=== PATIENT | female | born 1985 | race Caucasian/White ===

== ENCOUNTER 2022-04-25 23:49 | Emergency (ER) | payer BC, SELFPAY ==
--- NOTE | ~2022-04-25 | CT_ITS ---
EXAMINATION: CTA chest PE abdomen pel DATE: 04/26/2022 01:45 INDICATION: Midsternal chest pain radiating to the right. TECHNIQUE: Computed tomography (CT) pulmonary angiogram of the chest was performed with 100 mL Omnipa que-350 intravenous contrast. Additional 3D reconstructions utilizing coronal maximum intensity proje ction (MIP) were performed. CT of the abdomen and pelvis was performed with intravenous contrast util izing the same contrast bolus following a short delay. Automated exposure control and iterative recon struction technique were employed. The dose-length product was 599.43 mGy-cm. COMPARISON: None FINDINGS: Chest: Excellent contrast opacification of the pulmonary arteries. There is mild streak artifact from dense contrast in the superior vena cava and right atrium. No significant motion artifact yielding diagnost ic quality study which demonstrates no pulmonary embolism. Lungs are clear with no pneumonia, pulmona ry edema, pleural effusion or pneumothorax. Heart size is normal. No pericardial effusion. Thoracic a jeannette is normal in caliber with no dissection. No pathologically enlarged thoracic lymphadenopathy. Juni rene are unremarkable. Abdomen/pelvis: Gallstones within the otherwise normal-appearing gallbladder with no wall thickening or pericholecyst ic inflammatory stranding to suggest acute cholecystitis. Liver, spleen, pancreas, bilateral adrenal glands and kidneys are normal. Bowels including the appendix are normal. No free intraperitoneal gas or fluid. No pathologically enlarged abdominal or pelvic lymphadenopathy. Bones are unremarkable. IMPRESSION: 1. No pulmonary embolism or other acute cardiopulmonary disease. 2. Cholelithiasis. Reviewed, dictated and finalized at location A.
--- NOTE | ~2022-04-25 | XR_ITS ---
EXAMINATION: XR chest 2V DATE: 04/26/2022 00:25 INDICATION: Mid to right-sided chest pain TECHNIQUE: PA and lateral views of the chest were obtained. COMPARISON: None FINDINGS: The lungs are clear with no focal airspace opacities, pulmonary edema, pleural effusion or pneumothor ax. The cardiomediastinal silhouette is normal. Visualized bones and soft tissues are unremarkable. IMPRESSION: 1. No acute cardiopulmonary disease. Reviewed, dictated and finalized at location A.
[2022-04-25 23:59] VITALS: BP 107/74; PULSE 73; RESP 16; TEMP 36.4; O2SAT 100
[2022-04-26] VITALS (9 sets, daily range): BP systolic 86–119; BP diastolic 57–81; PULSE 60–84; RESP 12–18; TEMP 36.6; O2SAT 98–99
--- NOTE | 2022-04-26 00:34 | ECG_ITS ---
Measurements Intervals [place] Rate: 74 P: -8 [place]: 114 QRS: -34 QRSD: 98 T: 34 QT: 397 QTc: 443 Interpretive Statements SINUS RHYTHM WITH SHORT WA INTERVAL LEFT AXIS DEVIATION LOW QRS VOLTAGE IN PRECORDIAL LEADS INCOMPLETE RIGHT BUNDLE BRANCH BLOCK BORDERLINE ST-T WAVE ABNORMALITY- ANT/INF LEADS BASELINE ARTIFACT- II, III, AVF, V1-V3 BORDERLINE ECG NO PREVIOUS ECG AVAILABLE FOR COMPARISON Electronically Signed On 04-26-2022 7:56:56 CDT by Vito Ricci D.O.
--- NOTE | 2022-04-26 00:39 | ED.GENADULT ---
HPI - General Adult General Chief complaint: Chest Pain <Zay Yap MD - Last Filed: 04/26/22 06:27> Stated complaint: Chest pain, numbness and tingling <Zay Yap MD - Last Filed: 04/26/22 06:27> Time Seen by Provider: 04/26/22 00:07 <Zay Yap MD - Last Filed: 04/26/22 06:27> History of Present Illness HPI narrative: Patient is a 36-year-old biologic male that is transitioning to female that presents the emergency department with chief complaint of chest pain. Patient reports that the started having some sensation of tingling on the left side of the body and also a strange sensation in the chest that goes from the center of the chest to the right side of the chest. Patient reports this started around 10 AM this morning when they woke up the patient reports that they are on estrogen therapy during the transition and are concerned for possible PE. The patient does report that they have had some numbness in the left leg and left arm this is started at 10 AM this with last known well outside of the window from thrombolytic standpoint <Zay Yap MD - Last Filed: 04/26/22 06:27> Related Data Allergies/adverse reactions: Allergies Allergy/AdvReac Type Severity Reaction Status Date / Time Penicillins Allergy Anaphylaxis Verified 04/26/22 00:50 <Zay Yap MD - Last Filed: 04/26/22 06:27> Review of Systems Review of Systems: A 10 system review of systems was completed on the patient and is negative except for what is stated in the HPI. Nursing and ancillary documentation was reviewed. <Zay Yap MD - Last Filed: 04/26/22 06:27> Exam Narrative: GENERAL: Well-appearing, well-nourished, and in no acute distress. HEAD: Normocephalic, atraumatic. EYES: PERRLA and EOMI. ENT: Nares clear, no rhinorrhea or epistaxis. Mucous membranes moist. NECK: Supple. CHEST: Clear to auscultation. No respiratory distress. HEART: Regular rate and rhythm. No murmur heard. Normal peripheral pulses. ABDOMEN: Soft, nontender, nondistended, normal active bowel sounds. EXTREMITIES: Normal range of motion. No edema. metrical smile SKIN: Warm, dry, no rash. NEURO: No focal deficits. Alert and oriented x3.Slight decrease sensation in the left lower extremity equal training intern strength bilaterally able to lift legs off of the stretcher equally sym PSYCH: Normal mood and affect. <Zay Yap MD - Last Filed: 04/26/22 06:27> Course Reevaluation(s) Reevaluation #1: Patient care was signed out to me by Dr. Yap Patient is a 36-year-old transitioning female presenting to the emergency department for evaluation of chest pain and lightheadedness. Patient is on hormone therapy. Patient did have negative serial troponins. Patient was afebrile with no leukocytosis. Patient's CMP is similar to the baseline. CTA was ordered to rule out pulmonary embolism. CTA showed no pulmonary embolism or other acute cardiopulmonary disease. EKG shows normal sinus rhythm with short [place] interval, left axis deviation, incomplete right bundle, nonspecific ST changes, no ectopy. Patient was updated the results of the work-up including labs, imaging and EKG. Patient was encouraged of close follow-up with their primary care physician. All questions and concerns were addressed. Patient was well-appearing at time of discharge. <Manuel Jin MD - Last Filed: 04/26/22 11:24> Vital Signs Vital signs: Vital Signs Temperature 97.6 F 04/25/22 23:59 Pulse Rate 73 04/25/22 23:59 Respiratory Rate 16 04/25/22 23:59 Blood Pressure 107/74 04/25/22 23:59 Pulse Oximetry 100 04/25/22 23:59 Oxygen Delivery Room Air 04/25/22 23:59 Temperature 98 F 04/26/22 06:14 Pulse Rate 70 04/26/22 08:45 Respiratory Rate 16 04/26/22 08:45 Blood Pressure 95/66 L 04/26/22 08:45 Pulse Oximetry 98 04/26/22 08:45 Oxygen Delivery [place]
[2022-04-26] MEDS: ASPIRIN 81 MG CHEWABLE TABLET 324 MG PO (00:49)
[2022-04-26 00:53] LABS: INR 1.1; Partial Thromboplastin Time 27.8 SECONDS (22.3-36.8); Prothrombin Time 13.7 Seconds (11.1-14.7)
[2022-04-26 00:55] LABS: Basophils Percent Auto 0.2 % (0.2-1.2); Eosinophils Absolute Auto 0.2 K/mm3 (0-0.3); Hematocrit 43.5 % (37.0-47.0); Hemoglobin 14.9 g/dL (12.0-15.0); Immature Granulocyte Absolute 0.02 K/mm3 (0.00-0.031); Immature Granulocyte Percent A 0.2 % (0-0.5); Lymphocytes Absolute Auto 2.66 K/mm3 (0.9-3.2); Lymphocytes Percent Auto 29.2 % (18.3-44.2); Mean Corpuscular HGB Conc 34.3 g/dl (32-36); Mean Corpuscular Volume 90.4 fl (80-100); Mean Platelet Volume 10.9 fl (7.4-10.4); Monocytes Absolute Auto 0.6 K/mm3 (0.1-0.6); Neutrophils Absolute Auto 5.7 K/mm3 (1.3-6.7); Neutrophils Percent Auto 62.4 % (45.5-73.1); Platelet Count Result 259 k/mm3 (150-375); Red Blood Count 4.81 M/mm3 (4.2-5.4); Red Cell Distribution Width 12.8 % (11.5-14.5); White Blood Count 9.1 K/mm3 (4.5-10.0)
[2022-04-26 01:16] LABS: Alanine Aminotransferase 19 U/L (6-35); Albumin Level 4.8 g/dL (3.5-5.1); Alkaline Phosphatase 78 U/L (38-126); Anion Gap 7 mmol/L (8-16); Aspartate Amino Transferase 21 U/L (14-36); Bilirubin,Total 0.8 mg/dL (0.2-1.3); Blood Urea Nitrogen 5 mg/dL (7-17); Calcium 9.4 mg/dL (8.4-10.2); Carbon Dioxide 29 mmol/L (22-30); Chloride 99 mmol/L (98-107); Estimated CRCL calculation 113 ml/min; Estimated Glomerular Filt Rate > 60; Glucose 116 mg/dL (65-110); Lipase 35 U/L (23-300); Potassium 3.5 mmol/L (3.4-5.0); Sodium 135 mmol/L (137-145); Troponin I < 0.012 ng/mL (0.000-0.034)
[2022-04-26 04:14] LABS: Troponin I < 0.012 ng/mL (0.000-0.034)
[2022-04-26 07:25] LABS: Troponin I < 0.012 ng/mL (0.000-0.034)
== END 2022-04-26 08:46 | disposition home or self-care (01) ==
PROVIDERS: Emergency Provider Emergency Medicine
DX: R07.89 Other chest pain (principal)
CPT/HCPCS: 36415; 71046; 71275; 74177; 80053; 83690; 84484; 85025; 85610; 85730; 93005; 99284; A9270; Q9967

== ENCOUNTER 2022-05-20 17:57 | Emergency (ER) | payer BC, SELFPAY ==
--- NOTE | ~2022-05-20 | CT_ITS ---
EXAMINATION: CT soft tissue neck w con DATE: 05/20/2022 19:49 INDICATION: TECHNIQUE: Computed tomography (CT) of the neck was performed with 75 mL Omnipaque-350 intravenous co ntrast. The dose-length product was 500.74 mGy-cm. COMPARISON: None FINDINGS: The thyroid gland is unremarkable. The submandibular and parotid glands are symmetric. There is n o cervical lymphadenopathy. There are no masses identified. The superior mediastinum is unremarka ble. The airway is unremarkable. Parapharyngeal and pre-glottic fat planes are preserved. Lashaun l enhancing neck arteries. The orbits are unremarkable. Visualized sinuses and mastoid air cells a re well aerated. Visualized lung parenchyma is clear. Visualized bones normal for age. IMPRESSION: Normal CT soft tissue neck findings. Reviewed, dictated and finalized at location K.
[2022-05-20 18:04] VITALS: BP 122/79; PULSE 69; RESP 16; O2SAT 97
--- NOTE | 2022-05-20 18:25 | ED.GENADULT ---
HPI - General Adult General Chief complaint: Unspecified <YAMILETH Hunt Last Filed: 05/20/22 20:45> Stated complaint: throat pain <YAMILETH Hunt Last Filed: 05/20/22 20:45> Time Seen by Provider: 05/20/22 18:11 <YAMILETH Hunt Last Filed: 05/20/22 20:45> History of Present Illness HPI narrative: Patient is a 36-year-old female here for evaluation of globus sensation and difficulty swallowing x1 week. Patient states that she has had difficulty swallowing both solids and liquids over the past week, and has progressed in severity to the point where she is having difficulty swallowing pills. She is able to tolerate her own secretions. She denies any sore throat but states that she has a fullness sensation in her neck. She saw her GI doctor for this issue and has an EGD set up in 5 days, but patient presents due to concerns over progressive dysphagia. She is regurgitating her food out right after she eats it. She denies any abdominal pain, fevers or chills, known globus or foreign body. No SOB. She does have a history of eosinophilic esophagitis that was previously treated with Symbicort inhaler but she has not refilled this due to the cost. <Natividad Dye PA-C - Last Filed: 05/20/22 20:45> Related Data Allergies/adverse reactions: Allergies Allergy/AdvReac Type Severity Reaction Status Date / Time Penicillins Allergy Anaphylaxis Verified 05/20/22 18:10 <YAMILETH Hunt Last Filed: 05/20/22 20:45> Review of Systems Review of Systems: Gen.: Denies fevers or chills Eyes: Denies eye pain or visual change ENT: Reports throat pain Respiratory: Denies shortness of breath or cough CV: Denies chest pain or palpitations GI: Denies abdominal pain nausea, emesis or diarrhea : denies burning, urgency, frequency or hematuria Musculoskeletal: Denies back pain or muscle pain Neuro: Denies numbness, tingling, weakness or focal weakness Skin: Denies rash Except as documented, all other systems reviewed and negative <YAMILETH Hunt Last Filed: 05/20/22 20:45> Exam Narrative: APPEARANCE: Well appearing, no pain in distress, well-nourished. Head: Normocephalic and atraumatic. EYES: PERRLA/EOMI, conjunctivae clear NOSE: No nasal drainage EARS: External ear normal in appearance THROAT: Oropharynx is clear. Mucous membranes are moist. NECK: Supple. No adenopathy, no masses. RESPIRATORY: Airway patent, respirations nonlabored. Clear to auscultation bilaterally, no rales, rhonchi, wheezing. CARDIOVASCULAR: Regular rate and rhythm without murmurs, rubs, or gallops. ABDOMINAL: Normoactive bowel sounds. Soft, nontender, nondistended. No rebound tenderness or guarding. MUSCULOSKELETAL: Extremities are warm and well-perfused. Moves all extremities well. No edema. NEURO: Normal speech. No focal neurologic deficits. SKIN: Skin is warm and dry. No rashes. PSYCHIATRIC: Normal affect/mood.. <Natividad Dye PA-C - Last Filed: 05/20/22 20:45> Course ROLLER TURNER/PA Physician Supervision This is a was performed by both a physician and an APC. I performed all aspects of the MDM as documented w/ the following additions: 36-year-old female presenting with dysphagia. Unable tolerate solids but is tolerating liquids. No respiratory distress. CT neck was unremarkable. Patient has appropriate follow-up with GI in 5 days. Return precautions given.All questions answered. Patient in agreement w/ disposition. <Jasvir Guerra MD - Last Filed: 05/21/22 21:05> Vital Signs Vital signs: Vital Signs Pulse Rate 69 05/20/22 18:04 Respiratory Rate 16 05/20/22 18:04 Blood Pressure 122/79 05/20/22 18:04 Pulse Oximetry 97 05/20/22 18:04 Pulse Rate 68 05/20/22 20:47 Respiratory Rate 18 05/20/22 20:47 Blood Pressure 105/73 05/20/22 20:47 Pulse Oximetry 99 05/20/22 20:47 <Natividad Dye PA-C - Last Filed
[2022-05-20] MEDS: SODIUM CHLORIDE 0.9% IV 1,000 ML 999 ML IV CONT (18:39)
[2022-05-20] MEDS: ONDANSETRON INJ 4 MG/2 ML VIAL IV PUSH (18:40)
[2022-05-20 18:53] LABS: Basophils Percent Auto 0.3 % (0.2-1.2); Eosinophils Absolute Auto 0.5 K/mm3 (0-0.3); Eosinophils Percent Auto 5.9 % (0-4.4); Hematocrit 41.3 % (37.0-47.0); Hemoglobin 14.5 g/dL (12.0-15.0); Immature Granulocyte Absolute 0.02 K/mm3 (0.00-0.031); Immature Granulocyte Percent A 0.2 % (0-0.5); Lymphocytes Absolute Auto 2.14 K/mm3 (0.9-3.2); Lymphocytes Percent Auto 24.5 % (18.3-44.2); Mean Corpuscular HGB Conc 35.1 g/dl (32-36); Mean Corpuscular Hemoglobin 31.3 pg (26-34); Mean Corpuscular Volume 89.2 fl (80-100); Mean Platelet Volume 10.7 fl (7.4-10.4); Monocytes Absolute Auto 0.6 K/mm3 (0.1-0.6); Monocytes Percent Auto 6.9 % (2.6-8.5); Neutrophils Absolute Auto 5.4 K/mm3 (1.3-6.7); Neutrophils Percent Auto 62.2 % (45.5-73.1); Platelet Count Result 261 k/mm3 (150-375); Red Blood Count 4.63 M/mm3 (4.2-5.4); Red Cell Distribution Width 12.1 % (11.5-14.5); White Blood Count 8.8 K/mm3 (4.5-10.0)
[2022-05-20 18:59] LABS: Anion Gap 9 mmol/L (8-16); Blood Urea Nitrogen 3 mg/dL (7-17); Calcium 9.1 mg/dL (8.4-10.2); Carbon Dioxide 26 mmol/L (22-30); Chloride 104 mmol/L (98-107); Estimated CRCL calculation 128 ml/min; Estimated Glomerular Filt Rate > 60; Glucose 90 mg/dL (65-110); Potassium 3.6 mmol/L (3.4-5.0); Sodium 139 mmol/L (137-145)
[2022-05-20 20:47] VITALS: BP 105/73; PULSE 68; RESP 18; O2SAT 99
== END 2022-05-20 20:55 | disposition home or self-care (01) ==
PROVIDERS: Emergency Provider Physician Assistant
DX: F45.8 Other somatoform disorders (principal)
CPT/HCPCS: 36415; 70491; 80048; 85025; 96361; 96374; 99284; J2405; J7030; Q9967

== ENCOUNTER 2022-08-01 22:23 | Emergency (ER) | payer BC, SELFPAY ==
[2022-08-01 22:35] VITALS: BP 105/66; PULSE 68; RESP 18; TEMP 36.2; O2SAT 99
[2022-08-02 00:47] VITALS: BP 101/67; PULSE 64; RESP 14; O2SAT 100
[2022-08-02 00:49] LABS: Basophils Percent Auto 0.2 % (0.2-1.2); Eosinophils Absolute Auto 0.3 K/mm3 (0-0.3); Eosinophils Percent Auto 2.7 % (0-4.4); Hematocrit 42.8 % (37.0-47.0); Hemoglobin 14.5 g/dL (12.0-15.0); Immature Granulocyte Absolute 0.03 K/mm3 (0.00-0.031); Immature Granulocyte Percent A 0.3 % (0-0.5); Lymphocytes Absolute Auto 2.44 K/mm3 (0.9-3.2); Lymphocytes Percent Auto 25.9 % (18.3-44.2); Mean Corpuscular HGB Conc 33.9 g/dl (32-36); Mean Corpuscular Hemoglobin 30.7 pg (26-34); Mean Corpuscular Volume 90.7 fl (80-100); Mean Platelet Volume 10.8 fl (7.4-10.4); Monocytes Absolute Auto 0.6 K/mm3 (0.1-0.6); Monocytes Percent Auto 6.8 % (2.6-8.5); Neutrophils Percent Auto 64.1 % (45.5-73.1); Platelet Count Result 251 k/mm3 (150-375); Red Blood Count 4.72 M/mm3 (4.2-5.4); Red Cell Distribution Width 11.4 % (11.5-14.5); White Blood Count 9.4 K/mm3 (4.5-10.0)
[2022-08-02 01:11] LABS: Alanine Aminotransferase 14 U/L (6-35); Albumin Level 4.6 g/dL (3.5-5.1); Alkaline Phosphatase 65 U/L (38-126); Anion Gap 8 mmol/L (8-16); Aspartate Amino Transferase 20 U/L (14-36); Bilirubin,Total 0.8 mg/dL (0.2-1.3); Blood Urea Nitrogen 7 mg/dL (7-17); Calcium 9.1 mg/dL (8.4-10.2); Carbon Dioxide 30 mmol/L (22-30); Chloride 102 mmol/L (98-107); Estimated CRCL calculation 105 ml/min; Estimated Glomerular Filt Rate > 60; Glucose 84 mg/dL (65-110); Lipase 42 U/L (23-300); Potassium 3.6 mmol/L (3.4-5.0); Sodium 140 mmol/L (137-145)
[2022-08-02 01:27] LABS: Appearance Urine Turbid (Clear); Bacteria Urine None Seen /hpf; Bilirubin Urine Negative (Negative); Blood Urine Negative (Negative); Color Urine Dark Yellow (Yellow); Glucose Urine UA Negative (Negative); Ketones Urine Trace mg/dL (Negative); Leukocyte Esterase Ur Negative LEU/UL (Negative); Need Manual Microscopic Reviewed; Nitrate Urine Negative (Negative); Non Pathogenic Casts 0-2; Protein Urine Negative (Negative); RBC Urine 0-2 /hpf (0-2); Specific Grav Ur 1.019 (1.001-1.035); Squamous Epithelial Cell Urine None seen /hpf (Few)
[2022-08-02 01:28] LABS: Add Urine Microscopic? YES
[2022-08-02] MEDS: ONDANSETRON HCL ODT 4 MG TABLET PO (03:44)
[2022-08-02] MEDS: MAG HYDROX/AL HYDROX/SIMETH 30 ML UDC PO (03:44)
--- NOTE | 2022-08-02 04:06 | ED.NAVMDI ---
HPI - Nausea/Vomiting/Diarrhea General Chief complaint: Nausea/Vomiting/Diarrhea Stated complaint: vomiting, not able to eat for a week Time Seen by Provider: 08/02/22 03:15 History of Present Illness HPI Narrative: Patient (born male transitioning to woman) has history of GERD and eosinophilic esophagitis for which she is on Symbicort, Pepcid, Protonix, and follows up with GI in [place]. However she has run out of her prescription for Symbicort about 2 weeks ago, and about a week ago, started having more nausea, pain in her throat, the symptoms are all min to what she has when she has bad esophagitis and she thinks that is because she is out of the Symbicort. She is able to keep down fluids including Pedialyte but not much else. Some slight epigastric/left upper quadrant discomfort. Related Data Allergies Allergy/AdvReac Type Severity Reaction Status Date / Time Penicillins Allergy Anaphylaxis Verified 08/01/22 22:23 Review of Systems Review of Systems: CONST: No fever. HEENT: sore throat C/V: No chest pain RESP: No cough GI: Reports LUQ abdominal pain, nausea, vomiting : No dysuria. M/S: No joint pain. SKIN: No rash. NEURO: [No headache or focal numbness or weakness] PSYCH: [No depression] [facility] Past Medical History Medical History (Updated 08/02/22 @ 04:12 by Emily Osei MD) Eosinophilic esophagitis GERD (gastroesophageal reflux disease) Exam Narrative: EXAMINATION OF ORGAN SYSTEMS/BODY AREAS: Constitutional: Vital signs per nursing GENERAL:[No acute distress, non-toxic appearing.] HEAD: Normal with no signs of head trauma. EYES: EOMI, conjunctiva normal ENT: Normal voice, no pharyngeal erythema LUNGS: Nonlabored breathing. HEART: [Regular rate and rhythm] ABD: [Soft], [nontender to palpation] EXT: Normal range of motion SKIN: [No rashes or lesions.] NEURO: [Alert and oriented x 3. No gross focal sensory or strength deficits.] PSYCH: Normal affect Course Vital Signs Vital signs: Vital Signs Temperature 97.2 F L 08/01/22 22:35 Pulse Rate 68 08/01/22 22:35 Respiratory Rate 18 08/01/22 22:35 Blood Pressure 105/66 08/01/22 22:35 Pulse Oximetry 99 08/01/22 22:35 Oxygen Delivery Room Air 08/01/22 22:35 Temperature 97.2 F L 08/01/22 22:35 Pulse Rate 64 08/02/22 00:47 Respiratory Rate 14 08/02/22 00:47 Blood Pressure 101/67 08/02/22 00:47 Pulse Oximetry 100 08/02/22 00:47 Oxygen Delivery Room Air 08/01/22 22:35 MDM - Nausea/Vomiting/Diarrhea MDM Narrative Medical decision making narrative: Electronic medical record was reviewed. Patient presented to the ED with complaint of nausea/vomiting. Vitals [were within acceptable limits]. Physical exam revealed wel-appearing patient in no distress intact airway, soft nontender abdomen. Based on the patient's history and physical exam, my differential includes but is not limited to [gastritis/esophagitis, gastroenteritis, cholecystitis, pancreatitis]. [IV access was established by nursing staff. Patient was given zofran, maalox]. CBC, BMP, lipase, LFTs, bilirubin and alk phos were obtained. Labs were pertinent for minimal ketones in urine, 11-20 WBCs in urine but no bacteria and patient reports she is asexual so low concern for UTI. On reevaluation, the patient feeling better. There were no witnessed episodes of vomiting in the emergency department. They are not complaining of any new abdominal pain. Repeat examination did not show any significant guarding or rebound. She passed PO challenge here. No new tenderness. At this time I do not feel there is any further emergent treatment to be provided. The patient was given strict return precautions, if they are to develop any worsening abdominal pain, vomiting, or blood in the vomit they are to return to the emergency department immediately. Patient verbally acknowledges understanding these directions. [The patient was informed of the above diagnostic test finding
[2022-08-02 04:20] VITALS: PULSE 69; RESP 16; O2SAT 100
== END 2022-08-02 04:28 | disposition home or self-care (01) ==
PROVIDERS: Emergency Provider Emergency Medicine
DX: R11.2 Nausea with vomiting, unspecified (principal); K21.9 Gastro-esophageal reflux disease without esophagitis; K20.0 Eosinophilic esophagitis
CPT/HCPCS: 36415; 80053; 81001; 83690; 85025; 87086; 87088; 99283; A9270

== ENCOUNTER 2022-08-18 12:06 | Emergency (ER) | payer BC, SELFPAY ==
[2022-08-18 12:19] VITALS: BP 118/89; PULSE 61; RESP 18; TEMP 36.2; O2SAT 98
--- NOTE | 2022-08-18 12:31 | PC.NURSE ---
Pt is transgender. Male > female. No test needed.
--- NOTE | 2022-08-18 12:34 | PC.NURSE ---
Pt attempted to provided urine sample but unable to urinate at this time
[2022-08-18 12:43] LABS: Basophils Percent Auto 0.5 % (0.2-1.2); Eosinophils Absolute Auto 0.5 K/mm3 (0-0.3); Eosinophils Percent Auto 6.4 % (0-4.4); Hematocrit 42.6 % (37.0-47.0); Hemoglobin 14.7 g/dL (12.0-15.0); Immature Granulocyte Absolute 0.02 K/mm3 (0.00-0.031); Immature Granulocyte Percent A 0.3 % (0-0.5); Lymphocytes Absolute Auto 2.02 K/mm3 (0.9-3.2); Lymphocytes Percent Auto 26.5 % (18.3-44.2); Mean Corpuscular HGB Conc 34.5 g/dl (32-36); Mean Corpuscular Hemoglobin 30.7 pg (26-34); Mean Corpuscular Volume 88.9 fl (80-100); Mean Platelet Volume 10.9 fl (7.4-10.4); Monocytes Absolute Auto 0.5 K/mm3 (0.1-0.6); Monocytes Percent Auto 6.3 % (2.6-8.5); Neutrophils Absolute Auto 4.6 K/mm3 (1.3-6.7); Platelet Count Result 237 k/mm3 (150-375); Red Blood Count 4.79 M/mm3 (4.2-5.4); Red Cell Distribution Width 11.4 % (11.5-14.5); White Blood Count 7.6 K/mm3 (4.5-10.0)
[2022-08-18] MEDS: ONDANSETRON INJ 4 MG/2 ML VIAL IV PUSH (13:01)
[2022-08-18 13:02] LABS: Alanine Aminotransferase 18 U/L (6-35); Albumin Level 4.4 g/dL (3.5-5.1); Alkaline Phosphatase 70 U/L (38-126); Anion Gap 9 mmol/L (8-16); Aspartate Amino Transferase 23 U/L (14-36); Bilirubin,Total 0.7 mg/dL (0.2-1.3); Blood Urea Nitrogen 8 mg/dL (7-17); Calcium 8.9 mg/dL (8.4-10.2); Carbon Dioxide 27 mmol/L (22-30); Chloride 103 mmol/L (98-107); Estimated CRCL calculation 108 ml/min; Estimated Glomerular Filt Rate > 60; Glucose 116 mg/dL (65-110); Lipase 45 U/L (23-300); Potassium 3.9 mmol/L (3.4-5.0); Sodium 139 mmol/L (137-145)
[2022-08-18] MEDS: MORPHINE SULFATE (*CRX) 2 MG/ML INJ IV PUSH (13:02)
[2022-08-18 14:44] LABS: Appearance Urine Clear (Clear); Bilirubin Urine 1+ (Negative); Blood Urine Negative (Negative); Color Urine Yellow (Yellow); Glucose Urine UA Negative (Negative); Ketones Urine Negative (Negative); Leukocyte Esterase Ur Negative LEU/UL (Negative); Nitrate Urine Negative (Negative); Protein Urine Negative (Negative); pH Urine 6.5 (5.0-9.0)
[2022-08-18 14:57] VITALS: BP 96/60; PULSE 75; RESP 18; O2SAT 100
[2022-08-18 15:04] LABS: Add Urine Microscopic? NO
--- NOTE | 2022-08-18 15:11 | ED.NAVMDI ---
HPI - Nausea/Vomiting/Diarrhea General Chief complaint: Nausea/Vomiting/Diarrhea Stated complaint: N/V x 2 days Time Seen by Provider: 08/18/22 12:29 History of Present Illness HPI Narrative: Patient is a 36-year-old biological male transitioning to female who presents ER with nausea and vomiting. Ongoing for 2 days. Has history of eosinophilic esophagitis. She takes multiple medications to control this including pantoprazole, Symbicort, Flonase. Last balloon dilation was 2 months ago. Has some discomfort with swallowing at times and then will feel like she needs to throw up. She does not feel as if food gets stuck and has been able to keep food and water down. No fevers or chills or sweats. What is atypical for her is the fact that she is having some lower abdominal cramping with this. No diarrhea. No known sick contacts. Related Data Allergies Allergy/AdvReac Type Severity Reaction Status Date / Time Penicillins Allergy Anaphylaxis Verified 08/18/22 12:36 Review of Systems Constitutional: Constitutional: Denies chills, Denies fatigue and Denies fever(s) Cardiovascular: Cardiovascular: Denies chest pain and Denies rapid heart rate Respiratory: Respiratory: Denies cough and Denies dyspnea Gastrointestinal: Gastrointestinal: Reports abdominal pain, Reports nausea and Reports vomiting Musculoskeletal: Musculoskeletal: Reports no additional musculoskeletal complaints PMFSH Past Medical History Medical History (Updated 08/18/22 @ 15:20 by Adebayo Whitney MD) Eosinophilic esophagitis GERD (gastroesophageal reflux disease) Surgical History Surgical History (Updated 08/18/22 @ 15:20 by Adebayo Whitney MD) History of esophagogastroduodenoscopy (EGD) Exam Narrative: GENERAL: Well-appearing, well-nourished, and in no acute distress. HEAD: Normocephalic, atraumatic. EYES: PERRL and EOMI. ENT: Mucous membranes moist. Normal-appearing posterior oropharynx. Tolerating oral secretions without issue CHEST: Clear to auscultation. No respiratory distress. HEART: Regular rate and rhythm. Normal peripheral pulses. ABDOMEN: Soft, nontender, nondistended, normal active bowel sounds. EXTREMITIES: Normal range of motion. No edema. SKIN: Warm, dry, no rash. NEURO: Alert and oriented x3. PSYCH: Normal mood and affect. Course Course Emergency Course: Patient resting comfortably. Informed of results. Abdominal exam benign. Patient is able to eat and drink and so is not felt that patient requires emergent balloon dilation. Patient should follow-up with his GI physician and continue her PPI. She will be given antiemetics for home. Vital Signs Vital signs: Vital Signs Temperature 97.2 F L 08/18/22 12:19 Pulse Rate 61 08/18/22 12:19 Respiratory Rate 18 08/18/22 12:19 Blood Pressure 118/89 08/18/22 12:19 Pulse Oximetry 98 08/18/22 12:19 Temperature 97.2 F L 08/18/22 12:19 Pulse Rate 75 08/18/22 14:57 Respiratory Rate 18 08/18/22 14:57 Blood Pressure 96/60 L 08/18/22 14:57 Pulse Oximetry 100 08/18/22 14:57 MDM - Nausea/Vomiting/Diarrhea Lab Data 08/18/22 12:37 08/18/22 12:37 Labs: Lab Results 08/18/22 08/18/22 Range/Units 12:37 14:27 WBC 7.6 (4.5-10.0) K/mm3 RBC 4.79 (4.2-5.4) M/mm3 Hgb 14.7 (12.0-15.0) g/dL Hct 42.6 (37.0-47.0) % MCV 88.9 (80-100) fl MCH 30.7 (26-34) pg MCHC 34.5 (32-36) g/dl RDW 11.4 L (11.5-14.5) % Plt Count 237 (150-375) k/mm3 MPV 10.9 H (7.4-10.4) fl Immature Gran % (Auto) 0.3 (0-0.5) % Neut % (Auto) 60.0 (45.5-73.1) % Lymph % (Auto) 26.5 (18.3-44.2) % [place] % (Auto) 6.3 (2.6-8.5) % Eos % (Auto) 6.4 H (0-4.4) % Baso % (Auto) 0.5 (0.2-1.2) % Lymph # (Auto) 2.02 (0.9-3.2) K/mm3 [place] # (Auto) 0.5 (0.1-0.6) K/mm3 Eos # (Auto) 0.5 H (0-0.3) K/mm3 Baso # (Auto) 0.0 (0.0-0.1) K/mm3 Abs Immat Gran (auto) 0.02 (0.00-0.031) K/
== END 2022-08-18 15:29 | disposition home or self-care (01) ==
PROVIDERS: Emergency Provider Emergency Medicine
DX: R11.2 Nausea with vomiting, unspecified (principal); R10.9 Unspecified abdominal pain; K20.0 Eosinophilic esophagitis; K21.9 Gastro-esophageal reflux disease without esophagitis
CPT/HCPCS: 36415; 80053; 81003; 83690; 85025; 96374; 96375; 99284; J2270; J2405

== ENCOUNTER 2022-09-23 03:32 | Emergency (ER) | payer BC, SELFPAY ==
[2022-09-23 03:34] VITALS: BP 113/82; PULSE 75; RESP 16; TEMP 36.5; O2SAT 99
[2022-09-23] MEDS: LACTATED RINGERS 1,000 ML 999 ML IV CONT (04:35)
[2022-09-23] MEDS: ONDANSETRON INJ 4 MG/2 ML VIAL IV PUSH (04:35)
[2022-09-23 04:47] LABS: Basophils Percent Auto 0.4 % (0.2-1.2); Eosinophils Absolute Auto 0.6 K/mm3 (0-0.3); Eosinophils Percent Auto 7.3 % (0-4.4); Hematocrit 39.5 % (37.0-47.0); Hemoglobin 13.6 g/dL (12.0-15.0); Immature Granulocyte Absolute 0.03 K/mm3 (0.00-0.031); Immature Granulocyte Percent A 0.4 % (0-0.5); Lymphocytes Absolute Auto 2.01 K/mm3 (0.9-3.2); Lymphocytes Percent Auto 23.9 % (18.3-44.2); Mean Corpuscular HGB Conc 34.4 g/dl (32-36); Mean Corpuscular Hemoglobin 31.2 pg (26-34); Mean Corpuscular Volume 90.6 fl (80-100); Mean Platelet Volume 10.5 fl (7.4-10.4); Monocytes Absolute Auto 0.6 K/mm3 (0.1-0.6); Monocytes Percent Auto 7.3 % (2.6-8.5); Neutrophils Absolute Auto 5.1 K/mm3 (1.3-6.7); Neutrophils Percent Auto 60.7 % (45.5-73.1); Platelet Count Result 235 k/mm3 (150-375); Red Blood Count 4.36 M/mm3 (4.2-5.4); Red Cell Distribution Width 12.1 % (11.5-14.5); White Blood Count 8.4 K/mm3 (4.5-10.0)
[2022-09-23 04:50] LABS: Appearance Urine Clear (Clear); Bacteria Urine None Seen /hpf; Bilirubin Urine Negative (Negative); Blood Urine Negative (Negative); Color Urine Yellow (Yellow); Glucose Urine UA Negative (Negative); Ketones Urine Negative (Negative); Leukocyte Esterase Ur 1+ LEU/UL (Negative); Nitrate Urine Negative (Negative); Non Pathogenic Casts 0-2; Protein Urine Negative (Negative); RBC Urine 0-2 /hpf (0-2); Specific Grav Ur 1.021 (1.001-1.035); Squamous Epithelial Cell Urine None seen /hpf (Few); WBC Urine 21-50 /hpf; pH Urine 6.5 (5.0-9.0)
[2022-09-23 04:58] LABS: Add Urine Microscopic? YES
[2022-09-23 05:11] LABS: Alanine Aminotransferase 15 U/L (6-35); Albumin Level 4.3 g/dL (3.5-5.1); Alkaline Phosphatase 67 U/L (38-126); Anion Gap 5 mmol/L (8-16); Aspartate Amino Transferase 21 U/L (14-36); Bilirubin,Total 0.4 mg/dL (0.2-1.3); Blood Urea Nitrogen 12 mg/dL (7-17); Calcium 8.8 mg/dL (8.4-10.2); Carbon Dioxide 29 mmol/L (22-30); Chloride 105 mmol/L (98-107); Estimated CRCL calculation 106 ml/min; Estimated Glomerular Filt Rate > 60; Glucose 92 mg/dL (65-110); Lipase 57 U/L (23-300); Sodium 139 mmol/L (137-145)
[2022-09-23 05:12] LABS: D Dimer < 0.27 ug/mL (<0.48)
[2022-09-23 05:14] LABS: Potassium 3.6 mmol/L (3.4-5.0)
--- NOTE | 2022-09-23 06:40 | ED.NAVMDI ---
HPI - Nausea/Vomiting/Diarrhea General Chief complaint: Abdominal Pain Stated complaint: vomiting Time Seen by Provider: 09/23/22 03:49 History of Present Illness HPI Narrative: 36-year-old transgender female presenting with nausea and vomiting, she has had symptoms like this in the past and is followed by GI at [facility] who has started a new experimental medication but she still needs to clear her insurance for it in the meantime she is still taking pantoprazole and famotidine. When she is throwing up she feels a sensation of something in her throat. No difficulty breathing. Related Data Allergies Allergy/AdvReac Type Severity Reaction Status Date / Time Penicillins Allergy Anaphylaxis Verified 08/18/22 12:36 Review of Systems Review of Systems: CONST: No fever. HEENT: Sore throat C/V: No chest pain RESP: No cough GI: Reports epigastric abdominal pain, nausea, vomiting : No dysuria. M/S: No joint pain. SKIN: No rash. NEURO: [No headache or focal numbness or weakness] PSYCH: [No depression] [facility] Past Medical History Medical History (Updated 09/23/22 @ 06:23 by Emily Osei MD) Eosinophilic esophagitis GERD (gastroesophageal reflux disease) Surgical History Surgical History (Updated 08/18/22 @ 15:20 by Adebayo Whitney MD) History of esophagogastroduodenoscopy (EGD) Exam Narrative: EXAMINATION OF ORGAN SYSTEMS/BODY AREAS: Constitutional: Vital signs per nursing GENERAL:[No acute distress, non-toxic appearing.] HEAD: Normal with no signs of head trauma. EYES: EOMI, conjunctiva normal ENT: Airway clear, no pharyngeal erythema, normal voice, tolerating secretions LUNGS: Nonlabored breathing. HEART: [Regular rate and rhythm] ABD: [Soft], [nontender to palpation] EXT: Normal range of motion SKIN: [No rashes or lesions.] NEURO: [Alert and oriented x 3. No gross focal sensory or strength deficits.] PSYCH: Normal affect Course Vital Signs Vital signs: Vital Signs Temperature 97.7 F 09/23/22 03:34 Pulse Rate 75 09/23/22 03:34 Respiratory Rate 16 09/23/22 03:34 Blood Pressure 113/82 09/23/22 03:34 Pulse Oximetry 99 09/23/22 03:34 Oxygen Delivery Room Air 09/23/22 03:34 Temperature 97.7 F 09/23/22 03:34 Pulse Rate 79 09/23/22 06:49 Respiratory Rate 18 09/23/22 06:49 Blood Pressure 126/76 09/23/22 06:49 Pulse Oximetry 98 09/23/22 06:49 Oxygen Delivery Room Air 09/23/22 03:34 MDM - Nausea/Vomiting/Diarrhea MDM Narrative Medical decision making narrative: 36-year-old presenting with epigastric discomfort, nausea and vomiting, and some sensation of something in her throat, which is a chronic issue for her that she has had for many years and is followed by GI, presents here with the same symptoms. She is well-appearing on exam, abdomen is soft and nontender, she is also worried because she thinks that her left leg has been painful though there is no swelling. Labs are within acceptable limits including no WBC, D-dimer is negative, CMP within acceptable limits, UA shows large WBCs, I did discuss with the patient any concern for STDs and she states emphatically that she has never had sex in her life and that she has no concern for STDs whatsoever. She does not want treatment or testing for STDs. Given this I will tentatively start antibiotics for UTI and have the patient follow-up with her doctor. Lab Data 09/23/22 04:39 09/23/22 04:39 Labs: Lab Results 09/23/22 Range/Units 04:39 WBC 8.4 (4.5-10.0) K/mm3 RBC 4.36 (4.2-5.4) M/mm3 Hgb 13.6 (12.0-15.0) g/dL Hct 39.5 (37.0-47.0) % MCV 90.6 (80-100) fl MCH 31.2 (26-34) pg MCHC 34.4 (32-36) g/dl RDW 12.1 (11.5-14.5) % Plt Count 235 (150-375) k/mm3 MPV 10.5 H (7.4-10.4) fl Immature Gran % (Auto) 0.4 (0-0.5) % Neut % (Auto) 60.7 (45.5-73.1) % Lymph % (Auto) 23.9 (18.3-44.2) % [place] % (Auto) 7.3 (2.6-8.5) % Eos % (Auto) 7.3
[2022-09-23 06:49] VITALS: BP 126/76; PULSE 79; RESP 18; O2SAT 98
== END 2022-09-23 06:51 | disposition home or self-care (01) ==
PROVIDERS: Emergency Provider Emergency Medicine
DX: N39.0 Urinary tract infection, site not specified (principal); R11.2 Nausea with vomiting, unspecified; K21.00 Gastro-esophageal reflux disease with esophagitis, without bleeding
CPT/HCPCS: 36415; 80053; 81001; 83690; 85025; 85380; 87086; 96361; 96374; 99284; J2405; J7120

== ENCOUNTER 2022-11-07 20:41 | Emergency (ER) | payer BC, SELFPAY ==
[2022-11-07 20:43] VITALS: BP 127/90; PULSE 78; RESP 18; TEMP 36.6; O2SAT 100
--- NOTE | 2022-11-08 00:19 | PC.NURSE ---
Patient called for room placement, no answer and not seen in waiting room. Patient marked as left without being seen triaged.
== END 2022-11-08 00:20 | disposition left against medical advice (07) ==
LOC: ANHED 11-08 00:21
DX: R42 Dizziness and giddiness (principal)
CPT/HCPCS: 99199

== ENCOUNTER 2022-11-11 00:12 | Emergency (ER) | payer BC, SELFPAY ==
--- NOTE | ~2022-11-11 | CT_ITS ---
EXAMINATION: CT soft tissue neck w con DATE: 11/11/2022 05:13 INDICATION: Neck pain. Sore throat. TECHNIQUE: Computed tomography (CT) of the neck was performed with 75 mL Omnipaque-350 intravenous co ntrast. Automated exposure control and iterative reconstruction technique were employed. The dose-nick gth product was 431.13 mGy-cm. COMPARISON: Neck CT 05/20/2022 FINDINGS: There are no pathologically enlarged lymph nodes. There is mucosal thickening in the parana giovana sinuses. The maxillary sinuses are small. The mastoid air cells are normal. There are many absent teeth. The cervical carotid arteries are normal. There is mild cervical spondylosis. IMPRESSION: 1. No specific etiology for the patient's symptoms. Reviewed, dictated and finalized at location E.
--- NOTE | ~2022-11-11 | XR_ITS ---
EXAMINATION: XR chest 1V portable DATE: 11/11/2022 04:06 INDICATION: Chest tightness. Sore throat. TECHNIQUE: A single frontal view of the chest was obtained on 2 radiographs. COMPARISON: Chest 2 views 04/26/2022, chest CT 04/26/2022 FINDINGS: There is no pneumonia, pleural effusion, or pneumothorax. The heart size is normal. IMPRESSION: 1. No acute cardiopulmonary disease. Reviewed, dictated and finalized at location E.
[2022-11-11 00:14] VITALS: BP 115/72; PULSE 86; RESP 14; TEMP 36.3; O2SAT 100
[2022-11-11 01:00] LABS: Strep Group A RT-PCR NOT DETECTED (Negative)
--- NOTE | 2022-11-11 03:49 | ECG_ITS ---
Measurements Intervals [place] Rate: 73 P: 63 SC: 138 QRS: -21 QRSD: 96 T: 44 QT: 387 QTc: 428 Interpretive Statements SINUS RHYTHM LOW QRS VOLTAGE IN PRECORDIAL LEADS INCOMPLETE RIGHT BUNDLE BRANCH BLOCK BASELINE WANDER- II, III, AVR, AVF, V3-V4 BORDERLINE ECG COMPARED TO ECG 04/26/2022 00:34:37 NO SIGNIFICANT CHANGES Electronically Signed On 11-11-2022 6:41:14 CDT by Vito Ricci D.O.
[2022-11-11] MEDS: SODIUM CHLORIDE 0.9% IV 1,000 ML 999 ML IV CONT (04:11)
[2022-11-11] MEDS: FAMOTIDINE 20 MG/2 ML VIAL IV PUSH (04:11)
[2022-11-11 04:28] LABS: Basophils Percent Auto 0.3 % (0.2-1.2); Eosinophils Absolute Auto 0.7 K/mm3 (0-0.3); Eosinophils Percent Auto 5.3 % (0-4.4); Hematocrit 43.9 % (37.0-47.0); Hemoglobin 15.3 g/dL (12.0-15.0); Immature Granulocyte Absolute 0.05 K/mm3 (0.00-0.031); Immature Granulocyte Percent A 0.4 % (0-0.5); Lymphocytes Percent Auto 28.6 % (18.3-44.2); Mean Corpuscular HGB Conc 34.9 g/dl (32-36); Mean Corpuscular Hemoglobin 31.2 pg (26-34); Mean Corpuscular Volume 89.6 fl (80-100); Mean Platelet Volume 10.7 fl (7.4-10.4); Monocytes Absolute Auto 0.8 K/mm3 (0.1-0.6); Monocytes Percent Auto 6.3 % (2.6-8.5); Neutrophils Absolute Auto 7.7 K/mm3 (1.3-6.7); Neutrophils Percent Auto 59.1 % (45.5-73.1); Platelet Count Result 269 k/mm3 (150-375); Red Cell Distribution Width 11.9 % (11.5-14.5); White Blood Count 12.9 K/mm3 (4.5-10.0)
[2022-11-11 04:39] LABS: Alanine Aminotransferase 14 U/L (6-35); Albumin Level 5.1 g/dL (3.5-5.1); Alkaline Phosphatase 78 U/L (38-126); Anion Gap 7 mmol/L (8-16); Aspartate Amino Transferase 22 U/L (14-36); Bilirubin,Total 0.9 mg/dL (0.2-1.3); Blood Urea Nitrogen 9 mg/dL (7-17); Calcium 9.4 mg/dL (8.4-10.2); Carbon Dioxide 31 mmol/L (22-30); Chloride 99 mmol/L (98-107); Estimated CRCL calculation 104 ml/min; Estimated Glomerular Filt Rate > 60; Glucose 110 mg/dL (65-110); Lactic Acid Reflex 1.7 mmol/L (0.7-2.0); Lipase 62 U/L (23-300); Magnesium 1.8 mg/dL (1.6-2.3); Potassium 3.5 mmol/L (3.4-5.0); Sodium 137 mmol/L (137-145)
[2022-11-11 04:47] LABS: NT Pro B Type Natriuretic Pept 96 pg/mL (19.9-100)
[2022-11-11 04:50] LABS: Monoscreen Negative (Negative); Negative Monotest Control Negative (Negative); Positive Monotest Control Positive (Positive); Troponin I < 0.012 ng/mL (0.000-0.034)
--- NOTE | 2022-11-11 05:50 | ED.GENADULT ---
HPI - General Adult General Chief complaint: Unspecified Stated complaint: swollen throat, nausea, vomiting Time Seen by Provider: 11/11/22 03:40 History of Present Illness HPI narrative: Patient 37-year-old the presents emergency department with chief complaint of sore throat and trouble swallowing. Patient has prior history of eosinophilic esophagitis. Patient is followed by ear nose and throat and reports that recently had medication changes and now has a fullness feeling in her throat the patient is recently been treated with azithromycin and reports that he also has had some discomfort in her chest Related Data Allergies Allergy/AdvReac Type Severity Reaction Status Date / Time Penicillins Allergy Anaphylaxis Verified 11/07/22 20:42 Review of Systems Review of Systems: A 10 system review of systems was completed on the patient and is negative except for what is stated in the HPI. Nursing and ancillary documentation was reviewed. [facility] Past Medical History Medical History Eosinophilic esophagitis GERD (gastroesophageal reflux disease) Surgical History Surgical History History of esophagogastroduodenoscopy (EGD) Exam Narrative: GENERAL: Well-appearing, well-nourished, and in no acute distress. HEAD: Normocephalic, atraumatic. EYES: PERRLA and EOMI. ENT: Nares clear, no rhinorrhea or epistaxis. Mucous membranes moist. NECK: Supple. CHEST: Clear to auscultation. No respiratory distress. HEART: Regular rate and rhythm. No murmur heard. Normal peripheral pulses. ABDOMEN: Soft, nontender, nondistended, normal active bowel sounds. EXTREMITIES: Normal range of motion. No edema. SKIN: Warm, dry, no rash. NEURO: No focal deficits. Alert and oriented x3. PSYCH: Normal mood and affect. Course Vital Signs Vital signs: Vital Signs Temperature 36.3 C L 11/11/22 00:14 Pulse Rate 86 11/11/22 00:14 Respiratory Rate 14 11/11/22 00:14 Blood Pressure 115/72 11/11/22 00:14 Pulse Oximetry 100 11/11/22 00:14 Temperature 36.3 C L 11/11/22 00:14 Pulse Rate 86 11/11/22 00:14 Respiratory Rate 14 11/11/22 00:14 Blood Pressure 115/72 11/11/22 00:14 Pulse Oximetry 100 11/11/22 00:14 Medical Decision Making MDM Narrative Medical decision making narrative: Differential diagnosis includes retropharyngeal abscess, COVID, strep, mono Laboratory studies were. Patient which showed a CBC with a white count of 12.9 electrolytes within normal limits troponin was negative BNP was negative strep was negative mono was negative Chest x-ray showed no focal infiltrate CT soft tissue neck showed no acute findings EKG showed sinus rhythm with a rate of [address] elevation or ST depression Vital Signs Vital Signs: Vital Signs Temperature 36.3 C L 11/11/22 00:14 Pulse Rate 86 11/11/22 00:14 Respiratory Rate 14 11/11/22 00:14 Blood Pressure 115/72 11/11/22 00:14 Pulse Oximetry 100 11/11/22 00:14 Temperature 36.3 C L 11/11/22 00:14 Pulse Rate 86 11/11/22 00:14 Respiratory Rate 14 11/11/22 00:14 Blood Pressure 115/72 11/11/22 00:14 Pulse Oximetry 100 11/11/22 00:14 Lab Data 11/11/22 04:09 11/11/22 04:09 Labs: Lab Results 11/11/22 11/11/22 Range/Units 00:22 04:09 WBC 12.9 H (4.5-10.0) K/mm3 RBC 4.90 (4.2-5.4) M/mm3 Hgb 15.3 H (12.0-15.0) g/dL Hct 43.9 (37.0-47.0) % MCV 89.6 (80-100) fl MCH 31.2 (26-34) pg MCHC 34.9 (32-36) g/dl RDW 11.9 (11.5-14.5) % Plt Count 269 (150-375) k/mm3 MPV 10.7 H (7.4-10.4) fl Immature Gran % (Auto) 0.4 (0-0.5) % Neut % (Auto) 59.1 (45.5-73.1) % Lymph % (Auto) 28.6 (18.3-44.2) % [place] % (Auto) 6.3 (2.6-8.5) % Eos % (Auto) 5.3 H (0-4.4) % Baso % (Auto) 0.3 (0.2-1.2) % Lymph # (Auto) 3.70
[2022-11-11 06:06] VITALS: BP 112/58; PULSE 60; RESP 18; O2SAT 100
== END 2022-11-11 06:06 | disposition home or self-care (01) ==
PROVIDERS: Emergency Provider Emergency Medicine
DX: J02.9 Acute pharyngitis, unspecified (principal); R07.89 Other chest pain; K20.0 Eosinophilic esophagitis; K21.9 Gastro-esophageal reflux disease without esophagitis; I45.10 Unspecified right bundle-branch block
CPT/HCPCS: 36415; 70491; 71045; 80053; 83605; 83690; 83735; 83880; 84484; 85025; 86308; 87651; 93005; 96361; 96374; 99284; J7030; Q9967

== ENCOUNTER 2022-11-12 11:49 | Emergency (ER) | payer BC, SELFPAY ==
--- NOTE | ~2022-11-12 | CT_ITS ---
EXAMINATION: CT brain wo con DATE: 11/12/2022 12:45 INDICATION: Syncope TECHNIQUE: Computed tomography (CT) of the head was performed without intravenous contrast. Sagittal and coronal reconstructions were performed. The mA was adjusted according to patient size. Iterative reconstruction technique was employed. The dose-length product was 605.33 mGy-cm. COMPARISON: None FINDINGS: No acute intracranial hemorrhage, acute infarction or abnormal extra axial fluid collection. Ventricl es are normal and symmetric. No mass/mass effect. Mucosal thickening in the paranasal sinuses. The bi lateral maxillary sinuses are small with thickened sclerotic rich consistent with chronic sinusitis. The medial wall of the right maxillary sinus is been resected. The orbits and mastoid air cells are normal. IMPRESSION: 1. Normal brain. No acute intracranial process. 2. Chronic sinus disease. Reviewed, dictated and finalized at location A.
--- NOTE | ~2022-11-12 | XR_ITS ---
EXAMINATION: XR chest 1V portable 11/12/2022 13:12 INDICATION: Loss of consciousness. Lethargy. PROCEDURE: AP portable chest COMPARISON: 11/11/2022 FINDINGS: The lungs are clear. The cardiomediastinal silhouette is within normal limits. There are no pleural effusions. There is no pneumothorax suspected. IMPRESSION: 1: NO ACUTE CARDIOPULMONARY DISEASE. Reviewed, dictated and finalized at location L.
[2022-11-12 11:51] VITALS: BP 101/69; PULSE 82; RESP 18; TEMP 36.3; O2SAT 98
--- NOTE | 2022-11-12 12:34 | ECG_ITS ---
Measurements Intervals [place] Rate: 70 P: 0 SD: 106 QRS: -19 QRSD: 92 T: 33 QT: 413 QTc: 448 Interpretive Statements SINUS RHYTHM WITH SHORT SD INTERVAL LOW QRS VOLTAGE IN PRECORDIAL LEADS BORDERLINE T WAVE ABNORMALITY- INFERIOR LEADS BORDERLINE ECG COMPARED TO ECG 11/11/2022 04:06:56 NO SIGNIFICANT CHANGES Electronically Signed On 11-12-2022 12:57:00 CDT by Vito Ricci D.O.
--- NOTE | 2022-11-12 12:40 | PC.NURSE ---
patient to Ct at this time.
[2022-11-12] MEDS: SODIUM CHLORIDE 0.9% IV 1,000 ML 999 ML IV CONT (12:55)
[2022-11-12 13:04] LABS: Basophils Percent Auto 0.3 % (0.2-1.2); Eosinophils Absolute Auto 0.2 K/mm3 (0-0.3); Eosinophils Percent Auto 2.1 % (0-4.4); Hematocrit 38.9 % (37.0-47.0); Hemoglobin 13.6 g/dL (12.0-15.0); Immature Granulocyte Absolute 0.05 K/mm3 (0.00-0.031); Immature Granulocyte Percent A 0.4 % (0-0.5); Lymphocytes Absolute Auto 1.83 K/mm3 (0.9-3.2); Lymphocytes Percent Auto 16.4 % (18.3-44.2); Mean Corpuscular Hemoglobin 31.5 pg (26-34); Mean Platelet Volume 10.7 fl (7.4-10.4); Monocytes Absolute Auto 0.7 K/mm3 (0.1-0.6); Monocytes Percent Auto 6.6 % (2.6-8.5); Neutrophils Absolute Auto 8.3 K/mm3 (1.3-6.7); Neutrophils Percent Auto 74.2 % (45.5-73.1); Platelet Count Result 238 k/mm3 (150-375); Red Blood Count 4.32 M/mm3 (4.2-5.4); White Blood Count 11.2 K/mm3 (4.5-10.0)
[2022-11-12 13:08] LABS: Appearance Urine Clear (Clear); Bilirubin Urine Negative (Negative); Blood Urine Negative (Negative); Color Urine Yellow (Yellow); Glucose Urine UA Negative (Negative); Ketones Urine Negative (Negative); Leukocyte Esterase Ur Negative LEU/UL (Negative); Nitrate Urine Negative (Negative); Protein Urine Negative (Negative); Specific Grav Ur 1.007 (1.001-1.035); Urobilinogen Urine 0.2 mg/dL (<2.0)
--- NOTE | 2022-11-12 13:08 | ED.GENADULT ---
HPI - General Adult General Chief complaint: Unspecified Stated complaint: MULTI C/O Time Seen by Provider: 11/12/22 12:01 History of Present Illness HPI narrative: Nesha Roman is a 37 y/o female with PMHx of having lethargy / generalized weakness / with pain on the right side of her body that has no moved to her left side of her body for several months. She is tearful with reports that she has been to other ER's Urgent cares and she keeps getting told that all of her labs are normal. She most recently went to an UC 5 days ago for a sore throat that is now better and is on the last day of her antibiotics. She states that she has been on hormonal therapy for 6 years for her transition, she is on Protonix and Pepcid for her esophagitis, she takes ASA sometimes for headaches and vitamins. Today she is here because she states that she passed out. She was feeling her normal lethargy today as she has been but the passed out on the floor and she believes that she was down for maybe close to an hour. She denies chest pain/ shortness of breath/ abdominal pain/ nausea/vomiting She states that she has this left sided body pain that comes and goes, to different areas of her left side of her body No sore throat today/ no fever/chills/ urinary or bowel changes/ Related Data Allergies Allergy/AdvReac Type Severity Reaction Status Date / Time Penicillins Allergy Anaphylaxis Verified 11/12/22 12:13 Review of Systems Review of Systems: CONSTITUTIONAL: Denies fever, chills, or sweats. EYES: Denies visual changes, redness, or discharge. ENT: Denies rhinorrhea, congestion, sore throat, or otalgia. CARDIOVASCULAR: Denies chest pain, palpitations, or edema. RESPIRATORY: Denies cough or dyspnea. GASTROINTESTINAL: Denies abdominal pain, nausea, vomiting, or diarrhea. GENITOURINARY: Denies dysuria or hematuria. SKIN: Denies rash or itching. MUSCULOSKELETAL: Denies back pain, joint pain, or myalgia. NEUROLOGIC: Denies headache, numbness, dizziness, or weakness. PSYCHIATRIC: Denies anxiety or depression. [facility] Past Medical History Medical History Eosinophilic esophagitis GERD (gastroesophageal reflux disease) Surgical History Surgical History History of esophagogastroduodenoscopy (EGD) Exam Narrative: GENERAL: Well-appearing, well-nourished, and in no acute distress. HEAD: Normocephalic, atraumatic. EYES: PERRLA and EOMI. ENT: Nares clear, no rhinorrhea or epistaxis. Mucous membranes moist. Oropharynx without tonsillar hypertrophy exudate or other lesions. Bilateral TMs pearly tyler nonbulging NECK: Supple. No adenopathy or masses. No carotid bruits or JVD CHEST: Clear to auscultation. No respiratory distress. No wheezes rales or rhonchi HEART: Regular rate and rhythm. No murmur heard. Normal peripheral pulses. ABDOMEN: Soft, nontender, nondistended, normal active bowel sounds. EXTREMITIES: Normal range of motion. No edema. SKIN: Warm, dry, no rash. NEURO: No focal deficits. Alert and oriented x3. PSYCH: Normal mood and affect. Course Vital Signs Vital signs: Vital Signs Temperature 36.3 C L 11/12/22 11:51 Pulse Rate 82 11/12/22 11:51 Respiratory Rate 18 11/12/22 11:51 Blood Pressure 101/69 11/12/22 11:51 Pulse Oximetry 98 11/12/22 11:51 Oxygen Delivery Room Air 11/12/22 11:51 Temperature 36.3 C L 11/12/22 11:51 Pulse Rate 75 11/12/22 15:23 Respiratory Rate 17 11/12/22 15:23 Blood Pressure 102/82 11/12/22 15:23 Pulse Oximetry 99 11/12/22 15:23 Oxygen Delivery Room Air 11/12/22 11:51 Medical Decision Making [facility] Narrative Medical decision making narrative: After speaking with pt she describes these symptoms that she has been evaluated for in the past a few times but what changed today was a syncope episode. Plan to check a syncope work up, while giving IV hydration She stat
[2022-11-12 13:13] LABS: Anion Gap 7 mmol/L (8-16); Blood Urea Nitrogen 5 mg/dL (7-17); Calcium 8.9 mg/dL (8.4-10.2); Carbon Dioxide 27 mmol/L (22-30); Chloride 104 mmol/L (98-107); Estimated CRCL calculation 116 ml/min; Estimated Glomerular Filt Rate > 60; Glucose 84 mg/dL (65-110); Magnesium 1.8 mg/dL (1.6-2.3); Potassium 3.7 mmol/L (3.4-5.0); Sodium 138 mmol/L (137-145)
[2022-11-12 13:18] LABS: Add Urine Microscopic? NO
[2022-11-12 13:22] LABS: Troponin I < 0.012 ng/mL (0.000-0.034)
[2022-11-12 13:24] LABS: D Dimer < 0.27 ug/mL (<0.48)
[2022-11-12 15:23] VITALS: BP 102/82; PULSE 75; RESP 17; O2SAT 99
== END 2022-11-12 16:32 | disposition home or self-care (01) ==
PROVIDERS: Emergency Provider Nurse Practitioner Family
DX: E86.0 Dehydration (principal); K21.00 Gastro-esophageal reflux disease with esophagitis, without bleeding; J32.9 Chronic sinusitis, unspecified; Z79.890 Hormone replacement therapy; R94.31 Abnormal electrocardiogram [ECG] [EKG]
CPT/HCPCS: 36415; 70450; 71045; 80048; 81003; 83735; 84484; 85025; 85380; 93005; 96360; 99284; J7030

== ENCOUNTER 2022-12-09 02:56 | Emergency (ER) | payer BC, SELFPAY ==
--- NOTE | ~2022-12-09 | CT_ITS ---
CT of the Abdomen and Pelvis: Indication: Abdominal pain Technique: 2.5 mm axial scans were obtained through the abdomen and pelvis following intravenous adm inistration of 100 cc of Omnipaque 350. Dose reduction technique was used on this scan by utilizing a utomated exposure control and iterative reconstruction technique. The dose-length product (DLP) was 2 71.00 mGy-cm. COMPARISON: 04/26/2022 Findings: Scans through the lung bases are unremarkable. The liver, spleen, pancreas, adrenals and kidneys are within normal limits. There is probable gallbla dder wall thickening with small stones and/or sludge present. No evidence of aortic aneurysm. No lym phadenopathy. No bowel obstruction or bowel wall thickening. There is no evidence to suggest acute appendicitis. Images through the pelvis were performed. Urinary bladder unremarkable. No adnexal mass seen. No asci aki. Impression: Cholelithiasis with suspected mild gallbladder wall thickening. Correlate for acute cholecystitis. Co nsider HIDA scan as indicated. Reviewed, dictated and finalized at [facility]. Impression: Cholelithiasis with suspected mild gallbladder wall thickening. Correlate for a cute cholecystitis. Consider HIDA scan as indicated.
[2022-12-09 03:02] VITALS: BP 111/68; PULSE 80; RESP 20; TEMP 37.1; O2SAT 97
[2022-12-09 04:15] VITALS: BP 113/75; PULSE 79; RESP 18; O2SAT 100
--- NOTE | 2022-12-09 04:47 | ED.GENADULT ---
HPI - General Adult General Chief complaint: Abdominal Pain Stated complaint: abd pain Time Seen by Provider: 12/09/22 04:24 History of Present Illness HPI narrative: Patient is a 37-year-old patient who presents the emergency department with chief complaint of epigastric pain. Patient reports that history of eosinophilic esophagitis reports that this evening started having pain after eating radiates to the back patient reports symptoms or not improved by anything. Related Data Allergies Allergy/AdvReac Type Severity Reaction Status Date / Time Penicillins Allergy Anaphylaxis Verified 12/09/22 04:17 Review of Systems Review of Systems: A 10 system review of systems was completed on the patient and is negative except for what is stated in the HPI. Nursing and ancillary documentation was reviewed. [facility] Past Medical History Medical History Eosinophilic esophagitis GERD (gastroesophageal reflux disease) Surgical History Surgical History History of esophagogastroduodenoscopy (EGD) Exam Narrative: GENERAL: Well-appearing, well-nourished, and in no acute distress. HEAD: Normocephalic, atraumatic. EYES: PERRLA and EOMI. ENT: Nares clear, no rhinorrhea or epistaxis. Mucous membranes moist. NECK: Supple. CHEST: Clear to auscultation. No respiratory distress. HEART: Regular rate and rhythm. No murmur heard. Normal peripheral pulses. ABDOMEN: Soft, tenderness to palpation in the epigastric region, nondistended, normal active bowel sounds. EXTREMITIES: Normal range of motion. No edema. SKIN: Warm, dry, no rash. NEURO: No focal deficits. Alert and oriented x3. PSYCH: Normal mood and affect. Course Vital Signs Vital signs: Vital Signs Temperature 98.7 F 12/09/22 03:02 Pulse Rate 80 12/09/22 03:02 Respiratory Rate 20 12/09/22 03:02 Blood Pressure 111/68 12/09/22 03:02 Pulse Oximetry 97 12/09/22 03:02 Oxygen Delivery Room Air 12/09/22 03:02 Temperature 98.7 F 12/09/22 03:02 Pulse Rate 73 12/09/22 06:19 Respiratory Rate 18 12/09/22 04:15 Blood Pressure 102/69 12/09/22 06:19 Pulse Oximetry 99 12/09/22 06:19 Oxygen Delivery Room Air 12/09/22 03:02 Medical Decision Making [facility] Narrative Medical decision making narrative: Differential diagnosis includes biliary colic,, gastritis, Laboratory studies showed a white count of 14 CMP was normal lipase was normal urinalysis showed no evidence of UTI CT scan of the abdomen pelvis showed cholelithiasis thickening of the gallbladder wall. Patient is feeling much better at this time. Case was discussed with Dr. Barba and the patient was given the option for outpatient follow-up patient at this time is chosen for outpatient follow-up Vital Signs Vital Signs: Vital Signs Temperature 98.7 F 12/09/22 03:02 Pulse Rate 80 12/09/22 03:02 Respiratory Rate 20 12/09/22 03:02 Blood Pressure 111/68 12/09/22 03:02 Pulse Oximetry 97 12/09/22 03:02 Oxygen Delivery Room Air 12/09/22 03:02 Temperature 98.7 F 12/09/22 03:02 Pulse Rate 73 12/09/22 06:19 Respiratory Rate 18 12/09/22 04:15 Blood Pressure 102/69 12/09/22 06:19 Pulse Oximetry 99 12/09/22 06:19 Oxygen Delivery Room Air 12/09/22 03:02 Lab Data 12/09/22 05:08 12/09/22 05:08 Labs: Lab Results 12/09/22 Range/Units 05:08 WBC 14.0 H (4.5-10.0) K/mm3 RBC 4.16 L (4.2-5.4) M/mm3 Hgb 13.2 (12.0-15.0) g/dL Hct 37.7 (37.0-47.0) % MCV 90.6 (80-100) fl MCH 31.7 (26-34) pg MCHC 35.0 (32-36) g/dl RDW 12.5 (11.5-14.5) % Plt Count 221 (150-375) k/mm3 MPV 10.8 H (7.4-10.4) fl Immature Gran % (Auto) 0.4 (0-0.5) % Neut % (Auto) 74.1 H (45.5-73.1) % Lymph % (Auto) 15.5 L (18.3-44.2) % [place] % (Auto) 6.4 (2.6-8.5) % Eos % (Auto)
[2022-12-09] MEDS: SODIUM CHLORIDE 0.9% IV 1,000 ML 999 ML IV CONT (05:07)
[2022-12-09] MEDS: MORPHINE SULFATE (*CRX) 4 MG/ML INJ IV PUSH (05:07)
[2022-12-09] MEDS: ONDANSETRON INJ 4 MG/2 ML VIAL IV PUSH (05:07)
[2022-12-09 05:25] LABS: Basophils Percent Auto 0.3 % (0.2-1.2); Eosinophils Absolute Auto 0.5 K/mm3 (0-0.3); Eosinophils Percent Auto 3.3 % (0-4.4); Hematocrit 37.7 % (37.0-47.0); Hemoglobin 13.2 g/dL (12.0-15.0); Immature Granulocyte Absolute 0.06 K/mm3 (0.00-0.031); Immature Granulocyte Percent A 0.4 % (0-0.5); Lymphocytes Absolute Auto 2.16 K/mm3 (0.9-3.2); Lymphocytes Percent Auto 15.5 % (18.3-44.2); Mean Corpuscular Hemoglobin 31.7 pg (26-34); Mean Corpuscular Volume 90.6 fl (80-100); Mean Platelet Volume 10.8 fl (7.4-10.4); Monocytes Absolute Auto 0.9 K/mm3 (0.1-0.6); Monocytes Percent Auto 6.4 % (2.6-8.5); Neutrophils Absolute Auto 10.3 K/mm3 (1.3-6.7); Neutrophils Percent Auto 74.1 % (45.5-73.1); Platelet Count Result 221 k/mm3 (150-375); Red Blood Count 4.16 M/mm3 (4.2-5.4); Red Cell Distribution Width 12.5 % (11.5-14.5)
[2022-12-09 05:28] LABS: Appearance Urine Clear (Clear); Bacteria Urine None Seen /hpf; Bilirubin Urine Negative (Negative); Blood Urine Negative (Negative); Color Urine Yellow (Yellow); Glucose Urine UA Negative (Negative); Ketones Urine Negative (Negative); Leukocyte Esterase Ur Trace LEU/UL (Negative); Nitrate Urine Negative (Negative); Non Pathogenic Casts 0-2; Protein Urine Negative (Negative); RBC Urine 0-2 /hpf (0-2); Specific Grav Ur 1.017 (1.001-1.035); Squamous Epithelial Cell Urine None seen /hpf (Few); Urobilinogen Urine 0.2 mg/dL (<2.0); WBC Urine 0-5 /hpf; pH Urine 6.5 (5.0-9.0)
[2022-12-09 05:34] LABS: Add Urine Microscopic? YES
[2022-12-09 05:35] LABS: Lipase 44 U/L (23-300)
[2022-12-09 05:37] LABS: Alanine Aminotransferase 10 U/L (6-35); Alkaline Phosphatase 67 U/L (38-126); Anion Gap 4 mmol/L (8-16); Aspartate Amino Transferase 19 U/L (14-36); Bilirubin,Total 0.5 mg/dL (0.2-1.3); Blood Urea Nitrogen 8 mg/dL (7-17); Calcium 8.9 mg/dL (8.4-10.2); Carbon Dioxide 28 mmol/L (22-30); Chloride 103 mmol/L (98-107); Estimated CRCL calculation 123 ml/min; Estimated Glomerular Filt Rate > 60; Glucose 94 mg/dL (65-110); Sodium 135 mmol/L (137-145)
[2022-12-09 05:52] LABS: Potassium 3.5 mmol/L (3.4-5.0)
[2022-12-09 06:19] VITALS: BP 102/69; PULSE 73; O2SAT 99
== END 2022-12-09 07:14 | disposition home or self-care (01) ==
PROVIDERS: Emergency Provider Emergency Medicine
DX: K80.70 Calculus of gallbladder and bile duct without cholecystitis without obstruction (principal); K21.00 Gastro-esophageal reflux disease with esophagitis, without bleeding
CPT/HCPCS: 36415; 74177; 80053; 81001; 83690; 85025; 96361; 96374; 96375; 99284; J2270; J2405; J7030; Q9967

== ENCOUNTER 2022-12-31 21:22 | Emergency (ER) | payer BC, SELFPAY ==
--- NOTE | ~2022-12-31 | CT_ITS ---
CT of the Abdomen and Pelvis: Indication: Abdominal pain Technique: 2.5 mm axial scans were obtained through the abdomen and pelvis following intravenous adm inistration of 100 cc of Omnipaque 350. Dose reduction technique was used on this scan by utilizing a utomated exposure control and iterative reconstruction technique. The dose-length product (DLP) was 2 69.83 mGy-cm. COMPARISON: 12/09/2022 Findings: Scans through the lung bases are unremarkable. The liver, spleen, pancreas, adrenals and kidneys are within normal limits. Gallstones are present. N o evidence of aortic aneurysm. No lymphadenopathy. No bowel obstruction or bowel wall thickening. There is no evidence to suggest acute appendicitis. Images through the pelvis were performed. Urinary bladder unremarkable. No pelvic mass seen. No ascit es. Impression: Cholelithiasis. Reviewed, dictated and finalized at location . 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
--- NOTE | ~2022-12-31 | XR_ITS ---
Portable chest x-ray Comparison: 11/12/2022 Clinical History: Chest pain Findings: Lungs are clear, without focal consolidation or pleural effusion. Cardiomediastinal silho uette is stable. Bones and soft tissues are unremarkable. Impression: Normal chest. Reviewed, dictated and finalized at [facility]. Impression: Normal chest.
--- NOTE | ~2022-12-31 | CT_ITS ---
Clinical Indication: Chest pain CT Scan of the Chest with Contrast: Technique: Contiguous sections were acquired throughout the chest after intravenous administration of 100 cc of Omnipaque 350. Dose reduction technique was used on this scan by utilizing automated expos ure control and iterative reconstruction technique. The dose-length product (DLP) was 248.93 mGy-cm. COMPARISON: 04/26/2022 Findings: There is no evidence of any significant mediastinal, hilar or axillary lymphadenopathy. There is no f illing defect in the pulmonary arterial tree to suggest pulmonary embolus. There is no evidence of ao rtic dissection or aneurysm. There is no evidence of pleural or pericardial effusion. The lungs are clear. No pulmonary nodules or infiltrates are noted. Images through the upper abdomen reveal gallstones. Impression: No evidence of pulmonary embolus, aortic dissection, or aortic aneurysm. Clear lungs. Cholelithiasis. Reviewed, dictated and finalized at [facility]. CIENCY ANALYST Impression: No evidence of pulmonary embolus, aortic dissection, or aortic aneurysm. Clear lungs. Cholelithiasis.
--- NOTE | 2022-12-31 21:26 | ECG_ITS ---
Measurements Intervals [place] Rate: 89 P: 77 MI: 133 QRS: -52 QRSD: 89 T: 56 QT: 365 QTc: 444 Interpretive Statements SINUS RHYTHM WITH SINUS ARRHYTHMIA INCOMPLETE RIGHT BUNDLE BRANCH BLOCK LEFT ANTERIOR FASCICULAR BLOCK ST-T WAVE ABNORMALITY IN ANTERIOR LEADS- CONSIDER ISCHEMIA BASELINE ARTIFACT- I, II, AVR, AVL, AVF, V1-V3 ABNORMAL ECG COMPARED TO ECG 11/12/2022 12:52:49 SINUS ARRHYTHMIA NOW PRESENT LEFT ANTERIOR FASCICULAR BLOCK NOW PRESENT ST-T WAVE ABNORMALITY NOW PRESENT Electronically Signed On 01-01-2023 5:56:27 CHEMICAL ENGINEERING TEACHER by Vito Ricci D.O.
[2022-12-31 21:37] VITALS: BP 121/66; PULSE 96; RESP 15; TEMP 36.4; O2SAT 96
[2022-12-31 23:56] LABS: Basophils Percent Auto 0.2 % (0.2-1.2); Eosinophils Absolute Auto 0.1 K/mm3 (0-0.3); Hematocrit 43.6 % (42.0-52.0); Hemoglobin 14.9 g/dL (14.0-18.0); Immature Granulocyte Absolute 0.04 K/mm3 (0.00-0.031); Immature Granulocyte Percent A 0.3 % (0-0.5); Lymphocytes Absolute Auto 2.74 K/mm3 (0.9-3.2); Lymphocytes Percent Auto 21.8 % (18.3-44.2); Mean Corpuscular HGB Conc 34.2 g/dl (32-36); Mean Corpuscular Hemoglobin 30.9 pg (26-34); Mean Corpuscular Volume 90.5 fl (80-100); Mean Platelet Volume 10.4 fl (7.4-10.4); Monocytes Absolute Auto 0.9 K/mm3 (0.1-0.6); Monocytes Percent Auto 6.8 % (2.6-8.5); Neutrophils Absolute Auto 8.8 K/mm3 (1.3-6.7); Neutrophils Percent Auto 69.9 % (45.5-73.1); Platelet Count Result 269 k/mm3 (150-375); Red Blood Count 4.82 M/mm3 (4.6-6.20); White Blood Count 12.6 K/mm3 (4.5-10.0)
[2023-01-01] VITALS (57 sets, daily range): BP systolic 85–124; BP diastolic 53–88; PULSE 56–90; RESP 9–20; O2SAT 92–100
[2023-01-01 00:07] LABS: Alanine Aminotransferase 13 U/L (6-50); Albumin Level 4.8 g/dL (3.5-5.1); Alkaline Phosphatase 73 U/L (38-126); Anion Gap 10 mmol/L (8-16); Aspartate Amino Transferase 21 U/L (17-59); Blood Urea Nitrogen 7 mg/dL (9-20); Calcium 9.9 mg/dL (8.4-10.2); Carbon Dioxide 26 mmol/L (22-30); Chloride 100 mmol/L (98-107); Estimated CRCL calculation 123 ml/min; Estimated Glomerular Filt Rate > 60; Glucose 102 mg/dL (65-110); Lipase 47 U/L (23-300); Potassium 4.1 mmol/L (3.4-5.0); Sodium 136 mmol/L (137-145)
--- NOTE | 2023-01-01 02:57 | ED.ABDPAIN ---
HPI - Abdominal Pain General Chief Complaint: Abdominal Pain <YAMILETH Roberts Last Filed: 01/01/23 03:03> Stated Complaint: abd pain/chest pain <YAMILETH Roberts Last Filed: 01/01/23 03:03> Time Seen by Provider: 01/01/23 00:47 <Bonnie Martinez PA-C - Last Filed: 01/01/23 03:03> History of Present Illness HPI narrative: 37-year-old biological male who was converted to female reports for evaluation for multiple complaints the. Patient states she is having left lower quadrant pain, right lower quadrant pain and right upper quadrant pain. She has been evaluated by Dr. Yun for biliary colic and is scheduled to have a cholecystectomy on January 15. She she is also stating the pain is associated with nausea and has intermittent diarrhea and constipation. Patient is also complaining of intermittent sharp substernal chest pain that lasts seconds at a time it can occur know where. States she had the chest pain occurred yesterday while at work which occurred while the patient was upset. She reports associated lightheadedness and nausea but denies loss of consciousness. Of note, patient is on estrogen for transition has a history of DVT. Denies fever, vomiting, dysuria hematuria, cough or congestion shortness of breath. <YAMILETH Roberts Last Filed: 01/01/23 03:03> Related Data Home Medications: Home Medications Medication Instructions Recorded Confirmed estradiol 0.025 mg/24 hr 1 patch transdermal 2XW 12/23/22 12/25/22 semiweekly transdermal patch finasteride 5 mg tablet 5 mg PO DAILY 12/23/22 12/25/22 pantoprazole 20 mg tablet,delayed 20 mg PO QAM 12/23/22 12/25/22 release progesterone micronized 100 mg 100 mg PO QAM 12/23/22 12/25/22 capsule spironolactone 100 mg tablet 100 mg PO DAILY 12/23/22 12/25/22 dupilumab 300 mg/2 mL subcutaneous 300 mg subcut WEEKLY 12/24/22 12/25/22 pen injector (BL [employer]) <YAMILETH Roberts Last Filed: 01/01/23 03:03> Allergies/Adverse Reactions: Allergies Allergy/AdvReac Type Severity Reaction Status Date / Time Penicillins Allergy Anaphylaxis Verified 12/23/22 11:28 <Bonnie Martinez PA-C - Last Filed: 01/01/23 03:03> Review of Systems Review of Systems: CONSTITUTIONAL: Denies fever, chills, or sweats. EYES: Denies visual changes, redness, or discharge. ENT: Denies rhinorrhea, congestion, sore throat, or otalgia. CARDIOVASCULAR: See HPI RESPIRATORY: Denies cough or dyspnea. GASTROINTESTINAL: See HPI GENITOURINARY: Denies dysuria or hematuria. SKIN: Denies rash or itching. MUSCULOSKELETAL: Denies back pain, joint pain, or myalgia. NEUROLOGIC: Denies headache, numbness, or weakness. PSYCHIATRIC: Denies anxiety or depression. <Bonnie Martinez PA-C - Last Filed: 01/01/23 03:03> [facility] Past Medical History Medical History: Medical History Anxiety Asthma Depression Eosinophilic esophagitis GERD (gastroesophageal reflux disease) Hx of blood clots Kidney stones Peptic ulcer <Bonnie Martinez PA-C - Last Filed: 01/01/23 03:03> Surgical History Surgical History: Surgical History History of dental surgery History of esophagogastroduodenoscopy (EGD) <Bonnie Martinez PA-C - Last Filed: 01/01/23 03:03> Family History Family History: Family History Father Hypertension Lymphoma Mother Heart disease Hypertension Grandparent Malignant neoplasm of prostate Lung cancer Grandparent Breast cancer Other Cerebrovascular accident Diabetes mellitus <Bonnie Martinez PA-C - Last Filed: 01/01/23 03:03> Social History Social History: Social History Smoking status: Never smoker Alcohol intake: never Alcohol use details: joanie
[2023-01-01] MEDS: SODIUM CHLORIDE 0.9% IV 1,000 ML 999 ML IV CONT (03:29)
[2023-01-01] MEDS: MORPHINE SULFATE (*CRX) 2 MG/ML INJ (03:29)
[2023-01-01] MEDS: ONDANSETRON INJ 4 MG/2 ML VIAL IV PUSH (03:29)
--- NOTE | 2023-01-01 03:30 | PC.NURSE ---
pt arrived during downtime . Pt medications were given. See pt notes.
[2023-01-01 03:36] LABS: Troponin I < 0.012 ng/mL (0.000-0.034)
[2023-01-01 03:46] LABS: Partial Thromboplastin Time 24.6 SECONDS (22.3-36.8); Prothrombin Time 14.1 Seconds (11.1-14.7)
[2023-01-01 04:13] LABS: Appearance Urine Clear (Clear); Color Urine Yellow (Yellow); Specific Grav Ur 1.088 (1.001-1.035); pH Urine 6.5 (5.0-9.0)
[2023-01-01 04:14] LABS: Bilirubin Urine Negative (Negative); Blood Urine Negative (Negative); Glucose Urine UA Negative (Negative); Ketones Urine Negative (Negative); Nitrate Urine Negative (Negative); Protein Urine Negative (Negative); Urobilinogen Urine 0.2 mg/dL (<2.0)
[2023-01-01 04:15] LABS: Add Urine Microscopic? NO; Leukocyte Esterase Ur Negative LEU/UL (Negative)
[2023-01-01] MEDS: SODIUM CHLORIDE 0.9% IV 1,000 ML 999 ML (05:08)
--- NOTE | 2023-01-01 05:15 | PC.NURSE ---
This RN initiated 1L of normal saline at 999mls/ hour due to pt blood pressure with verbal order from EDP Dr. Craig. Pt blood pressure was trending down. This RN confirmed with EDP Dr. Craig route, medication, rate, dose, and patient. EDP confirmed verbally with this RN. Normal saline bolus was initiated.
== END 2023-01-01 06:58 | disposition home or self-care (01) ==
PROVIDERS: Physician Assistant; Emergency Provider Preventive Medicine Aerospace Medicine
DX: K80.20 Calculus of gallbladder without cholecystitis without obstruction (principal); R10.13 Epigastric pain; R07.89 Other chest pain; J45.909 Unspecified asthma, uncomplicated; K21.9 Gastro-esophageal reflux disease without esophagitis; Z87.442 Personal history of urinary calculi; Z79.890 Hormone replacement therapy; I45.10 Unspecified right bundle-branch block; I45.2 Bifascicular block; R94.31 Abnormal electrocardiogram [ECG] [EKG]
CPT/HCPCS: 36415; 71045; 71275; 74177; 80053; 81003; 83690; 84484; 85025; 85610; 85730; 93005; 96361; 96374; 96375; 99284; J2270; J2405; J7030; Q9967

== ENCOUNTER 2023-01-13 07:43 | Outpatient (CLI) | payer BC, SELFPAY ==
[2023-01-13 08:48] LABS: Amylase 48 U/L (30-110)
== END 2023-01-13 07:44 | disposition home or self-care (01) ==
PROVIDERS: Visit Provider Surgery
DX: K80.20 Calculus of gallbladder without cholecystitis without obstruction (principal); Z01.818 Encounter for other preprocedural examination
CPT/HCPCS: 36415; 82150; 86850; 86900; 86901

== ENCOUNTER 2023-01-15 01:47 | Day surgery (SDC) | payer BC, SELFPAY ==
[2023-01-05 15:08] VITALS: BMI 20.2
--- NOTE | 2023-01-05 15:14 | PC.NURSE ---
Report to the Outpatient Waiting Room, entrance under the green pavilion located off [facility], at time 11:30 on date 01/15/23. Planned Procedure Time: 1:30. Time changes happen often and if your time is changed the preop area will call you the afternoon before. - You and your visitor will be asked to self-screen and do not enter if you have any COVID symptoms. - A mask is optional within the hospital at this time. Patients may have clear liquids (water, carbonated beverages, clear teas, apple juice) until 3 hours prior to surgery (10:30) with a maximum of 20 ounces. - No food from midnight until time of surgery Take the following medications with a SIP of water the morning of surgery: PAIN PILL IF NEEDED DO NOT STOP ANY OF YOUR OTHER PRESCRIPTION MEDICATIONS PRIOR TO SURGERY ?EXCEPT THE FOLLOWING Medications to discontinue per physician: VITAMINS Date to take last dose: 01/11/23 Please no make-up, nail english, hairspray, perfume, deodorant, or body powder the day of surgery. No jewelry (including any body piercings) or valuables the day of surgery, leave them at home. Please take a shower or bath the night before, or the morning of, surgery with an antibacterial soap. Wear comfortable, loose fitting clothing. - Jewelry must be removed prior to entering the operating room. Rings and piercings that are not removed may be cut off. - The hospital will not accept responsibility for valuables. - Please leave all valuables, including medications, at home the day of surgery. If you are going home after surgery, a licensed new car driver must drive you home. - NO public transportation without another adult if you receive anesthesia. - We recommend that an adult stay with you for 24 hours following discharge. - We also recommend that you do not drive, make important decision, drink alcoholic beverages, or take any drugs that were not prescribed by your health care provider for at least 24 hours after your discharge time. Follow any additional instructions given to you from your surgeon. If you or anyone in your household have experienced Covid symptoms in the past week, please notify your surgeon or the nurse liaison at the phone number below for possible testing. Telephone instructions given to PT Nancy FERRARA and asked if any additional questions and then verbalized understanding. Patient advised to call surgeon office or pre surgery nurse liaison [phone] if any additional questions.
--- NOTE | 2023-01-14 16:09 | WPDANESEPPF ---
Anes - Initial Pre Proc Eval Procedure: Operation Date: 01/15/23 13:30 Proposed Procedures p Laparoscopic Cholecystectomy, Possible Open - Terrell Yun DO Date/Time: 01/14/23 16:09 Surgeon: Terrell Yun DO Pre Op Diagnosis: symp cholelithiasis Patient Data Age: 37 Gender: M Height: 1.88 m Weight: 71.7 kg Allergies Allergy/AdvReac Type Severity Reaction Status Date / Time Penicillins Allergy Anaphylaxis Verified 01/05/23 15:05 Home Medications Medication Instructions Recorded Confirmed Type ondansetron 4 mg disintegrating 4 mg PO Q8H PRN nausea and 12/09/22 01/05/23 Rx tablet vomiting #10 tabs oxycodone-acetaminophen 5 mg-325 1 tablet PO Q6H PRN pain 3 days 12/09/22 01/05/23 Rx mg tablet (Percocet) #12 tabs finasteride 5 mg tablet 5 mg PO DAILY 12/23/22 01/05/23 History pantoprazole 20 mg tablet,delayed 20 mg PO QAM 12/23/22 01/05/23 History release progesterone micronized 100 mg 100 mg PO QAM 12/23/22 01/05/23 History capsule spironolactone 100 mg tablet 100 mg PO DAILY 12/23/22 01/05/23 History dupilumab 300 mg/2 mL subcutaneous 300 mg subcut WEEKLY 12/24/22 01/05/23 History pen injector (Dupixent) famotidine 40 mg tablet 40 mg PO DAILY #30 tabs 01/01/23 01/05/23 Rx estradiol valerate 20 mg/mL 20 mg IM WEEKLY 01/05/23 01/05/23 History intramuscular oil multivitamin 1 tablet PO DAILY 01/05/23 01/05/23 History Patient hx anesthesia problems: none Family hx anesthesia problems: none Results Review: All pre-operative results and documents have been reviewed as part of the pre-operative evaluation. [facility] Past Medical History Medical History Anxiety Asthma Depression Eosinophilic esophagitis GERD (gastroesophageal reflux disease) Hx of blood clots Kidney stones Peptic ulcer Surgical History Surgical History History of dental surgery History of esophagogastroduodenoscopy (EGD) Family History Family History Father Hypertension Lymphoma Mother Heart disease Hypertension Grandparent Malignant neoplasm of prostate Lung cancer Grandparent Breast cancer Other Cerebrovascular accident Diabetes mellitus Social History Social History Smoking status: Never smoker Alcohol intake: former Alcohol use details: QUIT DRINKING ~0883-9458 Substance use: current Substance use type: marijuana Living arrangements: with family Occupation/Education: occupation 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 Informed Consent: The patient's anesthetic plan and its attendant risks and benefits were discussed with the patient/family/POA. Questions were solicited and answers provided to the satisfaction of the patient/family/POA.
[2023-01-15] VITALS (8 sets, daily range): BP systolic 93–118; BP diastolic 60–80; PULSE 61–77; RESP 11–20; TEMP 36.2–36.5; O2SAT 98–100; BMI 19.8
[2023-01-15] MEDS: LACTATED RINGERS 1,000 ML 30 ML IV CONT (13:00)
--- NOTE | 2023-01-15 13:02 | WPDHPUPDATE1 ---
History and Physical Update Update Date/Time: 01/15/23 13:02 History and Physical has been reviewed, including an updated exam of the patient. There are NO changes in the patient's condition. Risks, benefits, and alternatives have been discussed and questions answered. Patient agrees to proceed with procedure.
[2023-01-15] MEDS: ACETAMINOPHEN 500 MG TABLET 1000 MG PO (13:14)
[2023-01-15] MEDS: KETOROLAC 15 MG/ML VIAL (*BKC) IV PUSH (13:14)
[2023-01-15] MEDS: CLINDAMYCIN 900 MG/D5W 50 ML 900 MG/50 ML PIGGYBACK 50 MG IVPB (13:24)
[2023-01-15] MEDS: BUPIVACAINE/EPINEPHRINE 0.5% 50 ML VIAL INFILTRATE (13:54)
--- NOTE | 2023-01-15 14:37 | W.PM.PROC2 ---
Procedure Note - Detailed Date of Procedure 01/15/23 Pre-op Diagnosis symptomatic cholelithiasis Post-op Diagnosis Same Procedure Performed Laparoscopic Cholecystectomy Surgeon Terrell Yun, DO Anesthesia General and Local (0.5% bupivacaine) Indications This is a 37-year-old who presents with intermittent epigastric and right upper quadrant pain that started about 1 month ago. She had presented to the emergency department with these complaints on 12/09/2022. CT showed evidence of cholelithiasis. She has continued to have intermittent pain since then. Discussions were made with the patient about treatment options I am decision was made to proceed with laparoscopic cholecystectomy, possible open. Findings Laparoscopic cholecystectomy was performed. The gallbladder was slightly dilated and contained multiple gallstones. The cystic duct appeared normal in size. No other intra-abdominal abnormalities were noted. The gallbladder was removed and sent to the lab for pathology. Description of Procedure Procedure as well as risks, benefits, and alternatives were discussed with patient. Written consent was obtained and placed in chart prior to procedure. The patient was brought back to surgical suite. Patient was placed in supine position on operating table. Time-out was done to confirm patient and procedure. Patient was then intubated by the anesthesia department. Abdomen was prepped and draped in sterile fashion using chlorhexidine prep. 0.5% bupivacaine with epinephrine was infiltrated at each site of incision. A 5 millimeter incision was made near the umbilicus, and a 5 millimeter Optiview trocar was advanced through the abdominal layers under direct visualization. Once inside the abdominal cavity, carbon dioxide was insufflated to create a pneumoperitoneum. The camera was inserted and the abdomen was inspected. No immediate abnormalities were identified. The patient was placed in reverse Trendelenburg position and rotated slightly to the left. An 11 millimeter incision was made in the subxiphoid region, and an 11 millimeter trocar was inserted under direct visualization. Two 5 millimeter incisions were made in the right upper quadrant, and two 5 millimeter trocars were inserted under direct visualization. The gallbladder was identified and grasped at the fundus and retracted superiorly. It was then grasped at the infundibulum retracted laterally. Careful dissection around the neck of the gallbladder was performed using blunt dissection with a [place] grasper and hook electrocautery. The cystic duct was identified, and a window was created behind it. The cystic artery was also identified and a window was created behind it. The critical view of safety was identified, visualizing the cystic duct running directly into the neck of the gallbladder, and the cystic artery running directly into the wall of the gallbladder. A 5 millimeter clip movable bulkhead installer was then used to place 2 clips proximally and 1 clip distally on both the cystic duct and cystic artery. They were then both transected using endoscopic scissors. Once safely away from the jun hepatitis, the gallbladder was dissected free from the liver bed using hook electrocautery. Hemostasis was achieved along the way. The gallbladder was removed completely and then removed through the subxiphoid port. The liver bed was then inspected. Hemostasis appeared adequate, and our clips appeared secure. The area was gently irrigated with sterile saline. No other abnormalities were seen. The patient was flattened out in bed, and 1 final inspection was made around the abdominal cavity. The subxiphoid port was removed, and a Vicente Dariel cone was used to approximate the fascia with an 0-Vicryl simple interrupted suture. The remaining ports were then removed under direct visualization, the camera was removed, and the pneumoperitoneum was released. The skin of the incisions was approximated using 4-0 [place]
[2023-01-15] MEDS: fentaNYL CITRATE INJ (*CRX) 100 MCG/2 ML VIAL 25 MCG IV PUSH (15:22)
[2023-01-15] MEDS: oxyCODONE HCL (*CRX) 5 MG TAB IR PO (16:03)
== END 2023-01-15 16:30 | disposition home or self-care (01) ==
PROVIDERS: Visit Provider Surgery
PROC: 0FT44ZZ Resection of Gallbladder, Percutaneous Endoscopic Approach (ICD-10-PCS; CPT 47562; principal; 2023-01-15 13:30)
DX: K80.10 Calculus of gallbladder with chronic cholecystitis without obstruction (principal); F41.9 Anxiety disorder, unspecified; F32.A Depression, unspecified; J45.909 Unspecified asthma, uncomplicated; K21.9 Gastro-esophageal reflux disease without esophagitis; F12.90 Cannabis use, unspecified, uncomplicated; Z79.891 Long term (current) use of opiate analgesic; Z79.85 Long-term (current) use of injectable non-insulin antidiabetic drugs; Z82.49 Family history of ischemic heart disease and other diseases of the circulatory system; Z80.1 Family history of malignant neoplasm of trachea, bronchus and lung; Z80.3 Family history of malignant neoplasm of breast; Z80.7 Family history of other malignant neoplasms of lymphoid, hematopoietic and related tissues
CPT/HCPCS: 47562; 88304; A9270; J1100; J1170; J1885; J2250; J2405; J2704; J3010; J7030; J7120

== ENCOUNTER 2023-03-23 13:48 | Emergency (ER) | payer BC, SELFPAY ==
--- NOTE | ~2023-03-23 | CT_ITS ---
EXAMINATION: CTA chest PE abdomen pel DATE: 03/23/2023 18:43 INDICATION: chest pain, abdominal pain, hsx clot TECHNIQUE: Computed tomography angiography (CTA) of the chest was performed with 100 mL Omnipaque-350 intravenous contrast timed to evaluate the pulmonary arteries, followed by portal venous phase imagi ng of the abdomen and pelvis. Coronal maximum intensity projection 3D-reconstructions were created by the technologist. The dose-length product (DLP) was 579.40 mGy-cm. Automated exposure control and it erative reconstruction technique were employed. COMPARISON: 01/01/2023. FINDINGS: CHEST: Lung parenchyma and airways: Clear. Pleura: Unremarkable. Thoracic inlet, axillae and chest wall: Unremarkable. Thoracic aorta: Normal. Mediastinum: Normal. Heart and pericardium: Normal. Coronary artery calcifications: Absent. Thoracic bones: No acute osseous finding. Pulmonary arteries: Study quality: Adequate. No pulmonary emboli detected. ABDOMEN/PELVIS: Liver: Normal. Biliary/Gallbladder: Gallbladder is absent. No bile duct dilation. Pancreas: No mass or duct dilation. Spleen: Normal. Adrenals:No mass. Kidneys: No suspicious mass, obstructing stone, or hydronephrosis. GI tract: No small or large bowel dilation. Normal appendix. Mesentery/Peritoneum: No ascites, mass, or free air. Retroperitoneum: No mass. Pelvis: Pelvic organs are within normal limits. Soft Tissues: Soft tissues and body wall unremarkable. Abdominopelvic bones: No acute osseous finding. IMPRESSION: No CT evidence of acute pulmonary embolus. No acute process detected in the chest, abdomen, or pelvis. Reviewed, dictated and finalized at location [facility]. [employer]
[2023-03-23 14:09] VITALS: BP 131/75; PULSE 88; RESP 18; TEMP 36.6; O2SAT 100
[2023-03-23 15:24] VITALS: BP 117/76; PULSE 70; RESP 18; O2SAT 99
[2023-03-23 15:39] VITALS: PULSE 76
[2023-03-23 15:44] LABS: Basophils Percent Auto 0.1 % (0.2-1.2); Eosinophils Absolute Auto 0.1 K/mm3 (0-0.3); Eosinophils Percent Auto 0.8 % (0-4.4); Hematocrit 40.5 % (42.0-52.0); Immature Granulocyte Absolute 0.01 K/mm3 (0.00-0.031); Immature Granulocyte Percent A 0.1 % (0-0.5); Lymphocytes Absolute Auto 1.73 K/mm3 (0.9-3.2); Lymphocytes Percent Auto 21.6 % (18.3-44.2); Mean Corpuscular HGB Conc 34.6 g/dl (32-36); Mean Corpuscular Hemoglobin 31.5 pg (26-34); Mean Corpuscular Volume 91.2 fl (80-100); Mean Platelet Volume 10.8 fl (7.4-10.4); Monocytes Absolute Auto 0.5 K/mm3 (0.1-0.6); Monocytes Percent Auto 6.8 % (2.6-8.5); Neutrophils Absolute Auto 5.7 K/mm3 (1.3-6.7); Neutrophils Percent Auto 70.6 % (45.5-73.1); Platelet Count Result 195 k/mm3 (150-375); Red Blood Count 4.44 M/mm3 (4.6-6.20); Red Cell Distribution Width 12.7 % (11.5-14.5)
[2023-03-23 15:45] LABS: Appearance Urine Clear (Clear); Bilirubin Urine Negative (Negative); Blood Urine Negative (Negative); Color Urine Yellow (Yellow); Glucose Urine UA Negative (Negative); Ketones Urine Negative (Negative); Leukocyte Esterase Ur Negative LEU/UL (Negative); Nitrate Urine Negative (Negative); Protein Urine Negative (Negative); Specific Grav Ur 1.011 (1.001-1.035)
[2023-03-23 15:47] LABS: Add Urine Microscopic? NO
[2023-03-23 15:53] LABS: Alanine Aminotransferase 11 U/L (6-50); Alkaline Phosphatase 88 U/L (38-126); Anion Gap 6 mmol/L (8-16); Aspartate Amino Transferase 18 U/L (17-59); Bilirubin,Total 1.3 mg/dL (0.2-1.3); Blood Urea Nitrogen 6 mg/dL (9-20); Calcium 8.9 mg/dL (8.4-10.2); Carbon Dioxide 27 mmol/L (22-30); Chloride 104 mmol/L (98-107); Estimated CRCL calculation 130 ml/min; Estimated Glomerular Filt Rate > 60; Glucose 103 mg/dL (65-110); Lipase 37 U/L (23-300); Potassium 3.8 mmol/L (3.4-5.0); Sodium 137 mmol/L (137-145)
[2023-03-23] MEDS: SODIUM CHLORIDE 0.9% IV 1,000 ML 999 ML IV CONT ×2 (16:32→18:21)
--- NOTE | 2023-03-23 18:03 | ED.GENADULT ---
HPI - General Adult General Chief complaint: Unspecified Stated complaint: NV, L abd pain, Right shoulder pain Time Seen by Provider: 03/23/23 15:07 History of Present Illness HPI narrative: 37-year-old male to female transition presents to the emergency department for evaluation for left-sided axillary pain, epigastric pain and lower abdominal pain. Patient states that they have a prior history of alcohol abuse. They report they were sober for a number of years but did just recently finish a 2 week binge. Related Data Home Medications Medication Instructions Recorded Confirmed finasteride 5 mg tablet 5 mg PO DAILY 12/23/22 03/09/23 pantoprazole 20 mg tablet,delayed 20 mg PO QAM 12/23/22 03/09/23 release progesterone micronized 100 mg 100 mg PO QAM 12/23/22 03/09/23 capsule spironolactone 100 mg tablet 100 mg PO DAILY 12/23/22 03/09/23 dupilumab 300 mg/2 mL subcutaneous 300 mg subcut WEEKLY 12/24/22 03/09/23 pen injector ([employer]) estradiol valerate 20 mg/mL 20 mg IM WEEKLY 01/05/23 03/09/23 intramuscular oil multivitamin 1 tablet PO DAILY 01/05/23 03/09/23 Allergies Allergy/AdvReac Type Severity Reaction Status Date / Time Penicillins Allergy Anaphylaxis Verified 03/23/23 15:24 Review of Systems Review of Systems: All systems reviewed & are unremarkable except as noted in HPI and below PMFSH Past Medical History Medical History (Updated 03/24/23 @ 00:03 by Melvin Ivory) Anxiety Asthma Depression Eosinophilic esophagitis GERD (gastroesophageal reflux disease) Hx of blood clots Kidney stones Peptic ulcer Surgical History Surgical History (Updated 03/08/23 @ 13:40 by Yadira Jones MA) History of dental surgery History of esophagogastroduodenoscopy (EGD) History of laparoscopic cholecystectomy 01/15/23 W Family History Family History Father Hypertension Lymphoma Mother Heart disease Hypertension Grandparent Malignant neoplasm of prostate Lung cancer Grandparent Breast cancer Other Cerebrovascular accident Diabetes mellitus Social History Social History Smoking status: Never smoker Alcohol intake: former Alcohol use details: QUIT DRINKING ~8006-7900 Substance use: current Substance use type: marijuana Living arrangements: with family Occupation/Education: occupation 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 HEAD: normocephalic, atraumatic. EYES: PERRLA/EOMI, conjunctivae clear. NOSE: Normal no drainage EARS:TMS clear with good light reflex. THROAT: Pharynx clear, no exudate. NECK: Supple. No adenopathy, no masses. RESPIRATORY: Airway patent, respirations nonlabored. Clear to auscultation bilaterally, no rales, rhonchi, wheezing. CARDIOVASCULAR: Regular rate and rhythm without murmurs rubs or gallops. ABDOMINAL: Soft, nontender, nondistended, normal bowel sounds MUSCULOSKELETAL: Moves all extremities. Strength/ROM intact, No edema, No calf tenderness. No axillary tenderness NEURO: Alert. Cranial nerves II through XII intact. grossly intact SKIN: Warm, dry. Normal Color Course Course Emergency Course: 37-year-old patient presented to the ED for evaluation for nausea vomiting and dehydration after recently completing an alcohol binge. Patient did feel improved with treatment. Patient had no significant lab abnormalities. Patient was updated the results of their workup and plan for treatment for home. All questions concerns were addressed. Vital Signs Vital signs: Vital Signs Temperature 98 F 03/23/23 14:09 Pulse Rate 88 03/23/23 14:09 Respiratory Rate 18 03/23/23 14:09 Blood Pressure 131/75 03/23/23 14:09 P
[2023-03-23 19:54] VITALS: BP 134/79; PULSE 91; RESP 15; O2SAT 99
== END 2023-03-23 19:30 | disposition home or self-care (01) ==
PROVIDERS: Emergency Provider Emergency Medicine
DX: M79.622 Pain in left upper arm (principal); R10.816 Epigastric abdominal tenderness; R10.30 Lower abdominal pain, unspecified; F41.9 Anxiety disorder, unspecified; J45.909 Unspecified asthma, uncomplicated; F32.A Depression, unspecified; K21.9 Gastro-esophageal reflux disease without esophagitis; Z87.442 Personal history of urinary calculi
CPT/HCPCS: 36415; 71275; 74177; 80053; 81003; 83690; 85025; 96360; 96361; 99284; J7030; Q9967

== ENCOUNTER 2023-05-28 12:34 | Emergency (ER) | payer BC, SELFPAY ==
--- NOTE | ~2023-05-28 | CT_ITS ---
EXAMINATION: CT abdomen pelvis w con DATE: 05/28/2023 15:13 INDICATION: Nonspecific abdominal pain TECHNIQUE: Computed tomography (CT) of the abdomen and pelvis was performed with 100 CC Omnipaque 350 intravenous contrast. Automated exposure control and iterative reconstruction technique were employe d. Exam dose: 316.11 mGy-cm total exam DLP. COMPARISON: March 23, 2023 CTA chest abdomen pelvis FINDINGS: Bilateral fat-containing foramen of Bochdalek hernias. The lung bases are clear of infiltrate or consolidation. Normal heart size. No pericardial or pleural effusion. Status post cholecystectomy. Hepatic steatosis. No hepatic, splenic, pancreatic, and adrenal or renal space-occupying mass lesions are noted. No urin ciro tract calculus or hydroureteronephrosis. Urinary bladder is unremarkable. Normal caliber of the abdominal aorta. No intraperitoneal or retroperitoneal or pelvic mass lesion or adenopathy or ascites is noted. Normal appendix. No bowel obstruction or intraperitoneal free air. There is thickening of the wall of the colon with mucosal enhancement, suggesting possible colitis. Included skeletal structures are unremarkable. IMPRESSION: Status post cholecystectomy Colon wall thickening and mucosal enhancement suggesting possible colitis Normal appendix Reviewed, dictated and finalized at [facility]. Reviewed, dictated and finalized at location [facility].
[2023-05-28 12:48] VITALS: BP 129/74; PULSE 86; RESP 18; TEMP 36.6; O2SAT 97
[2023-05-28] MEDS: ONDANSETRON INJ 4 MG/2 ML VIAL IV PUSH (13:33)
[2023-05-28] MEDS: FAMOTIDINE 20 MG/2 ML VIAL IV PUSH (13:33)
[2023-05-28] MEDS: SODIUM CHLORIDE 0.9% IV 1,000 ML 999 ML IV CONT (13:33)
--- NOTE | 2023-05-28 13:36 | ED.ABDPAIN ---
HPI - Abdominal Pain General Chief Complaint: Abdominal Pain Stated Complaint: abd pain Time Seen by Provider: 05/28/23 13:12 History of Present Illness HPI narrative: Patient is a 37-year-old male who identifies as female who presents ER with diffuse abdominal cramping. Ongoing over the last week. Reports she has recently started drinking alcohol again. She has also been having explosive diarrhea. Reports 1 episode of syncope yesterday. Went to an urgent care and they cannot perform labs and so she left. No fevers or chills slight chest pain chest pressure with her. patient also has history of kidney stones. Gallbladder is been removed. Related Data Home Medications Medication Instructions Recorded Confirmed finasteride 5 mg tablet 5 mg PO DAILY 12/23/22 03/09/23 pantoprazole 20 mg tablet,delayed 20 mg PO QAM 12/23/22 03/09/23 release progesterone micronized 100 mg 100 mg PO QAM 12/23/22 03/09/23 capsule spironolactone 100 mg tablet 100 mg PO DAILY 12/23/22 03/09/23 dupilumab 300 mg/2 mL subcutaneous 300 mg subcut WEEKLY 12/24/22 03/09/23 pen injector ([employer]) estradiol valerate 20 mg/mL 20 mg IM WEEKLY 01/05/23 03/09/23 intramuscular oil multivitamin 1 tablet PO DAILY 01/05/23 03/09/23 Allergies Allergy/AdvReac Type Severity Reaction Status Date / Time Penicillins Allergy Anaphylaxis Verified 03/23/23 15:24 Review of Systems Review of Systems: All systems reviewed & are unremarkable except as noted in HPI and below Constitutional: Constitutional: Reports no additional constitutional complaints ENT: Reports system reviewed and no additional complaints, except as documented Cardiovascular: Cardiovascular: Reports no additional cardiovascular complaints Gastrointestinal: Gastrointestinal: Reports abdominal pain, Reports diarrhea, Denies nausea and Denies vomiting Genitourinary: Genitourinary: Reports no additional male genitourinary complaints Musculoskeletal: Musculoskeletal: Reports no additional musculoskeletal complaints Integumentary/Breasts: Skin/Breast: Reports system reviewed and no additional complaints, except as docu [facility] Past Medical History Medical History (Updated 05/28/23 @ 16:10 by Adebayo Whitney MD) Anxiety Asthma Depression Eosinophilic esophagitis GERD (gastroesophageal reflux disease) Hx of blood clots Kidney stones Peptic ulcer Surgical History Surgical History (Updated 03/08/23 @ 13:40 by Yadira Jones MA) History of dental surgery History of esophagogastroduodenoscopy (EGD) History of laparoscopic cholecystectomy 01/15/23 [facility] Family History Family History Father Hypertension Lymphoma Mother Heart disease Hypertension Grandparent Malignant neoplasm of prostate Lung cancer Grandparent Breast cancer Other Cerebrovascular accident Diabetes mellitus Social History Social History Smoking status: Never smoker Alcohol intake: former Alcohol use details: QUIT DRINKING ~3207-1390 Substance use: current Substance use type: marijuana Living arrangements: with family Occupation/Education: occupation Additional occupation/education comments: [employer] employee Gender identity (if verbalized by the patient): Other Spiritual care concerns: No Exam Narrative: GENERAL: Well-appearing, well-nourished, and in no acute distress. HEAD: Normocephalic, atraumatic. ENT: Mucous membranes moist. CHEST: Clear to auscultation. No respiratory distress. HEART: Regular rate and rhythm. Normal peripheral pulses. ABDOMEN: Soft, nontender, nondistended. EXTREMITIES: Normal range of motion. No edema. SKIN: Warm, dry, no rash. NEURO: Alert and oriented x3. PSYCH: Normal mood and affect. Course Vital Signs Vital signs: Vital Signs Temperature 97.9 F 05/28/23 12:48 Pulse Rate 86 05/28/23 12:48
[2023-05-28 13:41] LABS: Basophils Percent Auto 0.3 % (0.2-1.2); Eosinophils Absolute Auto 0.1 K/mm3 (0-0.3); Eosinophils Percent Auto 1.5 % (0-4.4); Hematocrit 41.4 % (42.0-52.0); Hemoglobin 14.8 g/dL (14.0-18.0); Immature Granulocyte Absolute 0.02 K/mm3 (0.00-0.031); Immature Granulocyte Percent A 0.3 % (0-0.5); Lymphocytes Absolute Auto 1.36 K/mm3 (0.9-3.2); Mean Corpuscular HGB Conc 35.7 g/dl (32-36); Mean Corpuscular Hemoglobin 31.8 pg (26-34); Mean Corpuscular Volume 88.8 fl (80-100); Mean Platelet Volume 9.8 fl (7.4-10.4); Monocytes Absolute Auto 0.5 K/mm3 (0.1-0.6); Monocytes Percent Auto 8.6 % (2.6-8.5); Neutrophils Absolute Auto 4.2 K/mm3 (1.3-6.7); Neutrophils Percent Auto 67.3 % (45.5-73.1); Platelet Count Result 234 k/mm3 (150-375); Red Blood Count 4.66 M/mm3 (4.6-6.20); Red Cell Distribution Width 12.3 % (11.5-14.5); White Blood Count 6.2 K/mm3 (4.5-10.0)
[2023-05-28 13:56] LABS: Alanine Aminotransferase 25 U/L (6-50); Albumin Level 4.3 g/dL (3.5-5.1); Alkaline Phosphatase 106 U/L (38-126); Anion Gap 9 mmol/L (4-12); Aspartate Amino Transferase 54 U/L (17-59); Bilirubin,Total 0.8 mg/dL (0.2-1.3); Blood Urea Nitrogen 9 mg/dL (9-20); Calcium 8.9 mg/dL (8.4-10.2); Carbon Dioxide 24 mmol/L (22-30); Chloride 103 mmol/L (98-107); Estimated CRCL calculation 153 ml/min; Estimated Glomerular Filt Rate > 60; Glucose 100 mg/dL (65-110); Lipase 58 U/L (23-300); Potassium 3.8 mmol/L (3.4-5.0); Sodium 136 mmol/L (137-145)
[2023-05-28 15:22] LABS: Appearance Urine Clear (Clear); Bilirubin Urine Negative (Negative); Blood Urine Negative (Negative); Color Urine Yellow (Yellow); Glucose Urine UA Negative (Negative); Ketones Urine 1+ mg/dL (Negative); Leukocyte Esterase Ur Negative LEU/UL (Negative); Nitrate Urine Negative (Negative); Protein Urine Negative (Negative); Specific Grav Ur 1.019 (1.001-1.035); Urobilinogen Urine 0.2 mg/dL (<2.0)
[2023-05-28 15:32] LABS: Add Urine Microscopic? NO
[2023-05-28 15:36] VITALS: BP 121/77; BP 130/85; PULSE 81; PULSE 86
[2023-05-28 15:37] VITALS: BP 132/85; PULSE 93
[2023-05-28 15:38] VITALS: BP 132/85; PULSE 86; RESP 16; O2SAT 99
== END 2023-05-28 16:38 | disposition home or self-care (01) ==
PROVIDERS: Emergency Provider Emergency Medicine
DX: K52.9 Noninfective gastroenteritis and colitis, unspecified (principal); F41.8 Other specified anxiety disorders; K21.9 Gastro-esophageal reflux disease without esophagitis; J45.909 Unspecified asthma, uncomplicated
CPT/HCPCS: 36415; 74177; 80053; 81003; 83690; 85025; 96361; 96374; 96375; 99284; J2405; J7030; Q9967

== ENCOUNTER 2023-06-16 10:25 | Emergency (ER) | payer BC, SELFPAY ==
[2023-06-16 10:33] VITALS: BP 121/90; PULSE 98; RESP 18; TEMP 36.7; O2SAT 98
[2023-06-16 10:48] LABS: Basophils Absolute Auto 0.1 K/mm3 (0.0-0.1); Basophils Percent Auto 0.6 % (0.2-1.2); Eosinophils Absolute Auto 0.2 K/mm3 (0-0.3); Eosinophils Percent Auto 1.8 % (0-4.4); Hematocrit 43.1 % (42.0-52.0); Hemoglobin 15.4 g/dL (14.0-18.0); Immature Granulocyte Absolute 0.03 K/mm3 (0.00-0.031); Immature Granulocyte Percent A 0.3 % (0-0.5); Lymphocytes Absolute Auto 2.54 K/mm3 (0.9-3.2); Lymphocytes Percent Auto 28.3 % (18.3-44.2); Mean Corpuscular HGB Conc 35.7 g/dl (32-36); Mean Corpuscular Hemoglobin 31.8 pg (26-34); Mean Corpuscular Volume 88.9 fl (80-100); Mean Platelet Volume 10.1 fl (7.4-10.4); Monocytes Absolute Auto 0.6 K/mm3 (0.1-0.6); Monocytes Percent Auto 6.3 % (2.6-8.5); Neutrophils Absolute Auto 5.6 K/mm3 (1.3-6.7); Neutrophils Percent Auto 62.7 % (45.5-73.1); Platelet Count Result 249 k/mm3 (150-375); Red Blood Count 4.85 M/mm3 (4.6-6.20); Red Cell Distribution Width 12.2 % (11.5-14.5)
[2023-06-16 10:53] LABS: Alanine Aminotransferase 17 U/L (6-50); Albumin Level 4.7 g/dL (3.5-5.1); Alkaline Phosphatase 133 U/L (38-126); Anion Gap 14 mmol/L (4-12); Aspartate Amino Transferase 29 U/L (17-59); Bilirubin,Total 0.7 mg/dL (0.2-1.3); Blood Urea Nitrogen 9 mg/dL (9-20); Calcium 9.2 mg/dL (8.4-10.2); Carbon Dioxide 19 mmol/L (22-30); Chloride 105 mmol/L (98-107); Estimated CRCL calculation 134 ml/min; Estimated Glomerular Filt Rate > 60; Glucose 131 mg/dL (65-110); Potassium 3.4 mmol/L (3.4-5.0); Sodium 138 mmol/L (137-145)
[2023-06-16 10:55] LABS: INR 0.9
[2023-06-16 10:56] LABS: Partial Thromboplastin Time 24.6 Seconds (22.3-36.8)
[2023-06-16] MEDS: ACETAMINOPHEN 325 MG TABLET 650 MG PO (11:15)
--- NOTE | 2023-06-16 11:37 | ED.GENADULT ---
HPI - General Adult General Chief complaint: Unspecified Stated complaint: puking up black gunk, black stool Time Seen by Provider: 06/16/23 10:34 History of Present Illness HPI narrative: Patient is a 37-year-old male who is transitioning to female that presents ER with concerns of blood in stool/ emesis. Reports had 1 emesis today that was dark in color and also 1 loose stool that was green and almost black. Recently finished antibiotics for colitis. Still has not had a formed stool. she has stopped drinking alcohol. [place], she is usually seen at [facility]. She takes omeprazole 20 mg in the morning and then some famotidine in the evening. No use but additional. No iron supplements. Related Data Home Medications Medication Instructions Recorded Confirmed finasteride 5 mg tablet 5 mg PO DAILY 12/23/22 03/09/23 pantoprazole 20 mg tablet,delayed 20 mg PO QAM 12/23/22 03/09/23 release progesterone micronized 100 mg 100 mg PO QAM 12/23/22 03/09/23 capsule spironolactone 100 mg tablet 100 mg PO DAILY 12/23/22 03/09/23 dupilumab 300 mg/2 mL subcutaneous 300 mg subcut WEEKLY 12/24/22 03/09/23 pen injector ([employer]) estradiol valerate 20 mg/mL 20 mg IM WEEKLY 01/05/23 03/09/23 intramuscular oil multivitamin 1 tablet PO DAILY 01/05/23 03/09/23 Allergies Allergy/AdvReac Type Severity Reaction Status Date / Time Penicillins Allergy Anaphylaxis Verified 06/16/23 10:35 Review of Systems Constitutional: Constitutional: Reports no additional constitutional complaints ENT: Reports system reviewed and no additional complaints, except as documented Cardiovascular: Cardiovascular: Reports no additional cardiovascular complaints Respiratory: Respiratory: Reports no additional respiratory complaints Gastrointestinal: Gastrointestinal: Reports abdominal pain, Reports diarrhea, Reports nausea and Reports vomiting Genitourinary: Genitourinary: Reports no additional male genitourinary complaints Musculoskeletal: Musculoskeletal: Reports no additional musculoskeletal complaints [facility] Past Medical History Medical History (Updated 06/16/23 @ 11:40 by Adebayo Whitney MD) Anxiety Asthma Depression Eosinophilic esophagitis GERD (gastroesophageal reflux disease) Hx of blood clots Kidney stones Peptic ulcer Surgical History Surgical History (Updated 03/08/23 @ 13:40 by Yadira Jones MA) History of dental surgery History of esophagogastroduodenoscopy (EGD) History of laparoscopic cholecystectomy 01/15/23 [facility] Family History Family History Father Hypertension Lymphoma Mother Heart disease Hypertension Grandparent Malignant neoplasm of prostate Lung cancer Grandparent Breast cancer Other Cerebrovascular accident Diabetes mellitus Social History Social History Smoking status: Never smoker Alcohol intake: former Alcohol use details: QUIT DRINKING ~5103-6399 Substance use: current Substance use type: marijuana Living arrangements: with family Occupation/Education: occupation 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 HEAD: Normocephalic, atraumatic. ENT: Mucous membranes moist. CHEST: Clear to auscultation. No respiratory distress. HEART: Regular rate and rhythm. Normal peripheral pulses. ABDOMEN: Soft, nontender, nondistended. EXTREMITIES: Normal range of motion. No edema. SKIN: Warm, dry, no rash. NEURO: Alert and oriented x3. PSYCH: Normal mood and affect. Course Course Emergency Course: Labs normal. Recommend increasing PPI to 40 mg twice a day. Recommend follow-up with her GI doctor. Vital Signs
[2023-06-16] MEDS: ONDANSETRON INJ 4 MG/2 ML VIAL IV PUSH (11:54)
[2023-06-16 12:01] VITALS: BP 113/82; PULSE 89; RESP 18; TEMP 36.6; O2SAT 99
== END 2023-06-16 12:03 | disposition home or self-care (01) ==
PROVIDERS: Emergency Provider Emergency Medicine
DX: R11.10 Vomiting, unspecified (principal); J45.909 Unspecified asthma, uncomplicated; K20.0 Eosinophilic esophagitis; K21.9 Gastro-esophageal reflux disease without esophagitis; F64.0 Transsexualism; Z87.442 Personal history of urinary calculi; Z87.11 Personal history of peptic ulcer disease; Z90.49 Acquired absence of other specified parts of digestive tract; Z79.890 Hormone replacement therapy
CPT/HCPCS: 36415; 80053; 85025; 85610; 85730; 86850; 86900; 86901; 96374; 99284; A9270; J2405

== ENCOUNTER 2023-06-16 15:54 | Emergency (ER) | payer BC, SELFPAY ==
--- NOTE | ~2023-06-16 | XR_ITS ---
EXAMINATION: XR chest 2V DATE: 06/16/2023 16:21 INDICATION: Chest pain. TECHNIQUE: Frontal and lateral views of the chest were obtained. COMPARISON: Chest single view 01/01/2023, chest CT 03/23/2023, chest 2 views 04/26/2022 FINDINGS: There is no pneumonia, pleural effusion, or pneumothorax. The heart size is normal. Surgica l clips in the right upper quadrant are likely from cholecystectomy. IMPRESSION: 1. No acute cardiopulmonary disease. Reviewed, dictated and finalized at location A.
--- NOTE | 2023-06-16 15:58 | ECG_ITS ---
SEE SCANNED COPY FOR CONFIRMED REPORT. MTDD
[2023-06-16 16:02] VITALS: BP 123/90; PULSE 102; RESP 16; TEMP 36.5; O2SAT 97
[2023-06-16 16:19] LABS: Basophils Absolute Auto 0.1 K/mm3 (0.0-0.1); Basophils Percent Auto 0.5 % (0.2-1.2); Eosinophils Absolute Auto 0.1 K/mm3 (0-0.3); Eosinophils Percent Auto 0.9 % (0-4.4); Hematocrit 41.4 % (42.0-52.0); Immature Granulocyte Absolute 0.02 K/mm3 (0.00-0.031); Immature Granulocyte Percent A 0.2 % (0-0.5); Lymphocytes Absolute Auto 2.11 K/mm3 (0.9-3.2); Lymphocytes Percent Auto 19.8 % (18.3-44.2); Mean Corpuscular HGB Conc 36.2 g/dl (32-36); Mean Corpuscular Volume 88.3 fl (80-100); Mean Platelet Volume 10.1 fl (7.4-10.4); Monocytes Absolute Auto 0.6 K/mm3 (0.1-0.6); Monocytes Percent Auto 5.3 % (2.6-8.5); Neutrophils Absolute Auto 7.8 K/mm3 (1.3-6.7); Neutrophils Percent Auto 73.3 % (45.5-73.1); Platelet Count Result 229 k/mm3 (150-375); Red Blood Count 4.69 M/mm3 (4.6-6.20); Red Cell Distribution Width 12.2 % (11.5-14.5); White Blood Count 10.7 K/mm3 (4.5-10.0)
[2023-06-16 16:20] VITALS: PULSE 78
[2023-06-16 16:29] LABS: Prothrombin Time 13.1 Seconds (11.1-14.7)
[2023-06-16 16:30] LABS: Alanine Aminotransferase 17 U/L (6-50); Albumin Level 4.4 g/dL (3.5-5.1); Alkaline Phosphatase 131 U/L (38-126); Anion Gap 11 mmol/L (4-12); Aspartate Amino Transferase 29 U/L (17-59); Bilirubin,Total 1.2 mg/dL (0.2-1.3); Blood Urea Nitrogen 9 mg/dL (9-20); Calcium 8.9 mg/dL (8.4-10.2); Carbon Dioxide 20 mmol/L (22-30); Chloride 104 mmol/L (98-107); Estimated CRCL calculation 149 ml/min; Estimated Glomerular Filt Rate > 60; Glucose 106 mg/dL (65-110); Lipase 98 U/L (23-300); Partial Thromboplastin Time 24.9 Seconds (22.3-36.8); Potassium 3.5 mmol/L (3.4-5.0); Sodium 135 mmol/L (137-145)
[2023-06-16 16:42] LABS: Troponin I < 0.012 ng/mL (0.000-0.034)
[2023-06-16] MEDS: ASPIRIN 81 MG CHEWABLE TABLET 324 MG PO (16:43)
--- NOTE | 2023-06-16 16:52 | ED.CHESTPAIN ---
HPI - Chest Pain General Chief Complaint: Chest Pain Stated Complaint: chest pain Time Seen by Provider: 06/16/23 16:19 Source: patient Mode of arrival: ambulatory Limitations: no limitations History of Present Illness HPI narrative: 37-year-old with a history of anxiety, eosinophilic esophagitis, GERD, transitioning into a female here of sudden onset of midsternal chest pain. Patient was seen earlier in the ER for abdominal pain. Patient states he went home had a nap and soon after he woke up he started having midsternal pain which was nonradiating. He also states that his heart was racing. He denies being lightheaded or dizzy. complaint: chest pain Onset: during rest Pain location: substernal Pain radiation: none Severity: moderate Quality: sharp Relieving factors: nothing Exacerbating factors: nothing Related Data Home Medications Medication Instructions Recorded Confirmed finasteride 5 mg tablet 5 mg PO DAILY 12/23/22 03/09/23 pantoprazole 20 mg tablet,delayed 20 mg PO QAM 12/23/22 03/09/23 release progesterone micronized 100 mg 100 mg PO QAM 12/23/22 03/09/23 capsule spironolactone 100 mg tablet 100 mg PO DAILY 12/23/22 03/09/23 dupilumab 300 mg/2 mL subcutaneous 300 mg subcut WEEKLY 12/24/22 03/09/23 pen injector ([employer]) estradiol valerate 20 mg/mL 20 mg IM WEEKLY 01/05/23 03/09/23 intramuscular oil multivitamin 1 tablet PO DAILY 01/05/23 03/09/23 Allergies Allergy/AdvReac Type Severity Reaction Status Date / Time Penicillins Allergy Anaphylaxis Verified 06/16/23 16:06 Review of Systems Review of Systems: All systems reviewed & are unremarkable except as noted in HPI and below Constitutional: Constitutional: Reports no additional constitutional complaints Eyes: Eyes: Reports no additional eye complaints ENT: Reports system reviewed and no additional complaints, except as documented Cardiovascular: Cardiovascular: Reports as per HPI Respiratory: Respiratory: Reports no additional respiratory complaints Gastrointestinal: Gastrointestinal: Reports as per HPI Musculoskeletal: Musculoskeletal: Reports no additional musculoskeletal complaints [facility] Past Medical History Medical History Anxiety Asthma Depression Eosinophilic esophagitis GERD (gastroesophageal reflux disease) Hx of blood clots Kidney stones Peptic ulcer Surgical History Surgical History History of dental surgery History of esophagogastroduodenoscopy (EGD) History of laparoscopic cholecystectomy 01/15/23 [facility] Family History Family History Father Hypertension Lymphoma Mother Heart disease Hypertension Grandparent Malignant neoplasm of prostate Lung cancer Grandparent Breast cancer Other Cerebrovascular accident Diabetes mellitus Social History Social History Smoking status: Never smoker Alcohol intake: former Alcohol use details: QUIT DRINKING ~2767-6040 Substance use: current Substance use type: marijuana Living arrangements: with family Occupation/Education: occupation 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 HEAD: Normocephalic, atraumatic. EYES: PERRLA and EOMI. ENT: Nares clear, no rhinorrhea or epistaxis. Mucous membranes moist. NECK: Supple. CHEST: Clear to auscultation. No respiratory distress. HEART: Regular rate and rhythm. No murmur heard. Normal peripheral pulses. ABDOMEN: Soft, nontender, nondistended, normal active bowel sounds. EXTREMITIES: Normal range of motion. No edema. SKIN: Warm, dry, no rash. NEURO: No focal deficits. Alert and oriented x3.
[2023-06-16 17:29] VITALS: BP 101/63; PULSE 93; RESP 18; O2SAT 99
== END 2023-06-16 17:32 | disposition home or self-care (01) ==
PROVIDERS: Emergency Provider Family Medicine
DX: R07.89 Other chest pain (principal); J45.909 Unspecified asthma, uncomplicated; K21.9 Gastro-esophageal reflux disease without esophagitis; K20.0 Eosinophilic esophagitis; F64.0 Transsexualism; Z87.442 Personal history of urinary calculi; Z87.11 Personal history of peptic ulcer disease; Z90.49 Acquired absence of other specified parts of digestive tract; Z79.890 Hormone replacement therapy; I45.10 Unspecified right bundle-branch block; R00.0 Tachycardia, unspecified; R94.31 Abnormal electrocardiogram [ECG] [EKG]
CPT/HCPCS: 36415; 71046; 80053; 83690; 84484; 85025; 85610; 85730; 86850; 86900; 86901; 93005; 96374; 99284; A9270; J2405

== ENCOUNTER 2023-07-11 04:21 | Emergency (ER) | payer BC, SELFPAY ==
[2023-07-11] VITALS (18 sets, daily range): BP systolic 104–125; BP diastolic 70–88; PULSE 70–97; RESP 11–24; TEMP 37.1; O2SAT 95–100
--- NOTE | ~2023-07-11 | XR_ITS ---
EXAMINATION: XR chest 1V portable DATE: 07/11/2023 04:44 INDICATION: Chest pain. TECHNIQUE: A single frontal view of the chest was obtained on 2 radiographs. COMPARISON: Chest single view 06/16/23, chest CT 03/23/2023 FINDINGS: There is no pneumonia, pleural effusion, or pneumothorax. The heart size is normal. IMPRESSION: 1. No acute cardiopulmonary disease. Reviewed, dictated and finalized at location E.
--- NOTE | 2023-07-11 04:29 | ECG_ITS ---
SEE SCANNED COPY FOR CONFIRMED REPORT MTDD
[2023-07-11 04:40] LABS: Basophils Percent Auto 0.4 % (0.2-1.2); Eosinophils Absolute Auto 0.1 K/mm3 (0-0.3); Eosinophils Percent Auto 1.7 % (0-4.4); Hematocrit 39.3 % (42.0-52.0); Hemoglobin 14.1 g/dL (14.0-18.0); Immature Granulocyte Absolute 0.02 K/mm3 (0.00-0.031); Immature Granulocyte Percent A 0.3 % (0-0.5); Lymphocytes Absolute Auto 2.48 K/mm3 (0.9-3.2); Lymphocytes Percent Auto 35.9 % (18.3-44.2); Mean Corpuscular HGB Conc 35.9 g/dl (32-36); Mean Corpuscular Hemoglobin 32.1 pg (26-34); Mean Corpuscular Volume 89.5 fl (80-100); Mean Platelet Volume 9.7 fl (7.4-10.4); Monocytes Absolute Auto 0.6 K/mm3 (0.1-0.6); Neutrophils Absolute Auto 3.6 K/mm3 (1.3-6.7); Neutrophils Percent Auto 52.7 % (45.5-73.1); Platelet Count Result 286 k/mm3 (150-375); Red Blood Count 4.39 M/mm3 (4.6-6.20); Red Cell Distribution Width 12.8 % (11.5-14.5); White Blood Count 6.9 K/mm3 (4.5-10.0)
[2023-07-11 04:55] LABS: Alanine Aminotransferase 24 U/L (6-50); Albumin Level 4.5 g/dL (3.5-5.1); Alkaline Phosphatase 166 U/L (38-126); Anion Gap 12 mmol/L (4-12); Aspartate Amino Transferase 53 U/L (17-59); Bilirubin,Total 0.6 mg/dL (0.2-1.3); Blood Urea Nitrogen 6 mg/dL (9-20); Calcium 8.6 mg/dL (8.4-10.2); Carbon Dioxide 24 mmol/L (22-30); Chloride 102 mmol/L (98-107); Estimated CRCL calculation 137 ml/min; Estimated Glomerular Filt Rate > 60; Glucose 113 mg/dL (65-110); Lipase 143 U/L (23-300); Potassium 3.2 mmol/L (3.4-5.0); Sodium 138 mmol/L (137-145)
--- NOTE | 2023-07-11 05:00 | ED.CHESTPAIN ---
HPI - Chest Pain General Chief Complaint: Chest Pain <Earl Tang DO - Last Filed: 07/11/23 05:08> Stated Complaint: chest tightness <Earl Tang DO - Last Filed: 07/11/23 05:08> Time Seen by Provider: 07/11/23 04:36 <Earl Tang DO - Last Filed: 07/11/23 05:08> Source: patient <Earl Tang DO - Last Filed: 07/11/23 05:08> Limitations: no limitations <Earl Tang DO - Last Filed: 07/11/23 05:08> History of Present Illness HPI narrative: patient is a 37-year-old male presented to the emergency department chest tightness and nausea and lightheadedness. Patient denies any significant shortness of breath. Patient also started around 10:00 p.m. while he was trying to get the rest and has been persistent ever since without any thing making it better or worse. Patient also notes that he is a daily drinker and drinking approximately 1 pt of liquor daily for a long time and his last drink was a a p.m. last night and denies any history of alcohol withdrawal. Patient stated also being evaluated as an outpatient by Gastroenterology and just had a colonoscopy and a EGD performed on for chronic abnormal stool colors that has been overall unchanged. Patient denies any illicit drug use. Patient denies history of blood clots. Patient denies any recent injuries, sick contacts, cough, fever. Patient is to chronic abdominal pain that is unchanged. <Earl Tang DO - Last Filed: 07/11/23 05:08> Related Data Home Medications: Home Medications Medication Instructions Recorded Confirmed finasteride 5 mg tablet 5 mg PO DAILY 12/23/22 03/09/23 pantoprazole 20 mg tablet,delayed 20 mg PO QAM 12/23/22 03/09/23 release progesterone micronized 100 mg 100 mg PO QAM 12/23/22 03/09/23 capsule spironolactone 100 mg tablet 100 mg PO DAILY 12/23/22 03/09/23 dupilumab 300 mg/2 mL subcutaneous 300 mg subcut WEEKLY 12/24/22 03/09/23 pen injector ([employer]) estradiol valerate 20 mg/mL 20 mg IM WEEKLY 01/05/23 03/09/23 intramuscular oil multivitamin 1 tablet PO DAILY 01/05/23 03/09/23 <Earl Tang DO - Last Filed: 07/11/23 05:08> Allergies/Adverse Reactions: Allergies Allergy/AdvReac Type Severity Reaction Status Date / Time Penicillins Allergy Anaphylaxis Verified 06/16/23 16:06 <Earl Tang DO - Last Filed: 07/11/23 05:08> Review of Systems Review of Systems: All systems reviewed & are unremarkable except as noted in HPI and below <Earl Tang DO - Last Filed: 07/11/23 05:08> [facility] Past Medical History Medical History: Medical History Anxiety Asthma Depression Eosinophilic esophagitis GERD (gastroesophageal reflux disease) Hx of blood clots Kidney stones Peptic ulcer <Earl Tang DO - Last Filed: 07/11/23 05:08> Surgical History Surgical History: Surgical History History of dental surgery History of esophagogastroduodenoscopy (EGD) History of laparoscopic cholecystectomy 01/15/23 [facility] <Earl Tang DO - Last Filed: 07/11/23 05:08> Family History Family History: Family History Father Hypertension Lymphoma Mother Heart disease Hypertension Grandparent Malignant neoplasm of prostate Lung cancer Grandparent Breast cancer Other Cerebrovascular accident Diabetes mellitus <Earl Tang DO - Last Filed: 07/11/23 05:08> Social History Social History: Social History Smoking status: Never smoker Alcohol intake: former Alcohol use details: QUIT DRINKING ~[id number] Substance use: current Substance use type: marijuana Living arrangements: with family Occupation/Education: occupation 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
[2023-07-11 05:06] LABS: Troponin I < 0.012 ng/mL (0.000-0.034)
[2023-07-11] MEDS: SODIUM CHLORIDE 0.9% IV 1,000 ML 999 ML IV CONT (05:16)
[2023-07-11] MEDS: ONDANSETRON INJ 4 MG/2 ML VIAL IV PUSH (05:16)
[2023-07-11 05:17] LABS: INR 0.9; Prothrombin Time 12.3 Seconds (11.1-14.7)
[2023-07-11] MEDS: FAMOTIDINE 20 MG/2 ML VIAL IV PUSH (05:17)
[2023-07-11 05:18] LABS: Partial Thromboplastin Time 25.5 Seconds (22.3-36.8)
[2023-07-11] MEDS: POTASSIUM CHLORIDE 20 MEQ PACKET (FOR LIQUID) PO (05:18)
--- NOTE | 2023-07-11 06:18 | PC.NURSE ---
Patient states that their chest still feels weird like a panic attack. When asked if patient thinks that this is a panic attack patient replied maybe . Notified EDP Dr. Tang.
[2023-07-11 09:01] LABS: Magnesium 1.8 mg/dL (1.6-2.3); Phosphorus 2.4 mg/dL (2.5-4.5)
== END 2023-07-11 07:22 | disposition home or self-care (01) ==
PROVIDERS: Emergency Provider Student in an Organized Health Care Education/Training Program
DX: K21.9 Gastro-esophageal reflux disease without esophagitis (principal); R07.89 Other chest pain; F41.9 Anxiety disorder, unspecified; J45.909 Unspecified asthma, uncomplicated; F32.A Depression, unspecified; Z87.442 Personal history of urinary calculi
CPT/HCPCS: 36415; 71045; 80053; 83690; 83735; 84100; 84484; 85025; 85610; 85730; 93005; 96361; 96374; 96375; 99284; A9270; J2405; J7030

== ENCOUNTER 2023-08-18 13:55 | Emergency (ER) | payer BC, SELFPAY ==
[2023-08-18 14:23] VITALS: BP 109/69; PULSE 102; RESP 16; TEMP 36.8; O2SAT 97
--- NOTE | 2023-08-18 15:07 | ED.GENADULT ---
HPI - General Adult General Chief complaint: Unspecified <Rosa Turner June, - Last Filed: 08/18/23 15:10> Stated complaint: had too much alcohol , dehydrated <Rosa Turner June, - Last Filed: 08/18/23 15:10> Time Seen by Provider: 08/18/23 15:07 <oRsa Turner June, [employer] - Last Filed: 08/18/23 15:10> Focused HPI: Nesha Roman is a 37 y/o who presents with reports of having a bad drinking problem for about 4 years- she states that it has become worse over the past two- three months, She states that she hasn't eaten in 2 days / nausea vomiting and now affecting work Last ETOH drink today right before she came in GENERAL: in no acute distress. HEAD: Normocephalic, atraumatic. CHEST: Clear to auscultation. ?No respiratory distress. HEART: Regular rate and rhythm.? NEURO: ?Alert and oriented x3. Patient screened in triage and initial orders placed.? ?Additional care and disposition to be based upon?diagnostic testing and treatment. <Rosa Turner June, - Last Filed: 08/18/23 15:10> Focused HPI: Nesha Roman is a 37 y/o who presents with reports of having a bad drinking problem for about 4 years- she states that it has become worse over the past two- three months, She states that she hasn't eaten in 2 days / nausea vomiting and now affecting work Last ETOH drink today right before she came in GENERAL: in no acute distress. HEAD: Normocephalic, atraumatic. CHEST: Clear to auscultation. ?No respiratory distress. HEART: Regular rate and rhythm.? NEURO: ?Alert and oriented x3. Patient screened in triage and initial orders placed.? ?Additional care and disposition to be based upon?diagnostic testing and treatment. <Leydi Jamil PA-C - Last Filed: 08/18/23 20:52> Source: patient and old records reviewed <YAMILETH Haq Last Filed: 08/18/23 20:52> Mode of arrival: ambulatory <YAMILETH Haq Last Filed: 08/18/23 20:52> Limitations: no limitations <Leydi Jamil PA-C - Last Filed: 08/18/23 20:52> History of Present Illness HPI narrative: Agree with above MSE HPI. Patient is a transgender male to female. Well known to our facility. Reports she drinks up to fifth of whiskey per day at times. Reports last drink was around 1:00 p.m. today. Reports epigastric abdominal pain, which has been ongoing for the last several months. Reports history of GERD, recently underwent EGD/ colonoscopy which were unremarkable. Does still feel nauseous after Zofran given in triage. <Leydi Jamil PA-C - Last Filed: 08/18/23 20:52> Related Data Home medications: Home Medications Medication Instructions Recorded Confirmed finasteride 5 mg tablet 5 mg PO DAILY 12/23/22 03/09/23 pantoprazole 20 mg tablet,delayed 20 mg PO QAM 12/23/22 03/09/23 release progesterone micronized 100 mg 100 mg PO QAM 12/23/22 03/09/23 capsule spironolactone 100 mg tablet 100 mg PO DAILY 12/23/22 03/09/23 dupilumab 300 mg/2 mL subcutaneous 300 mg subcut WEEKLY 12/24/22 03/09/23 pen injector ([employer]) estradiol valerate 20 mg/mL 20 mg IM WEEKLY 01/05/23 03/09/23 intramuscular oil multivitamin 1 tablet PO DAILY 01/05/23 03/09/23 <Rosa Garcia, [employer] - Last Filed: 08/18/23 15:10> Allergies/adverse reactions: Allergies Allergy/AdvReac Type Severity Reaction Status Date / Time Penicillins Allergy Anaphylaxis Verified 08/18/23 13:57 <Rosa Garcia, [employer] - Last Filed: 08/18/23 15:10> Review of Systems Review of Systems: CONSTITUTIONAL: Denies fever, chills, or sweats GASTROINTESTINAL: See HPI. GENITOURINARY: Denies dysuria or hematuria. <Leydi Jamil PA-C - Last Filed: 08/18/23 20:52> All systems reviewed & are unremarkable except as noted in HPI and below <Leydi Jamil PA-C - Last Filed: 08/18/23 20:52> [facility] Past Medical History Medical History: Medical History (Reviewed 08/18/23 @ 18:10 by Leydi Jamil,
[2023-08-18 15:37] VITALS: O2SAT 99
[2023-08-18 15:42] VITALS: BP 134/93; PULSE 97; RESP 12; O2SAT 98
[2023-08-18 15:57] LABS: Basophils Percent Auto 0.7 % (0.2-1.2); Eosinophils Absolute Auto 0.1 K/mm3 (0-0.3); Eosinophils Percent Auto 1.2 % (0-4.4); Hematocrit 41.9 % (42.0-52.0); Hemoglobin 15.3 g/dL (14.0-18.0); Immature Granulocyte Absolute 0.02 K/mm3 (0.00-0.031); Immature Granulocyte Percent A 0.5 % (0-0.5); Lymphocytes Absolute Auto 1.43 K/mm3 (0.9-3.2); Lymphocytes Percent Auto 33.6 % (18.3-44.2); Mean Corpuscular HGB Conc 36.5 g/dl (32-36); Mean Corpuscular Hemoglobin 34.2 pg (26-34); Mean Corpuscular Volume 93.7 fl (80-100); Mean Platelet Volume 9.8 fl (7.4-10.4); Monocytes Absolute Auto 0.5 K/mm3 (0.1-0.6); Monocytes Percent Auto 12.4 % (2.6-8.5); Neutrophils Absolute Auto 2.2 K/mm3 (1.3-6.7); Neutrophils Percent Auto 51.6 % (45.5-73.1); Platelet Count Result 243 k/mm3 (150-375); Red Blood Count 4.47 M/mm3 (4.6-6.20); White Blood Count 4.3 K/mm3 (4.5-10.0)
[2023-08-18 16:07] LABS: Alanine Aminotransferase 38 U/L (6-50); Albumin Level 4.6 g/dL (3.5-5.1); Alkaline Phosphatase 221 U/L (38-126); Anion Gap 13 mmol/L (4-12); Aspartate Amino Transferase 55 U/L (17-59); Bilirubin,Total 1.1 mg/dL (0.2-1.3); Calcium 9.2 mg/dL (8.4-10.2); Carbon Dioxide 24 mmol/L (22-30); Chloride 102 mmol/L (98-107); Estimated CRCL calculation 151 ml/min; Estimated Glomerular Filt Rate > 60; Glucose 117 mg/dL (65-110); INR 0.9; Magnesium 1.6 mg/dL (1.6-2.3); Phosphorus 2.1 mg/dL (2.5-4.5); Potassium 3.4 mmol/L (3.4-5.0); Prothrombin Time 13.1 Seconds (11.1-14.7); Sodium 139 mmol/L (137-145)
[2023-08-18 16:16] LABS: Glucose Point of Care 119 mg/dl (65-105)
[2023-08-18] MEDS: ONDANSETRON INJ 4 MG/2 ML VIAL IV PUSH (16:21)
[2023-08-18 16:25] LABS: Blood Urea Nitrogen < 2 mg/dL (9-20)
--- NOTE | 2023-08-18 16:40 | PC.NURSE ---
Patient to ED today with complaints of alcohol abuse and dehydration. patient reports knowing they need to and wanting to quit drinking but it feels like too big of a task at the moment, patient reports having suicidal thoughts in the past month, but does not currently feel suicidal. patient reports that their close friend in a car accident that preempted increased drinking that they were using as a coping mechanism. patient states they are wanting to get into therapy and has a great support system at home. patient has had withdrawals in the past that have included hallucinations, seizure activity, and being very sick
[2023-08-18 17:11] LABS: Ethanol 117 mg/dL (<10)
[2023-08-18] MEDS: SODIUM CHLORIDE 0.9% IV 1,000 ML 999 ML IV CONT ×2 (17:13→19:15)
--- NOTE | 2023-08-18 17:16 | PC.NURSE ---
patient given a cup to provide a urine sample at this time. patient verbalizes that they will try to provide a sample
[2023-08-18] MEDS: PANTOPRAZOLE SODIUM IV 40 MG VIAL IV PUSH (18:12)
[2023-08-18] MEDS: METOCLOPRAMIDE HCL INJ 10 MG/2 ML VIAL IV PUSH (18:12)
[2023-08-18] MEDS: diphenhydrAMINE HCl INJ 50 MG/ML VIAL 25 MG IV PUSH (18:12)
[2023-08-18 18:21] LABS: Appearance Urine Clear (Clear); Bacteria Urine None Seen /hpf; Bilirubin Urine Negative (Negative); Blood Urine Negative (Negative); Color Urine Yellow (Yellow); Glucose Urine UA Negative (Negative); Ketones Urine Negative (Negative); Leukocyte Esterase Ur Negative LEU/UL (Negative); Nitrate Urine Negative (Negative); Non Pathogenic Casts 0-2; Protein Urine Trace mg/dL (Negative); RBC Urine 0-2 /hpf (0-2); Specific Grav Ur 1.012 (1.001-1.035); Squamous Epithelial Cell Urine Occasional /hpf (Few); WBC Urine 0-5 /hpf (0-3); pH Urine 7.5 (5.0-9.0)
[2023-08-18] MEDS: THIAMINE HCL 200 MG/2 ML VIAL 100 MG IV PUSH (18:26)
[2023-08-18 18:28] LABS: Lipase 187 U/L (23-300)
[2023-08-18 18:34] LABS: Add Urine Microscopic? YES
[2023-08-18 18:36] LABS: Amphetamine Screen Urine Negative (Negative); Barbiturate Screen Urine Negative (Negative); Benzodiazepines Screen Urine Negative (Negative); Cannabinoid Screen Urine Negative (Negative); Cocaine Screen Urine Negative (Negative); Methadone Screen Urine Negative (Negative); Opiate Screen Urine Negative (Negative); Phencyclidine Screen Urine Negative (Negative)
[2023-08-18] MEDS: MAGNESIUM SULF 1 GM/D5W 100 ML 1 GM/100 ML BAG IVPB (19:12)
[2023-08-18 19:33] VITALS: BP 131/79; PULSE 94; RESP 16; O2SAT 97
--- NOTE | 2023-08-18 20:27 | ECG_ITS ---
Test Date: 2023-08-18 20:31:59 Measurements Intervals [place] Rate: 100 P: 62 AR: 127 QRS: -26 QRSD: 94 T: 30 QT: 358 QTc: 462 Interpretive Statements SINUS TACHYCARDIA POSSIBLE LEFT ATRIAL ENLARGEMENT LOW QRS VOLTAGE IN PRECORDIAL LEADS INCOMPLETE RIGHT BUNDLE BRANCH BLOCK ST-T WAVE ABNORMALITY IN ANTERIOR LEADS- CONSIDER ISCHEMIA BASELINE ARTIFACT- V1 ABNORMAL ECG No previous ECG available for comparison Electronically Signed On 08-19-2023 17:01:52 CDT by Vito Ricci D.O.
== END 2023-08-18 20:45 | disposition home or self-care (01) ==
PROVIDERS: Nurse Practitioner Family; Emergency Provider Physician Assistant
DX: F10.10 Alcohol abuse, uncomplicated (principal); E86.0 Dehydration; R11.2 Nausea with vomiting, unspecified; K21.9 Gastro-esophageal reflux disease without esophagitis; J45.909 Unspecified asthma, uncomplicated; R10.10 Upper abdominal pain, unspecified
CPT/HCPCS: 36415; 80053; 80307; 81001; 82948; 83690; 83735; 84100; 85025; 85610; 93005; 96361; 96365; 96366; 96368; 96375; 99284; J1200; J2405; J2470; J2765; J3411; J3475; J7030

== ENCOUNTER 2023-08-31 01:45 | Inpatient (IN) | payer BC, SELFPAY ==
[2023-08-31] VITALS (10 sets, daily range): BP systolic 96–118; BP diastolic 57–76; PULSE 81–111; RESP 12–20; TEMP 36.2–36.8; O2SAT 95–100
--- NOTE | ~2023-08-31 | CT_ITS ---
CT of the Abdomen and Pelvis: Indication: Abdominal pain Technique: 2.5 mm axial scans were obtained through the abdomen and pelvis following intravenous adm inistration of 100 cc of Omnipaque 350. Dose reduction technique was used on this scan by utilizing a utomated exposure control and iterative reconstruction technique. The dose-length product (DLP) was 3 10.16 mGy-cm. COMPARISON: 05/28/2023 Findings: Scans through the lung bases are unremarkable. There is diffuse hepatic steatosis. Cholecystectomy clips are present. The spleen, pancreas, adrenals and kidneys are within normal limits. There is peripancreatic inflammatory change/fluid, compatible with acute pancreatitis. No evidence of aortic aneurysm. No lymphadenopathy. No bowel obstruction or bowel wall thickening. There is no evidence to suggest acute appendicitis. Images through the pelvis were performed. Urinary bladder unremarkable. No pelvic mass seen. There is trace pelvic ascites. Impression: Acute pancreatitis. Diffuse hepatic steatosis. Reviewed, dictated and finalized at [facility]. Impression: Acute pancreatitis. Diffuse hepatic steatosis.
[2023-08-31 02:15] LABS: Basophils Percent Auto 0.2 % (0.2-1.2); Eosinophils Percent Auto 0.1 % (0-4.4); Hematocrit 40.2 % (42.0-52.0); Hemoglobin 14.1 g/dL (14.0-18.0); Immature Granulocyte Absolute 0.04 K/mm3 (0.00-0.031); Immature Granulocyte Percent A 0.3 % (0-0.5); Lymphocytes Absolute Auto 1.19 K/mm3 (0.9-3.2); Lymphocytes Percent Auto 9.6 % (18.3-44.2); Mean Corpuscular HGB Conc 35.1 g/dl (32-36); Mean Corpuscular Hemoglobin 34.1 pg (26-34); Mean Corpuscular Volume 97.3 fl (80-100); Mean Platelet Volume 9.8 fl (7.4-10.4); Monocytes Absolute Auto 0.7 K/mm3 (0.1-0.6); Monocytes Percent Auto 5.9 % (2.6-8.5); Neutrophils Absolute Auto 10.5 K/mm3 (1.3-6.7); Neutrophils Percent Auto 83.9 % (45.5-73.1); Platelet Count Result 222 k/mm3 (150-375); Red Blood Count 4.13 M/mm3 (4.6-6.20); Red Cell Distribution Width 17.7 % (11.5-14.5); White Blood Count 12.5 K/mm3 (4.5-10.0)
[2023-08-31 02:25] LABS: Alanine Aminotransferase 56 U/L (6-50); Alkaline Phosphatase 236 U/L (38-126); Anion Gap 15 mmol/L (4-12); Aspartate Amino Transferase 57 U/L (17-59); Bilirubin,Total 0.9 mg/dL (0.2-1.3); Blood Urea Nitrogen 4 mg/dL (9-20); Calcium 8.1 mg/dL (8.4-10.2); Carbon Dioxide 21 mmol/L (22-30); Chloride 102 mmol/L (98-107); Estimated CRCL calculation 182 ml/min; Estimated Glomerular Filt Rate > 60; Glucose 127 mg/dL (65-110); Lipase 447 U/L (23-300); Potassium 3.1 mmol/L (3.4-5.0); Sodium 138 mmol/L (137-145)
--- NOTE | 2023-08-31 05:18 | ED.GENADULT ---
HPI - General Adult General Chief complaint: Nausea/Vomiting/Diarrhea Stated complaint: abdominal pain/nausea/vomiting Time Seen by Provider: 08/31/23 04:26 History of Present Illness HPI narrative: Patient is a 37-year-old presents emergency department with chief complaint of abdominal pain nausea vomiting patient reports that they have been having multiple episodes of vomiting or dark in color patient is currently on hormonal therapy patient also reports that had some dark stools. The patient does report to heavy alcohol use Related Data Home Medications Medication Instructions Recorded Confirmed finasteride 5 mg tablet 5 mg PO DAILY 12/23/22 03/09/23 pantoprazole 20 mg tablet,delayed 20 mg PO QAM 12/23/22 03/09/23 release progesterone micronized 100 mg 100 mg PO QAM 12/23/22 03/09/23 capsule spironolactone 100 mg tablet 100 mg PO DAILY 12/23/22 03/09/23 dupilumab 300 mg/2 mL subcutaneous 300 mg subcut WEEKLY 12/24/22 03/09/23 pen injector ([email or web address]) estradiol valerate 20 mg/mL 20 mg IM WEEKLY 01/05/23 03/09/23 intramuscular oil multivitamin 1 tablet PO DAILY 01/05/23 03/09/23 Allergies Allergy/AdvReac Type Severity Reaction Status Date / Time Penicillins Allergy Anaphylaxis Verified 08/31/23 01:55 Review of Systems Review of Systems: A 10 system review of systems was completed on the patient and is negative except for what is stated in the HPI. Nursing and ancillary documentation was reviewed. [facility] Past Medical History Medical History Anxiety Asthma Depression Eosinophilic esophagitis GERD (gastroesophageal reflux disease) Hx of blood clots Kidney stones Peptic ulcer Surgical History Surgical History History of dental surgery History of esophagogastroduodenoscopy (EGD) History of laparoscopic cholecystectomy 01/15/23 [facility] Family History Family History Father Hypertension Lymphoma Mother Heart disease Hypertension Grandparent Malignant neoplasm of prostate Lung cancer Grandparent Breast cancer Other Cerebrovascular accident Diabetes mellitus Social History Social History Smoking status: Never smoker Alcohol intake: former Alcohol use details: QUIT DRINKING ~8849-9326 Substance use: current Substance use type: marijuana Living arrangements: with family Occupation/Education: occupation 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 HEAD: Normocephalic, atraumatic. EYES: PERRLA and EOMI. ENT: Nares clear, no rhinorrhea or epistaxis. Mucous membranes moist. NECK: Supple. CHEST: Clear to auscultation. No respiratory distress. HEART: Regular rate and rhythm. No murmur heard. Normal peripheral pulses. ABDOMEN: Soft, diffusely tender to palpation, nondistended, normal active bowel sounds. EXTREMITIES: Normal range of motion. No edema. SKIN: Warm, dry, no rash. NEURO: No focal deficits. Alert and oriented x3. PSYCH: Normal mood and affect. Course Vital Signs Vital signs: Vital Signs Temperature 36.7 C 08/31/23 01:49 Pulse Rate 92 08/31/23 01:49 Respiratory Rate 15 08/31/23 01:49 Blood Pressure 108/66 08/31/23 01:49 Pulse Oximetry 98 08/31/23 01:49 Oxygen Delivery Room Air 08/31/23 01:49 Temperature 36.7 C 08/31/23 01:49 Pulse Rate 89 08/31/23 06:11 Respiratory Rate 16 08/31/23 06:11 Blood Pressure 96/61 L 08/31/23 06:11 Pulse Oximetry 95 08/31/23 06:11 Oxygen Delivery Room Air 08/31/23 01:49 Medical Decision Making MDM Narrative Medical decision making
[2023-08-31] MEDS: SODIUM CHLORIDE 0.9% IV 1,000 ML 999 ML IV CONT (05:26)
[2023-08-31] MEDS: MORPHINE SULFATE (*CRX) 4 MG/ML INJ IV PUSH ×5 (05:26→21:14)
[2023-08-31] MEDS: ONDANSETRON INJ 4 MG/2 ML VIAL IV PUSH ×4 (05:26→21:13)
[2023-08-31] MEDS: DEXTROSE 5%/0.9% SOD CHL 1,000 ML 125 ML IV CONT ×2 (07:49→17:18)
[2023-08-31 08:13] LABS: Glucose Point of Care 121 mg/dl (65-105)
[2023-08-31 08:19] LABS: Ethanol < 10 mg/dL (<10)
[2023-08-31 08:21] LABS: Appearance Urine Clear (Clear); Bacteria Urine None Seen /hpf; Bilirubin Urine Negative (Negative); Blood Urine Negative (Negative); Color Urine Yellow (Yellow); Glucose Urine UA Negative (Negative); Ketones Urine 1+ mg/dL (Negative); Leukocyte Esterase Ur Negative LEU/UL (Negative); Nitrate Urine Negative (Negative); Non Pathogenic Casts 0-2; Protein Urine Trace mg/dL (Negative); RBC Urine 0-2 /hpf (0-2); Specific Grav Ur > 1.045 (1.001-1.035); Squamous Epithelial Cell Urine Occasional /hpf (Few); Urobilinogen Urine 0.2 mg/dL (<2.0); WBC Urine 0-5 /hpf (0-3)
[2023-08-31 08:28] LABS: Add Urine Microscopic? YES
--- NOTE | 2023-08-31 08:30 | ADMGEN ---
This patient, Nesha Roman, was admitted to Medical Room 349-01. Patient/family oriented to hospital policies and general routines including ID bracelet, bed and alarms, visiting hours, pain management, procedures, bathroom and other care routines, personal items, smoking policy, room service/diet, and visiting hours. Information on how to activate the Rapid Response Team has been discussed. Patient/Family are encouraged to report perceived risks to care and to ask questions if they do not understand what they are told or what they should do.
[2023-08-31] MEDS: THIAMINE HCL 200 MG/2 ML VIAL 100 MG IV PUSH (09:03)
[2023-08-31] MEDS: PANTOPRAZOLE SODIUM IV 40 MG VIAL IV PUSH ×2 (09:03→20:10)
--- NOTE | 2023-08-31 17:38 | PM.IMHP ---
H&P: HPI History of Present Illness Date/Time: 08/31/23 17:38 Chief Complaint: Nausea and vomiting Narrative: This is a 37-year-old male to female transgender with a history of eosinophilic esophagitis, depression and anxiety, alcohol use disorder, GERD, peptic ulcer disease who presents with coffee-ground emesis and black stool. Also associated with severe abdominal pain. Patient admitted on 08/31/2023 for close monitoring and workup Review of Systems Review of Systems: All systems reviewed & are unremarkable except as noted in HPI and below (Subjective) FORMERLY [facility] Past Medical History Medical History (Updated 09/02/23 @ 14:09 by Mary Raman MD) Alcohol use Anxiety Asthma Black stools Depression Elevated LFTs Eosinophilic esophagitis Fatty liver GERD (gastroesophageal reflux disease) Hx of blood clots Kidney stones Peptic ulcer Surgical History Surgical History History of dental surgery History of esophagogastroduodenoscopy (EGD) History of laparoscopic cholecystectomy 01/15/23 [facility] Family History Family History Father Hypertension Lymphoma Mother Heart disease Hypertension Grandparent Malignant neoplasm of prostate Lung cancer Grandparent Breast cancer Other Cerebrovascular accident Diabetes mellitus Social History Social History Smoking status: Never smoker Alcohol intake: current Drinks per week: 56 Alcohol use details: QUIT DRINKING ~[id number] Substance use: never Substance use type: marijuana Other substance usage details: drinks 750ml wiskey every 2 days Do You Feel Safe in your Home?: Yes Lack of Transportation: No Lack of Food: Never True Current Housing: I Have Housing Concerned About Future Housing: No Difficulty Paying Gas/Electric Bills: No Difficulty Paying for Meds: YES Currently Unemployed: No Education: High School Diploma/GED Difficulty w/ Childcare or Family Care: No Living arrangements: with family Occupation/Education: occupation Additional occupation/education comments: [employer] employee Gender identity (if verbalized by the patient): Other Spiritual care concerns: No Meds Home Medications and Allergies Home Medications Medication Instructions Recorded Confirmed Type ondansetron 4 mg disintegrating 4 mg PO Q8H PRN nausea and 12/09/22 08/31/23 Rx tablet vomiting #10 tabs finasteride 5 mg tablet 5 mg PO DAILY 12/23/22 08/31/23 History progesterone micronized 100 mg 100 mg PO QAM 12/23/22 08/31/23 History capsule spironolactone 100 mg tablet 100 mg PO DAILY 12/23/22 08/31/23 History dupilumab 300 mg/2 mL subcutaneous 300 mg subcut WEEKLY 12/24/22 08/31/23 History pen injector (Dupixent) estradiol valerate 20 mg/mL 20 mg IM WEEKLY 01/05/23 08/31/23 History intramuscular oil multivitamin 1 tablet PO DAILY 01/05/23 08/31/23 History pantoprazole 40 mg tablet,delayed 40 mg PO BID #30 tabs 06/16/23 08/31/23 Rx release famotidine 40 mg tablet 40 mg PO QHS 08/31/23 08/31/23 History Allergies Allergy/AdvReac Type Severity Reaction Status Date / Time Penicillins Allergy Severe Anaphylaxis Verified 08/31/23 08:50 Vital Signs Vital Signs - 24 hr 08/31/23 01:49 08/31/23 06:11 08/31/23 07:58 Temperature 98.1 F Pulse Rate 92 89 111 H Respiratory Rate 15 16 12 Blood Pressure 108/66 96/61 L 109/76 Pulse Oximetry 98 95 97 Oxygen Delivery Room Air 08/31/23 09:20 08/31/23 09:14 08/31/23 14:00 Temperature 98.3 F Pulse Rate 105 H 88 Respiratory Rate 16 Blood Pressure 111/71 Pulse Oximetry 100 Oxygen Delivery Room Air 08/31/23 12:05 Temperature Pulse Rate 87 Respiratory Rate Blood Pressure Pulse Oximetry Oxygen Delivery Exam Const: General: comfortable and no acute dis
[2023-08-31] MEDS: FOLIC ACID 1 MG/0.2 ML INJ IV PUSH (18:47)
[2023-09-01] VITALS (9 sets, daily range): BP systolic 100–114; BP diastolic 64–82; PULSE 79–97; RESP 17–20; TEMP 36.2–36.9; O2SAT 97–99; BMI 21.8
[2023-09-01 00:14] LABS: Glucose Point of Care 134 mg/dl (65-105)
[2023-09-01] MEDS: DEXTROSE 5%/0.9% SOD CHL 1,000 ML 125 ML IV CONT ×3 (01:29→17:17)
[2023-09-01] MEDS: ONDANSETRON INJ 4 MG/2 ML VIAL IV PUSH ×4 (01:29→20:36)
[2023-09-01] MEDS: MORPHINE SULFATE (*CRX) 4 MG/ML INJ IV PUSH ×7 (01:29→20:38)
[2023-09-01 05:31] LABS: Hematocrit 35.5 % (42.0-52.0); Hemoglobin 12.2 g/dL (14.0-18.0); Mean Corpuscular HGB Conc 34.4 g/dl (32-36); Mean Corpuscular Hemoglobin 34.8 pg (26-34); Mean Corpuscular Volume 101.1 fl (80-100); Platelet Count Result 146 k/mm3 (150-375); Red Blood Count 3.51 M/mm3 (4.6-6.20); Red Cell Distribution Width 17.4 % (11.5-14.5); White Blood Count 8.6 K/mm3 (4.5-10.0)
[2023-09-01 05:43] LABS: Alanine Aminotransferase 38 U/L (6-50); Albumin Level 3.4 g/dL (3.5-5.1); Alkaline Phosphatase 181 U/L (38-126); Anion Gap 7 mmol/L (4-12); Aspartate Amino Transferase 47 U/L (17-59); Bilirubin,Total 1.3 mg/dL (0.2-1.3); Calcium 7.2 mg/dL (8.4-10.2); Carbon Dioxide 26 mmol/L (22-30); Chloride 100 mmol/L (98-107); Estimated CRCL calculation 182 ml/min; Estimated Glomerular Filt Rate > 60; Glucose 129 mg/dL (65-110); Magnesium 1.3 mg/dL (1.6-2.3); Phosphorus 1.8 mg/dL (2.5-4.5); Potassium 3.3 mmol/L (3.4-5.0); Sodium 133 mmol/L (137-145)
[2023-09-01 05:46] LABS: Glucose Point of Care 131 mg/dl (65-105)
[2023-09-01 06:05] LABS: Blood Urea Nitrogen < 2 mg/dL (9-20)
[2023-09-01] MEDS: PANTOPRAZOLE SODIUM IV 40 MG VIAL IV PUSH ×2 (08:11→19:51)
[2023-09-01] MEDS: THIAMINE HCL 200 MG/2 ML VIAL 100 MG IV PUSH (08:11)
[2023-09-01] MEDS: FOLIC ACID 1 MG/0.2 ML INJ IV PUSH (08:11)
[2023-09-01 12:01] LABS: Glucose Point of Care 120 mg/dl (65-105)
--- NOTE | 2023-09-01 13:03 | WPDGICN ---
Assessment and Plan Assessment and plan (1) Acute pancreatitis: Code(s): K85.90 - Acute pancreatitis without necrosis or infection, unspecified Status: Acute Assessment and Plan: -This is his first attack, like due to chronic alcohol use. -s/p cholecystostomy 01/2023. CT scan negative for ductal dilation or retained stones. - on supportive therapy - will check triglycerides. - alcohol cessation adviced. (2) Nausea & vomiting: Code(s): R11.2 - Nausea with vomiting, unspecified Status: Inactive Assessment and Plan: Had EGD and colonoscopy within the last one-two month, were unremarkable per patient report. Has been having coffee ground emesis and black stools for a couple months. Reports drinking 750 mL of whiskey every 2 days for past year. - slightly drop in Hgb/hct since previous ER visit 2 weeks ago -? Alcoholic gastritis vs peptic ulcer disease vs Freda-Nickerson tear. will do EGD tomorrow. -records from [facility] -Continue pantoprazole IV BID (3) Black stools: Code(s): K92.1 - Melena Status: Acute (4) Alcohol use: Code(s): Z78.9 - Other specified health status Status: Acute (5) GERD (gastroesophageal reflux disease): Code(s): K21.9 - Gastro-esophageal reflux disease without esophagitis Status: Acute (6) Fatty liver: Code(s): K76.0 - Fatty (change of) liver, not elsewhere classified Status: Acute Assessment and Plan: noted on imaging, no cirrhosis. (7) Elevated LFTs: Code(s): R79.89 - Other specified abnormal findings of blood chemistry Status: Acute Assessment and Plan: ALk Phos elevated since June 2023 ranging from 130-230's with normal AST/ALT. Ct scan negative for any biliary ductal dilation of retained stones. likely secondary to chronic alcohol use and fatty liver will complete liver w/u to r/o chronic liver disease. GI Consult Note Consult date/time: 09/01/23 13:03 Reason for consult: coffee ground emesis and black stool. HPI: This is a pleasant 37 year old female with a past medical surgical history of eosinophilic esophagitis, chronic alcohol disorder, cholecystectomy in January 2023, who we were asked to see for coffee ground emesis and black stools. He presented to [facility] ER yesterday for c/o of nausea, vomiting, and abdominal pain. Ct scan of abdomen and pelvis revealed acute pancreatitis and fatty liver. She reports having coffee ground emesis and black stools off and on for the last couple of months. She had an EGD and colonoscopy within the last one-two month at [facility] (Dr. Alba) which pt reports were unremarkable. She has hx of EoE/GERD and was on dupixent (up until 6 months ago with insurance stopped paying for) and rn long term care use of pantoprazole 40 mg daily and famotidine 40 mg nightly at home for her symptoms. She reports drinking more than regular and goes through a 750 mL bottle of whiskey every 2 days for the past year. She had a period of sobriety for 2 years but relapsed about a year ago. Her nausea and vomiting have worsened over the past couple months and she presents to the ER constantly for this. Her emesis is usually liquid and can be black or bloody, but never bright red. She denies any hx of anemia. She was seen in the ER similar symptoms on 08/18/2023, HGb 15.3, today down 12.2, HCT 41.9->35.5, MCV 101.1 RDW 17.7. Zofran helps if she limits her alcohol intake. She feels like her stomach always feels like it's super full but denies bloating after eating. She has not had a gastric emptying study She has no personal history of pancreatitis or family history of pancreatic cancer. Abdominal ultrasound showed fatty liver, but she has no known history of cirrhosis. AST and ALT are mildly elevated, likely due to acute pancreatitis vs alcohol use. She reports her last bowel movement was last night, but she has been having diarrhea and has not had a solid bowel
[2023-09-01 14:59] LABS: Triglycerides 112 mg/dL (<150)
[2023-09-01 16:15] LABS: Hepatitis B Surface Antigen Negative (Negative)
[2023-09-01 16:21] LABS: HAV RESULT Negative (Negative); Hepatitis B Core IgM Result Negative (Negative)
[2023-09-01 16:32] LABS: Hepatitis C Virus Antibody Negative (Negative)
[2023-09-01 17:21] LABS: Iron 23 ug/dL (49-181)
[2023-09-01 17:39] LABS: Percent Iron Saturation 9 % (20-50)
--- NOTE | 2023-09-01 17:55 | PM.IMPN ---
Progress Note: A&P Assessment and Plan (1) Black stools: Code(s): K92.1 - Melena Status: Acute (2) Acute pancreatitis: Code(s): K85.90 - Acute pancreatitis without necrosis or infection, unspecified Status: Acute (3) GERD (gastroesophageal reflux disease): Code(s): K21.9 - Gastro-esophageal reflux disease without esophagitis Status: Acute (4) Gastritis: Code(s): K29.70 - Gastritis, unspecified, without bleeding Status: Acute Plan Continue pain control. His pain is improving. GI recs appreciated. full code. Subjective Date/time seen: 09/01/23 17:55 Interval history: No major acute overnight events. The patient reports improvement in his pain nausea and bloating feeling. He has not had diarrhea. He has not vomited again. He is in good spirits today. Review of Systems Review of Systems: All systems reviewed & are unremarkable except as noted in HPI and below (Subjective) Exam Const: General: comfortable and no acute distress Eyes: Pupils: Equal, round and reactive pupils present Neck: Neck: supple Resp: Effort & Inspection: normal respiratory effort Auscultation: clear to auscultation bilaterally Cardio: Rhythm: regular rhythm GI: GI Palp: Yes Soft to palpation and No Tenderness to palpation present (GI) Extrem: General: no edema Objective Data Vital Signs Vital Signs: Vital Signs - 24 hr 08/31/23 20:00 08/31/23 20:00 08/31/23 21:12 Temperature Pulse Rate 81 Respiratory Rate Blood Pressure 118/62 Pulse Oximetry Oxygen Delivery Room Air 09/01/23 00:00 09/01/23 04:00 09/01/23 06:00 Temperature 97.1 F L Pulse Rate 85 87 97 Respiratory Rate 18 Blood Pressure 111/64 Pulse Oximetry 97 Oxygen Delivery 08/31/23 20:33 09/01/23 08:05 09/01/23 12:05 Temperature 97.1 F L Pulse Rate 95 82 79 Respiratory Rate 20 Blood Pressure 100/57 L Pulse Oximetry 100 Oxygen Delivery 09/01/23 14:54 09/01/23 08:00 Temperature 97.2 F L Pulse Rate 84 Respiratory Rate 17 Blood Pressure 100/67 Pulse Oximetry 97 Oxygen Delivery Room Air Intake/Output Intake/Output: Intake & Output 08/29/23 08/30/23 08/31/23/17/24 23:59 23:59 23:59 23:59 Intake Total 2500 2975.0 Balance 2500 2975.0 Meds/Results Medications: Active Medications Generic Name Dose Route Start Last Admin Trade Name Freq PRN Reason Stop Dose Admin Folic Acid 1 mg 09/01/23 09:00 09/01/23 08:11 Folic Acid 1 Mg/0.2 Ml Inj IV PUSH 1 mg QAM TORITO Administration Dextrose/Sodium Chloride 1,000 mls @ 125 mls/hr 08/31/23 06:40 09/01/23 17:17 Dextrose 5% Sodium Chloride 0.9% IV CONT 125 mls/hr .Q8H TORITO Administration Potassium Chloride 100 mls @ 50 mls/hr 09/01/23 17:30 Kcl 20 Meq/Sw 100 Ml IVPB 09/01/23 19:29 ONCE ONE Magnesium Sulfate 4 gm in 100 mls @ 25 mls/hr 09/01/23 17:30 Magnesium Sulf 4 Gm/[id number] IVPB 09/01/23 21:29 ONCE ONE Lorazepam 2 mg 08/31/23 06:39 Lorazepam Inj (*Crx) 2 Mg/Ml Vial IV PUSH Q4H PRN CIWA 8-15 Morphine Sulfate 4 mg 08/31/23 06:45 09/01/23 14:43 Morphine Sulfate (*Crx) 4 Mg/Ml Inj IV PUSH 4 mg Q2H PRN Administration Pain Rated 7-10 Ondansetron HCl 4 mg 08/31/23 06:45 09/01/23 10:53 Ondansetron Inj 4 Mg/2 Ml Vial IV PUSH 4 mg Q4H PRN Administration Nausea Pantoprazole Sodium 40 mg 08/31/23 21:00 09/01/23 08:11 Pantoprazole Sodium Iv 40 Mg Vial IV PUSH 40 mg Q12HR TORITO Administration Thiamine HCl 100 mg 08/31/23 09:00 09/01/23 08:11 Thiamine Hcl 200 Mg/2 Ml Vial IV PUSH 100 mg DAILY TORITO Administration Radiology Results: ITS Impressions Abdomen/Pelvis CT 08/31/23 06:05 Impression: Acute pancreatitis. Diffuse hepatic steatosis. Labs Labs: Laboratory Results - last 24 hr 09/01/23 09/01/23 09/01/23 00:08 05:26 05:43 WBC 8.6 RBC 3.51
[2023-09-01] MEDS: KCL 20 MEQ/SW 100 ML 100 ML 50 MEQ IVPB (18:00)
[2023-09-01 18:31] LABS: Glucose Point of Care 127 mg/dl (65-105)
[2023-09-01] MEDS: MAGNESIUM SULF 4 GM/WATER100ML 4 GM/100 ML BAG IVPB (20:29)
[2023-09-02] VITALS (13 sets, daily range): BP systolic 90–120; BP diastolic 59–84; PULSE 84–100; RESP 16–20; TEMP 36.2–36.8; O2SAT 94–98
[2023-09-02] MEDS: MORPHINE SULFATE (*CRX) 4 MG/ML INJ IV PUSH ×4 (00:24→09:13)
[2023-09-02] MEDS: ONDANSETRON INJ 4 MG/2 ML VIAL IV PUSH ×2 (00:24→05:29)
[2023-09-02] MEDS: DEXTROSE 5%/0.9% SOD CHL 1,000 ML 125 ML IV CONT ×3 (00:24→23:42)
[2023-09-02 05:46] LABS: Hematocrit 37.7 % (42.0-52.0); Hemoglobin 12.9 g/dL (14.0-18.0); Mean Corpuscular HGB Conc 34.2 g/dl (32-36); Mean Corpuscular Hemoglobin 34.7 pg (26-34); Mean Corpuscular Volume 101.3 fl (80-100); Mean Platelet Volume 10.2 fl (7.4-10.4); Platelet Count Result 189 k/mm3 (150-375); Red Blood Count 3.72 M/mm3 (4.6-6.20); Red Cell Distribution Width 16.6 % (11.5-14.5); White Blood Count 7.1 K/mm3 (4.5-10.0)
[2023-09-02 05:57] LABS: Alanine Aminotransferase 43 U/L (6-50); Albumin Level 3.8 g/dL (3.5-5.1); Alkaline Phosphatase 220 U/L (38-126); Anion Gap 6 mmol/L (4-12); Aspartate Amino Transferase 73 U/L (17-59); Bilirubin,Total 1.3 mg/dL (0.2-1.3); Calcium 7.5 mg/dL (8.4-10.2); Carbon Dioxide 28 mmol/L (22-30); Chloride 100 mmol/L (98-107); Estimated CRCL calculation 155 ml/min; Estimated Glomerular Filt Rate > 60; Glucose 110 mg/dL (65-110); Magnesium 2.4 mg/dL (1.6-2.3); Phosphorus 2.1 mg/dL (2.5-4.5); Sodium 134 mmol/L (137-145)
[2023-09-02 05:59] LABS: Blood Urea Nitrogen < 2 mg/dL (9-20)
[2023-09-02] MEDS: POTASSIUM CHLORIDE INJ 40 MEQ in SODIUM CHLORIDE 0.9% IV 500 ML 130 MEQ IVPB (06:41)
[2023-09-02] MEDS: PANTOPRAZOLE SODIUM IV 40 MG VIAL IV PUSH ×2 (09:03→19:20)
[2023-09-02] MEDS: THIAMINE HCL 200 MG/2 ML VIAL 100 MG IV PUSH (09:03)
[2023-09-02] MEDS: FOLIC ACID 1 MG/0.2 ML INJ IV PUSH (09:03)
--- NOTE | 2023-09-02 12:05 | WPDANESEPPF ---
Anes - Initial Pre Proc Eval Procedure: Operation Date: 09/02/23 12:30 Proposed Procedures p Esophagogastroduodenoscopy - Tyrone Ortega MD Date/Time: 09/02/23 12:05 Surgeon: Raffaele Ho MD Pre Op Diagnosis: acute pancreatitis abdominal pain Patient Data Age: 37 Gender: M Height: 1.85 m Weight: 75 kg Last Vital Signs Temp 98.2 F 09/02/23 05:26 Pulse 93 09/02/23 05:26 Resp 20 09/02/23 05:26 BP 120/84 09/02/23 05:26 Pulse Ox 97 09/02/23 05:26 O2 Del Method Room Air 09/02/23 09:00 Allergies Allergy/AdvReac Type Severity Reaction Status Date / Time Penicillins Allergy Severe Anaphylaxis Verified 08/31/23 08:50 Home Medications Medication Instructions Recorded Confirmed Type ondansetron 4 mg disintegrating 4 mg PO Q8H PRN nausea and 12/09/22 08/31/23 Rx tablet vomiting #10 tabs finasteride 5 mg tablet 5 mg PO DAILY 12/23/22 08/31/23 History progesterone micronized 100 mg 100 mg PO QAM 12/23/22 08/31/23 History capsule spironolactone 100 mg tablet 100 mg PO DAILY 12/23/22 08/31/23 History dupilumab 300 mg/2 mL subcutaneous 300 mg subcut WEEKLY 12/24/22 08/31/23 History pen injector (Dupixent) estradiol valerate 20 mg/mL 20 mg IM WEEKLY 01/05/23 08/31/23 History intramuscular oil multivitamin 1 tablet PO DAILY 01/05/23 08/31/23 History pantoprazole 40 mg tablet,delayed 40 mg PO BID #30 tabs 06/16/23 08/31/23 Rx release famotidine 40 mg tablet 40 mg PO QHS 08/31/23 08/31/23 History Laboratory Tests 09/01/23 09/01/23 09/02/23 14:20 18:28 05:23 WBC 7.1 K/mm3 (4.5-10.0) RBC 3.72 L M/mm3 (4.6-6.20) Hgb 12.9 L g/dL (14.0-18.0) Hct 37.7 L % (42.0-52.0) MCV 101.3 H fl (80-100) MCH 34.7 H pg (26-34) MCHC 34.2 g/dl (32-36) RDW 16.6 H % (11.5-14.5) Plt Count 189 k/mm3 (150-375) MPV 10.2 fl (7.4-10.4) Sodium 134 L mmol/L (137-145) Potassium 3.0 L mmol/L (3.4-5.0) Chloride 100 mmol/L (98-107) Carbon Dioxide 28 mmol/L (22-30) Anion Gap 6 mmol/L (4-12) BUN < 2 L mg/dL (9-20) Creatinine 0.60 L mg/dL (0.7-1.3) Estim Creat Clear Calc 155 ml/min Estimated GFR > 60 (59 - ) Glucose 110 mg/dL (65-110) POC Capillary Glucose 127 H mg/dl (65-105) Calcium 7.5 L mg/dL (8.4-10.2) Phosphorus 2.1 L mg/dL (2.5-4.5) Magnesium 2.4 H mg/dL (1.6-2.3) Iron 23 L ug/dL (49-181) TIBC 257 L ug/dL (265-497) % Saturation 9 L % (20-50) Ferritin 158.00 ng/mL (17.9-464) Total Bilirubin 1.3 mg/dL (0.2-1.3) AST 73 H U/L (17-59) ALT 43 U/L (6-50) Alkaline Phosphatase 220 H U/L (38-126) Total Protein 7.0 g/dL (6.3-8.2) Albumin 3.8 g/dL (3.5-5.1) Ceruloplasmin Pending Triglycerides 112 mg/dL (<150) LESTER Screen Pending Mitochondria M2 IgG Ab Pending Actin IgG Antibody Pending Liver/Kid Microsomes Ab Pending Hepatitis A IgM Ab Negative (Negative) Hep Bs Antigen Negative (Negative) Hep B Core IgM Ab Negative (Negative) Hepatitis C Ab Screen Negative (Negative) Patient hx anesthesia problems: none Family hx anesthesia problems: none Results Review: All pre-operative results and documents have been reviewed as part of the pre-operative evaluation. PMFSH Past Medical History Medical History (Updated 09/01/23 @ 14:10 by ALEJANDRA Villanueva) Alcohol use Anxiety Asthma Black stools Depression Elevated LFTs Eosinophilic esophagitis Fatty liver GERD (gastroesophageal reflux disease) Hx of blood clots Kidney stones Peptic ulcer Surgical History Surgi
[2023-09-02] MEDS: LACTATED RINGERS 1,000 ML 150 ML IV CONT (12:14)
--- NOTE | 2023-09-02 14:08 | PM.IMPN ---
Progress Note: A&P Assessment and Plan (1) Black stools: Code(s): K92.1 - Melena Status: Acute (2) Acute pancreatitis: Code(s): K85.90 - Acute pancreatitis without necrosis or infection, unspecified Status: Acute (3) GERD (gastroesophageal reflux disease): Code(s): K21.9 - Gastro-esophageal reflux disease without esophagitis Status: Acute (4) Gastritis: Code(s): K29.70 - Gastritis, unspecified, without bleeding Status: Acute Plan advance diet as tolerated. tylenol, norco, morhine prn EGD reviewed. full code. Subjective Date/time seen: 09/02/23 14:08 Interval history: feels her pain is better. has tolerated clears after EGD Review of Systems Review of Systems: All systems reviewed & are unremarkable except as noted in HPI and below (subjective) Exam Const: General: comfortable and no acute distress Eyes: Pupils: Equal, round and reactive pupils present Neck: Neck: supple Resp: Effort & Inspection: normal respiratory effort Auscultation: clear to auscultation bilaterally Cardio: Rhythm: regular rhythm GI: GI Palp: Yes Soft to palpation and No Tenderness to palpation present (GI) Extrem: General: no edema Objective Data Vital Signs Vital Signs: Vital Signs - 24 hr 09/01/23 14:54 09/01/23 16:05 09/01/23 19:52 Temperature 97.2 F L 98.4 F Pulse Rate 84 84 92 Respiratory Rate 17 20 Blood Pressure 100/67 114/82 Pulse Oximetry 97 99 Oxygen Delivery 09/01/23 20:00 09/01/23 20:00 09/02/23 00:00 Temperature Pulse Rate 96 100 Respiratory Rate Blood Pressure Pulse Oximetry Oxygen Delivery Room Air 09/02/23 04:00 09/02/23 05:26 09/02/23 09:00 Temperature 98.2 F Pulse Rate 92 93 Respiratory Rate 20 Blood Pressure 120/84 Pulse Oximetry 97 Oxygen Delivery Room Air 09/02/23 12:12 09/02/23 12:49 09/02/23 12:59 Temperature 97.1 F L Pulse Rate 93 90 87 Respiratory Rate 18 18 17 Blood Pressure 119/82 90/61 L 94/59 L Pulse Oximetry 97 95 94 Oxygen Delivery Room Air Room Air Room Air 09/02/23 13:09 09/02/23 13:13 Temperature Pulse Rate 90 84 Respiratory Rate 17 Blood Pressure 96/62 L 109/67 Pulse Oximetry 95 96 Oxygen Delivery Room Air Intake/Output Intake/Output: Intake & Output 08/30/23 08/31/23 09/01/23 09/02/23 23:59 23:59 23:59 23:59 Intake Total 2500 3075.0 1960 Balance 2500 3075.0 1960 Meds/Results Medications: Active Medications Generic Name Dose Route Start Last Admin Trade Name Freq PRN Reason Stop Dose Admin Folic Acid 1 mg 09/01/23 09:00 09/02/23 09:03 Folic Acid 1 Mg/0.2 Ml Inj IV PUSH 1 mg QAM TORITO Administration Dextrose/Sodium Chloride 1,000 mls @ 125 mls/hr 08/31/23 06:40 09/02/23 12:00 Dextrose 5% Sodium Chloride 0.9% IV CONT 0 mls/hr .Q8H TORITO Infusion Lorazepam 2 mg 08/31/23 06:39 Lorazepam Inj (*Crx) 2 Mg/Ml Vial IV PUSH Q4H PRN CIWA 8-15 Morphine Sulfate 4 mg 08/31/23 06:45 09/02/23 09:13 Morphine Sulfate (*Crx) 4 Mg/Ml Inj IV PUSH 4 mg Q2H PRN Administration Pain Rated 7-10 Ondansetron HCl 4 mg 08/31/23 06:45 09/02/23 05:29 Ondansetron Inj 4 Mg/2 Ml Vial IV PUSH 4 mg Q4H PRN Administration Nausea Pantoprazole Sodium 40 mg 08/31/23 21:00 09/02/23 09:03 Pantoprazole Sodium Iv 40 Mg Vial IV PUSH 40 mg Q12HR TORITO Administration Thiamine HCl 100 mg 08/31/23 09:00 09/02/23 09:03 Thiamine Hcl 200 Mg/2 Ml Vial IV PUSH 100 mg DAILY TORITO Administration Radiology Results: ITS Impressions Abdomen/Pelvis CT 08/31/23 06:05 Impression: Acute pancreatitis. Diffuse hepatic steatosis. Labs Labs: Laboratory Results - last 24 hr 09/01/23 09/01/23 09/02/23 14:20 18:28 05:23 WBC 7.1 RBC 3.72 L Hgb 12.9 L Hct 37.7 L MCV 101.3 H MCH 34.7 H MCHC 34.2 RDW 16.6 H Plt Count 189 MPV 10.2 Sodium 13
[2023-09-02] MEDS: HYDROcodone/acetaminophen (*CRX) 5-325 MG TABLET 1 TAB PO ×3 (14:35→23:43)
[2023-09-02 15:59] LABS: Ceruloplasmin 23 mg/dL (14-30)
[2023-09-03] VITALS: PULSE 89
[2023-09-03 04:00] VITALS: PULSE 83
[2023-09-03] MEDS: HYDROcodone/acetaminophen (*CRX) 5-325 MG TABLET 1 TAB PO ×3 (05:00→14:34)
[2023-09-03 05:16] LABS: Hematocrit 34.5 % (42.0-52.0); Hemoglobin 11.4 g/dL (14.0-18.0)
[2023-09-03 05:31] LABS: Anion Gap 7 mmol/L (4-12); Calcium 7.8 mg/dL (8.4-10.2); Carbon Dioxide 26 mmol/L (22-30); Chloride 102 mmol/L (98-107); Estimated CRCL calculation 182 ml/min; Estimated Glomerular Filt Rate > 60; Glucose 108 mg/dL (65-110); Potassium 3.1 mmol/L (3.4-5.0); Sodium 135 mmol/L (137-145)
[2023-09-03 05:43] VITALS: BP 103/63; PULSE 86; RESP 16; TEMP 36.6; O2SAT 99
[2023-09-03 05:54] LABS: Blood Urea Nitrogen < 2 mg/dL (9-20)
[2023-09-03] MEDS: DEXTROSE 5%/0.9% SOD CHL 1,000 ML 125 ML IV CONT (07:15)
--- NOTE | 2023-09-03 07:35 | WPDGIPROGNO ---
Progress Note: A&P Assessment and Plan (1) Acute pancreatitis: Code(s): K85.90 - Acute pancreatitis without necrosis or infection, unspecified Status: Acute Assessment and Plan: clinically much better, no more nausea and tolerating liquid diet will advance diet and probably home today avoid using alcohol (2) Elevated LFTs: Code(s): R79.89 - Other specified abnormal findings of blood chemistry Status: Acute (3) Eosinophilic esophagitis: Code(s): K20.0 - Eosinophilic esophagitis Status: Acute Assessment and Plan: pending biopsies used to be on dupixent but discontinued because insurance issues can follow-up in office (4) Black stools: Code(s): K92.1 - Melena Status: Acute Assessment and Plan: no signs of bleeding had gastritis, use ppi daily (5) GERD (gastroesophageal reflux disease): Code(s): K21.9 - Gastro-esophageal reflux disease without esophagitis Status: Acute (6) Alcohol use: Code(s): Z78.9 - Other specified health status Status: Acute Subjective Date/time seen: 09/03/23 07:35 Interval history: doing better, no more n/v, pain almost gone egd mild gastritis Review of Systems Review of Systems: All systems reviewed & are unremarkable except as noted in HPI and below Exam Const: General: comfortable and no acute distress HENMT: Face/Nose/Sinus: Normal nares present Eyes: General: appearance normal, both eyes and all related structures Neck: Neck: no JVD Resp: Auscultation: clear to auscultation bilaterally Cardio: Rate: regular rate Rhythm: regular rhythm GI: Inspection: non-distended GI Palp: Yes Soft to palpation and No Tenderness to palpation present (GI) Auscultation: normal bowel sounds Skin: General skin exam: normal color Neuro: General: gait normal Speech: normal speech Extrem: General: normal to inspection Psych: Mental Status: mental status grossly normal Objective Data Vital Signs Vital Signs: Vital Signs - 24 hr 09/02/23 09:00 09/02/23 12:12 09/02/23 12:49 Temperature 97.1 F L Pulse Rate 93 90 Respiratory Rate 18 18 Blood Pressure 119/82 90/61 L Pulse Oximetry 97 95 Oxygen Delivery Room Air Room Air Room Air 09/02/23 12:59 09/02/23 13:09 09/02/23 13:13 Temperature Pulse Rate 87 90 84 Respiratory Rate 17 17 Blood Pressure 94/59 L 96/62 L 109/67 Pulse Oximetry 94 95 96 Oxygen Delivery Room Air Room Air 09/02/23 08:04 09/02/23 14:00 09/02/23 16:04 Temperature 98 F Pulse Rate 94 89 87 Respiratory Rate 16 Blood Pressure 110/79 Pulse Oximetry 95 Oxygen Delivery 09/02/23 20:00 09/02/23 20:00 09/02/23 20:58 Temperature 97.1 F L Pulse Rate 86 89 Respiratory Rate 16 Blood Pressure 100/63 Pulse Oximetry 98 Oxygen Delivery Room Air 09/03/23 00:00 09/03/23 04:00 09/03/23 05:43 Temperature 97.9 F Pulse Rate 89 83 86 Respiratory Rate 16 Blood Pressure 103/63 Pulse Oximetry 99 Oxygen Delivery Intake/Output Intake/Output: Intake & Output 08/31/23 09/01/23 09/02/23 09/03/23 23:59 23:59 23:59 23:59 Intake Total 2500 3075.0 4800 400 Balance 2500 3075.0 4800 400 Meds/Results Medications: Active Medications Generic Name Dose Route Start Last Admin Trade Name Freq PRN Reason Stop Dose Admin Acetaminophen 500 mg 09/02/23 14:07 Acetaminophen 500 Mg Tablet PO Q6H PRN Mild Pain (1-3) or Fever Hydrocodone Bitart/Acetaminophen 1 tab 09/02/23 14:07 09/03/23 05:00 Hydrocodone/Acetaminophen (*Crx) 5-325 Mg Tablet PO 1 tab Q4H PRN Administration Pain Rated 4-6 Folic Acid 1 mg 09/01/23 09:00 09/02/23 09:03 Folic Acid 1 Mg/0.2 Ml Inj IV PUSH 1 mg QAM TORITO Administration Dextrose/Sodium Chloride 1,000 mls @ 125 mls/hr 08/31/23 06:40 09/03/23 07:33 Dextrose 5% Sodium Chloride 0.9% IV CONT Not Given .Q8H TORITO Lorazepam 2 mg 08/31/23 06:39 L
[2023-09-03 08:00] VITALS: PULSE 88
--- NOTE | 2023-09-03 08:45 | PM.DS ---
DS: Admitting Diagnosis Discharge Date September 03, 2023 Admitting Diagnosis Abdominal pain nausea vomiting, black stools DS: Discharge Diagnosis Discharge Diagnosis (1) Gastritis: Code(s): K29.70 - Gastritis, unspecified, without bleeding Status: Acute (2) Elevated LFTs: Code(s): R79.89 - Other specified abnormal findings of blood chemistry Status: Acute (3) Fatty liver: Code(s): K76.0 - Fatty (change of) liver, not elsewhere classified Status: Acute (4) Eosinophilic esophagitis: Code(s): K20.0 - Eosinophilic esophagitis Status: Acute (5) Alcohol use: Code(s): Z78.9 - Other specified health status Status: Acute (6) Black stools: Code(s): K92.1 - Melena Status: Acute (7) Acute pancreatitis: Code(s): K85.90 - Acute pancreatitis without necrosis or infection, unspecified Status: Acute DS: Summary Hospital Course Hospital Course: This is a pleasant male to female transgender on hormonal therapy with [facility] alcohol use disorder, history of peptic ulcer disease, GERD/gastritis, depression and anxiety, hepatic steatosis, eosinophilic esophagitis (follows with GI at [facility]), status post cholecystectomy. He lives with friends, works from home, she is in the [employer] field. The patient reports drinking approximately 750 cc of hard liquor every 2 days. She has been doing this for a few years. He reports abdominal pain with nausea and coffee-ground emesis on the night prior to admission. He also had black stool. [facility] evaluation demonstrated a hemodynamically stable patient with hemoglobin 14.1. Lipase 447, AST 57, ALT 56, alkaline phosphatase 236, total bilirubin 0.9. Admitted on 08/30 for closer monitoring and workup of alcohol use disorder, pancreatitis, possible upper GI bleed. Of note, patient had a similar episode a few months prior. He had EGD and colonoscopy at an outside facility and reports unremarkable findings. Fluid resuscitation, pain control, Protonix 40 mg IV b.i.d. provided and the patient underwent EGD on 09/[address] Alex which demonstrated mild gastritis seen in the antrum without active bleeding. Multiple biopsies of lower and upper esophagus were taken given history of eosinophilic esophagitis. Post EGD, the patient did well. Tolerating diet. He will be discharged home in stable condition on 09/03/2023 with instructions to adhere to a low-fat diet and alcohol cessation. He has been provided resources by care coordinators. He has been heavily counseled on the detrimental effects of continued alcohol use. Patient is interested in psychotherapy + naltrexone. Since he has been receiving morphine and [place] he will have to wait 7-10 days and follow up with his primary care to be prescribed naltrexone. The patient is aware of this. Previously on dupilumab for eosinophilic esophagitis. He is going to follow-up with his usual GI at [facility]. As for his depression, he was previously on pharmacological therapy but reported paradoxical fact causing him to have suicidal ideation. He has never had a suicide attempt otherwise. Currently denies suicide or homicide ideation. Patient prefers to follow with primary care and seek out cognitive/psycho therapy. He was otherwise in good spirits and enthusiastic to abstain from alcohol. Acute hypokalemia, due to vomiting diarrhea and malnutrition. Replaced. Adverse, risks and benefits discussed to which she understood and agreed to the plan above as well. She was full code. Time Spent with Patient Time attestation: Total time spent providing and/or coordinating discharge services: Exam Const: General: cooperative and no acute distress Resp: Effort & Inspection: normal respiratory effort Auscultation: clear to auscultation bilaterally Cardio: Rate: regular rate Rhythm: regular rhythm Heart sounds: S1 normal heart sound present and S2 normal heart sound pres
[2023-09-03] MEDS: PANTOPRAZOLE SODIUM IV 40 MG VIAL IV PUSH (08:54)
[2023-09-03] MEDS: FOLIC ACID 1 MG/0.2 ML INJ IV PUSH (08:54)
[2023-09-03] MEDS: THIAMINE HCL 200 MG/2 ML VIAL 100 MG IV PUSH (08:54)
[2023-09-03] MEDS: POTASSIUM CHLORIDE 20 MEQ ER TABLET PO (10:02)
[2023-09-03] MEDS: POTASSIUM CHLORIDE INJ 40 MEQ in SODIUM CHLORIDE 0.9% IV 500 ML 130 MEQ IVPB (10:03)
--- NOTE | 2023-09-03 12:24 | WPDANESPN ---
Anes - Prog Note Post-Op Date/Time: 09/03/23 12:24 Cardiovascular status: normal Respiratory status: normal Airway patency: baseline Mental status: baseline Post-Op hydration status: normal Vital Signs: Last Vital Signs Temp 36.6 C 09/03/23 05:43 Pulse 88 09/03/23 08:00 Resp 16 09/03/23 05:43 BP 103/63 09/03/23 05:43 Pulse Ox 99 09/03/23 05:43 O2 Del Method Room Air 09/03/23 08:00 Pain Score (VAS): 0 I/O: Intake & Output 09/02/23 09/03/23 09/03/23 23:59 07:59 15:59 Intake Total 1840 1400 460 Balance 1840 1400 460 Laboratory Tests 09/03/23 05:08 09/03/23 05:08 09/01/23 09/03/23 14:20 05:08 Hgb 11.4 L Hct 34.5 L Sodium 135 L Potassium 3.1 L Chloride 102 Carbon Dioxide 26 Anion Gap 7 BUN < 2 L Creatinine 0.50 L Estim Creat Clear Calc 182 Estimated GFR > 60 Glucose 108 Calcium 7.8 L Magnesium 2.0 Ceruloplasmin 23 LESTER Screen Negative Post-procedural complaints: none Patient Feedback: Patient satisfied with anesthetic care.
[2023-09-07 05:58] LABS: Actin Antibody (IgG) <20 U (<20)
[2023-09-08 06:59] LABS: LKM 1 Antibody <=20.0 U (<=20.0)
[2023-09-16 23:09] LABS: Mitochondrial (M2) Ab (IgG) <20.0 U
== END 2023-09-03 14:52 | disposition home or self-care (01) | DRG 391 ==
LOC: ANHED 06:40 → ANH3MED 09:39
PROVIDERS: Internal Medicine Gastroenterology; Nurse Practitioner Family; Admitting Provider Internal Medicine; Emergency Provider Emergency Medicine; Visit Provider General Practice
PROC: 0DJ08ZZ Inspection of Upper Intestinal Tract, Via Natural or Artificial Opening Endoscopic (ICD-10-PCS; CPT 43235; principal; 2023-09-02 12:30)
DX: K29.70 Gastritis, unspecified, without bleeding (principal); K85.90 Acute pancreatitis without necrosis or infection, unspecified; K92.1 Melena; E87.6 Hypokalemia; J45.909 Unspecified asthma, uncomplicated; K21.9 Gastro-esophageal reflux disease without esophagitis; F32.A Depression, unspecified; F41.9 Anxiety disorder, unspecified; F10.90 Alcohol use, unspecified, uncomplicated; F64.0 Transsexualism; Z87.11 Personal history of peptic ulcer disease; Z87.442 Personal history of urinary calculi
CPT/HCPCS: 36415; 74177; 80048; 80053; 80074; 80307; 81001; 82390; 82728; 82948; 83520; 83540; 83550; 83690; 83735; 84100; 84478; 85014; 85018; 85025; 85027; 86038; 86039; 86364; 86376; 88305; 96361; 96374; 96375; 96376; 99285; A9270; G0378; G0379; J2270; J2405; J2470; J2704; J3411; J3475; J3480; J7030; J7040; J7042; J7120; Q9967

== ENCOUNTER 2023-09-15 14:39 | Emergency (ER) | payer BC, SELFPAY ==
[2023-09-15] VITALS (11 sets, daily range): BP systolic 107–124; BP diastolic 75–93; PULSE 90–110; RESP 12–22; TEMP 36.4–36.5; O2SAT 96–100
--- NOTE | ~2023-09-15 | XR_ITS ---
EXAMINATION: XR chest 2V DATE: 09/15/2023 15:00 INDICATION: Chest tightness. TECHNIQUE: Frontal and lateral views of the chest were obtained. COMPARISON: Chest single view 07/11/2023 FINDINGS: There is no pneumonia, pleural effusion, or pneumothorax. The heart size is normal. Surgica l clips in the right upper quadrant are likely from cholecystectomy. IMPRESSION: 1. No acute cardiopulmonary disease. Reviewed, dictated and finalized at location A.
--- NOTE | ~2023-09-15 | CT_ITS ---
CTA chest PE abdomen pel Ordering provider: Leydi Jamil PA-C History: . chest pain, palpitations, +dimer . Comparison: None. Technique: CT angiogram chest was performed following timed intravenous injection of contrast. Thin s lice axial images and reformatted coronal images were obtained. Three dimensional reformatted images of the chest were also obtained using a [employer] workstation. Also, CT of the abdomen and pelvis was pe rformed with IV contrast. . Automated exposure control and iterative reconstruction technique were e mployed. The dose-length product was 554.65 mGy-cm. 100 mL Omnipaque 350 was given IV. FINDINGS: CHEST: --PULMONARY ARTERIES: Filling defects are seen in the right lower lobe branches suggestive of subsegm ental pulmonary embolism. --VISUALIZED THORACIC INLET: Normal. --MEDIASTINUM: Aorta/coronary arteries: The thoracic aorta is normal. Heart/other: The heart is not enlarged. Lymph nodes: No mediastinal or hilar adenopathy. --LUNGS: No pulmonary nodules or masses. No infiltrates or effusions. No pneumothorax. --MUSCULOSKELETAL: Bones: Normal spine. Superficial soft tissues: The superficial soft tissues are normal. ABDOMEN/PELVIS: --MUSCULOSKELETAL: Superficial soft tissues: The superficial soft tissues are normal. Bones: Age appropriate degenerative changes of the spine. --UPPER ABDOMINAL ORGANS: Liver: Fat infiltration. Gallbladder: Status post cholecystectomy Spleen: Normal. Stomach/duodenum: Normal. Pancreas: Normal. Adrenals: Normal. Kidneys: Normal. --PELVIC ORGANS: The bladder is normal. No bladder stones. --BOWEL AND MESENTERY: Colon: No evidence of diverticulitis.. Normal appendix. Small Bowel: Normal. No obstruction. Peritoneum/mesentery: No free air or free fluid. No mesenteric lymphadenopathy. --RETROPERITONEUM: Normal aorta. No retroperitoneal lymphadenopathy. IMPRESSION: CHEST: 1. Pulmonary embolism in the subsegmental branches of the right lower lobe. ABDOMEN/PELVIS: 1. Fat infiltration of the liver. 2. No acute abdominal process with no evidence of appendicitis, diverticulitis or intestinal obstruc tion. Reviewed, dictated and finalized at location A. IMPRESSION: CHEST: 1. Pulmonary embolism in the subsegmental branches of the right lower lobe. ABDOMEN/PELVIS: 1. Fat infiltration of the liver. 2. No acute abdominal process with no evidence of appendicitis, diverticulitis or intestinal obstruction.
--- NOTE | 2023-09-15 14:41 | ECG_ITS ---
Test Date: 2023-09-15 14:45:49 Measurements Intervals [place] Rate: 88 P: 23 NE: 112 QRS: -31 QRSD: 94 T: 24 QT: 369 QTc: 447 Interpretive Statements SINUS RHYTHM LEFT AXIS DEVIATION LOW QRS VOLTAGE IN PRECORDIAL LEADS INCOMPLETE RIGHT BUNDLE BRANCH BLOCK BASELINE ARTIFACT- I, II, III, AVR, AVL, AVF BORDERLINE ECG Compared to ECG 08/18/2023 20:31:59 NO SIGNIFICANT CHANGE Electronically Signed On 09-15-2023 15:23:01 CDT by Vito Ricci D.O.
--- NOTE | 2023-09-15 14:51 | ED.CHESTPAIN ---
HPI - Chest Pain General Chief Complaint: Chest Pain <YAMILETH Haq Last Filed: 09/15/23 14:57> Stated Complaint: chest tightness <YAMILETH Haq Last Filed: 09/15/23 14:57> Time Seen by Provider: 09/15/23 14:51 <YAMILETH Haq Last Filed: 09/15/23 14:57> Focused HPI: Patient is a 37 y/o transgender male transitioning to female who presents to the ED with multiple complaints. Patient reports having nausea and vomiting this morning, unable to keep down any food or drink. Hx of similar episodes. States she feels very dehydrated. Took Zofran prior to arrival w/o improvement. Also c/o migraine HOPE, palpitations, chest tightness, upper abdominal pain, anxiety. Denies SOB. Patient has Hx of alcoholism. Last drank last night. Patient is on estrogen hormone replacement therapy. GENERAL: Mildly ill-appearing, well-nourished, and in no acute distress. HEAD: Normocephalic, atraumatic. ENT: MMs dry. CHEST: Clear to auscultation. ?No respiratory distress. HEART: Regular rate and rhythm.? NEURO: ?Alert and oriented x3. Patient screened in triage and initial orders placed.? ?Additional care and disposition to be based upon?diagnostic testing and treatment. <YAMILETH Haq Last Filed: 09/15/23 14:57> Source: patient <YAMILETH Haq Last Filed: 09/15/23 14:57> Mode of arrival: ambulatory <YAMILETH Haq Last Filed: 09/15/23 14:57> Limitations: no limitations <YAMILETH Haq Filed: 09/15/23 14:57> Related Data Home Medications: Home Medications Medication Instructions Recorded Confirmed finasteride 5 mg tablet 5 mg PO DAILY 12/23/22 08/31/23 progesterone micronized 100 mg 100 mg PO QAM 12/23/22 08/31/23 capsule spironolactone 100 mg tablet 100 mg PO DAILY 12/23/22 08/31/23 dupilumab 300 mg/2 mL subcutaneous 300 mg subcut WEEKLY 12/24/22 08/31/23 pen injector ([employer]) estradiol valerate 20 mg/mL 20 mg IM WEEKLY 01/05/23 08/31/23 intramuscular oil multivitamin 1 tablet PO DAILY 01/05/23 08/31/23 famotidine 40 mg tablet 40 mg PO QHS 08/31/23 08/31/23 <YAMILETH Haq Last Filed: 09/15/23 14:57> Allergies/Adverse Reactions: Allergies Allergy/AdvReac Type Severity Reaction Status Date / Time Penicillins Allergy Severe Anaphylaxis Verified 08/31/23 08:50 <YAMILETH Haq Last Filed: 09/15/23 14:57> Review of Systems Review of Systems: All systems as dictated in HPI <YAMILETH Roberson Last Filed: 09/16/23 02:23> [facility] Past Medical History Medical History: Medical History (Updated 09/16/23 @ 00:01 by Melvin Ivory) Alcohol use Anxiety Asthma Black stools Depression Elevated LFTs Eosinophilic esophagitis Fatty liver GERD (gastroesophageal reflux disease) Hx of blood clots Kidney stones Peptic ulcer <YAMILETH Haq Last Filed: 09/15/23 14:57> Surgical History Surgical History: Surgical History History of dental surgery History of esophagogastroduodenoscopy (EGD) History of laparoscopic cholecystectomy 01/15/23 [facility] <YAMILETH Haq Last Filed: 09/15/23 14:57> Family History Family History: Family History Father Hypertension Lymphoma Mother Heart disease Hypertension Grandparent Malignant neoplasm of prostate Lung cancer Grandparent Breast cancer Other Cerebrovascular accident Diabetes mellitus <YAMILETH Haq Last Filed: 09/15/23 14:57> Social History Social History: Social History Smoking status: Never smoker Alcohol intake: current Drinks per week: 56 Alcohol use details: QUIT DRINKING ~2297-6835 Substance use: never Substance use type:
[2023-09-15 14:59] LABS: Basophils Percent Auto 0.5 % (0.2-1.2); Eosinophils Absolute Auto 0.1 K/mm3 (0-0.3); Eosinophils Percent Auto 0.9 % (0-4.4); Hematocrit 43.4 % (42.0-52.0); Immature Granulocyte Absolute 0.07 K/mm3 (0.00-0.031); Immature Granulocyte Percent A 0.8 % (0-0.5); Lymphocytes Absolute Auto 1.82 K/mm3 (0.9-3.2); Lymphocytes Percent Auto 21.5 % (18.3-44.2); Mean Corpuscular HGB Conc 34.6 g/dl (32-36); Mean Corpuscular Hemoglobin 34.2 pg (26-34); Mean Corpuscular Volume 98.9 fl (80-100); Monocytes Absolute Auto 0.6 K/mm3 (0.1-0.6); Neutrophils Absolute Auto 5.9 K/mm3 (1.3-6.7); Neutrophils Percent Auto 69.3 % (45.5-73.1); Platelet Count Result 373 k/mm3 (150-375); Red Blood Count 4.39 M/mm3 (4.6-6.20); Red Cell Distribution Width 15.5 % (11.5-14.5); White Blood Count 8.5 K/mm3 (4.5-10.0)
[2023-09-15 15:09] LABS: INR 0.9; Prothrombin Time 12.9 Seconds (11.1-14.7)
[2023-09-15 15:10] LABS: Alanine Aminotransferase 34 U/L (6-50); Albumin Level 4.5 g/dL (3.5-5.1); Alkaline Phosphatase 247 U/L (38-126); Anion Gap 14 mmol/L (4-12); Aspartate Amino Transferase 42 U/L (17-59); Bilirubin,Total 0.5 mg/dL (0.2-1.3); Blood Urea Nitrogen 3 mg/dL (9-20); Calcium 9.2 mg/dL (8.4-10.2); Carbon Dioxide 24 mmol/L (22-30); Chloride 99 mmol/L (98-107); Estimated CRCL calculation 153 ml/min; Estimated Glomerular Filt Rate > 60; Glucose 114 mg/dL (65-110); Lipase 290 U/L (23-300); Potassium 3.7 mmol/L (3.4-5.0); Sodium 137 mmol/L (137-145)
[2023-09-15 15:22] LABS: Troponin I < 0.012 ng/mL (0.000-0.034)
[2023-09-15 15:45] LABS: D Dimer 1.28 ug/mL (<0.48)
[2023-09-15 15:56] LABS: Ethanol < 10 mg/dL (<10)
[2023-09-15 15:59] LABS: Magnesium 1.8 mg/dL (1.6-2.3)
[2023-09-15] MEDS: ASPIRIN 81 MG CHEWABLE TABLET 324 MG PO (16:40)
[2023-09-15] MEDS: ONDANSETRON INJ 4 MG/2 ML VIAL IV PUSH (16:41)
--- NOTE | 2023-09-15 17:45 | ECG_ITS ---
Test Date: 2023-09-15 17:54:42 Measurements Intervals [place] Rate: 99 P: 44 [place]: 125 QRS: -24 QRSD: 93 T: 26 QT: 353 QTc: 454 Interpretive Statements SINUS RHYTHM LOW QRS VOLTAGE IN PRECORDIAL LEADS INCOMPLETE RIGHT BUNDLE BRANCH BLOCK BASELINE ARTIFACT- I, III, AVR, AVL, AVF BORDERLINE ECG Compared to ECG 09/15/2023 14:45:49 No significant changes Electronically Signed On 09-15-2023 20:38:32 CDT by Vito Ricci D.O.
[2023-09-15 18:40] LABS: Troponin I < 0.012 ng/mL (0.000-0.034)
== END 2023-09-15 18:52 | disposition home or self-care (01) ==
PROVIDERS: Physician Assistant; Student in an Organized Health Care Education/Training Program; Emergency Provider Physician Assistant
DX: I26.99 Other pulmonary embolism without acute cor pulmonale (principal); J45.909 Unspecified asthma, uncomplicated; K21.9 Gastro-esophageal reflux disease without esophagitis; F10.20 Alcohol dependence, uncomplicated; Y90.0 Blood alcohol level of less than 20 mg/100 ml; F64.0 Transsexualism; Z87.11 Personal history of peptic ulcer disease; Z87.442 Personal history of urinary calculi; Z90.49 Acquired absence of other specified parts of digestive tract; Z79.890 Hormone replacement therapy; Z79.899 Other long term (current) drug therapy; K76.0 Fatty (change of) liver, not elsewhere classified; I45.10 Unspecified right bundle-branch block
CPT/HCPCS: 36415; 71046; 71275; 74177; 80053; 80307; 83690; 83735; 84484; 85025; 85380; 85610; 85730; 93005; 96374; 99284; A9270; J2405; Q9967

== ENCOUNTER 2023-09-30 21:18 | Emergency (ER) | payer BC, SELFPAY ==
--- NOTE | ~2023-09-30 | XR_ITS ---
EXAMINATION: XR chest 2V DATE: 09/30/2023 22:04 INDICATION: Chest pain and dizziness TECHNIQUE: frontal and lateral views of the chest were obtained. COMPARISON: Chest radiograph and CT dated 09/15/2023 FINDINGS: The lungs remain clear with no focal airspace opacities, pulmonary edema, pleural effusion or pneumot horax. The cardiomediastinal silhouette is normal. Cholecystectomy clips in the right upper quadrant. IMPRESSION: 1. No acute cardiopulmonary disease. Reviewed, dictated and finalized at location A.
[2023-09-30 21:24] VITALS: BP 121/105; PULSE 120; RESP 16; TEMP 36; O2SAT 97
--- NOTE | 2023-09-30 21:31 | ECG_ITS ---
Test Date: 2023-09-30 21:39:35 Measurements Intervals [place] Rate: 108 P: 10 [place]: 112 QRS: -42 QRSD: 93 T: 31 QT: 327 QTc: 438 Interpretive Statements SINUS TACHYCARDIA WITH SHORT NH INTERVAL MARKED LEFT AXIS DEVIATION [QRS AXIS < -30] LOW QRS VOLTAGE IN PRECORDIAL LEADS [QRS DEFLECTION < 1.0 mV IN CHEST LEADS] INCOMPLETE RIGHT BUNDLE BRANCH BLOCK [90+ ms QRS DURATION, TERMINAL R IN V1/V2, 40+ ms S IN I/aVL/V4/V5/V6] ABNORMAL ECG Compared to ECG 09/15/2023 17:54:42 NO SIGNIFICANT CHANGE Electronically Signed On 10-01-2023 14:57:52 CDT by Jasmeet Coates M.D.
[2023-09-30 21:47] LABS: Basophils Absolute Auto 0.1 K/mm3 (0.0-0.1); Basophils Percent Auto 0.8 % (0.2-1.2); Eosinophils Absolute Auto 0.1 K/mm3 (0-0.3); Eosinophils Percent Auto 0.9 % (0-4.4); Hematocrit 45.2 % (42.0-52.0); Hemoglobin 15.7 g/dL (14.0-18.0); Immature Granulocyte Absolute 0.03 K/mm3 (0.00-0.031); Immature Granulocyte Percent A 0.5 % (0-0.5); Lymphocytes Absolute Auto 2.64 K/mm3 (0.9-3.2); Lymphocytes Percent Auto 40.6 % (18.3-44.2); Mean Corpuscular HGB Conc 34.7 g/dl (32-36); Mean Corpuscular Volume 97.8 fl (80-100); Mean Platelet Volume 10.1 fl (7.4-10.4); Monocytes Absolute Auto 0.6 K/mm3 (0.1-0.6); Monocytes Percent Auto 9.8 % (2.6-8.5); Neutrophils Absolute Auto 3.1 K/mm3 (1.3-6.7); Neutrophils Percent Auto 47.4 % (45.5-73.1); Platelet Count Result 257 k/mm3 (150-375); Red Blood Count 4.62 M/mm3 (4.6-6.20); Red Cell Distribution Width 15.6 % (11.5-14.5); White Blood Count 6.5 K/mm3 (4.5-10.0)
[2023-09-30 21:52] VITALS: PULSE 126
[2023-09-30] MEDS: ASPIRIN 81 MG CHEWABLE TABLET 324 MG PO (21:52)
[2023-09-30 21:56] LABS: Alanine Aminotransferase 48 U/L (6-50); Albumin Level 4.5 g/dL (3.5-5.1); Alkaline Phosphatase 217 U/L (38-126); Anion Gap 16 mmol/L (4-12); Aspartate Amino Transferase 80 U/L (17-59); Blood Urea Nitrogen 6 mg/dL (9-20); Carbon Dioxide 24 mmol/L (22-30); Chloride 100 mmol/L (98-107); Estimated CRCL calculation 137 ml/min; Estimated Glomerular Filt Rate > 60; Glucose 176 mg/dL (65-110); Lipase 264 U/L (23-300); Potassium 3.5 mmol/L (3.4-5.0); Sodium 140 mmol/L (137-145)
[2023-09-30 21:57] LABS: INR 0.9; Prothrombin Time 12.5 Seconds (11.1-14.7)
[2023-09-30 21:58] LABS: Partial Thromboplastin Time 24.6 Seconds (22.3-36.8)
[2023-09-30] MEDS: SODIUM CHLORIDE 0.9% IV 1,000 ML 999 ML IV CONT (22:05)
[2023-09-30 22:06] VITALS: O2SAT 98
[2023-09-30 22:07] VITALS: BP 130/88; PULSE 104; RESP 18; O2SAT 97
[2023-09-30 22:08] LABS: Troponin I < 0.012 ng/mL (0.000-0.034)
--- NOTE | 2023-09-30 22:08 | ED.SOB ---
HPI - SOB/Dyspnea General Chief Complaint: Shortness of Breath/Dyspnea Stated Complaint: SOB, recent bilateral PE Time Seen by Provider: 09/30/23 21:53 Source: patient and old records reviewed Mode of arrival: ambulatory Limitations: no limitations History of Present Illness HPI Narrative: Patient is a 37-year-old biological male transitioning to female, on estradiol therapy, who presents to the ED with report of shortness of breath. Patient was seen in the ED here on 09/14 and diagnosed with a subsegmental right lower lobe PE. Started on Xarelto at that time. She states she has since been seen at [facility] and diagnosed with bilateral PE. She states she was admitted to the hospital for 4 days at that time and was on numerous medications drips. Patient states since then, she has not been feeling well. She states she often feels lightheaded and dizzy and had a syncopal episode today in front of her roommate who then brought her to the ED. She reports having shortness breath. She has been compliant with her Xarelto. Has not missed any doses. Denies chest pain. Related Data Home Medications Medication Instructions Recorded Confirmed finasteride 5 mg tablet 5 mg PO DAILY 12/23/22 08/31/23 progesterone micronized 100 mg 100 mg PO QAM 12/23/22 08/31/23 capsule spironolactone 100 mg tablet 100 mg PO DAILY 12/23/22 08/31/23 dupilumab 300 mg/2 mL subcutaneous 300 mg subcut WEEKLY 12/24/22 08/31/23 pen injector ([employer]) estradiol valerate 20 mg/mL 20 mg IM WEEKLY 01/05/23 08/31/23 intramuscular oil multivitamin 1 tablet PO DAILY 01/05/23 08/31/23 famotidine 40 mg tablet 40 mg PO QHS 08/31/23 08/31/23 Allergies Allergy/AdvReac Type Severity Reaction Status Date / Time Penicillins Allergy Severe Anaphylaxis Verified 08/31/23 08:50 Review of Systems Review of Systems: All systems reviewed & are unremarkable except as noted in HPI. All systems reviewed & are unremarkable except as noted in HPI and below PMFSH Past Medical History Medical History Alcohol use Anxiety Asthma Black stools Depression Elevated LFTs Eosinophilic esophagitis Fatty liver GERD (gastroesophageal reflux disease) Hx of blood clots Kidney stones Peptic ulcer Surgical History Surgical History History of dental surgery History of esophagogastroduodenoscopy (EGD) History of laparoscopic cholecystectomy 01/15/23 [facility] Family History Family History Father Hypertension Lymphoma Mother Heart disease Hypertension Grandparent Malignant neoplasm of prostate Lung cancer Grandparent Breast cancer Other Cerebrovascular accident Diabetes mellitus Social History Social History Smoking status: Never smoker Alcohol intake: current Drinks per week: 56 Alcohol use details: QUIT DRINKING ~0736-8907 Substance use: never Substance use type: marijuana Other substance usage details: drinks 750ml wiskey every 2 days Do You Feel Safe in your Home?: Yes Lack of Transportation: No Lack of Food: Never True Current Housing: I Have Housing Concerned About Future Housing: No Difficulty Paying Gas/Electric Bills: No Difficulty Paying for Meds: YES Currently Unemployed: No Education: High School Diploma/GED Difficulty w/ Childcare or Family Care: No Living arrangements: with family Occupation/Education: occupation Additional occupation/education comments: [employer] employee Gender identity (if verbalized by the patient): Other Spiritual care concerns: No Exam Narrative: GENERAL: Chronically ill appearing, mildly disheveled, non-toxic, in no acute distress. HEAD: Normocephalic, atraumatic. RESPIRATORY: Airway patent, resp
== END 2023-09-30 22:46 | disposition left against medical advice (07) ==
PROVIDERS: Emergency Medicine; Emergency Provider Physician Assistant
DX: R55 Syncope and collapse (principal); R06.02 Shortness of breath; Z79.01 Long term (current) use of anticoagulants; Z86.711 Personal history of pulmonary embolism; F41.9 Anxiety disorder, unspecified; J45.909 Unspecified asthma, uncomplicated; F32.A Depression, unspecified; K21.9 Gastro-esophageal reflux disease without esophagitis; Z87.442 Personal history of urinary calculi
CPT/HCPCS: 36415; 71046; 80053; 83690; 84484; 85025; 85610; 85730; 93005; 96360; 99284; A9270; J7030

== ENCOUNTER 2023-10-12 09:17 | Emergency (ER) | payer BC, SELFPAY ==
[2023-10-12] VITALS (11 sets, daily range): BP systolic 103–129; BP diastolic 73–94; PULSE 74–110; RESP 12–17; TEMP 36.6; O2SAT 96–98
--- NOTE | ~2023-10-12 | XR_ITS ---
Clinical Indication: Syncope AP and lateral views of the chest: Comparison: 09/30/2023 Findings: The lungs are clear, without evidence of focal consolidation or pleural effusion. Cardiome diastinal silhouette is within normal limits. Bones and soft tissues are unremarkable. Impression: Normal chest. Reviewed, dictated and finalized at [facility]. Impression: Normal chest.
--- NOTE | ~2023-10-12 | CT_ITS ---
EXAMINATION: 1. CT facial & cervical spine wo DATE: 10/12/2023 13:17 INDICATION: Fall with head injury TECHNIQUE: 1. Computed tomography (CT) of the maxillofacial region and of the cervical spine were performed with out intravenous contrast. Sagittal and coronal reconstructions of both regions were obtained. Automat ed exposure control and iterative reconstruction technique were employed. The dose-length product was 348.39 mGy-cm. COMPARISON: None. FINDINGS: Maxillofacial CT: No maxillofacial fractures. Specifically the nasal bones, zygomatic arches, mandible and rich of the orbits and paranasal sinuses are normal. The bilateral maxillary sinuses are small and atrophic athe rosclerotic SUGGESTIVE of chronic sinusitis. There is prominent mucosal thickening in the right maxil sushant sinus with resection of the medial wall. Chronic mild rightward deviation of the nasal septum wh ich parallels the contours of the turbinates. Cervical spine CT: Alignment is normal. Vertebral body heights are normal. No fracture. Mild disc height loss with moder ate bilateral uncovertebral osteoarthritis and small posterior endplate osteophyte contributing to mi ld central canal and mild right and minimal left neural foraminal stenosis. Visualized apices of lung s are clear. Cervical soft tissues are unremarkable.. IMPRESSION: 1. Mild cervical spondylosis. No acute osseous abnormality. 2. No maxillofacial fractures. 3. Chronic bilateral maxillary sinus disease. Reviewed, dictated and finalized at location A.
--- NOTE | ~2023-10-12 | CT_ITS ---
EXAMINATION: CT brain wo con DATE: 10/12/2023 13:16 INDICATION: Fall with head injury TECHNIQUE: Computed tomography (CT) of the head was performed without intravenous contrast. Sagittal and coronal reconstructions were performed. The mA was adjusted according to patient size. Iterative reconstruction technique was employed. The dose-length product was 681.00 mGy-cm. COMPARISON: head CT dated 11/12/22 FINDINGS: No fracture. No acute intracranial hemorrhage, acute infarction or abnormal extra axial fluid collect ion. Ventricles are normal and symmetric. No mass/mass effect. Bilateral maxillary sinuses are small with thickened sclerotic rich consistent with chronic sinusitis. Postoperative defect along the medi al wall of the right maxillary sinus. The orbits and mastoid air cells are normal. IMPRESSION: 1. No fracture or acute intracranial process. Reviewed, dictated and finalized at location A.
--- NOTE | 2023-10-12 09:26 | ECG_ITS ---
Test Date: 2023-10-12 11:06:30 Measurements Intervals [place] Rate: 87 P: -9 [place]: 113 QRS: -34 QRSD: 91 T: 28 QT: 359 QTc: 434 Interpretive Statements SINUS RHYTHM WITH SHORT IN INTERVAL MARKED LEFT AXIS DEVIATION [QRS AXIS < -30] INCOMPLETE RIGHT BUNDLE BRANCH BLOCK Compared to ECG 09/30/2023 21:39:35 Sinus tachycardia no longer present Electronically Signed On 10-12-2023 16:15:20 CDT by Brittany Nieto M.D.
[2023-10-12 11:17] LABS: Basophils Percent Auto 0.5 % (0.2-1.2); Eosinophils Absolute Auto 0.1 K/mm3 (0-0.3); Eosinophils Percent Auto 1.2 % (0-4.4); Hematocrit 43.1 % (42.0-52.0); Immature Granulocyte Absolute 0.02 K/mm3 (0.00-0.031); Immature Granulocyte Percent A 0.5 % (0-0.5); Lymphocytes Absolute Auto 1.57 K/mm3 (0.9-3.2); Lymphocytes Percent Auto 38.4 % (18.3-44.2); Mean Corpuscular HGB Conc 34.8 g/dl (32-36); Mean Corpuscular Hemoglobin 33.6 pg (26-34); Mean Corpuscular Volume 96.4 fl (80-100); Mean Platelet Volume 9.8 fl (7.4-10.4); Monocytes Absolute Auto 0.6 K/mm3 (0.1-0.6); Monocytes Percent Auto 13.4 % (2.6-8.5); Neutrophils Absolute Auto 1.9 K/mm3 (1.3-6.7); Platelet Count Result 335 k/mm3 (150-375); Red Blood Count 4.47 M/mm3 (4.6-6.20); Red Cell Distribution Width 14.4 % (11.5-14.5); White Blood Count 4.1 K/mm3 (4.5-10.0)
[2023-10-12 11:37] LABS: Alanine Aminotransferase 61 U/L (6-50); Albumin Level 4.3 g/dL (3.5-5.1); Alkaline Phosphatase 237 U/L (38-126); Anion Gap 14 mmol/L (4-12); Aspartate Amino Transferase 77 U/L (17-59); Blood Urea Nitrogen 5 mg/dL (9-20); Calcium 8.7 mg/dL (8.4-10.2); Carbon Dioxide 24 mmol/L (22-30); Chloride 99 mmol/L (98-107); Estimated CRCL calculation 151 ml/min; Estimated Glomerular Filt Rate > 60; Glucose 104 mg/dL (65-110); Potassium 3.5 mmol/L (3.4-5.0); Sodium 137 mmol/L (137-145)
[2023-10-12 11:49] LABS: Troponin I < 0.012 ng/mL (0.000-0.034)
--- NOTE | 2023-10-12 11:56 | ED.SYNCOPE ---
HPI - Syncope General Chief Complaint: Syncope Stated Complaint: syncope Time Seen by Provider: 10/12/23 10:59 Source: patient Mode of arrival: ambulatory Limitations: no limitations History of Present Illness HPI narrative: Pt is a 37-year-old female, born male, who presents to the ER with complaints of weakness, nausea, and chest pain following a recent hospitalization. She reports she was recently diagnosed with blood clots in her lungs. Pt reports she was working from home earlier today when she fell, hit her head, and had positive LOC. She complains of full-body pain, especially on her R side. Pt endorses SOB prior to arrival in the ER. She denies one-sided weakness/tingling/numbness but endorses chest pain. Pt denies recent alcohol or drug use. She reports she has not been passing much gas and has been constipated. Related Data Home Medications Medication Instructions Recorded Confirmed finasteride 5 mg tablet 5 mg PO DAILY 12/23/22 08/31/23 progesterone micronized 100 mg 100 mg PO QAM 12/23/22 08/31/23 capsule spironolactone 100 mg tablet 100 mg PO DAILY 12/23/22 08/31/23 dupilumab 300 mg/2 mL subcutaneous 300 mg subcut WEEKLY 12/24/22 08/31/23 pen injector ([employer]) estradiol valerate 20 mg/mL 20 mg IM WEEKLY 01/05/23 08/31/23 intramuscular oil multivitamin 1 tablet PO DAILY 01/05/23 08/31/23 famotidine 40 mg tablet 40 mg PO QHS 08/31/23 08/31/23 Allergies Allergy/AdvReac Type Severity Reaction Status Date / Time Penicillins Allergy Severe Anaphylaxis Verified 08/31/23 08:50 Review of Systems Review of Systems: All systems reviewed & are unremarkable except as noted in HPI and below PMFSH Past Medical History Medical History Alcohol use Anxiety Asthma Black stools Depression Elevated LFTs Eosinophilic esophagitis Fatty liver GERD (gastroesophageal reflux disease) Hx of blood clots Kidney stones Peptic ulcer Surgical History Surgical History History of dental surgery History of esophagogastroduodenoscopy (EGD) History of laparoscopic cholecystectomy 01/15/23 [facility] Family History Family History Father Hypertension Lymphoma Mother Heart disease Hypertension Grandparent Malignant neoplasm of prostate Lung cancer Grandparent Breast cancer Other Cerebrovascular accident Diabetes mellitus Social History Social History Smoking status: Never smoker Alcohol intake: current Drinks per week: 56 Alcohol use details: QUIT DRINKING ~2247-7878 Substance use: never Substance use type: marijuana Other substance usage details: drinks 750ml wiskey every 2 days Do You Feel Safe in your Home?: Yes Lack of Transportation: No Lack of Food: Never True Current Housing: I Have Housing Concerned About Future Housing: No Difficulty Paying Gas/Electric Bills: No Difficulty Paying for Meds: YES Currently Unemployed: No Education: High School Diploma/GED Difficulty w/ Childcare or Family Care: No Living arrangements: with family Occupation/Education: occupation Additional occupation/education comments: [employer] employee Gender identity (if verbalized by the patient): Other Spiritual care concerns: No Exam Narrative: GENERAL: Well appearing, well-nourished, pale, non-toxic, in no acute distress. NECK: Supple. No adenopathy, no masses. RESPIRATORY: Airway patent, respirations nonlabored. Clear to auscultation bilaterally, no rales, rhonchi, wheezing. CARDIOVASCULAR: Regular rate and rhythm without murmurs, rubs, or gallops. Peripheral pulses 2+ and equal bilaterally. ABDOMINAL: Soft, nontender, nondistended, no hepatosplenomegaly. Normoactive BS. MUSCULOSKELETAL: Moves all extremities. Strength/ROM intact withou
[2023-10-12] MEDS: SODIUM CHLORIDE 0.9% IV 1,000 ML 999 ML IV CONT (13:20)
[2023-10-12] MEDS: ACETAMINOPHEN 500 MG TABLET 1000 MG PO (13:28)
[2023-10-12] MEDS: ONDANSETRON INJ 4 MG/2 ML VIAL IV PUSH (13:28)
[2023-10-12 13:39] LABS: D Dimer 0.39 ug/mL (<0.48)
[2023-10-12] MEDS: diphenhydrAMINE HCl INJ 50 MG/ML VIAL 25 MG IV PUSH (15:14)
[2023-10-12] MEDS: METOCLOPRAMIDE HCL INJ 10 MG/2 ML VIAL IV PUSH (15:14)
[2023-10-12] MEDS: HYDROcodone/acetaminophen (*CRX) 5-325 MG TABLET 1 TAB PO (15:15)
== END 2023-10-12 16:54 | disposition home or self-care (01) ==
PROVIDERS: Physician Assistant; Student in an Organized Health Care Education/Training Program; Emergency Provider Registered Nurse
DX: R42 Dizziness and giddiness (principal); J45.909 Unspecified asthma, uncomplicated; K21.9 Gastro-esophageal reflux disease without esophagitis; F41.9 Anxiety disorder, unspecified; Z87.442 Personal history of urinary calculi; F64.0 Transsexualism; Z87.11 Personal history of peptic ulcer disease; Z86.711 Personal history of pulmonary embolism; I45.10 Unspecified right bundle-branch block; M47.812 Spondylosis without myelopathy or radiculopathy, cervical region; J32.0 Chronic maxillary sinusitis; Z79.890 Hormone replacement therapy; Z79.01 Long term (current) use of anticoagulants
CPT/HCPCS: 36415; 70450; 70486; 71046; 72125; 80053; 84484; 85025; 85380; 93005; 96361; 96374; 96375; 99284; A9270; J1200; J2405; J2765; J7030

== ENCOUNTER 2023-10-14 00:21 | Inpatient (IN) | payer BC, SELFPAY ==
[2023-10-14] VITALS (9 sets, daily range): BP systolic 108–129; BP diastolic 71–87; PULSE 75–93; RESP 14–18; TEMP 36.5–36.7; O2SAT 96–100; BMI 20.9
--- NOTE | ~2023-10-14 | CT_ITS ---
CT of the Abdomen and Pelvis: Indication: Pancreatitis Technique: 2.5 mm axial scans were obtained through the abdomen and pelvis following intravenous adm inistration of 100 cc of Omnipaque 350. Dose reduction technique was used on this scan by utilizing a utomated exposure control and iterative reconstruction technique. The dose-length product (DLP) was 3 59.43 mGy-cm. COMPARISON: 09/15/2023 Findings: Scans through the lung bases are unremarkable. There is diffuse hepatic steatosis. Cholecystectomy clips are present. The spleen, adrenals and kidne ys are within normal limits. There is extensive peripancreatic fluid and inflammatory change, especia lly at the tail, compatible with acute pancreatitis. No pancreatic necrosis or pseudocyst evident. No evidence of aortic aneurysm. No lymphadenopathy. No bowel obstruction or bowel wall thickening. There is no evidence to suggest acute appendicitis. Images through the pelvis were performed. Urinary bladder unremarkable. No pelvic mass seen. Trace pe lvic ascites. Impression: Acute pancreatitis, as detailed above. No pancreatic necrosis or pseudocyst evident. Diffuse hepatic steatosis. Reviewed, dictated and finalized at location M. Impression: Acute pancreatitis, as detailed above. No pancreatic necrosis or pseudocyst janine dent. Diffuse hepatic steatosis.
--- NOTE | ~2023-10-14 | MR_ITS ---
EXAMINATION: MR MRCP wo/w con/w 3D wo ind DATE: 10/14/2023 14:37 INDICATION: Pancreatitis. TECHNIQUE: Magnetic resonance imaging (MRI) of the abdomen was performed without and with 15 mL Multi Ana intravenous contrast. Sequences included coronal T2-weighted FS FSE, coronal T2-weighted FSE, a xial T1-weighted LAVA, coronal FS FIESTA, axial dual-echo T1-weighted SPGR, coronal lava-FLEX, sagitt al T2-weighted FSE, axial T2-weighted FSE, and axial DWI. Thick-slab T2-weighted FSE images were obta ined for magnetic resonance cholangiopancreatography (MRCP). Maximum intensity projection 3-D reconst ructions of the volumetric data were created by the technologist. Postcontrast sequences included cor onal LAVA-flex and time course of axial T1-weighted LAVA. COMPARISON: CT abdomen and pelvis 10/14/2023 FINDINGS: ABDOMEN MRI: There are trace pleural effusions. There is diffuse hepatic steatosis. The gallbladder i s absent. The spleen is normal. There is fat stranding and fluid around the pancreas, consistent with acute interstitial pancreatitis. The adrenal glands and kidneys are normal. There are no dilated loo ps of bowel. There is a small volume of pelvic ascites. There are no pathologically enlarged lymph no marcin. ABDOMEN MRCP: The common duct is normal and measures 6 mm. No choledocholithiasis. IMPRESSION: 1. Acute interstitial pancreatitis. 2. Diffuse hepatic steatosis. 3. Small volume of ascites. Reviewed, dictated and finalized at location A.
[2023-10-14 01:46] LABS: Basophils Percent Auto 0.3 % (0.2-1.2); Eosinophils Percent Auto 0.3 % (0-4.4); Hematocrit 42.9 % (42.0-52.0); Hemoglobin 15.3 g/dL (14.0-18.0); Immature Granulocyte Absolute 0.05 K/mm3 (0.00-0.031); Immature Granulocyte Percent A 0.4 % (0-0.5); Lymphocytes Absolute Auto 0.88 K/mm3 (0.9-3.2); Lymphocytes Percent Auto 7.5 % (18.3-44.2); Mean Corpuscular HGB Conc 35.7 g/dl (32-36); Mean Corpuscular Hemoglobin 34.3 pg (26-34); Mean Corpuscular Volume 96.2 fl (80-100); Mean Platelet Volume 9.7 fl (7.4-10.4); Monocytes Absolute Auto 0.8 K/mm3 (0.1-0.6); Monocytes Percent Auto 6.8 % (2.6-8.5); Neutrophils Absolute Auto 9.9 K/mm3 (1.3-6.7); Neutrophils Percent Auto 84.7 % (45.5-73.1); Platelet Count Result 280 k/mm3 (150-375); Red Blood Count 4.46 M/mm3 (4.6-6.20); Red Cell Distribution Width 13.9 % (11.5-14.5); White Blood Count 11.7 K/mm3 (4.5-10.0)
[2023-10-14 01:57] LABS: Lactic Acid Reflex 0.7 mmol/L (0.7-2.0)
[2023-10-14 02:08] LABS: Alanine Aminotransferase 45 U/L (6-50); Alkaline Phosphatase 217 U/L (38-126); Anion Gap 15 mmol/L (4-12); Aspartate Amino Transferase 51 U/L (17-59); Bilirubin,Total 1.2 mg/dL (0.2-1.3); Blood Urea Nitrogen 2 mg/dL (9-20); Carbon Dioxide 21 mmol/L (22-30); Chloride 96 mmol/L (98-107); Estimated CRCL calculation 176 ml/min; Estimated Glomerular Filt Rate > 60; Glucose 138 mg/dL (65-110); Magnesium 1.5 mg/dL (1.6-2.3); Potassium 3.3 mmol/L (3.4-5.0); Sodium 132 mmol/L (137-145)
[2023-10-14 02:10] LABS: Lipase 2570 U/L (23-300)
[2023-10-14] MEDS: SODIUM CHLORIDE 0.9% IV 1,000 ML 999 ML IV CONT (02:37)
--- NOTE | 2023-10-14 03:11 | ED.ABDPAIN ---
HPI - Abdominal Pain General Chief Complaint: Abdominal Pain Stated Complaint: abd pain Time Seen by Provider: 10/14/23 01:22 History of Present Illness HPI narrative: Patient is a 37-year-old male who presents to the emergency department this evening complaining of mid epigastric abdominal pain radiating to his bilateral flanks nausea and vomiting. Patient was seen in our facility yesterday for similar symptoms although yesterday his main complaint was some chest pain and blood work obtained not including colitis was all normal and patient was sent home. Patient states that he was seen at [facility] 1 week ago for abdominal pain and at that time blood work including a lipase and a CT abdomen pelvis was also normal. He states the abdominal pain in his mid epigastric left upper quadrant is worse today and his pain was unbearable at home so he decided to come to the emergency department for further evaluation. No additional symptoms or concerns at this time. Related Data Home Medications Medication Instructions Recorded Confirmed finasteride 5 mg tablet 5 mg PO DAILY 12/23/22 08/31/23 progesterone micronized 100 mg 100 mg PO QAM 12/23/22 08/31/23 capsule spironolactone 100 mg tablet 100 mg PO DAILY 12/23/22 08/31/23 dupilumab 300 mg/2 mL subcutaneous 300 mg subcut WEEKLY 12/24/22 08/31/23 pen injector (Tysdo) estradiol valerate 20 mg/mL 20 mg IM WEEKLY 01/05/23 08/31/23 intramuscular oil multivitamin 1 tablet PO DAILY 01/05/23 08/31/23 famotidine 40 mg tablet 40 mg PO QHS 08/31/23 08/31/23 Allergies Allergy/AdvReac Type Severity Reaction Status Date / Time Penicillins Allergy Severe Anaphylaxis Verified 08/31/23 08:50 Review of Systems Review of Systems: All systems are reviewed and are negative unless stated otherwise in the HPI. [facility] Past Medical History Medical History Alcohol use Anxiety Asthma Black stools Depression Elevated LFTs Eosinophilic esophagitis Fatty liver GERD (gastroesophageal reflux disease) Hx of blood clots Kidney stones Peptic ulcer Surgical History Surgical History History of dental surgery History of esophagogastroduodenoscopy (EGD) History of laparoscopic cholecystectomy 01/15/23 [facility] Family History Family History Father Hypertension Lymphoma Mother Heart disease Hypertension Grandparent Malignant neoplasm of prostate Lung cancer Grandparent Breast cancer Other Cerebrovascular accident Diabetes mellitus Social History Social History Smoking status: Never smoker Alcohol intake: current Drinks per week: 56 Alcohol use details: QUIT DRINKING ~6774-6403 Substance use: never Substance use type: marijuana Other substance usage details: drinks 750ml wiskey every 2 days Do You Feel Safe in your Home?: Yes Lack of Transportation: No Lack of Food: Never True Current Housing: I Have Housing Concerned About Future Housing: No Difficulty Paying Gas/Electric Bills: No Difficulty Paying for Meds: YES Currently Unemployed: No Education: High School Diploma/GED Difficulty w/ Childcare or Family Care: No Living arrangements: with family Occupation/Education: occupation 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 HEENT: PERRL, no rhinorrhea, no post nasal drip, oropharynx clear. Cardiovascular: Regular rate and rhythm, no murmurs, rubs or gallops, no peripheral edema. Respiratory: Clear to auscultation bilaterally, no tachypnea, no wheezing, no rhonchi, no rubs, no respiratory distress. Abdomen: Soft, tenderness to p
[2023-10-14] MEDS: ONDANSETRON INJ 4 MG/2 ML VIAL IV PUSH ×2 (05:01→07:21)
[2023-10-14] MEDS: MORPHINE SULFATE (*CRX) 4 MG/ML INJ IV PUSH (05:01)
[2023-10-14] MEDS: LACTATED RINGERS 1,000 ML 999 ML IV CONT (05:01)
[2023-10-14 06:33] LABS: Add Urine Microscopic? YES; Appearance Urine Clear (Clear); Bacteria Urine None Seen /hpf; Bilirubin Urine Negative (Negative); Blood Urine Negative (Negative); Color Urine Dark Yellow (Yellow); Glucose Urine UA Negative (Negative); Ketones Urine 4+ mg/dL (Negative); Leukocyte Esterase Ur Negative LEU/UL (Negative); Nitrate Urine Negative (Negative); Non Pathogenic Casts 0-2; Protein Urine 1+ mg/dL (Negative); RBC Urine 0-2 /hpf (0-2); Specific Grav Ur > 1.045 (1.001-1.035); Squamous Epithelial Cell Urine None Seen /hpf (Few); WBC Urine 0-5 /hpf (0-3)
--- NOTE | 2023-10-14 06:42 | ADMGEN ---
This patient, Nesha Roman, was admitted to 2 Medical Room 244-. Patient/family oriented to hospital policies and general routines including ID bracelet, bed and alarms, visiting hours, pain management, procedures, bathroom and other care routines, personal items, smoking policy, room service/diet, and visiting hours. Information on how to activate the Rapid Response Team has been discussed. Patient/Family are encouraged to report perceived risks to care and to ask questions if they do not understand what they are told or what they should do.
[2023-10-14] MEDS: LACTATED RINGERS 1,000 ML 150 ML IV CONT (07:08)
[2023-10-14] MEDS: HYDROmorphone HCL INJ (*CRX) 1 MG/ML SYR 0.5 MG IV PUSH ×5 (07:21→22:26)
--- NOTE | 2023-10-14 07:45 | PM.IMHP ---
H&P: HPI History of Present Illness Date/Time: 10/14/23 07:45 Chief Complaint: Abdominal pain, nausea vomiting Narrative: Patient is a 37-year-old person with history of alcohol use, anxiety, peptic ulcer GERD, present ED with a chief complaint of epigastric pain. Patient has been having abdomen pain, locating epigastric mid resume in past 2 days. Patient also has nausea vomiting intermittently. The pain is radiated to the back and bilateral flank. Per patient's statement, he visited [facility] 1 week ago for abdominal pain, a lipase and a CT abdomen pelvis was also normal at that time. Patient has worsening hand pain yesterday therefore patient came to ED for evaluation treatment. Patient has some shortness breath, denies chest pain, palpitation, headache, focal weakness, dysuria. Upon arrival in the ED, patient was afebrile, blood pressure stable, pulse ox 96 room air, labs showed elevated lipase, 25,700, hypomagnesemia 1.5, CT abdomen pelvis showed acute pancreatitis. Patient received fluid resuscitation and pain management in the ED. We admit patient for further evaluation and treatment Review of Systems Review of Systems: ROS negative except above PMFSH Past Medical History Medical History Alcohol use Anxiety Asthma Black stools Depression Elevated LFTs Eosinophilic esophagitis Fatty liver GERD (gastroesophageal reflux disease) Hx of blood clots Kidney stones Peptic ulcer Surgical History Surgical History History of dental surgery History of esophagogastroduodenoscopy (EGD) History of laparoscopic cholecystectomy 01/15/23 [facility] Family History Family History Father Hypertension Lymphoma Mother Heart disease Hypertension Grandparent Malignant neoplasm of prostate Lung cancer Grandparent Breast cancer Other Cerebrovascular accident Diabetes mellitus Social History Social History Smoking status: Never smoker Alcohol intake: former Drinks per week: 56 Alcohol use details: QUIT DRINKING ~3454-8347 Substance use: never Substance use type: marijuana Other substance usage details: drinks 750ml wiskey every 2 days Do You Feel Safe in your Home?: Yes Lack of Transportation: No Lack of Food: Never True Current Housing: I Have Housing Concerned About Future Housing: No Difficulty Paying Gas/Electric Bills: YES Difficulty Paying for Meds: YES Currently Unemployed: No Education: Associate Degree Difficulty w/ Childcare or Family Care: No Living arrangements: with family Occupation/Education: occupation Additional occupation/education comments: [employer] employee Gender identity (if verbalized by the patient): Other Spiritual care concerns: No Meds Home Medications and Allergies Home Medications Medication Instructions Recorded Confirmed Type ondansetron 4 mg disintegrating 4 mg PO Q8H PRN nausea and 12/09/22 10/14/23 Rx tablet vomiting #10 tabs multivitamin 1 tablet PO DAILY 01/05/23 10/14/23 History pantoprazole 40 mg tablet,delayed 40 mg PO BID #30 tabs 06/16/23 10/14/23 Rx release famotidine 40 mg tablet 40 mg PO QHS 08/31/23 10/14/23 History folic acid 1 mg tablet 1 mg PO DAILY #30 tabs 09/03/23 10/14/23 Rx thiamine HCl (vitamin B1) 100 mg 100 mg PO DAILY #30 tabs 09/03/23 10/14/23 Rx tablet pregabalin 75 mg capsule 75 mg PO HS 10/14/23 10/14/23 History rivaroxaban 20 mg tablet (Xarelto) 20 mg PO BID 10/14/23 10/14/23 History Allergies Allergy/AdvReac Type Severity Reaction Status Date / Time Penicillins Allergy Severe Anaphylaxis Verified 08/31/23 08:50 Vital Signs Vital Signs - 24 hr 10/14/23 00:25 10/14/23 02:00 10/14/23 02:30 Temperature 97.9 F Pulse Rate 93 82 77 Respir
[2023-10-14] MEDS: THIAMINE HCL 100 MG TABLET PO (09:14)
[2023-10-14] MEDS: FOLIC ACID 1 MG TABLET PO (09:14)
[2023-10-14] MEDS: METOCLOPRAMIDE HCL INJ 10 MG/2 ML VIAL IV PUSH ×4 (09:14→23:16)
[2023-10-14] MEDS: PANTOPRAZOLE SODIUM IV 40 MG VIAL IV PUSH (12:14)
--- NOTE | 2023-10-14 12:19 | P.CONGI_ITS ---
I, Tyrone Ortega MD, have provided a substantive portion of the care of this patient and discussed the patient with my Nurse Practitioner. I have reviewed any new relevant radiographic and laboratory results including medications. I agree with her documentation as noted below.?I personally performed the medical decision making and much of the history and exam for this encounter. briefly, former alcoholic with recent hospitalization last month with pancreatitis since stopping drinking, egd had some gastritis, no h pylori, mild esophagitis without eosinophils (also h/o EoE not longer using dupixent but denies any recent dysphagia). Here with similar pain of pancreatitis, currently npo. MRCP normal bile duct and interstitial pancreatitis. Continue npo, advance when less pain, supportive care. Assessment and Plan Assessment and plan (1) Acute pancreatitis: Qualifiers: Pancreatitis type: idiopathic Acute pancreatitis complication: no infection or necrosis Qualified Code(s): K85.00 - Idiopathic acute pancreatitis without necrosis or infection Code(s): K85.90 - Acute pancreatitis without necrosis or infection, unspecified Status: Acute (2) Epigastric pain: Code(s): R10.13 - Epigastric pain Status: Acute (3) Gastritis: Qualifiers: Gastritis type: alcoholic Chronicity: chronic Gastritis bleeding: without bleeding Qualified Code(s): K29.20 - Alcoholic gastritis without bleeding Code(s): K29.70 - Gastritis, unspecified, without bleeding Status: Acute (4) Elevated LFTs: Code(s): R79.89 - Other specified abnormal findings of blood chemistry Status: Acute (5) Alcohol use: Code(s): Z78.9 - Other specified health status Status: Acute (6) Eosinophilic esophagitis: Code(s): K20.0 - Eosinophilic esophagitis Status: Acute (7) Black stools: Code(s): K92.1 - Melena Status: Acute (8) GERD (gastroesophageal reflux disease): Qualifiers: Esophagitis presence: without esophagitis Qualified Code(s): K21.9 - Gastro-esophageal reflux disease without esophagitis Code(s): K21.9 - Gastro-esophageal reflux disease without esophagitis Status: Acute (9) Weight loss: Code(s): R63.4 - Abnormal weight loss Status: Acute Plan 1. Pancreatitis/ Epigastric abdominal pain/Nausea/Vomiting/appetite loss/early satiety/gastritis: Last EGD 09/02/2023 showed gastritis. Acute onset severe e pigastric pain, nausea, and vomiting. History of recurrent pancreatitis last admitted to [place] August 30- for pancreatitis. Patient states that she has been having coffee-ground emesis and intermittent black stools for over a year, no findings on recent EGD to explain. H&H normal. Admits to epigastric/ chest pain that varies from dull to sharp in nature and is pulsating. This pain started yesterday evening. Patient is unable to say if this pain increases with p.o. intake as she has not eaten anything. She states that her weight fluctuates monthly stating that weight can vary by 30 lb. Patient is still having nausea and vomiting with bile emesis noted and emesis bag. No evidence of coffee-ground emesis. denies any NSAID or aspirin use. Patient has been on Xarelto since September 17 for recent diagnosis of PE. On admission lipase 264 and today 2570. LFTs were normal except elevated alkaline phosphatase at 217. Alk- phos has been elevated over the past 3 months. WBCs on admission 4-->12 today. Hepatitis panel and liver workup were unremarkable. Last check triglycerides w ere normal. Patient has never had an EUS. Denies any alcohol u
--- NOTE | 2023-10-14 12:19 | WPDGICN ---
Assessment and Plan Assessment and plan (1) Acute pancreatitis: Qualifiers: Pancreatitis type: idiopathic Acute pancreatitis complication: no infection or necrosis Qualified Code(s): K85.00 - Idiopathic acute pancreatitis without necrosis or infection Code(s): K85.90 - Acute pancreatitis without necrosis or infection, unspecified Status: Acute (2) Epigastric pain: Code(s): R10.13 - Epigastric pain Status: Acute (3) Gastritis: Qualifiers: Gastritis type: alcoholic Chronicity: chronic Gastritis bleeding: without bleeding Qualified Code(s): K29.20 - Alcoholic gastritis without bleeding Code(s): K29.70 - Gastritis, unspecified, without bleeding Status: Acute (4) Elevated LFTs: Code(s): R79.89 - Other specified abnormal findings of blood chemistry Status: Acute (5) Alcohol use: Code(s): Z78.9 - Other specified health status Status: Acute (6) Eosinophilic esophagitis: Code(s): K20.0 - Eosinophilic esophagitis Status: Acute (7) Black stools: Code(s): K92.1 - Melena Status: Acute (8) GERD (gastroesophageal reflux disease): Qualifiers: Esophagitis presence: without esophagitis Qualified Code(s): K21.9 - Gastro-esophageal reflux disease without esophagitis Code(s): K21.9 - Gastro-esophageal reflux disease without esophagitis Status: Acute (9) Weight loss: Code(s): R63.4 - Abnormal weight loss Status: Acute Plan 1. Pancreatitis/ Epigastric abdominal pain/Nausea/Vomiting/appetite loss/early satiety/gastritis: Last EGD 09/02/2023 showed gastritis. Acute onset severe epigastric pain, nausea, and vomiting. History of recurrent pancreatitis last admitted to [place] August 30- for pancreatitis. Patient states that she has been having coffee-ground emesis and intermittent black stools for over a year, no findings on recent EGD to explain. H&H normal. Admits to epigastric/ chest pain that varies from dull to sharp in nature and is pulsating. This pain started yesterday evening. Patient is unable to say if this pain increases with p.o. intake as she has not eaten anything. She states that her weight fluctuates monthly stating that weight can vary by 30 lb. Patient is still having nausea and vomiting with bile emesis noted and emesis bag. No evidence of coffee-ground emesis. denies any NSAID or aspirin use. Patient has been on Xarelto since September 17 for recent diagnosis of PE. On admission lipase 264 and today 2570. LFTs were normal except elevated alkaline phosphatase at 217. Alk-phos has been elevated over the past 3 months. WBCs on admission 4-->12 today. Hepatitis panel and liver workup were unremarkable. Last check triglycerides were normal. Patient has never had an EUS. Denies any alcohol use over the past 3 weeks. MRCP to evaluate for possible biliary obstruction, if abnormal will discuss ERCP continue supportive care to include pain management and antiemetics Continue Reglan and Protonix continue monitoring labs patient experiencing same symptoms as prior admission at which time she had an EGD done, no indication for repeat EGD at this time 2. Eosinophilic esophagitis: History of EOE, off DUPIXENT since March. Denies any reflux symptoms or dysphagia. Consider restart of treatment if symptoms recur Thank you very much for allowing me to share in the care of this very nice patient. This report may have been done utilizing a voice recognition system. Attempts have been made to correct errors. However, there may be uncorrected grammatical, spelling, and recognition errors present. GI Consult Note Consult date/time: 10/14/23 12:19 Reason for consult: Pancreatitis HPI: This is a pleasant 37-year-old female with a past medical surgical history of EtOH abuse, anxiety, asthma, depression, eosinophilic esophagitis, hepatic steatosis, GERD, gastritis,
[2023-10-14] MEDS: KETOROLAC 15 MG/ML VIAL (*BKC) IV PUSH ×2 (12:50→20:10)
[2023-10-14] MEDS: SODIUM CHLORIDE 0.9% IV 1,000 ML 75 ML IV CONT (23:08)
[2023-10-14] MEDS: PREGABALIN (*CRX) 75 MG CAPSULE PO (23:08)
[2023-10-15] MEDS: HYDROmorphone HCL INJ (*CRX) 1 MG/ML SYR 0.5 MG IV PUSH ×4 (01:22→20:52)
[2023-10-15] MEDS: KETOROLAC 15 MG/ML VIAL (*BKC) IV PUSH ×4 (03:12→23:33)
[2023-10-15 06:00] VITALS: BP 127/77; PULSE 105; RESP 18; TEMP 36.8; O2SAT 97
[2023-10-15] MEDS: METOCLOPRAMIDE HCL INJ 10 MG/2 ML VIAL IV PUSH ×4 (06:08→23:33)
--- NOTE | 2023-10-15 07:35 | PM.IMPN ---
Progress Note: A&P Assessment and Plan (1) Acute pancreatitis: Qualifiers: Acute pancreatitis complication: no infection or necrosis Pancreatitis type: idiopathic Qualified Code(s): K85.00 - Idiopathic acute pancreatitis without necrosis or infection Code(s): K85.90 - Acute pancreatitis without necrosis or infection, unspecified Status: Acute (2) Hypomagnesemia: Code(s): E83.42 - Hypomagnesemia Status: Acute (3) Nausea & vomiting: Code(s): R11.2 - Nausea with vomiting, unspecified Status: Acute (4) Abdominal pain: Code(s): R10.9 - Unspecified abdominal pain Status: Acute (5) Gastritis: Qualifiers: Chronicity: chronic Gastritis bleeding: without bleeding Gastritis type: alcoholic Qualified Code(s): K29.20 - Alcoholic gastritis without bleeding Code(s): K29.70 - Gastritis, unspecified, without bleeding Status: Acute (6) Elevated LFTs: Code(s): R79.89 - Other specified abnormal findings of blood chemistry Status: Acute (7) Fatty liver: Code(s): K76.0 - Fatty (change of) liver, not elsewhere classified Status: Acute (8) Eosinophilic esophagitis: Code(s): K20.0 - Eosinophilic esophagitis Status: Acute (9) Alcohol use: Code(s): Z78.9 - Other specified health status Status: Acute Plan Abdomen pain Acute pancreatitis tendinosis is supported by elevated lipase and CT scan have abdomen that showed acute interstitial pancreatitis Possible due to alcohol use Patient also has intractable nausea vomiting Possible has gastritis, and peptic ulcer. Patient stated he has history of peptic ulcer of stomach Will start Protonix 40 mg IV once and daily Keep patient p.o. Optimize medication for pain control and nausea vomiting Start fluid resuscitation Follow-up CMP, replete electrolytes accordingly Consult GI for evaluation treatment pending MRCP to evaluate for possible biliary obstruction, if abnormal will discuss ERCP Hypomagnesemia, hypokalemia Magnesium 1.5 upon arrival, potassium 3.3 today Repeated with magnesium sulfate IV and potassium chloride Follow-up magnesium and potassium level Replete accordingly History of PE Patient is on Xarelto 20 mg daily p.o. Alcohol use Evaluate and management alcohol withdrawal symptom per [facility] protocol Continue folic acid thiamine p.o. Patient may stay more than 2 midnights in hospital based on the evaluation of patient condition and clinical study report Subjective Date/time seen: 10/15/23 07:35 Interval history: I saw exam patient today, patient still cannot tolerate diet, patient has nausea, intermittent vomiting, abdomen pain. Patient feels better Exam Narrative: GENERAL: Acute distress of pain. Well-nourished. - EYES: EOMI. Anicteric. - HENT: Moist mucous membranes. - LUNGS: Clear to auscultation bilaterally, no wheezing, rhonchi, or rales. - CARDIOVASCULAR: Regular rate and rhythm. No murmur. No JVD. - ABDOMEN: Soft, epigastric and mid abdomen tender and non-distended. No palpable masses. - EXTREMITIES: No edema. Peripheral pulses 2+. Non-tender. - NEUROLOGIC: No focal neurological deficits. CN II-XII grossly intact. - PSYCHIATRIC: Awake, Alert and oriented x 3. Anxiety mood and affect. - SKIN: No rashes or lesions. Warm. - LYMPH: No cervical lymphadenopathy. Objective Data Vital Signs Vital Signs: Vital Signs - 24 hr 10/14/23 09:44 10/14/23 15:00 10/14/23 08:00 Temperature 97.8 F Pulse Rate 82 Respiratory Rate 18 Blood Pressure 112/71 Pulse Oximetry 99 99 Oxygen Delivery Room Air Room Air Fraction of Inspired Oxygen 21 10/14/23 22:00 10/14/23 20:00 10/15/23 06:00 Temperature 98.1 F 98.2 F Pulse Rate 86 105 H Respiratory Rate 18 18 Blood Pressure 128/74 127/77 Pulse Oximetry 98 97 Oxygen Delivery Room Air Fraction of Inspired Oxygen Intake/Output Intake/Output: Intake &
[2023-10-15 08:00] VITALS: O2SAT 97
[2023-10-15 08:19] LABS: Hematocrit 43.5 % (42.0-52.0); Hemoglobin 15.1 g/dL (14.0-18.0); Mean Corpuscular HGB Conc 34.7 g/dl (32-36); Mean Corpuscular Hemoglobin 33.8 pg (26-34); Mean Corpuscular Volume 97.3 fl (80-100); Mean Platelet Volume 9.9 fl (7.4-10.4); Platelet Count Result 283 k/mm3 (150-375); Red Blood Count 4.47 M/mm3 (4.6-6.20); Red Cell Distribution Width 14.1 % (11.5-14.5); White Blood Count 22.6 K/mm3 (4.5-10.0)
[2023-10-15 08:28] LABS: Anion Gap 12 mmol/L (4-12); Calcium 8.6 mg/dL (8.4-10.2); Carbon Dioxide 23 mmol/L (22-30); Chloride 97 mmol/L (98-107); Estimated CRCL calculation 180 ml/min; Estimated Glomerular Filt Rate > 60; Glucose 98 mg/dL (65-110); Potassium 3.5 mmol/L (3.4-5.0); Sodium 132 mmol/L (137-145)
[2023-10-15 08:37] LABS: Blood Urea Nitrogen < 2 mg/dL (9-20)
[2023-10-15] MEDS: FOLIC ACID 1 MG TABLET PO (09:02)
[2023-10-15] MEDS: THIAMINE HCL 100 MG TABLET PO (09:02)
[2023-10-15] MEDS: PANTOPRAZOLE SODIUM IV 40 MG VIAL IV PUSH (09:03)
[2023-10-15] MEDS: SODIUM CHLORIDE 0.9% IV 1,000 ML 75 ML IV CONT (12:54)
[2023-10-15 13:44] VITALS: BP 128/83; PULSE 125; RESP 17; TEMP 37.6; O2SAT 98
[2023-10-15 14:20] VITALS: RESP 20; TEMP 37.1
--- NOTE | 2023-10-15 14:21 | PC.NURSE ---
Patient awake and resting on left side with verbalized improvement of generalized pain but c/o of fever sensation. Temp checked and was 98.8 oral. Will continue to monitor.
[2023-10-15] MEDS: RIVAROXABAN 20 MG TABLET PO (17:34)
--- NOTE | 2023-10-15 18:08 | WPDGIPROGNO ---
Progress Note: A&P Assessment and Plan (1) Acute pancreatitis: Qualifiers: Acute pancreatitis complication: no infection or necrosis Pancreatitis type: idiopathic Qualified Code(s): K85.00 - Idiopathic acute pancreatitis without necrosis or infection Code(s): K85.90 - Acute pancreatitis without necrosis or infection, unspecified Status: Acute Assessment and Plan: not longer using alcohol second episode tolerating diet, on pain meds continue to monitor (2) Epigastric pain: Code(s): R10.13 - Epigastric pain Status: Acute (3) Nausea & vomiting: Code(s): R11.2 - Nausea with vomiting, unspecified Status: Acute Assessment and Plan: no more emesis (4) Abdominal pain: Code(s): R10.9 - Unspecified abdominal pain Status: Acute Assessment and Plan: improved (5) Alcohol use: Code(s): Z78.9 - Other specified health status Status: Acute Assessment and Plan: quit after last hospitalization (6) Eosinophilic esophagitis: Code(s): K20.0 - Eosinophilic esophagitis Status: Acute Assessment and Plan: denies recent dysphagia Subjective Date/time seen: 10/15/23 18:08 Interval history: eating more without more nausea but still pain, feeling better Review of Systems Review of Systems: All systems reviewed & are unremarkable except as noted in HPI and below Exam Const: General: cooperative, healthy appearing, comfortable, no acute distress and well developed Orientation/consciousness: oriented to person, oriented to place, oriented to time and patient oriented x3 HENMT: Head: normal to inspection, normocephalic and atraumatic Other: missing front teeth Eyes: General: appearance normal, both eyes and all related structures Conjunctivae: conjunctivae normal Sclera: sclerae normal Neck: Neck: normal visual inspection Chest: Chest palpation & inspection: normal inspection of the chest Resp: Effort & Inspection: normal respiratory effort and able to speak in complete sentences Auscultation: clear to auscultation bilaterally Cardio: Rate: regular rate Rhythm: regular rhythm GI: Inspection: normal to inspection GI Palp: Yes Soft to palpation, No Firmness to palpation present (GI), Yes Tenderness to palpation present (GI) and Yes Guarding due to palpation present (GI) Auscultation: normal bowel sounds Skin: General skin exam: normal color and no rashes or lesions noted Neuro: General: oriented to person, oriented to place, oriented to time and patient oriented x3 Cranial nerves: Yes Equal, round and reactive pupils present Speech: normal speech Extrem: General: normal to inspection and no clubbing, cyanosis or edema Psych: Appearance: grossly normal and well kempt Affect: normal affect Objective Data Vital Signs Vital Signs: Vital Signs - 24 hr 10/14/23 22:00 10/14/23 20:00 10/15/23 06:00 Temperature 98.1 F 98.2 F Pulse Rate 86 105 H Respiratory Rate 18 18 Blood Pressure 128/74 127/77 Pulse Oximetry 98 97 Oxygen Delivery Room Air 10/15/23 08:00 10/15/23 13:44 10/15/23 14:20 Temperature 99.6 F 98.8 F Pulse Rate 125 H Respiratory Rate 17 20 Blood Pressure 128/83 Pulse Oximetry 97 98 Oxygen Delivery Room Air Intake/Output Intake/Output: Intake & Output 10/12/23 10/13/23 10/14/23 10/15/23 23:59 23:59 23:59 23:59 Intake Total 1250 1480 Balance 1250 1480 Meds/Results Medications: Active Medications Generic Name Dose Route Start Last Admin Trade Name Freq PRN Reason Stop Dose Admin Folic Acid 1 mg 10/14/23 09:00 10/15/23 09:02 Folic Acid 1 Mg Tablet PO 1 mg DAILY [facility] Administration Hydromorphone HCl 0.5 mg 10/14/23 07:15 10/15/23 12:58 Hydromorphone Hcl Inj (*Crx) 1 Mg/Ml Syr IV PUSH 0.5 mg Q3H PRN Administration Pain Rated 7-10 Sodium Chloride 1,000 mls @ 75 mls/hr 10/14/23 23:00 10/15/23 12:54 Normal
[2023-10-15] MEDS: PREGABALIN (*CRX) 75 MG CAPSULE PO (20:10)
[2023-10-15 22:00] VITALS: BP 126/79; PULSE 118; RESP 18; TEMP 37.1; O2SAT 96
[2023-10-16] MEDS: SODIUM CHLORIDE 0.9% IV 1,000 ML 75 ML IV CONT ×2 (01:56→20:22)
[2023-10-16] MEDS: HYDROmorphone HCL INJ (*CRX) 1 MG/ML SYR 0.5 MG IV PUSH ×4 (03:28→20:21)
[2023-10-16 06:00] VITALS: BP 114/82; PULSE 109; RESP 18; TEMP 37.2; O2SAT 95
[2023-10-16] MEDS: METOCLOPRAMIDE HCL INJ 10 MG/2 ML VIAL IV PUSH ×4 (06:28→23:55)
[2023-10-16 06:45] LABS: Anion Gap 9 mmol/L (4-12); Blood Urea Nitrogen 3 mg/dL (9-20); Calcium 8.6 mg/dL (8.4-10.2); Carbon Dioxide 26 mmol/L (22-30); Chloride 98 mmol/L (98-107); Estimated CRCL calculation 180 ml/min; Estimated Glomerular Filt Rate > 60; Glucose 132 mg/dL (65-110); Potassium 2.6 mmol/L (3.4-5.0); Sodium 133 mmol/L (137-145)
--- NOTE | 2023-10-16 08:00 | PC.NURSE ---
Received order from Dr Victoria to give 60meq K-rider one time now for potassium 2.6. Per pharmacy, it is against policy to give more than 40meq potassium in one IV bag. Okay to give 40meq K-rider IVPB and follow with 20meq K-rider to give a total of 60meq.
[2023-10-16] MEDS: POTASSIUM CHLORIDE INJ 40 MEQ in SODIUM CHLORIDE 0.9% IV 500 ML 130 MEQ IVPB (09:14)
[2023-10-16] MEDS: PANTOPRAZOLE SODIUM IV 40 MG VIAL IV PUSH (09:15)
[2023-10-16] MEDS: THIAMINE HCL 100 MG TABLET PO (09:15)
[2023-10-16] MEDS: FOLIC ACID 1 MG TABLET PO (09:15)
--- NOTE | 2023-10-16 10:46 | WPDGIPROGNO ---
Progress Note: A&P Assessment and Plan (1) Acute pancreatitis: Qualifiers: Acute pancreatitis complication: no infection or necrosis Pancreatitis type: idiopathic Qualified Code(s): K85.00 - Idiopathic acute pancreatitis without necrosis or infection Code(s): K85.90 - Acute pancreatitis without necrosis or infection, unspecified Status: Acute Assessment and Plan: not longer using alcohol second episode more pain last night but says that pain meds helping npo again and will start slowly again continue to monitor (2) Epigastric pain: Code(s): R10.13 - Epigastric pain Status: Acute (3) Nausea & vomiting: Code(s): R11.2 - Nausea with vomiting, unspecified Status: Acute Assessment and Plan: no more emesis (4) Abdominal pain: Code(s): R10.9 - Unspecified abdominal pain Status: Acute Assessment and Plan: improved (5) Alcohol use: Code(s): Z78.9 - Other specified health status Status: Acute Assessment and Plan: quit after last hospitalization (6) Eosinophilic esophagitis: Code(s): K20.0 - Eosinophilic esophagitis Status: Acute Assessment and Plan: denies recent dysphagia (7) Hypokalemia: Code(s): E87.6 - Hypokalemia Status: Acute Assessment and Plan: repleting Subjective Date/time seen: 10/16/23 10:46 Interval history: last night had more abdominal pain but improved with pain meds Review of Systems Review of Systems: All systems reviewed & are unremarkable except as noted in HPI and below Exam Const: General: cooperative, healthy appearing, comfortable, no acute distress and well developed Orientation/consciousness: patient oriented x3 HENMT: Head: normal to inspection, normocephalic and atraumatic Other: missing front teeth Eyes: General: appearance normal, both eyes and all related structures Conjunctivae: conjunctivae normal Neck: Neck: normal visual inspection Chest: Chest palpation & inspection: normal inspection of the chest Resp: Effort & Inspection: normal respiratory effort and able to speak in complete sentences Auscultation: clear to auscultation bilaterally Cardio: Rate: regular rate Rhythm: regular rhythm GI: Inspection: normal to inspection GI Palp: Yes Soft to palpation, No Firmness to palpation present (GI) and Yes Tenderness to palpation present (GI) Auscultation: normal bowel sounds Skin: General skin exam: normal color and no rashes or lesions noted Neuro: General: patient oriented x3 Cranial nerves: Yes Equal, round and reactive pupils present Speech: normal speech Extrem: General: normal to inspection Psych: Appearance: grossly normal and well kempt Affect: normal affect Objective Data Vital Signs Vital Signs: Vital Signs - 24 hr 10/15/23 13:44 10/15/23 14:20 10/15/23 20:00 Temperature 99.6 F 98.8 F Pulse Rate 125 H Respiratory Rate 17 20 Blood Pressure 128/83 Pulse Oximetry 98 Oxygen Delivery Room Air 10/15/23 22:00 10/16/23 06:00 10/16/23 08:00 Temperature 98.7 F 98.9 F Pulse Rate 118 H 109 H Respiratory Rate 18 18 Blood Pressure 126/79 114/82 Pulse Oximetry 96 95 Oxygen Delivery Room Air Intake/Output Intake/Output: Intake & Output 10/13/23 10/14/23 10/15/23 10/16/23 23:59 23:59 23:59 23:59 Intake Total 1250 1840 1097.5 Balance 1250 1840 1097.5 Meds/Results Medications: Active Medications Generic Name Dose Route Start Last Admin Trade Name Freq PRN Reason Stop Dose Admin Folic Acid 1 mg 10/14/23 09:00 10/16/23 09:15 Folic Acid 1 Mg Tablet PO 1 mg DAILY [facility] Administration Hydromorphone HCl 0.5 mg 10/14/23 07:15 10/16/23 06:28 Hydromorphone Hcl Inj (*Crx) 1 Mg/Ml Syr IV PUSH 0.5 mg Q3H PRN Administration Pain Rated 7-10 Sodium Chloride 1,000 mls @ 75 mls/hr 10/14/23 23:00 10/16/23 01:56 Normal Saline Iv IV CONT 75 mls/hr
--- NOTE | 2023-10-16 12:28 | PM.IMPN ---
Progress Note: A&P Assessment and Plan (1) Acute pancreatitis: Qualifiers: Acute pancreatitis complication: no infection or necrosis Pancreatitis type: idiopathic Qualified Code(s): K85.00 - Idiopathic acute pancreatitis without necrosis or infection Code(s): K85.90 - Acute pancreatitis without necrosis or infection, unspecified Status: Acute Assessment and Plan: Plan is to continue current treatment with IV fluids and monitor labs and x-rays. To (2) Hypomagnesemia: Code(s): E83.42 - Hypomagnesemia Status: Acute Assessment and Plan: Replace and monitor. (3) Nausea & vomiting: Code(s): R11.2 - Nausea with vomiting, unspecified Status: Acute Assessment and Plan: Slightly better. Continue current treatment. (4) Abdominal pain: Code(s): R10.9 - Unspecified abdominal pain Status: Acute Assessment and Plan: Slightly better, continue current treatment monitor closely. (5) Gastritis: Qualifiers: Gastritis type: alcoholic Chronicity: chronic Gastritis bleeding: without bleeding Qualified Code(s): K29.20 - Alcoholic gastritis without bleeding Code(s): K29.70 - Gastritis, unspecified, without bleeding Status: Acute Assessment and Plan: Stable on current medication. (6) Elevated LFTs: Code(s): R79.89 - Other specified abnormal findings of blood chemistry Status: Acute Assessment and Plan: Probably secondary to pancreatitis with monitor closely. (7) Fatty liver: Code(s): K76.0 - Fatty (change of) liver, not elsewhere classified Status: Acute Assessment and Plan: Stable (8) Eosinophilic esophagitis: Code(s): K20.0 - Eosinophilic esophagitis Status: Acute Assessment and Plan: Stable on current meds. (9) Alcohol use: Code(s): Z78.9 - Other specified health status Status: Acute Assessment and Plan: Counseling given. Plan 10/16/2023 Patient clinically slightly better. Plan is to continue current treatment monitor closely. Replace and monitor lytes. Abdomen pain Acute pancreatitis tendinosis is supported by elevated lipase and CT scan have abdomen that showed acute interstitial pancreatitis Possible due to alcohol use Patient also has intractable nausea vomiting Possible has gastritis, and peptic ulcer. Patient stated he has history of peptic ulcer of stomach Will start Protonix 40 mg IV once and daily Keep patient p.o. Optimize medication for pain control and nausea vomiting Start fluid resuscitation Follow-up CMP, replete electrolytes accordingly Consult GI for evaluation treatment pending MRCP to evaluate for possible biliary obstruction, if abnormal will discuss ERCP Hypomagnesemia, hypokalemia Magnesium 1.5 upon arrival, potassium 3.3 today Repeated with magnesium sulfate IV and potassium chloride Follow-up magnesium and potassium level Replete accordingly History of PE Patient is on Xarelto 20 mg daily p.o. Alcohol use Evaluate and management alcohol withdrawal symptom per [facility] protocol Continue folic acid thiamine p.o. Patient may stay more than 2 midnights in hospital based on the evaluation of patient condition and clinical study report Subjective Date/time seen: 10/16/23 12:28 Interval history: Patient was seen during the morning rounds today. Abdominal pain is slightly better. Decrease nausea and vomiting. No chest pain or shortness of breath. Review of Systems Review of Systems: All review of systems are negative except as noted in history and physical examination. Exam Narrative: GENERAL: Acute distress of pain. Well-nourished. - EYES: EOMI. Anicteric. - HENT: Moist mucous membranes. - LUNGS: Clear to auscultation bilaterally, no wheezing, rhonchi, or rales. - CARDIOVASCULAR: Regular rate and rhythm. No murmur. No JVD. - ABDOMEN: Soft, epigastric and mid abdomen tender
[2023-10-16] MEDS: MAGNESIUM SULF 2 GM/WATER 50ML 2 GM/50 ML BAG IVPB (14:03)
[2023-10-16] MEDS: KETOROLAC 15 MG/ML VIAL (*BKC) IV PUSH (14:52)
[2023-10-16 15:13] VITALS: BP 116/78; PULSE 104; RESP 17; TEMP 36.6; O2SAT 98
[2023-10-16 17:36] LABS: Lipase 341 U/L (23-300)
[2023-10-16] MEDS: KCL 20 MEQ/SW 100 ML 50 MEQ IVPB (17:55)
[2023-10-16] MEDS: RIVAROXABAN 20 MG TABLET PO (18:00)
[2023-10-16 20:13] VITALS: BP 120/73; PULSE 94; RESP 17; TEMP 36.5; O2SAT 99
[2023-10-16] MEDS: PREGABALIN (*CRX) 75 MG CAPSULE PO (20:16)
[2023-10-17] VITALS (7 sets, daily range): BP systolic 113–119; BP diastolic 76–81; PULSE 82–111; RESP 16–18; TEMP 36.5–36.9; O2SAT 97–98
[2023-10-17] MEDS: KETOROLAC 15 MG/ML VIAL (*BKC) IV PUSH ×4 (00:08→23:08)
[2023-10-17] MEDS: HYDROmorphone HCL INJ (*CRX) 1 MG/ML SYR 0.5 MG IV PUSH ×3 (04:51→20:30)
[2023-10-17 06:35] LABS: Basophils Percent Auto 0.2 % (0.2-1.2); Eosinophils Absolute Auto 0.1 K/mm3 (0-0.3); Eosinophils Percent Auto 0.8 % (0-4.4); Hematocrit 34.6 % (42.0-52.0); Hemoglobin 12.1 g/dL (14.0-18.0); Immature Granulocyte Absolute 0.06 K/mm3 (0.00-0.031); Immature Granulocyte Percent A 0.6 % (0-0.5); Lymphocytes Absolute Auto 0.95 K/mm3 (0.9-3.2); Lymphocytes Percent Auto 9.7 % (18.3-44.2); Mean Corpuscular Hemoglobin 33.9 pg (26-34); Mean Corpuscular Volume 96.9 fl (80-100); Mean Platelet Volume 10.4 fl (7.4-10.4); Monocytes Absolute Auto 0.8 K/mm3 (0.1-0.6); Monocytes Percent Auto 8.6 % (2.6-8.5); Neutrophils Absolute Auto 7.9 K/mm3 (1.3-6.7); Neutrophils Percent Auto 80.1 % (45.5-73.1); Platelet Count Result 188 k/mm3 (150-375); Red Blood Count 3.57 M/mm3 (4.6-6.20); Red Cell Distribution Width 14.3 % (11.5-14.5); White Blood Count 9.8 K/mm3 (4.5-10.0)
[2023-10-17 06:46] LABS: Amylase 49 U/L (30-110); Lipase 332 U/L (23-300)
[2023-10-17 07:23] LABS: Alanine Aminotransferase 38 U/L (6-50); Albumin Level 3.1 g/dL (3.5-5.1); Alkaline Phosphatase 184 U/L (38-126); Anion Gap 10 mmol/L (4-12); Aspartate Amino Transferase 61 U/L (17-59); Bilirubin,Total 1.2 mg/dL (0.2-1.3); Carbon Dioxide 24 mmol/L (22-30); Chloride 102 mmol/L (98-107); Estimated CRCL calculation 219 ml/min; Estimated Glomerular Filt Rate > 60; Glucose 121 mg/dL (65-110); Potassium 2.7 mmol/L (3.4-5.0); Sodium 136 mmol/L (137-145)
[2023-10-17 07:29] LABS: Blood Urea Nitrogen < 2 mg/dL (9-20)
--- NOTE | 2023-10-17 09:28 | WPDGIPROGNO ---
Progress Note: A&P Assessment and Plan (1) Acute pancreatitis: Qualifiers: Acute pancreatitis complication: no infection or necrosis Pancreatitis type: idiopathic Qualified Code(s): K85.00 - Idiopathic acute pancreatitis without necrosis or infection Code(s): K85.90 - Acute pancreatitis without necrosis or infection, unspecified Status: Acute Assessment and Plan: leukocytosis resolved still with pain but would like to eat liquids again- will resume and monitor (2) Epigastric pain: Code(s): R10.13 - Epigastric pain Status: Acute Assessment and Plan: similar (3) Nausea & vomiting: Code(s): R11.2 - Nausea with vomiting, unspecified Status: Acute Assessment and Plan: no more emesis (4) Alcohol use: Code(s): Z78.9 - Other specified health status Status: Acute Assessment and Plan: quit after last hospitalization (5) Eosinophilic esophagitis: Code(s): K20.0 - Eosinophilic esophagitis Status: Acute Assessment and Plan: denies recent dysphagia (6) Hypokalemia: Code(s): E87.6 - Hypokalemia Status: Acute Assessment and Plan: repleting again today Subjective Date/time seen: 10/17/23 09:28 Interval history: was npo yesterday, still with epigastric pain but feeling today like eating liquids again Review of Systems Review of Systems: All systems reviewed & are unremarkable except as noted in HPI and below Exam Const: General: cooperative, healthy appearing, no acute distress and well developed Orientation/consciousness: patient oriented x3 HENMT: Head: normal to inspection, normocephalic and atraumatic Other: missing front teeth Eyes: General: appearance normal, both eyes and all related structures Conjunctivae: conjunctivae normal Neck: Neck: normal visual inspection Resp: Effort & Inspection: normal respiratory effort and able to speak in complete sentences Auscultation: clear to auscultation bilaterally Cardio: Rate: regular rate Rhythm: regular rhythm GI: Inspection: normal to inspection GI Palp: Yes Soft to palpation and Yes Tenderness to palpation present (GI) Auscultation: normal bowel sounds Skin: General skin exam: normal color and no rashes or lesions noted Neuro: General: patient oriented x3 Speech: normal speech Motor exam (neuro): 5/5 motor strength present throughout Extrem: General: normal to inspection Psych: Appearance: grossly normal and well kempt Affect: normal affect Objective Data Vital Signs Vital Signs: Vital Signs - 24 hr 10/16/23 15:13 10/16/23 20:13 10/16/23 20:00 Temperature 97.9 F 97.7 F Pulse Rate 104 H 94 Respiratory Rate 17 17 Blood Pressure 116/78 120/73 Pulse Oximetry 98 99 Oxygen Delivery Room Air 10/17/23 05:05 Temperature 98.0 F Pulse Rate 96 Respiratory Rate 17 Blood Pressure 113/78 Pulse Oximetry 97 Oxygen Delivery Intake/Output Intake/Output: Intake & Output 10/14/23 10/15/23 10/16/23 10/17/23 23:59 23:59 23:59 23:59 Intake Total 1250 1840 2097.5 50 Balance 1250 1840 2097.5 50 Meds/Results Medications: Active Medications Generic Name Dose Route Start Last Admin Trade Name Freq PRN Reason Stop Dose Admin Folic Acid 1 mg 10/14/23 09:00 10/16/23 09:15 Folic Acid 1 Mg Tablet PO 1 mg DAILY [facility] Administration Hydromorphone HCl 0.5 mg 10/14/23 07:15 10/17/23 04:51 Hydromorphone Hcl Inj (*Crx) 1 Mg/Ml Syr IV PUSH 0.5 mg Q3H PRN Administration Pain Rated 7-10 Sodium Chloride 1,000 mls @ 75 mls/hr 10/14/23 23:00 10/17/23 05:20 Normal Saline Iv IV CONT Not Given .[id number] [facility] Potassium Chloride 40 meq/ 520 mls @ 130 mls/hr 10/17/23 08:30 Sodium Chloride IVPB 10/17/23 12:29 ONCE ONE Potassium Chloride/Sodium Chloride 1,000 mls @ 75 mls/hr 10/17/23 07:55 Kcl 20 Meq/Ns IV CONT .[id number] [facility] Ketorolac Tromethamine 15 mg 10/13
[2023-10-17] MEDS: THIAMINE HCL 100 MG TABLET PO (09:46)
[2023-10-17] MEDS: PANTOPRAZOLE SODIUM IV 40 MG VIAL IV PUSH (09:46)
[2023-10-17] MEDS: FOLIC ACID 1 MG TABLET PO (09:46)
[2023-10-17] MEDS: KCL 20MEQ/0.9% SOD CHL 1,000 ML 75 ML IV CONT ×2 (09:55→20:34)
[2023-10-17] MEDS: POTASSIUM CHLORIDE INJ 40 MEQ in SODIUM CHLORIDE 0.9% IV 500 ML 130 MEQ IVPB ×2 (10:01→18:00)
--- NOTE | 2023-10-17 10:35 | PM.IMPN ---
Progress Note: A&P Assessment and Plan (1) Acute pancreatitis: Qualifiers: Acute pancreatitis complication: no infection or necrosis Pancreatitis type: idiopathic Qualified Code(s): K85.00 - Idiopathic acute pancreatitis without necrosis or infection Code(s): K85.90 - Acute pancreatitis without necrosis or infection, unspecified Status: Acute Assessment and Plan: Plan is to continue current treatment with IV fluids and monitor labs. Replace potassium (2) Hypomagnesemia: Code(s): E83.42 - Hypomagnesemia Status: Acute Assessment and Plan: Resolved (3) Nausea & vomiting: Code(s): R11.2 - Nausea with vomiting, unspecified Status: Acute Assessment and Plan: Slightly better. Continue current treatment. (4) Abdominal pain: Code(s): R10.9 - Unspecified abdominal pain Status: Acute Assessment and Plan: Slightly better, continue current treatment monitor closely. (5) Gastritis: Qualifiers: Gastritis type: alcoholic Chronicity: chronic Gastritis bleeding: without bleeding Qualified Code(s): K29.20 - Alcoholic gastritis without bleeding Code(s): K29.70 - Gastritis, unspecified, without bleeding Status: Acute Assessment and Plan: Stable on current medication. (6) Elevated LFTs: Code(s): R79.89 - Other specified abnormal findings of blood chemistry Status: Acute Assessment and Plan: Probably secondary to pancreatitis with monitor closely. (7) Fatty liver: Code(s): K76.0 - Fatty (change of) liver, not elsewhere classified Status: Acute Assessment and Plan: Stable (8) Eosinophilic esophagitis: Code(s): K20.0 - Eosinophilic esophagitis Status: Acute Assessment and Plan: Stable on current meds. (9) Alcohol use: Code(s): Z78.9 - Other specified health status Status: Acute Assessment and Plan: Counseling given. Plan 10/16/2023 Patient clinically slightly better. Plan is to continue current treatment monitor closely. Replace and monitor lytes. 10/17/2023 Patient is clinically improving. Plan is to continue current treatment with IV fluids. Potassium will replace and monitor. Abdomen pain Acute pancreatitis tendinosis is supported by elevated lipase and CT scan have abdomen that showed acute interstitial pancreatitis Possible due to alcohol use Patient also has intractable nausea vomiting Possible has gastritis, and peptic ulcer. Patient stated he has history of peptic ulcer of stomach Will start Protonix 40 mg IV once and daily Keep patient p.o. Optimize medication for pain control and nausea vomiting Start fluid resuscitation Follow-up CMP, replete electrolytes accordingly Consult GI for evaluation treatment pending MRCP to evaluate for possible biliary obstruction, if abnormal will discuss ERCP Hypomagnesemia, hypokalemia Magnesium 1.5 upon arrival, potassium 3.3 today Repeated with magnesium sulfate IV and potassium chloride Follow-up magnesium and potassium level Replete accordingly History of PE Patient is on Xarelto 20 mg daily p.o. Alcohol use Evaluate and management alcohol withdrawal symptom per [facility] protocol Continue folic acid thiamine p.o. Patient may stay more than 2 midnights in hospital based on the evaluation of patient condition and clinical study report Subjective Date/time seen: 10/17/23 10:35 Interval history: Patient was seen during the morning rounds today. Patient pain is slightly better. No nausea or vomiting. No shortness of breath or chest pain. Review of Systems Review of Systems: All review of systems are negative except as noted in history and physical examination. Exam Narrative: GENERAL: Acute distress of pain. Well-nourished. - EYES: EOMI. Anicteric. - HENT: Moist mucous membranes. - LUNGS: Clear to auscultation bilaterally, no wheezing, rhonchi, or
[2023-10-17] MEDS: METOCLOPRAMIDE HCL INJ 10 MG/2 ML VIAL IV PUSH ×3 (12:38→23:08)
[2023-10-17] MEDS: RIVAROXABAN 20 MG TABLET PO (17:00)
--- NOTE | 2023-10-17 17:21 | PC.NURSE ---
Provider ordered KCL 40 meq in Sodium Chloride IVPB for 10:00 and again at 18:00 following critical lab value. Pharmacy cancelled order for 18:00 because they were entered at the same time. Provider clarified and approved order for 18:00.
[2023-10-17] MEDS: PREGABALIN (*CRX) 75 MG CAPSULE PO (20:31)
[2023-10-18] VITALS: PULSE 81
[2023-10-18 03:55] VITALS: BP 118/78; PULSE 102; RESP 18; TEMP 36.6; O2SAT 100
[2023-10-18] MEDS: HYDROmorphone HCL INJ (*CRX) 1 MG/ML SYR 0.5 MG IV PUSH ×2 (03:56→09:12)
[2023-10-18 04:00] VITALS: PULSE 98
[2023-10-18 05:12] LABS: Alanine Aminotransferase 44 U/L (6-50); Albumin Level 3.2 g/dL (3.5-5.1); Alkaline Phosphatase 217 U/L (38-126); Amylase 48 U/L (30-110); Anion Gap 7 mmol/L (4-12); Aspartate Amino Transferase 54 U/L (17-59); Calcium 8.4 mg/dL (8.4-10.2); Carbon Dioxide 25 mmol/L (22-30); Chloride 104 mmol/L (98-107); Estimated CRCL calculation 219 ml/min; Estimated Glomerular Filt Rate > 60; Glucose 149 mg/dL (65-110); Lipase 285 U/L (23-300); Potassium 3.6 mmol/L (3.4-5.0); Sodium 136 mmol/L (137-145)
[2023-10-18 05:46] LABS: Blood Urea Nitrogen < 2 mg/dL (9-20)
[2023-10-18] MEDS: METOCLOPRAMIDE HCL INJ 10 MG/2 ML VIAL IV PUSH (05:52)
[2023-10-18] MEDS: KETOROLAC 15 MG/ML VIAL (*BKC) IV PUSH (06:11)
[2023-10-18 06:12] VITALS: BP 116/80; PULSE 87; RESP 14; TEMP 37; O2SAT 99
[2023-10-18 08:00] VITALS: PULSE 83
[2023-10-18] MEDS: THIAMINE HCL 100 MG TABLET PO (08:56)
[2023-10-18] MEDS: FOLIC ACID 1 MG TABLET PO (08:56)
[2023-10-18] MEDS: PANTOPRAZOLE SODIUM IV 40 MG VIAL IV PUSH (08:57)
--- NOTE | 2023-10-18 10:59 | PM.DS ---
DS: Admitting Diagnosis Discharge Date 10/18/2023 Admitting Diagnosis Acute pancreatitis DS: Discharge Diagnosis Discharge Diagnosis (1) Acute pancreatitis: Qualifiers: Acute pancreatitis complication: no infection or necrosis Pancreatitis type: idiopathic Qualified Code(s): K85.00 - Idiopathic acute pancreatitis without necrosis or infection Code(s): K85.90 - Acute pancreatitis without necrosis or infection, unspecified Status: Acute Assessment and Plan: Plan is to continue current treatment with IV fluids and monitor labs. Replace potassium (2) Hypomagnesemia: Code(s): E83.42 - Hypomagnesemia Status: Acute Assessment and Plan: Resolved (3) Nausea & vomiting: Code(s): R11.2 - Nausea with vomiting, unspecified Status: Acute Assessment and Plan: Slightly better. Continue current treatment. (4) Abdominal pain: Code(s): R10.9 - Unspecified abdominal pain Status: Acute Assessment and Plan: Slightly better, continue current treatment monitor closely. (5) Gastritis: Qualifiers: Gastritis type: alcoholic Chronicity: chronic Gastritis bleeding: without bleeding Qualified Code(s): K29.20 - Alcoholic gastritis without bleeding Code(s): K29.70 - Gastritis, unspecified, without bleeding Status: Acute Assessment and Plan: Stable on current medication. (6) Elevated LFTs: Code(s): R79.89 - Other specified abnormal findings of blood chemistry Status: Acute Assessment and Plan: Probably secondary to pancreatitis with monitor closely. (7) Fatty liver: Code(s): K76.0 - Fatty (change of) liver, not elsewhere classified Status: Acute Assessment and Plan: Stable (8) Eosinophilic esophagitis: Code(s): K20.0 - Eosinophilic esophagitis Status: Acute Assessment and Plan: Stable on current meds. (9) Alcohol use: Code(s): Z78.9 - Other specified health status Status: Acute Assessment and Plan: Counseling given. Plan 10/16/2023 Patient clinically slightly better. Plan is to continue current treatment monitor closely. Replace and monitor lytes. 10/17/2023 Patient is clinically improving. Plan is to continue current treatment with IV fluids. Potassium will replace and monitor. Abdomen pain Acute pancreatitis tendinosis is supported by elevated lipase and CT scan have abdomen that showed acute interstitial pancreatitis Possible due to alcohol use Patient also has intractable nausea vomiting Possible has gastritis, and peptic ulcer. Patient stated he has history of peptic ulcer of stomach Will start Protonix 40 mg IV once and daily Keep patient p.o. Optimize medication for pain control and nausea vomiting Start fluid resuscitation Follow-up CMP, replete electrolytes accordingly Consult GI for evaluation treatment pending MRCP to evaluate for possible biliary obstruction, if abnormal will discuss ERCP Hypomagnesemia, hypokalemia Magnesium 1.5 upon arrival, potassium 3.3 today Repeated with magnesium sulfate IV and potassium chloride Follow-up magnesium and potassium level Replete accordingly History of PE Patient is on Xarelto 20 mg daily p.o. Alcohol use Evaluate and management alcohol withdrawal symptom per [facility] protocol Continue folic acid thiamine p.o. Patient may stay more than 2 midnights in hospital based on the evaluation of patient condition and clinical study report DS: Summary Hospital Course Reason for hospitalization: Acute pancreatitis Hospital Course: 37 years old patient was admitted complaints of abdominal pain patient was found to acute pancreatitis patient amylase lipase were high. Patient was kept NPO. GI service was consulted. Patient workup in the hospital was negative. After few days patient started feeling better patient was able to keep his down. Today patient is feeling better and was d
[2023-10-18 12:00] VITALS: PULSE 103
--- NOTE | 2023-10-18 14:20 | WPDGIPROGNO ---
Progress Note: A&P Assessment and Plan (1) Acute pancreatitis: Qualifiers: Acute pancreatitis complication: no infection or necrosis Pancreatitis type: idiopathic Qualified Code(s): K85.00 - Idiopathic acute pancreatitis without necrosis or infection Code(s): K85.90 - Acute pancreatitis without necrosis or infection, unspecified Status: Acute Assessment and Plan: feeling better, going home, bland diet and advance as tolerated says that is not going to drink any more alcohol (2) Epigastric pain: Code(s): R10.13 - Epigastric pain Status: Acute Assessment and Plan: better (3) Nausea & vomiting: Code(s): R11.2 - Nausea with vomiting, unspecified Status: Acute Assessment and Plan: no more emesis (4) Alcohol use: Code(s): Z78.9 - Other specified health status Status: Acute Assessment and Plan: quit after last hospitalization (5) Eosinophilic esophagitis: Code(s): K20.0 - Eosinophilic esophagitis Status: Acute Assessment and Plan: denies recent dysphagia (6) Hypokalemia: Code(s): E87.6 - Hypokalemia Status: Acute Assessment and Plan: improved Subjective Date/time seen: 10/18/23 10:00 Interval history: better night and tolerating more oral intake home today Review of Systems Review of Systems: All systems reviewed & are unremarkable except as noted in HPI and below Exam Const: General: comfortable and no acute distress HENMT: Face/Nose/Sinus: Normal nares present Eyes: General: appearance normal, both eyes and all related structures Neck: Neck: supple Resp: Auscultation: clear to auscultation bilaterally Cardio: Rate: regular rate Rhythm: regular rhythm GI: Inspection: non-distended GI Palp: Yes Soft to palpation and No Tenderness to palpation present (GI) Auscultation: normal bowel sounds Skin: General skin exam: normal color Neuro: General: gait normal Speech: normal speech Motor exam (neuro): 5/5 motor strength present throughout Extrem: General: normal to inspection Psych: Mental Status: mental status grossly normal Objective Data Vital Signs Vital Signs: Vital Signs - 24 hr 10/17/23 16:00 10/17/23 20:00 10/17/23 21:50 Temperature 97.7 F Pulse Rate 82 111 H 100 Respiratory Rate 18 Blood Pressure 119/76 Pulse Oximetry 97 Oxygen Delivery 10/18/23 00:00 10/18/23 03:55 10/18/23 04:00 Temperature 97.9 F Pulse Rate 81 102 H 98 Respiratory Rate 18 Blood Pressure 118/78 Pulse Oximetry 100 Oxygen Delivery 10/18/23 06:12 10/18/23 08:56 10/18/23 08:00 Temperature 98.6 F Pulse Rate 87 83 Respiratory Rate 14 Blood Pressure 116/80 Pulse Oximetry 99 Oxygen Delivery Room Air 10/18/23 12:00 Temperature Pulse Rate 103 H Respiratory Rate Blood Pressure Pulse Oximetry Oxygen Delivery Intake/Output Intake/Output: Intake & Output 10/15/23 10/16/23 10/17/23 10/18/23 23:59 23:59 23:59 23:59 Intake Total 1840 2097.5 3448.8 250 Balance 1840 2097.5 3448.8 250 Meds/Results Radiology Results: ITS Impressions Abdomen/Pelvis CT 10/14/23 05:49 Impression: Acute pancreatitis, as detailed above. No pancreatic necrosis or pseudocyst evident. Diffuse hepatic steatosis. MRCP 10/14/23 15:23 IMPRESSION: 1. Acute interstitial pancreatitis. 2. Diffuse hepatic steatosis. 3. Small volume of ascites. Labs Labs: Laboratory Results - last 24 hr 10/18/23 04:19 Sodium 136 L Potassium 3.6 Chloride 104 Carbon Dioxide 25 Anion Gap 7 BUN < 2 L Creatinine 0.40 L Estim Creat Clear Calc 219 Estimated GFR > 60 Glucose 149 H Calcium 8.4 Total Bilirubin 1.0 AST 54 ALT 44 Alkaline Phosphatase 217 H Total Protein 7.0 Albumin 3.2 L Amylase 48 Lipase 285
== END 2023-10-18 13:30 | disposition home or self-care (01) | DRG 440 ==
LOC: ANHED 05:16 → ANH2MED 06:13
PROVIDERS: Hospitalist; Admitting Provider Internal Medicine; Emergency Provider Emergency Medicine; Visit Provider Internal Medicine
DX: K85.20 Alcohol induced acute pancreatitis without necrosis or infection (principal); E83.42 Hypomagnesemia; K29.20 Alcoholic gastritis without bleeding; K76.0 Fatty (change of) liver, not elsewhere classified; K20.0 Eosinophilic esophagitis; F10.90 Alcohol use, unspecified, uncomplicated; K21.9 Gastro-esophageal reflux disease without esophagitis; F41.9 Anxiety disorder, unspecified; E87.6 Hypokalemia; R63.4 Abnormal weight loss; Z87.11 Personal history of peptic ulcer disease; Z87.442 Personal history of urinary calculi; Z90.49 Acquired absence of other specified parts of digestive tract; Z86.711 Personal history of pulmonary embolism
CPT/HCPCS: 36415; 74177; 74183; 76376; 80048; 80053; 81001; 82150; 83605; 83690; 83735; 85025; 85027; 96361; 96374; 96375; 99285; A9270; A9577; J1170; J1885; J2270; J2405; J2470; J2765; J3475; J3480; J7030; J7040; J7120; Q9967

== ENCOUNTER 2023-11-08 00:50 | Inpatient (IN) | payer BC, SELFPAY ==
[2023-11-08] VITALS (7 sets, daily range): BP systolic 108–142; BP diastolic 75–88; PULSE 74–98; RESP 16–20; TEMP 36.2–37.3; O2SAT 97–100
--- NOTE | ~2023-11-08 | XR_ITS ---
Portable chest x-ray Comparison: 10/12/2023 Clinical History: Chest pain, shortness of breath Findings: Lungs are clear, without focal consolidation or pleural effusion. Cardiomediastinal silho uette is stable. Bones and soft tissues are unremarkable. Impression: Normal chest. Reviewed, dictated and finalized at location . Impression: Normal chest.
--- NOTE | ~2023-11-08 | CT_ITS ---
Clinical Indication: Chest pain, pancreatitis CT Scan of the Chest, Abdomen, and Pelvis with Contrast: Technique: Contiguous sections were acquired throughout the chest, abdomen, and pelvis after intraven ous administration of 100 cc of Omnipaque 350. Dose reduction technique was used on this scan by trevin guevara automated exposure control and iterative reconstruction technique. The dose-length product (DL P) was 631.71 mGy-cm. Comparison: 10/14/2023 Findings: There is no evidence of any significant mediastinal, hilar or axillary lymphadenopathy. The mediastin al soft tissues appear normal. There is no evidence of pleural or pericardial effusion. The lungs are clear. No pulmonary nodules or infiltrates are noted. There is diffuse hepatic steatosis. Post cystectomy clips are present. There are minimal infiltrative changes about the pancreatic tail and distal body, compatible mild acute pancreatitis. The spleen, a drenals and kidneys are within normal limits. No evidence of aortic aneurysm. No lymphadenopathy. No bowel obstruction or bowel wall thickening. There is no evidence to suggest acute appendicitis. Urinary bladder is unremarkable. No pelvic mass seen. No ascites. Impression: Mild acute pancreatitis, as above. Diffuse hepatic steatosis. No evidence of pulmonary embolus. Clear lungs. Reviewed, dictated and finalized at location . Impression: Mild acute pancreatitis, as above. Diffuse hepatic steatosis. No evidence of pulmonary embolus. Clear lungs.
--- NOTE | 2023-11-08 00:54 | ECG_ITS ---
Test Date: 2023-11-08 01:02:53 Measurements Intervals [place] Rate: 90 P: 1 CA: 113 QRS: -23 QRSD: 102 T: 34 QT: 360 QTc: 442 Interpretive Statements SINUS RHYTHM WITH SHORT CA INTERVAL LOW QRS VOLTAGE IN PRECORDIAL LEADS INCOMPLETE RIGHT BUNDLE BRANCH BLOCK BASELINE WANDER- V4-V5 BORDERLINE ECG Compared to ECG 10/12/2023 11:06:30 Low QRS voltage now present Electronically Signed On 11-08-2023 06:25:30 CDT by Vito Ricci D.O.
[2023-11-08] MEDS: ASPIRIN 81 MG CHEWABLE TABLET 324 MG PO (01:08)
[2023-11-08 01:26] LABS: Basophils Percent Auto 0.4 % (0.2-1.2); Eosinophils Absolute Auto 0.2 K/mm3 (0-0.3); Eosinophils Percent Auto 3.1 % (0-4.4); Hematocrit 42.8 % (42.0-52.0); Immature Granulocyte Absolute 0.02 K/mm3 (0.00-0.031); Immature Granulocyte Percent A 0.4 % (0-0.5); Lymphocytes Absolute Auto 2.47 K/mm3 (0.9-3.2); Lymphocytes Percent Auto 45.3 % (18.3-44.2); Mean Corpuscular Hemoglobin 32.5 pg (26-34); Mean Corpuscular Volume 92.8 fl (80-100); Mean Platelet Volume 10.2 fl (7.4-10.4); Monocytes Absolute Auto 0.5 K/mm3 (0.1-0.6); Monocytes Percent Auto 9.5 % (2.6-8.5); Neutrophils Absolute Auto 2.3 K/mm3 (1.3-6.7); Neutrophils Percent Auto 41.3 % (45.5-73.1); Platelet Count Result 283 k/mm3 (150-375); Red Blood Count 4.61 M/mm3 (4.6-6.20); Red Cell Distribution Width 14.6 % (11.5-14.5); White Blood Count 5.5 K/mm3 (4.5-10.0)
[2023-11-08 01:41] LABS: Partial Thromboplastin Time 27.6 Seconds (22.3-36.8); Prothrombin Time 13.7 Seconds (11.1-14.7)
[2023-11-08 01:42] LABS: Alanine Aminotransferase 43 U/L (6-50); Albumin Level 4.2 g/dL (3.5-5.1); Alkaline Phosphatase 277 U/L (38-126); Anion Gap 17 mmol/L (4-12); Aspartate Amino Transferase 66 U/L (17-59); Bilirubin,Total 0.7 mg/dL (0.2-1.3); Blood Urea Nitrogen 3 mg/dL (9-20); Calcium 8.7 mg/dL (8.4-10.2); Carbon Dioxide 21 mmol/L (22-30); Chloride 100 mmol/L (98-107); Estimated CRCL calculation 152 ml/min; Estimated Glomerular Filt Rate > 60; Glucose 136 mg/dL (65-110); Lipase 52 U/L (23-300); Potassium 3.1 mmol/L (3.4-5.0); Sodium 138 mmol/L (137-145)
[2023-11-08] MEDS: diphenhydrAMINE HCl INJ 50 MG/ML VIAL 25 MG IV PUSH (01:49)
[2023-11-08] MEDS: HYDROmorphone HCL INJ (*CRX) 1 MG/ML SYR IV PUSH ×4 (01:49→22:56)
[2023-11-08] MEDS: PROCHLORPERAZINE EDISYLATE 10 MG/2 ML VIAL IV PUSH (01:49)
--- NOTE | 2023-11-08 01:50 | PC.NURSE ---
scanner in pt room does not work therefore RN had to use manual barcode for meds and lab.
[2023-11-08 01:53] LABS: Troponin I < 0.012 ng/mL (0.000-0.034)
--- NOTE | 2023-11-08 03:09 | ED.GENADULT ---
HPI - General Adult General Chief complaint: Chest Pain Stated complaint: CP for 2 days, SOB Time Seen by Provider: 11/08/23 01:43 History of Present Illness HPI narrative: The patient is a 38-year-old that presents emergency department with chief complaint of epigastric and chest pain. Patient reports that history of pulmonary embolisms and also history of pancreatitis. The patient is currently on anticoagulants the patient has been on estrogen therapy but is currently not been on it for the last 6 months. Related Data Home Medications Medication Instructions Recorded Confirmed multivitamin 1 tablet PO DAILY 01/05/23 10/14/23 famotidine 40 mg tablet 40 mg PO QHS 08/31/23 10/14/23 pregabalin 75 mg capsule 75 mg PO HS 10/14/23 10/14/23 rivaroxaban 20 mg tablet (Xarelto) 20 mg PO BID 10/14/23 10/14/23 Allergies Allergy/AdvReac Type Severity Reaction Status Date / Time Penicillins Allergy Severe Anaphylaxis Verified 08/31/23 08:50 Review of Systems Review of Systems: A 10 system review of systems was completed on the patient and is negative except for what is stated in the HPI. Nursing and ancillary documentation was reviewed. [facility] Past Medical History Medical History Alcohol use Anxiety Asthma Black stools Depression Elevated LFTs Eosinophilic esophagitis Fatty liver GERD (gastroesophageal reflux disease) Hx of blood clots Hypokalemia Kidney stones Peptic ulcer Surgical History Surgical History History of dental surgery History of esophagogastroduodenoscopy (EGD) History of laparoscopic cholecystectomy 01/15/23 W Family History Family History Father Hypertension Lymphoma Mother Heart disease Hypertension Grandparent Malignant neoplasm of prostate Lung cancer Grandparent Breast cancer Other Cerebrovascular accident Diabetes mellitus Social History Social History Smoking status: Never smoker Alcohol intake: former Drinks per week: 56 Alcohol use details: QUIT DRINKING ~7823-2802 Substance use: never Substance use type: marijuana Other substance usage details: drinks 750ml wiskey every 2 days Do You Feel Safe in your Home?: Yes Lack of Transportation: No Lack of Food: Never True Current Housing: I Have Housing Concerned About Future Housing: No Difficulty Paying Gas/Electric Bills: YES Difficulty Paying for Meds: YES Currently Unemployed: No Education: Associate Degree Difficulty w/ Childcare or Family Care: No Living arrangements: with family Occupation/Education: occupation 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 HEAD: Normocephalic, atraumatic. EYES: PERRLA and EOMI. ENT: Nares clear, no rhinorrhea or epistaxis. Mucous membranes moist. NECK: Supple. CHEST: Clear to auscultation. No respiratory distress. HEART: Regular rate and rhythm. No murmur heard. Normal peripheral pulses. ABDOMEN: Soft, nontender, nondistended, normal active bowel sounds. EXTREMITIES: Normal range of motion. No edema. SKIN: Warm, dry, no rash. NEURO: No focal deficits. Alert and oriented x3. PSYCH: Normal mood and affect. Course Vital Signs Vital signs: Vital Signs Temperature 36.2 C L 11/08/23 00:54 Pulse Rate 98 11/08/23 00:54 Respiratory Rate 17 11/08/23 00:54 Blood Pressure 114/80 11/08/23 00:54 Pulse Oximetry 100 11/08/23 00:54 Oxygen Delivery Room Air 11/08/23 00:54 Temperature 36.2 C L 11/08/23 00:54 Pulse Rate 98 11/08/23 03:12 Respiratory Rate 18 11/08/23 03:
--- NOTE | 2023-11-08 03:18 | PM.IMHP ---
H&P: HPI History of Present Illness Date/Time: 11/08/23 03:18 Chief Complaint: abdominal pain Narrative: THIS IS A 38-YEAR-OLD TRANS FEMALE WITH PAST MEDICAL HISTORY SIGNIFICANT FOR PANCREATITIS, ALCOHOL USE, GERD, EOSINOPHILIC ESOPHAGITIS, DVT. PATIENT PRESENTS TO THE EMERGENCY ROOM WITH HISTORY OF 2 DAYS OF RETROSTERNAL AND EPIGASTRIC PAIN, NAUSEA, VOMITING, POOR PER ORALLY INTAKE, POOR APPETITE. PRELIMINARY WORKUP HAS BEEN SIGNIFICANT FOR CT OF ABDOMEN AND PELVIS WITH ACUTE INTERSTITIAL PANCREATITIS PENDING FINAL REPORT AT THE TIME OF MY VISIT Portable chest x-ray Comparison: 10/12/2023 Clinical History: Chest pain, shortness of breath Findings: Lungs are clear, without focal consolidation or pleural effusion. Cardiomediastinal silhouette is stable. Bones and soft tissues are unremarkable. Impression: Normal chest. CT Scan of the Chest, Abdomen, and Pelvis with Contrast: Technique: Contiguous sections were acquired throughout the chest, abdomen, and pelvis after intravenous administration of 100 cc of Omnipaque 350. Dose reduction technique was used on this scan by utilizing automated exposure control and iterative reconstruction technique. The dose-length product (DLP) was 631.71 mGy-cm. Comparison: 10/14/2023 Findings: There is no evidence of any significant mediastinal, hilar or axillary lymphadenopathy. The mediastinal soft tissues appear normal. There is no evidence of pleural or pericardial effusion. The lungs are clear. No pulmonary nodules or infiltrates are noted. There is diffuse hepatic steatosis. Post cystectomy clips are present. There are minimal infiltrative changes about the pancreatic tail and distal body, compatible mild acute pancreatitis. The spleen, adrenals and kidneys are within normal limits. No evidence of aortic aneurysm. No lymphadenopathy. No bowel obstruction or bowel wall thickening. There is no evidence to suggest acute appendicitis. Urinary bladder is unremarkable. No pelvic mass seen. No ascites. Impression: Mild acute pancreatitis, as above. Diffuse hepatic steatosis. No evidence of pulmonary embolus. Clear lungs. Review of Systems Review of Systems: RETROSTERNAL PAIN, EPIGASTRIC PAIN, NAUSEA, VOMITING, POOR PER ORALLY INTAKE, POOR APPETITE. [facility] Past Medical History Medical History (Updated 11/08/23 @ 11:18 by Yoli Cullen, JANINE) Alcohol use Anxiety Asthma Black stools Depression Elevated LFTs Eosinophilic esophagitis Fatty liver GERD (gastroesophageal reflux disease) Hx of blood clots Hypokalemia Kidney stones Peptic ulcer Surgical History Surgical History History of dental surgery History of esophagogastroduodenoscopy (EGD) History of laparoscopic cholecystectomy 01/15/23 [facility] Family History Family History Father Hypertension Lymphoma Mother Heart disease Hypertension Grandparent Malignant neoplasm of prostate Lung cancer Grandparent Breast cancer Other Cerebrovascular accident Diabetes mellitus Social History Social History Smoking status: Never smoker Drinks per week: 3 Alcohol use details: QUIT DRINKING ~0655-7885 Substance use: former Substance use type: marijuana Do You Feel Safe in your Home?: Yes Lack of Transportation: No Lack of Food: Never True Current Housing: I Have Housing Concerned About Future Housing: No Difficulty Paying Gas/Electric Bills: YES Difficulty Paying for Meds: YES Currently Unemployed: No Education: Associate Degree Difficulty w/ Childcare or Family Care: No Living arrangements: with family Occupation/Education: occupation Additional occupation/education comments: [employer] employee Gender identity (if verbalized by the patient): Other Spiritual c
--- NOTE | 2023-11-08 04:02 | ADMGEN ---
This patient, Nesha Roman, was admitted to Medical Room 346-01. Patient/family oriented to hospital policies and general routines including ID bracelet, bed and alarms, visiting hours, pain management, procedures, bathroom and other care routines, personal items, smoking policy, room service/diet, and visiting hours. Information on how to activate the Rapid Response Team has been discussed. Patient/Family are encouraged to report perceived risks to care and to ask questions if they do not understand what they are told or what they should do.
[2023-11-08] MEDS: SODIUM CHLORIDE 0.9% IV 1,000 ML 125 ML IV CONT ×3 (04:10→20:59)
[2023-11-08 05:05] LABS: Troponin I < 0.012 ng/mL (0.000-0.034)
[2023-11-08 07:51] LABS: Troponin I < 0.012 ng/mL (0.000-0.034)
--- NOTE | 2023-11-08 08:05 | PM.IMPN ---
Progress Note: A&P Assessment and Plan (1) Acute pancreatitis: Code(s): K85.90 - Acute pancreatitis without necrosis or infection, unspecified Status: Acute Assessment and Plan: 11/08/23: Lipase 52 CTA of the chest/abdomen/pelvis shown mild acute pancreatitis, diffuse hepatic steatosis, no evidence of PE Patient was recently seen on 10/18/23 with acute pancreatitis due to alcohol. Since that time he states he has refrained from alcohol. Start clear liquid diet and advance as tolerated to Regular Continue IVF Continue nausea and pain control (2) Eosinophilic esophagitis: Code(s): K20.0 - Eosinophilic esophagitis Status: Chronic Assessment and Plan: 11/08/23: Continue protonix 40 mg BID (3) Alcohol use: Code(s): Z78.9 - Other specified health status Status: Chronic Assessment and Plan: 11/08/23: Patient reports that he stopped drinking since last admission on 10/18/23 for acute pancreatitis (4) Flank pain: Code(s): R10.9 - Unspecified abdominal pain Status: Acute Assessment and Plan: 11/08/23: Patient reporting right sided flank pain Exam positive for CVA tenderness Will check UA to rule out UTI CTA of the chest/abdomen/pelvis did not show any obstructing stones Time Spent With Patient Time with patient: Greater than 35 minutes Subjective Date/time seen: 11/08/23 08:05 Interval history: Interval history: This is a 38-year-old male with a significant past history pancreatitis and pulmonary embolism who presented to hospital with 2 days history of shortness of breath and epigastric pain. Chest x-ray was negative. CT of the chest/abdomen/pelvis show mild acute pancreatitis, diffuse hepatic steatosis, no evidence of pulmonary embolism. Initial labs showed a normal white blood cell count of 5.5, potassium 3.1 bicarb 21, anion gap 17, AST 66, troponin negative x2, lipase was 52, alk-phos 277. Patient was given a dose of aspirin, Compazine, Dilaudid, Benadryl while in the ED. Subjective: Patient reports abdominal pain 6/10 and right flank pain, chills. He denies any fever, nausea, vomiting, diarrhea, chest pain, shortness a breath. His vital signs are stable, he is currently on room air, he is afebrile. Labs and imaging reviewed. Review of Systems Review of Systems: All systems reviewed & are unremarkable except as noted in HPI and below Constitutional: Constitutional: Reports as per HPI and Reports no additional constitutional complaints Eyes: Eyes: Reports as per HPI and Reports no additional eye complaints ENT: Reports system reviewed and no additional complaints, except as documented and Reports as per HPI Cardiovascular: Cardiovascular: Reports as per HPI and Reports no additional cardiovascular complaints Respiratory: Respiratory: Reports as per HPI and Reports no additional respiratory complaints Gastrointestinal: Gastrointestinal: Reports as per HPI and Reports no additional gastrointestinal complaints Genitourinary: Genitourinary: Reports no additional male genitourinary complaints and Reports as per HPI Musculoskeletal: Musculoskeletal: Reports no additional musculoskeletal complaints and Reports as per HPI Integumentary/Breasts: Skin/Breast: Reports system reviewed and no additional complaints, except as docu and Reports as per HPI Neurologic: Reports system reviewed and no additional complaints, except as documented and Reports as per HPI Psychiatric: Psychiatric: Reports no additional psychiatric complaints and Reports as per HPI Exam Narrative: General: In no acute distress, well nourished Head: atraumatic, no encephalopathy Eyes: EOMI, PERRLA, sclera clear ENT: moist mucous membranes, nasal passages clear Neck: supple, no JVD, no adenopathy, trachea midline Cardiac: Normal S1 and S2. RRR, No murmur, gallops or friction rubs, peripheral pulses intact. Respiratory: Lungs clear to auscultation, no adventitious lung soun
[2023-11-08] MEDS: PANTOPRAZOLE 40 MG TABLET PO ×2 (10:14→20:57)
[2023-11-08] MEDS: FOLIC ACID 1 MG TABLET PO (10:14)
[2023-11-08] MEDS: THIAMINE HCL 100 MG TABLET PO (10:15)
[2023-11-08] MEDS: ONDANSETRON INJ 4 MG/2 ML VIAL IV PUSH (13:04)
[2023-11-08 14:42] LABS: Add Urine Microscopic? YES; Appearance Urine Clear (Clear); Bacteria Urine None Seen /hpf; Bilirubin Urine Negative (Negative); Blood Urine Negative (Negative); Color Urine Dark Yellow (Yellow); Glucose Urine UA Negative (Negative); Ketones Urine 1+ mg/dL (Negative); Leukocyte Esterase Ur Negative LEU/UL (Negative); Nitrate Urine Negative (Negative); Non Pathogenic Casts 0-2; Protein Urine Trace mg/dL (Negative); RBC Urine 0-2 /hpf (0-2); Specific Grav Ur > 1.045 (1.001-1.035); Squamous Epithelial Cell Urine None Seen /hpf (Few); WBC Urine 0-5 /hpf (0-3)
[2023-11-08] MEDS: RIVAROXABAN 2.5 MG TABLET 5 MG PO (17:01)
[2023-11-08] MEDS: KETOROLAC 30 MG/ML VIAL (*BKC) IV PUSH (17:02)
[2023-11-08] MEDS: PREGABALIN (*CRX) 75 MG CAPSULE PO (20:57)
[2023-11-08 22:37] LABS: Amphetamine Screen Urine Negative (Negative); Barbiturate Screen Urine Negative (Negative); Benzodiazepines Screen Urine Negative (Negative); Cannabinoid Screen Urine Negative (Negative); Cocaine Screen Urine Negative (Negative); Methadone Screen Urine Negative (Negative); Opiate Screen Urine Positive (Negative); Phencyclidine Screen Urine Negative (Negative)
[2023-11-09] MEDS: SODIUM CHLORIDE 0.9% IV 1,000 ML 125 ML IV CONT (03:08)
[2023-11-09] MEDS: HYDROmorphone HCL INJ (*CRX) 1 MG/ML SYR IV PUSH (03:09)
[2023-11-09 06:00] VITALS: BP 110/76; PULSE 78; RESP 20; TEMP 37.1; O2SAT 100
[2023-11-09 08:00] VITALS: PULSE 78; RESP 20; O2SAT 100
[2023-11-09] MEDS: PANTOPRAZOLE 40 MG TABLET PO (09:28)
[2023-11-09] MEDS: THIAMINE HCL 100 MG TABLET PO (09:28)
[2023-11-09] MEDS: RIVAROXABAN 2.5 MG TABLET 5 MG PO (09:28)
[2023-11-09] MEDS: FOLIC ACID 1 MG TABLET PO (09:28)
--- NOTE | 2023-11-09 10:01 | PM.DS ---
DS: Admitting Diagnosis Discharge Date 11/09/23 Admitting Diagnosis Acute pancreatitis Epigastric pain Nausea and vomiting Eosinophilic esophagitis Alcohol use GERD DS: Summary Hospital Course Reason for hospitalization: Acute pancreatitis Epigastric pain Nausea and vomiting Eosinophilic esophagitis Alcohol use GERD Hospital Course: This is a 38-year-old trans female with a significant past medical history of pancreatitis, alcohol use, GERD, eosinophilic esophagitis, DVT who presented with complaints of abdominal pain on 11/08/2023. Workup in the hospital included a chest x-ray was negative. CT of the chest/abdomen/pelvis show mild acute pancreatitis, diffuse hepatic steatosis, no evidence of pulmonary embolism. Initial labs showed a normal white blood cell count of 5.5, potassium 3.1 bicarb 21, anion gap 17, AST 66, troponin negative x2, lipase was 52, alk-phos 277. Patient was given a dose of aspirin, Compazine, Dilaudid, Benadryl while in the ED. patient was placed on IV fluids and was started on clear liquid diet which she tolerated well. She did say she was feeling better today and able to eat and drink. Patient is stable for discharge at this time. She will need to follow up with her primary care physician in 1 week. She will also need to follow up with GI within the next 2 weeks. Final diagnosis: Acute pancreatitis, dehydration Status at Discharge Cognitive/behavioral status at discharge: Alert oriented x3 Functional status at discharge: independent ambulation Overall status at discharge: patient is progressing back to baseline Time Spent with Patient Time attestation: Total time spent providing and/or coordinating discharge services: Time spent: Greater than 30 minutes Exam Narrative: General: In no acute distress, pleasant Cardiac: Normal S1 and S2. RRR, No murmur, gallops or friction rubs, peripheral pulses intact. Respiratory: Lungs clear to auscultation, no adventitious lung sounds, currently on room air Gastrointestinal: slightly firm, nondistended, mid-upper abdominal pain that is colicky in nature, normoactive bowel sounds. : voiding without difficulty. Neuro: Alert and oriented x4 DS: Data Data Completed and Pending Completed studies during hospitalization: Chest/abdomen/pelvis CTA Chest x-ray Pending studies at discharge: None Labs on day of discharge: Labs from last 24 hours 11/08/23 14:31 Urine Color Dark yellow Urine Appearance Clear Urine pH 6.0 Ur Specific [place] > 1.045 H Urine Protein Trace Urine Glucose (UA) Negative Urine Ketones 1+ H Ur Blood (Man) Negative Urine Nitrate Negative Urine Bilirubin Negative Urine Urobilinogen 1.0 Leukocyte Esterase Rfl Negative Urine RBC 0-2 Urine WBC 0-5 Ur Squamous Epith Cells None seen Urine Bacteria None seen Urine Casts 0-2 Urine Opiates Screen Positive A Urine Methadone Screen Negative Ur Barbiturates Screen Negative Ur Phencyclidine Scrn Negative Ur Amphetamine Screen Negative U Benzodiazepines Scrn Negative Urine Cocaine Screen Negative U Cannabinoids Screen Negative Procedures/Treatments: None Discharge Plan Discharge Attending physician on discharge: Deyvi Tamayo Consulting providers: Yoli Cullen Discharging Clinician: Yoli Cullen Anticipated Discharge Date/Time: 11/09/23 09:44 Patient Disposition: Home, Self-Care Activity: as tolerated Diet: as tolerated and regular Discharge Instructions: Advanced diet as tolerated to a regular diet Take Zofran for nausea Your prescribed 600 mg of ibuprofen and [place] for your pancreatitis. You can alternate these medications as ibuprofen is an anti inflammatory and [place] is pain medication. Of note, Ibuprofen and Xarelto can increase your risk of bleeding. Use Ibuprofen temporally. Once pain is better controlled, switch to just Tylenol. Follow-up with your primary care physician in 1 week Watch for signs and symptom
== END 2023-11-09 11:15 | disposition home or self-care (01) | DRG 440 ==
LOC: ANHED 03:25 → ANH3MED 03:43
PROVIDERS: Admitting Provider Internal Medicine; Emergency Provider Emergency Medicine; Visit Provider Nurse Practitioner Acute Care
DX: K85.90 Acute pancreatitis without necrosis or infection, unspecified (principal); E86.0 Dehydration; K20.0 Eosinophilic esophagitis; K76.0 Fatty (change of) liver, not elsewhere classified; J45.909 Unspecified asthma, uncomplicated; F32.A Depression, unspecified; F41.9 Anxiety disorder, unspecified; Z86.711 Personal history of pulmonary embolism; Z79.01 Long term (current) use of anticoagulants; Z87.442 Personal history of urinary calculi; Z87.11 Personal history of peptic ulcer disease; Z78.9 Other specified health status
CPT/HCPCS: 36415; 71045; 71275; 74177; 80053; 80307; 81001; 83690; 84484; 85025; 85610; 85730; 93005; 96374; 96375; 99285; A9270; G0378; J0780; J1170; J1200; J1885; J2405; J7030; Q9967

== ENCOUNTER 2023-11-13 19:42 | Emergency (ER) | payer BC, SELFPAY ==
[2023-11-13 19:47] VITALS: BP 129/85; PULSE 102; RESP 15; TEMP 36.6; O2SAT 99
== END 2023-11-13 22:30 | disposition left against medical advice (07) ==
DX: R11.2 Nausea with vomiting, unspecified (principal)
CPT/HCPCS: 99199

== ENCOUNTER 2023-11-14 11:18 | Emergency (ER) | payer BC, SELFPAY ==
--- NOTE | ~2023-11-14 | CT_ITS ---
CT abdomen pelvis w con Ordering provider: Ileana Sanchez MD History: 38 years Male with . ABDOMINAL PAIN, HISTORY OF PANCREATITIS . Comparison: November 08, 2023 Technique: CT abdomen and pelvis with IV and without oral contrast. Automated exposure control and it erative reconstruction technique were employed. The dose-length product was 311.35 mGy-cm. 100 mL Omn ipaque 350 was given IV. Findings: VISUALIZED LOWER CHEST: Normal. UPPER ABDOMINAL ORGANS: Liver: Fat infiltration. Gallbladder: Status post cholecystectomy. Spleen: Normal. Stomach/duodenum: Thickened wall of the stomach. Further evaluation advised. Pancreas: Minimal haziness in the outline of the pancreatic head is noted with surrounding fat strand ing suggestive of pancreatitis. Clinical correlation advised. Similar appearances seen in the area of the tail of pancreas. Adrenals: Normal. Kidneys: Normal. PELVIC ORGANS: The bladder is underfilled with thickened wall. Evaluation for cystitis advised. BOWEL AND MESENTERY: Colon: No evidence of diverticulitis. Normal appendix. The appendix measures 6.2 mm. No surrounding f at stranding seen. Small Bowel: Normal. No obstruction. Peritoneum/mesentery: No free air or free fluid. No mesenteric lymphadenopathy. RETROPERITONEUM: Normal aorta. No retroperitoneal lymphadenopathy. small para-aortic lymph nodes. MUSCULOSKELETAL: Superficial soft tissues: The superficial soft tissues are normal. Bones: Normal spine. Sclerotic area in the inferior pubic ramus on the left side. Follow-up advised. IMPRESSION: 1. Minimal haziness around the head of the pancreas and also around the tail which may indicate panc reatitis. Clinical correlation advised. 2. No evidence of appendicitis, diverticulitis or intestinal obstruction. 3. Fat infiltration of the liver. Reviewed, dictated and finalized at location A. IMPRESSION: 1. Minimal haziness around the head of the pancreas and also around the tail w hich may indicate pancreatitis. Clinical correlation advised. 2. No evidence of appendicitis, diverticulitis or intestinal obstruction. 3. Fat infiltration of the liver.
[2023-11-14 11:22] VITALS: BP 117/98; PULSE 98; RESP 16; TEMP 37.2; O2SAT 98
[2023-11-14 16:09] VITALS: BP 131/100; PULSE 102; RESP 20; TEMP 37.1; O2SAT 96
--- NOTE | 2023-11-14 16:10 | ED.ABDPAIN ---
HPI - Abdominal Pain General Chief Complaint: Abdominal Pain Stated Complaint: abd pain Time Seen by Provider: 11/14/23 16:09 Source: patient Mode of arrival: ambulatory Limitations: no limitations History of Present Illness HPI narrative: 38 YEARS OLD WHITE MALE CAME TO THE EMERGENCY ROOM BY PRIVATE CAR COMPLAINING OF CHRONIC ABDOMINAL PAIN WITH INTERMITTENT FLARE. NOW COMPLAINING OF EPIGASTRIC LEFT UPPER QUADRANT PAIN WHICH BEEN GOING FOR MONTHS/YEARS. HISTORY OF DEPRESSION, GERD, PANCREATITIS, TRANSITION FROM MALE TO FEMALE. LAST ALCOHOL INTAKE 1 MONTH AGO, DOES NOT SMOKE OR USE DRUGS Related Data Home Medications Medication Instructions Recorded Confirmed multivitamin 1 tablet PO DAILY 01/05/23 11/08/23 famotidine 40 mg tablet 40 mg PO QHS 08/31/23 11/08/23 pregabalin 75 mg capsule 75 mg PO HS 10/14/23 11/08/23 rivaroxaban 20 mg tablet (Xarelto) 20 mg PO BID 10/14/23 11/08/23 Allergies Allergy/AdvReac Type Severity Reaction Status Date / Time Penicillins Allergy Severe Anaphylaxis Verified 11/14/23 11:25 Review of Systems Review of Systems: All systems reviewed & are unremarkable except as noted in HPI and below PMFSH Past Medical History Medical History Alcohol use Anxiety Asthma Black stools Depression Elevated LFTs Eosinophilic esophagitis Fatty liver GERD (gastroesophageal reflux disease) Hx of blood clots Hypokalemia Kidney stones Peptic ulcer Surgical History Surgical History History of dental surgery History of esophagogastroduodenoscopy (EGD) History of laparoscopic cholecystectomy 01/15/23 [facility] Family History Family History Father Hypertension Lymphoma Mother Heart disease Hypertension Grandparent Malignant neoplasm of prostate Lung cancer Grandparent Breast cancer Other Cerebrovascular accident Diabetes mellitus Social History Social History Smoking status: Never smoker Drinks per week: 3 Alcohol use details: QUIT DRINKING ~5625-8889 Substance use: former Substance use type: marijuana Do You Feel Safe in your Home?: Yes Lack of Transportation: No Lack of Food: Never True Current Housing: I Have Housing Concerned About Future Housing: No Difficulty Paying Gas/Electric Bills: YES Difficulty Paying for Meds: YES Currently Unemployed: No Education: Associate Degree Difficulty w/ Childcare or Family Care: No Living arrangements: with family Occupation/Education: occupation Additional occupation/education comments: [employer] employee Gender identity (if verbalized by the patient): Other Spiritual care concerns: No Exam Narrative: GENERAL APPEARANCE: WELL-DEVELOPED, WELL-NOURISHED SKIN: NORMAL COLOR HEAD: NORMOCEPHALIC, NONTRAUMATIC EYES: CLEAR CONJUNCTIVA ENT: OROPHARYNX NORMAL, EARS NORMAL, NOSE NORMAL NECK: SUPPLE, NONTENDER CHEST AND RESPIRATORY: AIRWAY PATENT, NO RESPIRATORY DISTRESS, NO ACCESSORY MUSCLE USE HEART: REGULAR RATE/RHYTHM ABDOMEN: SOFT, DIFFUSE ABDOMINAL TENDERNESS SLIGHT GUARDING, NO REBOUND, NO ORGANOMEGALY, QUIET BOWEL SOUNDS VASCULAR: NORMAL PERIPHERAL PULSES, NORMAL CAPILLARY REFILL. MUSCULOSKELETAL: NORMAL RANGE OF MOTION, NONTENDER BACK NEUROLOGIC: ALERT AND ORIENTED ?3, POTATO CHIP FRIER IS NORMAL TESTED, NO GROSS MOTOR DEFICIT Course Vital Signs Vital signs: Vital Signs Temperature 37.2 C 11/14/23 11:22 Pulse Rate 98 11/14/23 11:22 Respiratory Rate 16 11/14/23 11:22 Blood Pressure 117/98 H
[2023-11-14 16:16] VITALS: BP 136/95; PULSE 104; RESP 20; O2SAT 96
[2023-11-14] MEDS: ONDANSETRON INJ 4 MG/2 ML VIAL IV PUSH (16:28)
[2023-11-14] MEDS: MORPHINE SULFATE (*CRX) 4 MG/ML INJ IV PUSH (16:28)
[2023-11-14 16:36] LABS: Basophils Percent Auto 0.3 % (0.2-1.2); Eosinophils Absolute Auto 0.1 K/mm3 (0-0.3); Eosinophils Percent Auto 2.2 % (0-4.4); Hematocrit 47.5 % (42.0-52.0); Hemoglobin 16.4 g/dL (14.0-18.0); Immature Granulocyte Absolute 0.02 K/mm3 (0.00-0.031); Immature Granulocyte Percent A 0.3 % (0-0.5); Lymphocytes Absolute Auto 1.43 K/mm3 (0.9-3.2); Lymphocytes Percent Auto 24.2 % (18.3-44.2); Mean Corpuscular HGB Conc 34.5 g/dl (32-36); Mean Corpuscular Hemoglobin 32.7 pg (26-34); Mean Corpuscular Volume 94.6 fl (80-100); Mean Platelet Volume 10.4 fl (7.4-10.4); Monocytes Absolute Auto 0.5 K/mm3 (0.1-0.6); Monocytes Percent Auto 7.8 % (2.6-8.5); Neutrophils Absolute Auto 3.8 K/mm3 (1.3-6.7); Neutrophils Percent Auto 65.2 % (45.5-73.1); Platelet Count Result 193 k/mm3 (150-375); Red Blood Count 5.02 M/mm3 (4.6-6.20); Red Cell Distribution Width 15.5 % (11.5-14.5); White Blood Count 5.9 K/mm3 (4.5-10.0)
[2023-11-14 16:45] LABS: Alanine Aminotransferase 75 U/L (6-50); Albumin Level 4.5 g/dL (3.5-5.1); Alkaline Phosphatase 366 U/L (38-126); Anion Gap 10 mmol/L (4-12); Aspartate Amino Transferase 120 U/L (17-59); Bilirubin,Total 1.6 mg/dL (0.2-1.3); Blood Urea Nitrogen 5 mg/dL (9-20); Calcium 8.8 mg/dL (8.4-10.2); Carbon Dioxide 27 mmol/L (22-30); Chloride 101 mmol/L (98-107); Estimated CRCL calculation 134 ml/min; Estimated Glomerular Filt Rate > 60; Ethanol < 10 mg/dL (<10); Glucose 129 mg/dL (65-110); Lipase 156 U/L (23-300); Potassium 3.5 mmol/L (3.4-5.0); Sodium 138 mmol/L (137-145)
[2023-11-14 17:25] LABS: Add Urine Microscopic? YES; Appearance Urine Cloudy (Clear); Bacteria Urine None Seen /hpf; Bilirubin Urine 1+ (Negative); Blood Urine Negative (Negative); Color Urine Dark Yellow (Yellow); Glucose Urine UA Negative (Negative); Ketones Urine 1+ mg/dL (Negative); Leukocyte Esterase Ur Negative LEU/UL (Negative); Need Manual Microscopic Reviewed; Nitrate Urine Negative (Negative); Non Pathogenic Casts 0-2; Protein Urine Trace mg/dL (Negative); RBC Urine 0-2 /hpf (0-2); Specific Grav Ur 1.024 (1.001-1.035); Squamous Epithelial Cell Urine Few /hpf (Few); WBC Urine 0-5 /hpf (0-3)
[2023-11-14 19:00] VITALS: BP 121/81; PULSE 99; RESP 18; O2SAT 96
== END 2023-11-14 19:02 | disposition home or self-care (01) ==
PROVIDERS: Emergency Provider Emergency Medicine
DX: R10.84 Generalized abdominal pain (principal); G89.29 Other chronic pain; J45.909 Unspecified asthma, uncomplicated; K21.9 Gastro-esophageal reflux disease without esophagitis; F64.0 Transsexualism; Z87.442 Personal history of urinary calculi; Z87.11 Personal history of peptic ulcer disease; Z90.49 Acquired absence of other specified parts of digestive tract; Z79.01 Long term (current) use of anticoagulants; Z79.899 Other long term (current) drug therapy
CPT/HCPCS: 36415; 74177; 80053; 80307; 81001; 83690; 85025; 96374; 96375; 99284; J2270; J2405; Q9967

== ENCOUNTER 2023-11-25 04:23 | Emergency (ER) | payer BC, SELFPAY ==
--- NOTE | ~2023-11-25 | US_ITS ---
Limited ABDOMINAL ULTRASOUND Ordering provider: Emily Osei MD History: . h/o pancreatitis, epigastric pain . Comparison: None. FINDINGS: LIVER: Normal size and with increase in echogenicity.. No focal hepatic lesions or perihepatic fluid collections are identified. Portal vein flow is normal. GALLBLADDER: Status post cholecystectomy. BILIARY DUCTS: No evidence for intra or extrahepatic biliary dilation. Common bile duct measures 3.8 mm in diameter which is within normal limits. PANCREAS: Partially visualized. UPPER ABDOMINAL AORTA: Normal in caliber. IVC: Patent. FREE FLUID: None. IMPRESSION: Fat infiltration of the liver. Status post cholecystectomy. Otherwise, Unremarkable limited ultrasoun d of the abdomen. Reviewed, dictated and finalized at location A. IMPRESSION: Fat infiltration of the liver. Status post cholecystectomy. Otherwise, Unremark able limited ultrasound of the abdomen.
[2023-11-25 04:25] VITALS: BP 129/86; PULSE 110; RESP 17; TEMP 36.2; O2SAT 97
[2023-11-25 05:24] LABS: Basophils Percent Auto 0.3 % (0.2-1.2); Eosinophils Percent Auto 0.4 % (0-4.4); Hematocrit 45.1 % (42.0-52.0); Hemoglobin 15.7 g/dL (14.0-18.0); Immature Granulocyte Absolute 0.01 K/mm3 (0.00-0.031); Immature Granulocyte Percent A 0.1 % (0-0.5); Lymphocytes Absolute Auto 2.12 K/mm3 (0.9-3.2); Lymphocytes Percent Auto 27.9 % (18.3-44.2); Mean Corpuscular HGB Conc 34.8 g/dl (32-36); Mean Corpuscular Hemoglobin 32.2 pg (26-34); Mean Corpuscular Volume 92.6 fl (80-100); Mean Platelet Volume 10.4 fl (7.4-10.4); Monocytes Absolute Auto 0.8 K/mm3 (0.1-0.6); Monocytes Percent Auto 10.1 % (2.6-8.5); Neutrophils Absolute Auto 4.7 K/mm3 (1.3-6.7); Neutrophils Percent Auto 61.2 % (45.5-73.1); Platelet Count Result 355 k/mm3 (150-375); Red Blood Count 4.87 M/mm3 (4.6-6.20); Red Cell Distribution Width 14.9 % (11.5-14.5); White Blood Count 7.6 K/mm3 (4.5-10.0)
[2023-11-25 05:39] LABS: Alanine Aminotransferase 82 U/L (6-50); Albumin Level 4.5 g/dL (3.5-5.1); Alkaline Phosphatase 331 U/L (38-126); Anion Gap 14 mmol/L (4-12); Aspartate Amino Transferase 133 U/L (17-59); Bilirubin,Total 0.8 mg/dL (0.2-1.3); Blood Urea Nitrogen 5 mg/dL (9-20); Calcium 8.7 mg/dL (8.4-10.2); Carbon Dioxide 24 mmol/L (22-30); Chloride 101 mmol/L (98-107); Estimated CRCL calculation 153 ml/min; Estimated Glomerular Filt Rate > 60; Glucose 155 mg/dL (65-110); Lipase 278 U/L (23-300); Potassium 3.1 mmol/L (3.4-5.0); Sodium 139 mmol/L (137-145)
--- NOTE | 2023-11-25 06:28 | PC.NURSE ---
vrbo 4mg morphine and 4mg zofran per [facility]
[2023-11-25 06:31] VITALS: BP 132/95; PULSE 99; RESP 14; O2SAT 95
[2023-11-25] MEDS: ONDANSETRON INJ 4 MG/2 ML VIAL IV PUSH (06:33)
[2023-11-25] MEDS: MORPHINE SULFATE (*CRX) 4 MG/ML INJ IV PUSH (06:33)
--- NOTE | 2023-11-25 06:37 | PC.NURSE ---
pt c/o n/v and abdominal pain for the last few days, pt states the pain is similar to the pancreatitis pain I've had in the past that I have been hospitalized three times for
[2023-11-25 06:43] LABS: Add Urine Microscopic? YES; Appearance Urine Clear (Clear); Bacteria Urine None Seen /hpf; Bilirubin Urine 1+ (Negative); Blood Urine Negative (Negative); Color Urine Dark Yellow (Yellow); Glucose Urine UA Trace mg/dL (Negative); Ketones Urine 1+ mg/dL (Negative); Leukocyte Esterase Ur Negative LEU/UL (Negative); Mucus Urine Present /lpf; Need Manual Microscopic Reviewed; Nitrate Urine Negative (Negative); Protein Urine 2+ mg/dL (Negative); RBC Urine 0-2 /hpf (0-2); Specific Grav Ur 1.032 (1.001-1.035); Squamous Epithelial Cell Urine None Seen /hpf (Few); WBC Urine 0-5 /hpf (0-3); pH Urine 6.5 (5.0-9.0)
[2023-11-25 07:06] VITALS: BP 114/79; PULSE 98; RESP 16; O2SAT 96
[2023-11-25] MEDS: diphenhydrAMINE HCl INJ 50 MG/ML VIAL 25 MG IV PUSH (07:27)
[2023-11-25] MEDS: METOCLOPRAMIDE HCL INJ 10 MG/2 ML VIAL IV PUSH (07:27)
[2023-11-25] MEDS: LACTATED RINGERS 1,000 ML 999 ML IV CONT (07:27)
[2023-11-25] MEDS: PANTOPRAZOLE SODIUM IV 40 MG VIAL IV PUSH (07:28)
[2023-11-25] MEDS: POTASSIUM CHLORIDE 20 MEQ ER TABLET 40 MEQ PO (07:28)
--- NOTE | 2023-11-25 07:39 | ED.ABDPAIN ---
HPI - Abdominal Pain General Chief Complaint: Abdominal Pain Stated Complaint: abd pain, vomitting blood Time Seen by Provider: 11/25/23 07:03 History of Present Illness HPI narrative: patient with history of ulcers, pancreatitis, chronic abdominal pain, PE on Xarelto, presents here with nausea, vomiting, abdominal pain. Has also been feeling tired and lightheaded. Related Data Home Medications Medication Instructions Recorded Confirmed multivitamin 1 tablet PO DAILY 01/05/23 11/08/23 famotidine 40 mg tablet 40 mg PO QHS 08/31/23 11/08/23 pregabalin 75 mg capsule 75 mg PO HS 10/14/23 11/08/23 rivaroxaban 20 mg tablet (Xarelto) 20 mg PO BID 10/14/23 11/08/23 Allergies Allergy/AdvReac Type Severity Reaction Status Date / Time Penicillins Allergy Severe Anaphylaxis Verified 11/25/23 04:24 Review of Systems Review of Systems: All systems reviewed & are unremarkable except as noted in HPI and below PMFSH Past Medical History Medical History Alcohol use Anxiety Asthma Black stools Depression Elevated LFTs Eosinophilic esophagitis Fatty liver GERD (gastroesophageal reflux disease) Hx of blood clots Hypokalemia Kidney stones Peptic ulcer Surgical History Surgical History History of dental surgery History of esophagogastroduodenoscopy (EGD) History of laparoscopic cholecystectomy 01/15/23 [facility] Family History Family History Father Hypertension Lymphoma Mother Heart disease Hypertension Grandparent Malignant neoplasm of prostate Lung cancer Grandparent Breast cancer Other Cerebrovascular accident Diabetes mellitus Social History Social History Smoking status: Never smoker Drinks per week: 3 Alcohol use details: QUIT DRINKING ~8739-0966 Substance use: former Substance use type: marijuana Do You Feel Safe in your Home?: Yes Lack of Transportation: No Lack of Food: Never True Current Housing: I Have Housing Concerned About Future Housing: No Difficulty Paying Gas/Electric Bills: YES Difficulty Paying for Meds: YES Currently Unemployed: No Education: Associate Degree Difficulty w/ Childcare or Family Care: No Living arrangements: with family Occupation/Education: occupation 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 EYES: EOMI, conjunctiva normal ENT: Hearing grossly intact LUNGS: Nonlabored breathing. HEART: [Regular rate and rhythm] ABD: [Soft], [nontender to palpation] EXT: Normal range of motion SKIN: [No rashes or lesions.] NEURO: [Alert and oriented x 3. No gross focal sensory or strength deficits.] PSYCH: Normal affect Course Vital Signs Vital signs: Vital Signs Temperature 97.2 F L 11/25/23 04:25 Pulse Rate 110 H 11/25/23 04:25 Respiratory Rate 17 11/25/23 04:25 Blood Pressure 129/86 11/25/23 04:25 Pulse Oximetry 97 11/25/23 04:25 Oxygen Delivery Room Air 11/25/23 04:25 Temperature 97.2 F L 11/25/23 04:25 Pulse Rate 83 11/25/23 09:00 Respiratory Rate 13 11/25/23 09:00 Blood Pressure 124/80 11/25/23 09:00 Pulse Oximetry 95 11/25/23 09:00 Oxygen Delivery Room Air 11/25/23 04:25 MDM - Abdominal Pain MDM Narrative Medical decision making narrative: Electronic medical record was reviewed. Patient presented to the ED with complaint of [abdominal pain and vomiting]. Vitals [were within acceptable limits]. Physical exam revealed soft abdomen without much tenderness, tired-appearing pa
[2023-11-25 08:22] VITALS: BP 121/89; PULSE 85; RESP 19; O2SAT 96
[2023-11-25 09:00] VITALS: BP 124/80; PULSE 83; RESP 13; O2SAT 95
== END 2023-11-25 09:30 | disposition home or self-care (01) ==
PROVIDERS: Emergency Medicine; Emergency Provider Emergency Medicine
DX: R11.2 Nausea with vomiting, unspecified (principal); R10.9 Unspecified abdominal pain; J45.909 Unspecified asthma, uncomplicated; K20.0 Eosinophilic esophagitis; K21.9 Gastro-esophageal reflux disease without esophagitis; K76.0 Fatty (change of) liver, not elsewhere classified; Z86.711 Personal history of pulmonary embolism; Z87.11 Personal history of peptic ulcer disease; Z87.442 Personal history of urinary calculi; Z90.49 Acquired absence of other specified parts of digestive tract; Z79.01 Long term (current) use of anticoagulants; Z79.899 Other long term (current) drug therapy
CPT/HCPCS: 36415; 76705; 80053; 81001; 83690; 85025; 96361; 96374; 96375; 99284; A9270; J1200; J2270; J2405; J2470; J2765; J7120

== ENCOUNTER 2023-12-04 23:21 | Emergency (ER) | payer BC, SELFPAY ==
--- NOTE | ~2023-12-04 | CT_ITS ---
CT of the Abdomen and Pelvis: Indication: Abdominal pain Technique: 2.5 mm axial scans were obtained through the abdomen and pelvis following intravenous adm inistration of 100 cc of Omnipaque 350. Dose reduction technique was used on this scan by utilizing a utomated exposure control and iterative reconstruction technique. The dose-length product (DLP) was 3 18.00 mGy-cm. COMPARISON: 11/14/2023 Findings: Scans through the lung bases are unremarkable. There is diffuse hepatic steatosis. Cholecystectomy clips are present. The spleen, pancreas, adrenals and kidneys are within normal limits. No evidence of aortic aneurysm. No lymphadenopathy. No bowel obstruction or bowel wall thickening. There is suggestion of fatty infiltration of the large bowel wall, which could reflect sequela of chronic inflammation. Images through the pelvis were performed. Urinary bladder unremarkable. No pelvic mass seen. Ascites. Impression: Diffuse hepatic steatosis. Suggestion of chronic inflammation of large bowel wall with fatty infiltration of the large bowel. Reviewed, dictated and finalized at location . Impression: Diffuse hepatic steatosis. Suggestion of chronic inflammation of large bowel wall with fatty infiltration of the large bowel.
[2023-12-04 23:36] VITALS: BP 111/78; PULSE 98; RESP 18; TEMP 36.3; O2SAT 98
[2023-12-05 00:07] LABS: Basophils Percent Auto 0.6 % (0.2-1.2); Eosinophils Absolute Auto 0.1 K/mm3 (0-0.3); Immature Granulocyte Absolute 0.01 K/mm3 (0.00-0.031); Immature Granulocyte Percent A 0.3 % (0-0.5); Lymphocytes Absolute Auto 1.51 K/mm3 (0.9-3.2); Lymphocytes Percent Auto 43.9 % (18.3-44.2); Mean Corpuscular HGB Conc 34.9 g/dl (32-36); Mean Corpuscular Hemoglobin 31.9 pg (26-34); Mean Corpuscular Volume 91.5 fl (80-100); Mean Platelet Volume 10.2 fl (7.4-10.4); Monocytes Absolute Auto 0.4 K/mm3 (0.1-0.6); Monocytes Percent Auto 11.9 % (2.6-8.5); Neutrophils Absolute Auto 1.4 K/mm3 (1.3-6.7); Neutrophils Percent Auto 41.3 % (45.5-73.1); Platelet Count Result 261 k/mm3 (150-375); Red Cell Distribution Width 14.8 % (11.5-14.5); White Blood Count 3.4 K/mm3 (4.5-10.0)
[2023-12-05 00:17] LABS: Alanine Aminotransferase 163 U/L (6-50); Albumin Level 4.3 g/dL (3.5-5.1); Alkaline Phosphatase 417 U/L (38-126); Anion Gap 16 mmol/L (4-12); Aspartate Amino Transferase 217 U/L (17-59); Bilirubin,Total 1.5 mg/dL (0.2-1.3); Blood Urea Nitrogen 5 mg/dL (9-20); Calcium 8.7 mg/dL (8.4-10.2); Carbon Dioxide 23 mmol/L (22-30); Chloride 99 mmol/L (98-107); Estimated CRCL calculation 133 ml/min; Estimated Glomerular Filt Rate > 60; Glucose 126 mg/dL (65-110); Lipase 88 U/L (23-300); Potassium 3.1 mmol/L (3.4-5.0); Sodium 138 mmol/L (137-145)
[2023-12-05 02:02] VITALS: BP 129/94; O2SAT 98
[2023-12-05 02:03] VITALS: O2SAT 98
[2023-12-05] MEDS: POTASSIUM CHLORIDE 20 MEQ PACKET (FOR LIQUID) 40 MEQ PO (02:15)
[2023-12-05 02:24] VITALS: O2SAT 98
--- NOTE | 2023-12-05 02:26 | PC.NURSE ---
Patient taken to CT at this time.
[2023-12-05 02:33] LABS: Add Urine Microscopic? YES; Appearance Urine Cloudy (Clear); Bacteria Urine None Seen /hpf; Bilirubin Urine 1+ (Negative); Blood Urine Negative (Negative); Color Urine Dark Yellow (Yellow); Glucose Urine UA Negative (Negative); Ketones Urine 1+ mg/dL (Negative); Leukocyte Esterase Ur Trace LEU/UL (Negative); Need Manual Microscopic Reviewed; Nitrate Urine Negative (Negative); Protein Urine 1+ mg/dL (Negative); Specific Grav Ur 1.021 (1.001-1.035); Squamous Epithelial Cell Urine Few /hpf (Few); WBC Urine 0-5 /hpf (0-3)
--- NOTE | 2023-12-05 02:37 | PC.NURSE ---
Called lab to add on MAGNESIUM, spoke with Nyasia.
[2023-12-05] MEDS: SODIUM CHLORIDE 0.9% IV 1,000 ML 999 ML IV CONT (02:42)
[2023-12-05] MEDS: MORPHINE SULFATE (*CRX) 4 MG/ML INJ IV PUSH (02:43)
[2023-12-05] MEDS: ONDANSETRON INJ 4 MG/2 ML VIAL IV PUSH (02:43)
[2023-12-05 02:48] LABS: Magnesium 1.8 mg/dL (1.6-2.3)
--- NOTE | 2023-12-05 03:04 | ED.ABDPAIN ---
HPI - Abdominal Pain General Chief Complaint: Abdominal Pain Stated Complaint: puking Time Seen by Provider: 12/05/23 02:00 History of Present Illness HPI narrative: Patient is a 38-year-old male who presents to the emergency department this evening complaining of generalized abdominal pain. Patient is known to our facility for chronic abdominal pain and history of pancreatitis. Patient states the pain started this afternoon hand admits to multiple episodes of vomiting. Denies any fevers or chills at home. Denies any urinary symptoms including dysuria or hematuria. Patient admits that he was supposed to have a colonoscopy performed but it was postponed as he was on blood thinners at this time. Prior to this he did have a colonoscopy 10 months ago which did not reveal any acute process. No additional symptoms or concerns at this time. Related Data Home Medications Medication Instructions Recorded Confirmed multivitamin 1 tablet PO DAILY 01/05/23 11/08/23 famotidine 40 mg tablet 40 mg PO QHS 08/31/23 11/08/23 pregabalin 75 mg capsule 75 mg PO HS 10/14/23 11/08/23 rivaroxaban 20 mg tablet (Xarelto) 20 mg PO BID 10/14/23 11/08/23 Allergies Allergy/AdvReac Type Severity Reaction Status Date / Time Penicillins Allergy Severe Anaphylaxis Verified 12/05/23 02:04 Review of Systems Review of Systems: All systems are reviewed and are negative unless stated otherwise in the HPI. [facility] Past Medical History Medical History Alcohol use Anxiety Asthma Black stools Depression Elevated LFTs Eosinophilic esophagitis Fatty liver GERD (gastroesophageal reflux disease) Hx of blood clots Hypokalemia Kidney stones Peptic ulcer Surgical History Surgical History History of dental surgery History of esophagogastroduodenoscopy (EGD) History of laparoscopic cholecystectomy 01/15/23 W Family History Family History Father Hypertension Lymphoma Mother Heart disease Hypertension Grandparent Malignant neoplasm of prostate Lung cancer Grandparent Breast cancer Other Cerebrovascular accident Diabetes mellitus Social History Social History Smoking status: Never smoker Drinks per week: 3 Alcohol use details: QUIT DRINKING ~5554-1784 Substance use: former Substance use type: marijuana Do You Feel Safe in your Home?: Yes Lack of Transportation: No Lack of Food: Never True Current Housing: I Have Housing Concerned About Future Housing: No Difficulty Paying Gas/Electric Bills: YES Difficulty Paying for Meds: YES Currently Unemployed: No Education: Associate Degree Difficulty w/ Childcare or Family Care: No Living arrangements: with family Occupation/Education: occupation Additional occupation/education comments: [employer] employee Gender identity (if verbalized by the patient): Other Spiritual care concerns: No Exam Narrative: General: Alert, awake, afebrile, in no acute distress. HEENT: PERRL, no rhinorrhea, no post nasal drip, oropharynx clear. Cardiovascular: Regular rate and rhythm, no murmurs, rubs or gallops, no peripheral edema. Respiratory: Clear to auscultation bilaterally, no tachypnea, no wheezing, no rhonchi, no rubs, no respiratory distress. Abdomen: Soft, nontender, nondistended, no rebound, no guarding, no peritoneal signs. Musculoskeletal: No joint swelling or deformity, normal muscle tone. Skin: No rashes or petechia, no signs of infection. Neurological: Alert and oriented to person, place, and time. Follows all commands. No focal deficits, speech is clear and fluent. Course Vital Signs Vital signs: Vital Signs Temperature 97.4 F L 12/04/23 23:36 Pulse Rate 98 12/04/23 23:36 Respiratory Rate 18 12/04/23 23:36
[2023-12-05 03:59] VITALS: BP 112/74; PULSE 90; RESP 17; O2SAT 97
[2023-12-05] MEDS: KETOROLAC 15 MG/ML VIAL (*BKC) IV PUSH (04:01)
[2023-12-05 04:24] VITALS: BP 113/66; PULSE 95; RESP 16; O2SAT 97
[2023-12-05] MEDS: METOCLOPRAMIDE HCL INJ 10 MG/2 ML VIAL IV PUSH (04:24)
== END 2023-12-05 04:37 | disposition home or self-care (01) ==
PROVIDERS: Physician Assistant; Emergency Provider Emergency Medicine
DX: R10.84 Generalized abdominal pain (principal); R11.2 Nausea with vomiting, unspecified; E87.6 Hypokalemia; R74.01 Elevation of levels of liver transaminase levels; J45.909 Unspecified asthma, uncomplicated; K21.00 Gastro-esophageal reflux disease with esophagitis, without bleeding; Z87.442 Personal history of urinary calculi; Z86.711 Personal history of pulmonary embolism; Z90.49 Acquired absence of other specified parts of digestive tract; Z79.01 Long term (current) use of anticoagulants; Z79.899 Other long term (current) drug therapy
CPT/HCPCS: 36415; 74177; 80053; 81001; 83690; 83735; 85025; 96361; 96374; 96375; 99284; A9270; J1885; J2270; J2405; J2765; J7030; Q9967

== ENCOUNTER 2023-12-06 08:39 | Emergency (ER) | payer BC, SELFPAY ==
--- NOTE | ~2023-12-06 | CT_ITS ---
CT abdomen pelvis w con Ordering provider: Manuel Jin MD History: 38 years Male with . Diffuse abdominal pain . Comparison: None. Technique: CT abdomen and pelvis with IV and without oral contrast. Automated exposure control and it erative reconstruction technique were employed. The dose-length product was 318.99 mGy-cm. 100 mL Omn ipaque 350 was given IV. Findings: VISUALIZED LOWER CHEST: Normal. UPPER ABDOMINAL ORGANS: Liver: Fat infiltration. Hepatomegaly. Gallbladder: Status post cholecystectomy. The Spleen: Normal. Stomach/duodenum: Normal. Pancreas: Normal. Adrenals: Normal. Kidneys: Normal. PELVIC ORGANS: The bladder is slightly underfilled. BOWEL AND MESENTERY: Colon: No evidence of diverticulitis. Fecal material is loaded in the colon. Normal appendix. Small Bowel: Normal. No obstruction. Peritoneum/mesentery: No free air or free fluid. No mesenteric lymphadenopathy. RETROPERITONEUM: Normal aorta. No retroperitoneal lymphadenopathy. MUSCULOSKELETAL: Superficial soft tissues: The superficial soft tissues are normal. Bones: Normal spine. IMPRESSION: 1. No evidence of appendicitis, diverticulitis or intestinal obstruction. 2. Fat infiltration of the liver. Hepatomegaly. 3. Constipation. Reviewed, dictated and finalized at location A.
[2023-12-06 08:53] VITALS: BP 138/97; PULSE 97; RESP 17; TEMP 36.7; O2SAT 96
[2023-12-06 09:03] LABS: Basophils Percent Auto 0.6 % (0.2-1.2); Eosinophils Percent Auto 1.2 % (0-4.4); Hematocrit 45.8 % (42.0-52.0); Hemoglobin 15.4 g/dL (14.0-18.0); Immature Granulocyte Absolute 0.01 K/mm3 (0.00-0.031); Immature Granulocyte Percent A 0.3 % (0-0.5); Lymphocytes Absolute Auto 1.09 K/mm3 (0.9-3.2); Lymphocytes Percent Auto 31.8 % (18.3-44.2); Mean Corpuscular HGB Conc 33.6 g/dl (32-36); Mean Corpuscular Hemoglobin 31.3 pg (26-34); Mean Corpuscular Volume 93.1 fl (80-100); Mean Platelet Volume 10.3 fl (7.4-10.4); Monocytes Absolute Auto 0.4 K/mm3 (0.1-0.6); Monocytes Percent Auto 11.7 % (2.6-8.5); Neutrophils Absolute Auto 1.9 K/mm3 (1.3-6.7); Neutrophils Percent Auto 54.4 % (45.5-73.1); Platelet Count Result 236 k/mm3 (150-375); Red Blood Count 4.92 M/mm3 (4.6-6.20); Red Cell Distribution Width 14.8 % (11.5-14.5); White Blood Count 3.4 K/mm3 (4.5-10.0)
[2023-12-06 09:18] LABS: Partial Thromboplastin Time 22.9 Seconds (22.3-36.8); Prothrombin Time 13.2 Seconds (11.1-14.7)
[2023-12-06 09:20] LABS: Lactic Acid Reflex 2.1 mmol/L (0.7-2.0)
[2023-12-06 09:31] LABS: Alanine Aminotransferase 188 U/L (6-50); Albumin Level 4.7 g/dL (3.5-5.1); Alkaline Phosphatase 503 U/L (38-126); Anion Gap 14 mmol/L (4-12); Aspartate Amino Transferase 366 U/L (17-59); Bilirubin,Total 2.1 mg/dL (0.2-1.3); Blood Urea Nitrogen 2 mg/dL (9-20); Calcium 9.6 mg/dL (8.4-10.2); Carbon Dioxide 23 mmol/L (22-30); Chloride 98 mmol/L (98-107); Estimated CRCL calculation 121 ml/min; Estimated Glomerular Filt Rate > 60; Glucose 140 mg/dL (65-110); Lipase 97 U/L (23-300); Potassium 3.5 mmol/L (3.4-5.0); Sodium 135 mmol/L (137-145)
[2023-12-06 09:32] VITALS: BP 139/94; PULSE 85; RESP 17; O2SAT 100
--- NOTE | 2023-12-06 09:59 | ED.GENADULT ---
HPI - General Adult General Chief complaint: Abdominal Pain Stated complaint: abdominal pain Time Seen by Provider: 12/06/23 08:42 History of Present Illness HPI narrative: 38-year-old male present to the emergency department for evaluation for increased nausea vomiting diffuse abdominal pain suspected pancreatitis. Patient states they do have a prior history of alcohol abuse and had quit drinking but they have been drinking again more frequently. Patient complains of diffuse abdominal pain. Related Data Home Medications Medication Instructions Recorded Confirmed multivitamin 1 tablet PO DAILY 01/05/23 11/08/23 famotidine 40 mg tablet 40 mg PO QHS 08/31/23 11/08/23 pregabalin 75 mg capsule 75 mg PO HS 10/14/23 11/08/23 rivaroxaban 20 mg tablet (Xarelto) 20 mg PO BID 10/14/23 11/08/23 Allergies Allergy/AdvReac Type Severity Reaction Status Date / Time Penicillins Allergy Severe Anaphylaxis Verified 12/06/23 09:04 Review of Systems Review of Systems: All systems reviewed & are unremarkable except as noted in HPI and below PMFSH Past Medical History Medical History Alcohol use Anxiety Asthma Black stools Depression Elevated LFTs Eosinophilic esophagitis Fatty liver GERD (gastroesophageal reflux disease) Hx of blood clots Hypokalemia Kidney stones Peptic ulcer Surgical History Surgical History History of dental surgery History of esophagogastroduodenoscopy (EGD) History of laparoscopic cholecystectomy 01/15/23 [facility] Family History Family History Father Hypertension Lymphoma Mother Heart disease Hypertension Grandparent Malignant neoplasm of prostate Lung cancer Grandparent Breast cancer Other Cerebrovascular accident Diabetes mellitus Social History Social History Smoking status: Never smoker Drinks per week: 3 Alcohol use details: QUIT DRINKING ~9943-9505 Substance use: former Substance use type: marijuana Do You Feel Safe in your Home?: Yes Lack of Transportation: No Lack of Food: Never True Current Housing: I Have Housing Concerned About Future Housing: No Difficulty Paying Gas/Electric Bills: YES Difficulty Paying for Meds: YES Currently Unemployed: No Education: Associate Degree Difficulty w/ Childcare or Family Care: No Living arrangements: with family Occupation/Education: occupation 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 HEAD: normocephalic, atraumatic. EYES: PERRLA/EOMI, conjunctivae clear. NOSE: Normal no drainage EARS:TMS clear with good light reflex. THROAT: Pharynx clear, no exudate. NECK: Supple. No adenopathy, no masses. RESPIRATORY: Airway patent, respirations nonlabored. Clear to auscultation bilaterally, no rales, rhonchi, wheezing. CARDIOVASCULAR: Regular rate and rhythm without murmurs rubs or gallops. ABDOMINAL: Soft, nontender, nondistended, normal bowel sounds MUSCULOSKELETAL: Moves all extremities. Strength/ROM intact, No edema, No calf tenderness. NEURO: Alert. Cranial nerves II through XII intact. Grossly intact SKIN: Warm, dry. Normal Color Course Vital Signs Vital signs: Vital Signs Temperature 98.1 F 12/06/23 08:53 Pulse Rate 97 12/06/23 08:53 Respiratory Rate 17 12/06/23 08:53 Blood Pressure 138/97 H 12/06/23 08:53 Pulse Oximetry 96 12/06/23 08:53 Oxygen Delivery Room Air 12/06/23 08:53 Temperature 97.6 F 12/06/23 11:00 Pulse Rate 77 12/06/23 12:04 Respiratory Rate 14 12/06/23 12:04 Blood Pressure 112/68 12/06/23 12:04 Pulse Oximetry 100 12/06/23 12:
[2023-12-06] MEDS: SODIUM CHLORIDE 0.9% IV 1,000 ML 999 ML IV CONT ×2 (10:07→10:08)
[2023-12-06] MEDS: ONDANSETRON INJ 4 MG/2 ML VIAL IV PUSH (10:08)
[2023-12-06] MEDS: LORazepam INJ (*CRX) 2 MG/ML VIAL 1 MG IV PUSH (10:08)
[2023-12-06] MEDS: PANTOPRAZOLE SODIUM IV 40 MG VIAL IV PUSH (10:08)
[2023-12-06 10:56] LABS: Add Urine Microscopic? YES; Appearance Urine Clear (Clear); Bacteria Urine None Seen /hpf; Bilirubin Urine 2+ (Negative); Blood Urine Negative (Negative); Calcium Oxalate Crystals Urine Present /hpf; Color Urine Dark Yellow (Yellow); Glucose Urine UA Negative (Negative); Ketones Urine 2+ mg/dL (Negative); Leukocyte Esterase Ur Trace LEU/UL (Negative); Need Manual Microscopic Reviewed; Nitrate Urine Negative (Negative); Protein Urine 1+ mg/dL (Negative); RBC Urine 0-2 /hpf (0-2); Squamous Epithelial Cell Urine None Seen /hpf (Few); WBC Urine 0-5 /hpf (0-3)
[2023-12-06 10:57] LABS: Hyaline Casts Urine Present /lpf
[2023-12-06 11:00] VITALS: BP 120/84; PULSE 100; RESP 19; TEMP 36.4; O2SAT 99
[2023-12-06 12:01] LABS: Reflex Lactic Acid Yes or No Add Lactic
[2023-12-06 12:04] VITALS: BP 112/68; PULSE 77; RESP 14; O2SAT 100
== END 2023-12-06 12:25 | disposition home or self-care (01) ==
PROVIDERS: Emergency Provider Emergency Medicine
DX: R11.2 Nausea with vomiting, unspecified (principal); F41.9 Anxiety disorder, unspecified; J45.909 Unspecified asthma, uncomplicated; F32.A Depression, unspecified; K21.9 Gastro-esophageal reflux disease without esophagitis; Z87.442 Personal history of urinary calculi
CPT/HCPCS: 36415; 74177; 80053; 81001; 83605; 83690; 85025; 85610; 85730; 96361; 96374; 96375; 99284; J2060; J2405; J2470; J7030; Q9967

== ENCOUNTER 2024-01-06 00:33 | Emergency (ER) | payer BC, SELFPAY ==
[2024-01-06 00:35] VITALS: BP 117/81; PULSE 100; RESP 15; TEMP 36.3; O2SAT 97
[2024-01-06 00:50] LABS: Basophils Percent Auto 0.6 % (0.2-1.2); Eosinophils Absolute Auto 0.1 K/mm3 (0-0.3); Eosinophils Percent Auto 1.5 % (0-4.4); Hematocrit 44.7 % (42.0-52.0); Hemoglobin 15.5 g/dL (14.0-18.0); Immature Granulocyte Absolute 0.01 K/mm3 (0.00-0.031); Immature Granulocyte Percent A 0.2 % (0-0.5); Lymphocytes Absolute Auto 2.13 K/mm3 (0.9-3.2); Lymphocytes Percent Auto 32.4 % (18.3-44.2); Mean Corpuscular HGB Conc 34.7 g/dl (32-36); Mean Corpuscular Hemoglobin 30.9 pg (26-34); Mean Corpuscular Volume 89.2 fl (80-100); Mean Platelet Volume 10.3 fl (7.4-10.4); Monocytes Absolute Auto 0.4 K/mm3 (0.1-0.6); Monocytes Percent Auto 6.7 % (2.6-8.5); Neutrophils Absolute Auto 3.9 K/mm3 (1.3-6.7); Neutrophils Percent Auto 58.6 % (45.5-73.1); Platelet Count Result 294 k/mm3 (150-375); Red Blood Count 5.01 M/mm3 (4.6-6.20); Red Cell Distribution Width 14.1 % (11.5-14.5); White Blood Count 6.6 K/mm3 (4.5-10.0)
[2024-01-06 00:59] LABS: Alanine Aminotransferase 113 U/L (6-50); Albumin Level 4.6 g/dL (3.5-5.1); Alkaline Phosphatase 150 U/L (38-126); Anion Gap 11 mmol/L (4-12); Aspartate Amino Transferase 99 U/L (17-59); Bilirubin,Total 0.8 mg/dL (0.2-1.3); Blood Urea Nitrogen 5 mg/dL (9-20); Calcium 8.3 mg/dL (8.4-10.2); Carbon Dioxide 25 mmol/L (22-30); Chloride 104 mmol/L (98-107); Estimated CRCL calculation 121 ml/min; Estimated Glomerular Filt Rate > 60; Glucose 114 mg/dL (65-110); Lipase 80 U/L (23-300); Potassium 3.1 mmol/L (3.4-5.0); Sodium 140 mmol/L (137-145)
[2024-01-06] MEDS: ONDANSETRON HCL ODT 4 MG TABLET PO (02:18)
--- NOTE | 2024-01-06 02:18 | ED.ABDPAIN ---
HPI - Abdominal Pain General Chief Complaint: Abdominal Pain Stated Complaint: a lot pain; where pancreas and liver are . N/V Time Seen by Provider: 01/06/24 01:35 History of Present Illness HPI narrative: Patient is a 38-year-old male who presents to the emergency department this evening complaining of abdominal pain. Patient has a history of chronic abdominal pain and pancreatitis and states that the pain started a few days ago and has been getting worse. Concerned that this is his pancreatitis is flaring up. Patient admits to nausea and vomiting. Denies any urinary symptoms including any dysuria or hematuria. Related Data Home Medications Medication Instructions Recorded Confirmed multivitamin 1 tablet PO DAILY 01/05/23 11/08/23 famotidine 40 mg tablet 40 mg PO QHS 08/31/23 11/08/23 pregabalin 75 mg capsule 75 mg PO HS 10/14/23 11/08/23 rivaroxaban 20 mg tablet (Xarelto) 20 mg PO BID 10/14/23 11/08/23 Allergies Allergy/AdvReac Type Severity Reaction Status Date / Time Penicillins Allergy Severe Anaphylaxis Verified 12/06/23 09:04 Review of Systems Review of Systems: All systems are reviewed and are negative unless stated otherwise in the HPI. [facility] Past Medical History Medical History Alcohol use Anxiety Asthma Black stools Depression Elevated LFTs Eosinophilic esophagitis Fatty liver GERD (gastroesophageal reflux disease) Hx of blood clots Hypokalemia Kidney stones Peptic ulcer Surgical History Surgical History History of dental surgery History of esophagogastroduodenoscopy (EGD) History of laparoscopic cholecystectomy 01/15/23 W Family History Family History Father Hypertension Lymphoma Mother Heart disease Hypertension Grandparent Malignant neoplasm of prostate Lung cancer Grandparent Breast cancer Other Cerebrovascular accident Diabetes mellitus Social History Social History Smoking status: Never smoker Drinks per week: 3 Alcohol use details: QUIT DRINKING ~0587-3218 Substance use: former Substance use type: marijuana Do You Feel Safe in your Home?: Yes Lack of Transportation: No Lack of Food: Never True Current Housing: I Have Housing Concerned About Future Housing: No Difficulty Paying Gas/Electric Bills: YES Difficulty Paying for Meds: YES Currently Unemployed: No Education: Associate Degree Difficulty w/ Childcare or Family Care: No Living arrangements: with family Occupation/Education: occupation 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 HEENT: PERRL, no rhinorrhea, no post nasal drip, oropharynx clear. Cardiovascular: Regular rate and rhythm, no murmurs, rubs or gallops, no peripheral edema. Respiratory: Clear to auscultation bilaterally, no tachypnea, no wheezing, no rhonchi, no rubs, no respiratory distress. Abdomen: Soft, nontender, nondistended, no rebound, no guarding, no peritoneal signs. Musculoskeletal: No joint swelling or deformity, normal muscle tone. Skin: No rashes or petechia, no signs of infection. Neurological: Alert and oriented to person, place, and time. Follows all commands. No focal deficits, speech is clear and fluent. Course Vital Signs Vital signs: Vital Signs Temperature 97.3 F L 01/06/24 00:35 Pulse Rate 100 01/06/24 00:35 Respiratory Rate 15 01/06/24 00:35 Blood Pressure 117/81 01/06/24 00:35 Pulse Oximetry 97 01/06/24 00:35 Oxygen Delivery Room Air 01/06/24 00:35 Temperature 97.3 F L 01/06/24 00:35 Pulse Rate 100 01/06/24 00:35 Respiratory Rate 15 01/06/24 00:35 Blood Pressure 117/81 01/06/24 00:35 Pulse Oximetry 97 01/06/24 00:35 Oxygen Delivery Room Air 01/06/24 00:35 MDM - Abdominal Pain MDM Narrative Medical decision making narrative: The patient was evaluated by myself in the emergency department. History is obtained from patient who is an independent historian and physical exam was performed. External medical records were reviewed at this time. IV was established and pertinent tests were ordered. Patient was administered 1 L IV fluid bolus with normal saline, 4 mg IV Zofran, 10 mg of IV Reglan and 20 mg of IV Pepcid. Laboratory results obtained revealing potassium of 3.1, otherwise unremarkable. Patient's liver enzymes are chronically elevated and are trending down from last month. Lipase normal. Patient was administered 40 mEq of oral potassium and 4 mg of ODT Zofran. Patient was able to keep down the potassium. Was administered an oral [place] 5-325 mg for pain. At this time shared medical decision-making with patient regarding obtaining imaging results was discussed. I did inform the patient that I am concerned about the amount of CT scans that he has had due to the radiation. I did inform the patient that his lipase level is normal and that all of his blood work is within his normal range. 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 Differential diagnosis considerations include acute pancreatitis, peptic ulcer disease, gastroenteritis. Comorbidities impacting this visit include history of chronic abdominal pain and pancreatitis. I have evaluated and discussed social determinants of health with the patient that could potentially impact subsequent diagnosis and treatment plans. On repeat assessment of the patient, reevaluation revealed that the patient is doing well and is in no acute distress. Patient symptoms have improved since he arrived to our emergency department. Repeat vital signs were all reviewed and noted to be stable. Differential diagnosis and treatment plan were discussed with the patient at bedside. Patient agrees with discussion and after shared medical decision making agrees with discharge. All questions were answered to the patient's satisfaction. Patient will follow up with GI in 3-5 days. A script for Zofran was sent to his pharmacy to use as needed for nausea/vomiting. Patient was provided with strict return precautions and instructed to return to the emergency department if any new or worsening symptoms develop. The patient was discharged in stable condition. Lab Data 01/06/24 00:43 01/06/24 00:43 Labs: Lab Results 01/06/24 01/06/24 Range/Units 00:43 02:52 WBC 6.6 (4.5-10.0) K/mm3 RBC 5.01 (4.6-6.20) M/mm3 Hgb 15.5 (14.0-18.0) g/dL Hct 44.7 (42.0-52.0) % MCV 89.2 (80-100) fl MCH 30.9 (26-34) pg MCHC 34.7 (32-36) g/dl RDW 14.1 (11.5-14.5) % Plt Count 294 (150-375) k/mm3 MPV 10.3 (7.4-10.4) fl Immature Gran % (Auto) 0.2 (0-0.5) % Neut % (Auto) 58.6 (45.5-73.1) % Lymph % (Auto) 32.4 (18.3-44.2) % [place] % (Auto) 6.7 (2.6-8.5) % Eos % (Auto) 1.5 (0-4.4) % Baso % (Auto) 0.6 (0.2-1.2) % Lymph # (Auto) 2.13 (0.9-3.2) K/mm3 [place] # (Auto) 0.4 (0.1-0.6) K/mm3 Eos # (Auto) 0.1 (0-0.3) K/mm3 Baso # (Auto) 0.0 (0.0-0.1) K/mm3 Abs Immat Gran (auto) 0.01 (0.00-0.031) K/mm3 Absolute Neuts (auto) 3.9 (1.3-6.7) K/mm3 Absolute Nucleated RBC 0.000 (0.0-0.012) K/mm3 Nucleated RBC % 0.0 (0.0-0.2) % Sodium 140 (137-145) mmol/L Potassium 3.1 L (3.4-5.0) mmol/L Chloride 104 (98-107) mmol/L Carbon Dioxide 25 (22-30) mmol/L Anion Gap 11 (4-12) mmol/L BUN 5 L (9-20) mg/dL Creatinine 0.80 (0.7-1.3) mg/dL Estim Creat Clear Calc 121 ml/min Estimated GFR > 60 (59 - ) Glucose 114 H (65-110) mg/dL Calcium 8.3 L (8.4-10.2) mg/dL Magnesium 1.7 (1.6-2.3) mg/dL Total Bilirubin 0.8 (0.2-1.3) mg/dL AST 99 H (17-59) U/L ALT 113 H (6-50) U/L Alkaline Phosphatase 150 H (38-126) U/L Total Protein 8.0 (6.3-8.2) g/dL Albumin 4.6 (3.5-5.1) g/dL Lipase 80 (23-300) U/L Discharge Plan Discharge Clinical Impression: Abdominal pain, chronic, generalized, Acute hypokalemia Patient Disposition: Home, Self-Care Condition: Stable Instructions: Antibiotic Form, Abdominal Pain (ED) Additional Instructions: Please follow-up with 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 Take the prescribed Zofran as needed for nausea and return to the ED if any new or worsening symptoms develop. Prescriptions: New ondansetron 4 mg tablet,disintegrating 4 mg PO Q8H PRN (Reason: nausea and vomiting) Qty: 10 0RF No Action ondansetron 4 mg tablet,disintegrating 4 mg PO Q8H PRN (Reason: nausea and vomiting) Qty: 10 0RF multivitamin Tablet 1 tablet PO DAILY ondansetron 4 mg tablet,disintegrating 4 mg PO Q6H Qty: 30 0RF hydrocodone-acetaminophen 5-325 mg tablet 1 tablet PO Q6H PRN (Reason: pain) Qty: 20 0RF ibuprofen 600 mg tablet 600 mg PO Q6H PRN (Reason: pain) Qty: 20 0RF Rx Instructions: Take with caution as this combined with your Xarelto can increase bleeding risk. pantoprazole [Protonix] 40 mg tablet,delayed release (DR/EC) 40 mg PO QAM 28 Days Qty: 28 0RF metoclopramide HCl [Reglan] 10 mg tablet 10 mg PO Q6H PRN (Reason: nausea and vomiting) Qty: 14 0RF pantoprazole 40 mg tablet,delayed release (DR/EC) 40 mg PO BID Qty: 30 0RF famotidine 40 mg tablet 40 mg PO QHS Patient Comments: TAKES AT HS thiamine HCl (vitamin B1) 100 mg tablet 100 mg PO DAILY Qty: 30 0RF folic acid 1 mg tablet 1 mg PO DAILY Qty: 30 0RF pregabalin 75 mg capsule 75 mg PO HS Xarelto 20 mg tablet 20 mg PO BID Hold Instructions: Resume on 11/16/23. Check your prescription bottle at home. 20mg twice a day is excessive for treatment of pulmonary embolism. You should be maintained on 5mg twice a day dicyclomine 20 mg tablet 20 mg PO QID Qty: 20 0RF ondansetron 4 mg tablet,disintegrating 4 mg PO Q8H PRN (Reason: nausea and vomiting) Qty: 14 0RF omeprazole 20 mg capsule,delayed release(DR/EC) 20 mg PO DAILY Qty: 14 0RF Follow-up/Referrals: Hira Russell MD [Physician] - 1 Week Tyrone Ortega MD [Physician] - 3 Days UNKNOWN,DOCTOR [Primary Care Provider] - Stand Alone Forms: Work/School Release IP Time of Disposition: 02:56
[2024-01-06] MEDS: POTASSIUM CHLORIDE 20 MEQ ER TABLET 40 MEQ PO (02:19)
[2024-01-06] MEDS: ONDANSETRON INJ 4 MG/2 ML VIAL IV PUSH (02:50)
[2024-01-06] MEDS: SODIUM CHLORIDE 0.9% IV 1,000 ML 999 ML IV CONT (02:51)
[2024-01-06] MEDS: HYDROcodone/acetaminophen (*CRX) 7.5-325 MG TABLET 1 TAB PO (03:00)
[2024-01-06 03:08] LABS: Magnesium 1.7 mg/dL (1.6-2.3)
[2024-01-06] MEDS: METOCLOPRAMIDE HCL INJ 10 MG/2 ML VIAL IV PUSH (03:54)
[2024-01-06] MEDS: FAMOTIDINE 20 MG/2 ML VIAL IV PUSH (03:56)
[2024-01-06 04:45] VITALS: BP 122/78; PULSE 93; RESP 13; O2SAT 99
[2024-01-06 05:06] VITALS: BP 122/78; PULSE 93; RESP 13; O2SAT 99
== END 2024-01-06 05:08 | disposition home or self-care (01) ==
PROVIDERS: Emergency Provider Emergency Medicine
DX: R10.84 Generalized abdominal pain (principal); G89.29 Other chronic pain; E87.6 Hypokalemia; J45.909 Unspecified asthma, uncomplicated; K21.9 Gastro-esophageal reflux disease without esophagitis; Z87.442 Personal history of urinary calculi; Z87.11 Personal history of peptic ulcer disease; Z79.01 Long term (current) use of anticoagulants; Z90.49 Acquired absence of other specified parts of digestive tract
CPT/HCPCS: 36415; 80053; 83690; 83735; 85025; 96361; 96374; 96375; 99284; A9270; J2405; J2765; J7030

== ENCOUNTER 2024-01-11 02:02 | Emergency (ER) | payer BC, SELFPAY ==
--- NOTE | ~2024-01-11 | CT_ITS ---
EXAMINATION: CT abdomen pelvis w con DATE: 01/11/2024 05:46 INDICATION: Abdominal pain. TECHNIQUE: Computed tomography (CT) of the abdomen and pelvis was performed with 100 mL Omnipaque 350 intravenous contrast. Automated exposure control and iterative reconstruction technique were employe d. The dose-length product was 340.91 mGy-cm. COMPARISON: CT abdomen and pelvis 12/06/2023 FINDINGS: The visualized portions of the lung bases demonstrate mild atelectasis. No pleural effusion . The heart size is normal. No pericardial effusion. There is diffuse hepatic steatosis. There are ch anges of cholecystectomy. The spleen, pancreas, adrenal glands, and kidneys are normal. There are no dilated loops of bowel. The appendix is normal. There are no pathologically enlarged lymph nodes. The re is no free intraperitoneal fluid. There is mild thoracic and lumbar spondylosis. IMPRESSION: 1. Diffuse hepatic steatosis. Reviewed, dictated and finalized at location A. MANAGER
[2024-01-11 02:06] VITALS: BP 126/78; PULSE 103; RESP 15; TEMP 36.2; O2SAT 98
[2024-01-11 02:15] VITALS: BP 126/78; PULSE 103; RESP 15; TEMP 36.2; O2SAT 98
[2024-01-11 02:47] LABS: Basophils Percent Auto 0.4 % (0.2-1.2); Eosinophils Percent Auto 0.2 % (0-4.4); Hematocrit 43.9 % (42.0-52.0); Hemoglobin 15.4 g/dL (14.0-18.0); Immature Granulocyte Absolute 0.02 K/mm3 (0.00-0.031); Immature Granulocyte Percent A 0.4 % (0-0.5); Lymphocytes Absolute Auto 1.41 K/mm3 (0.9-3.2); Lymphocytes Percent Auto 28.7 % (18.3-44.2); Mean Corpuscular HGB Conc 35.1 g/dl (32-36); Mean Corpuscular Hemoglobin 31.2 pg (26-34); Mean Corpuscular Volume 88.9 fl (80-100); Mean Platelet Volume 10.5 fl (7.4-10.4); Monocytes Absolute Auto 0.4 K/mm3 (0.1-0.6); Monocytes Percent Auto 8.6 % (2.6-8.5); Neutrophils Percent Auto 61.7 % (45.5-73.1); Platelet Count Result 236 k/mm3 (150-375); Red Blood Count 4.94 M/mm3 (4.6-6.20); Red Cell Distribution Width 13.9 % (11.5-14.5); White Blood Count 4.9 K/mm3 (4.5-10.0)
[2024-01-11 03:00] LABS: Lipase 148 U/L (23-300)
[2024-01-11 03:24] LABS: Influenza A QL RT-PCR Negative (Negative); Influenza B QL RT-PCR Negative (Negative); RSV RNA, RT-PCR Negative (Negative); SARS-CoV-2 RNA PCR Negative (Negative)
[2024-01-11 03:31] LABS: Add Urine Microscopic? YES; Appearance Urine Clear (Clear); Bacteria Urine None Seen /hpf; Bilirubin Urine 1+ (Negative); Blood Urine Negative (Negative); Color Urine Dark Yellow (Yellow); Glucose Urine UA Negative (Negative); Ketones Urine 2+ mg/dL (Negative); Leukocyte Esterase Ur Negative LEU/UL (Negative); Nitrate Urine Negative (Negative); Protein Urine 1+ mg/dL (Negative); RBC Urine 0-2 /hpf (0-2); Specific Grav Ur 1.028 (1.001-1.035); Squamous Epithelial Cell Urine Occasional /hpf (Few); WBC Urine 0-5 /hpf (0-3); pH Urine 5.5 (5.0-9.0)
[2024-01-11 03:41] LABS: Amphetamine Screen Urine Negative (Negative); Barbiturate Screen Urine Negative (Negative); Benzodiazepines Screen Urine Negative (Negative); Cannabinoid Screen Urine Negative (Negative); Cocaine Screen Urine Negative (Negative); Methadone Screen Urine Negative (Negative); Opiate Screen Urine Negative (Negative); Phencyclidine Screen Urine Negative (Negative)
[2024-01-11 03:52] LABS: Thyroid Stimulating Hormone Reflex 0.914 uIU/mL (0.465-4.68)
[2024-01-11] MEDS: SODIUM CHLORIDE 0.9% IV 1,000 ML 999 ML IV CONT ×2 (04:17→04:18)
--- NOTE | 2024-01-11 05:10 | PC.NURSE ---
Spoke with lab regarding CMP and Ethanol labs. They stated they are not able to find the tube.
[2024-01-11 05:33] LABS: Ethanol 134 mg/dL (<10)
[2024-01-11 05:34] LABS: Alanine Aminotransferase 59 U/L (6-50); Albumin Level 3.6 g/dL (3.5-5.1); Alkaline Phosphatase 185 U/L (38-126); Anion Gap 13 mmol/L (4-12); Aspartate Amino Transferase 60 U/L (17-59); Blood Urea Nitrogen 7 mg/dL (9-20); Calcium 7.4 mg/dL (8.4-10.2); Carbon Dioxide 19 mmol/L (22-30); Chloride 106 mmol/L (98-107); Estimated Glomerular Filt Rate > 60; Glucose 91 mg/dL (65-110); Sodium 138 mmol/L (137-145)
--- NOTE | 2024-01-11 05:58 | ED_ITS ---
HPI - General Adult General Chief complaint: Psychiatric Symptoms <Toby Dowell MD - Last Filed: 01/11/24 07:06> Stated complaint: n/v <Toby Dowell MD - Last Filed: 01/11/24 07:06> Time Seen by Provider: 01/11/24 04:00 <Toby Dowell MD - Last Filed: 01/11/24 07:06> History of Present Illness HPI narrative: Patient is a 38-year-old male transitioning to female presents to the emergency department this morning complaining of nausea, vomiting, and abdominal pain. Patient has been seen our facility multiple times in the past for chronic abdominal pain and cyclical vomiting. Patient was seen by me on January 05 for similar findings and at that time blood work revealed no acute process. Shared medical decision with patient regarding obtaining a CT scan was discussed at that time and patient elected to not have a CT scan giving the amount of radiation he has had this year. Patient is returning today stating that his symptoms are worse and requesting CT of his abdomen. Patient also informed triage nurse that he is having suicidal thoughts. Admits to multiple episodes of nausea and vomiting and diffuse abdominal pain. Denies any fevers or chills at home. No additional symptoms or concerns at this time. <Toby Dowell MD - Last Filed: 01/11/24 07:06> Related Data Home medications: Home Medications Medication Instructions Recorded Confirmed multivitamin 1 tablet PO DAILY 01/05/23 11/08/23 famotidine 40 mg tablet 40 mg PO QHS 08/31/23 11/08/23 pregabalin 75 mg capsule 75 mg PO HS 10/14/23 11/08/23 rivaroxaban 20 mg tablet (Xarelto) 20 mg PO BID 10/14/23 11/08/23 <Toby Dowell MD - Last Filed: 01/11/24 07:06> Allergies/adverse reactions: Allergies Allergy/AdvReac Type Severity Reaction Status Date / Time Penicillins Allergy Severe Anaphylaxis Verified 12/06/23 09:04 <Toby Dowell MD - Last Filed: 01/11/24 07:06> Review of Systems Review of Systems: All systems are reviewed and are negative unless stated otherwise in the HPI. <Toby Dowell MD - Last Filed: 01/11/24 07:06> [facility] Past Medical History Medical History: Medical History Alcohol use Anxiety Asthma Black stools Depression Elevated LFTs Eosinophilic esophagitis Fatty liver GERD (gastroesophageal reflux disease) Hx of blood clots Hypokalemia Kidney stones Peptic ulcer <Toby Dowell MD - Last Filed: 01/11/24 07:06> Surgical History Surgical History: Surgical History History of dental surgery History of esophagogastroduodenoscopy (EGD) History of laparoscopic cholecystectomy 01/15/23 [facility] <Toby Dowell MD - Last Filed: 01/11/24 07:06> Family History Family History: Family History Father Hypertension Lymphoma Mother Heart disease Hypertension Grandparent Malignant neoplasm of prostate Lung cancer Grandparent Breast cancer Other Cerebrovascular accident Diabetes mellitus <Toby Dowell MD - Last Filed: 01/11/24 07:06> Social History Social History: Social History Smoking status: Never smoker Drinks per week: 3 Alcohol use details: QUIT DRINKING ~[id number] Substance use: former Substance use type: does not use Do You Feel Safe in your Home?: Yes Lack of Transportation: No Lack of Food: Never True Current Housing: I Have Housing Concerned About Future Housing: No Difficulty Paying Gas/Electric Bills: YES Difficulty Paying for Meds: YES Currently Unemployed: No Education: Associate Degree Difficulty w/ Childcare or Family Care: No Living arrangements: with family Occupation/Education: occupation Additional occupation/education comments: [employer] employee Gender identity (if verbalized by the patient): Other Spiritual care concerns: No <Toby Dowell MD - Last Filed: 01/11/24 07:06> Exam Narrative: General: Alert, awake, afebrile, in no acute distress. HEENT: PERRL, no rhinorrhea, no post nasal drip, oropharynx clear. Neck: Trachea midline, no JVD, no lymphadenopathy. Cardiovascular: Regular rate and rhythm, no murmurs, rubs or gallops, no peripheral edema. Respiratory: Clear to auscultation bilaterally, no tachypnea, no wheezing, no rhonchi, no rubs, no respiratory distress. Abdomen: Soft, nontender, nondistended, no rebound, no guarding, no peritoneal signs. Musculoskeletal: No joint swelling or deformity, normal muscle tone. Skin: No rashes or petechia, no signs of infection. Psychiatric: Alert and oriented, normal behavior and judgment for situation. Neurological: Alert and oriented to person, place, and time. Follows all commands. No focal deficits, speech is clear and fluent. <Toby Dowell MD - Last Filed: 01/11/24 07:06> Course Course Emergency Course: Patient signed out to me by previous physician pending metabolic sobriety prior to psychiatric evaluation clearance. Patient's imaging studies and laboratory assessment for review. No acute abdominal process or pelvic process in the CT scan. No fever, white count elevation, anemia. Electrolytes largely unremarkable, normal renal function panel, hepatic function panel better than his baseline levels previously, Negative lipase. Urine without any signs of infection. Toxicological screen negative, alcohol mildly elevated 134 but now decreased to 46 after achieving sobriety here in the ED. 09:46 Patient is now medically cleared for psychiatric evaluation and treatment for placement given his suicidal ideation with intent. 13:40 -patient has been accepted to a voluntary psychiatric admission at [place] under the physician Dr. Martinez. [facility] ambulance arrange for transportation <Jarad Yip MD - Last Filed: 01/11/24 19:08> Vital Signs Vital signs: Vital Signs Temperature 36.2 C L 01/11/24 02:06 Pulse Rate 103 H 01/11/24 02:06 Respiratory Rate 15 01/11/24 02:06 Blood Pressure 126/78 01/11/24 02:06 Pulse Oximetry 98 01/11/24 02:06 Oxygen Delivery Room Air 01/11/24 02:06 Temperature 36.2 C L 01/11/24 02:15 Pulse Rate 85 01/11/24 17:24 Respiratory Rate 16 01/11/24 17:24 Blood Pressure 107/63 01/11/24 17:24 Pulse Oximetry 96 01/11/24 17:24 Oxygen Delivery Room Air 01/11/24 02:06 <Toby Dowell MD - Last Filed: 01/11/24 07:06> Vital Signs Temperature 36.2 C L 01/11/24 02:06 Pulse Rate 103 H 01/11/24 02:06 Respiratory Rate 15 01/11/24 02:06 Blood Pressure 126/78 01/11/24 02:06 Pulse Oximetry 98 01/11/24 02:06 Oxygen Delivery Room Air 01/11/24 02:06 Temperature 36.2 C L 01/11/24 02:15 Pulse Rate 85 01/11/24 17:24 Respiratory Rate 16 01/11/24 17:24 Blood Pressure 107/63 01/11/24 17:24 Pulse Oximetry 96 01/11/24 17:24 Oxygen Delivery Room Air 01/11/24 02:06 <Jarad Yip MD - Last Filed: 01/11/24 19:08> Medical Decision Making MDM Narrative Medical decision making narrative: The patient was evaluated by myself in the emergency department. History is obtained from patient who is an independent historian and physical exam was performed. External medical records were reviewed at this time. IV was established and pertinent tests were ordered. Patient was administered 1 L IV fluid bolus with normal saline, 4 mg of IV Zofran for nausea. Laboratory results obtained revealing no acute process. Alcohol level did return back at 1:34 a.m. Patient was informed that he needs to have an alcohol level less than 80 to be evaluated by a crisis team. CT abdomen and pelvis without obtained at this time and independently interpreted by me revealing diffuse hepatic steatosis otherwise no acute process. Patient was informed of these findings at bedside. Patient will be signed out to incoming AM ED physician pending repeat alcohol level and crisis evaluation. <Toby Dowell MD - Last Filed: 01/11/24 07:06> Vital Signs Vital Signs: Vital Signs Temperature 36.2 C L 01/11/24 02:06 Pulse Rate 103 H 01/11/24 02:06 Respiratory Rate 15 01/11/24 02:06 Blood Pressure 126/78 01/11/24 02:06 Pulse Oximetry 98 01/11/24 02:06 Oxygen Delivery Room Air 01/11/24 02:06 Temperature 36.2 C L 01/11/24 02:15 Pulse Rate 85 01/11/24 17:24 Respiratory Rate 16 01/11/24 17:24 Blood Pressure 107/63 01/11/24 17:24 Pulse Oximetry 96 01/11/24 17:24 Oxygen Delivery Room Air 01/11/24 02:06 <Toby Dowell MD - Last Filed: 01/11/24 07:06> Vital Signs Temperature 36.2 C L 01/11/24 02:06 Pulse Rate 103 H 01/11/24 02:06 Respiratory Rate 15 01/11/24 02:06 Blood Pressure 126/78 01/11/24 02:06 Pulse Oximetry 98 01/11/24 02:06 Oxygen Delivery Room Air 01/11/24 02:06 Temperature 36.2 C L 01/11/24 02:15 Pulse Rate 85 01/11/24 17:24 Respiratory Rate 16 01/11/24 17:24 Blood Pressure 107/63 01/11/24 17:24 Pulse Oximetry 96 01/11/24 17:24 Oxygen Delivery Room Air 01/11/24 02:06 <Jarad Yip MD - Last Filed: 01/11/24 19:08> Lab Data Result diagrams: 01/11/24 02:42 01/11/24 05:15 <Toby Dowell MD - Last Filed: 01/11/24 07:06> Labs: Lab Results 01/11/24 01/11/24 01/11/24 Range/Units 02:42 03:00 05:15 WBC 4.9 (4.5-10.0) K/mm3 RBC 4.94 (4.6-6.20) M/mm3 Hgb 15.4 (14.0-18.0) g/dL Hct 43.9 (42.0-52.0) % MCV 88.9 (80-100) fl MCH 31.2 (26-34) pg MCHC 35.1 (32-36) g/dl RDW 13.9 (11.5-14.5) % Plt Count 236 (150-375) k/mm3 MPV 10.5 H (7.4-10.4) fl Immature Gran % (Auto) 0.4 (0-0.5) % Neut % (Auto) 61.7 (45.5-73.1) % Lymph % (Auto) 28.7 (18.3-44.2) % [place] % (Auto) 8.6 H (2.6-8.5) % Eos % (Auto) 0.2 (0-4.4) % Baso % (Auto) 0.4 (0.2-1.2) % Lymph # (Auto) 1.41 (0.9-3.2) K/mm3 [place] # (Auto) 0.4 (0.1-0.6) K/mm3 Eos # (Auto) 0.0 (0-0.3) K/mm3 Baso # (Auto) 0.0 (0.0-0.1) K/mm3 Abs Immat Gran (auto) 0.02 (0.00-0.031) K/mm3 Absolute Neuts (auto) 3.0 (1.3-6.7) K/mm3 Absolute Nucleated RBC 0.000 (0.0-0.012) K/mm3 Nucleated RBC % 0.0 (0.0-0.2) % Sodium 138 (137-145) mmol/L Potassium 4.0 (3.4-5.0) mmol/L Chloride 106 (98-107) mmol/L Carbon Dioxide 19 L (22-30) mmol/L Anion Gap 13 H (4-12) mmol/L BUN 7 L (9-20) mg/dL Creatinine 0.70 (0.7-1.3) mg/dL Estim Creat Clear Calc Not Reportable Estimated GFR > 60 (59 - ) Glucose 91 (65-110) mg/dL Calcium 7.4 L (8.4-10.2) mg/dL Total Bilirubin 1.0 (0.2-1.3) mg/dL AST 60 H (17-59) U/L ALT 59 H (6-50) U/L Alkaline Phosphatase 185 H (38-126) U/L Total Protein 7.0 (6.3-8.2) g/dL Albumin 3.6 (3.5-5.1) g/dL Lipase 148 (23-300) U/L TSH (Reflex) 0.914 (0.465-4.68) uIU/mL Urine Color Dark yellow (Yellow) Urine Appearance Clear (Clear) Urine pH 5.5 (5.0-9.0) Ur Specific Bath 1.028 (1.001-1.035) Urine Protein 1+ H (Negative) mg/dL Urine Glucose (UA) Negative (Negative) mg/dL Urine Ketones 2+ H (Negative) mg/dL Ur Blood (Man) Negative (Negative) Urine Nitrate Negative (Negative) Urine Bilirubin 1+ H (Negative) Urine Urobilinogen 1.0 (<2.0) mg/dL Leukocyte Esterase Rfl Negative (Negative) SUE/UL Urine RBC 0-2 (0-2) /hpf Urine WBC 0-5 (0-3) /hpf Ur Squamous Epith Cells Occasional (Few) /hpf Urine Bacteria None seen /hpf Urine Casts 3-5 Urine Opiates Screen Negative (Negative) Urine Methadone Screen Negative (Negative) Ur Barbiturates Screen Negative (Negative) Ur Phencyclidine Scrn Negative (Negative) Ur Amphetamine Screen Negative (Negative) U Benzodiazepines Scrn Negative (Negative) Urine Cocaine Screen Negative (Negative) U Cannabinoids Screen Negative (Negative) Ethyl Alcohol 134 (<10) mg/dL Influenza A (RT-PCR) Negative (Negative) Influenza B (RT-PCR) Negative (Negative) RSV (RT-PCR) Negative (Negative) SARS-CoV-2 RNA (RT-PCR) Negative (Negative) 01/11/24 Range/Units 09:11 WBC (4.5-10.0) K/mm3 RBC (4.6-6.20) M/mm3 Hgb (14.0-18.0) g/dL Hct (42.0-52.0) % MCV (80-100) fl MCH (26-34) pg MCHC (32-36) g/dl RDW (11.5-14.5) % Plt Count (150-375) k/mm3 MPV (7.4-10.4) fl Immature Gran % (Auto) (0-0.5) % Neut % (Auto) (45.5-73.1) % Lymph % (Auto) (18.3-44.2) % [place] % (Auto) (2.6-8.5) % Eos % (Auto) (0-4.4) % Baso % (Auto) (0.2-1.2) % Lymph # (Auto) (0.9-3.2) K/mm3 [place] # (Auto) (0.1-0.6) K/mm3 Eos # (Auto) (0-0.3) K/mm3 Baso # (Auto) (0.0-0.1) K/mm3 Abs Immat Gran (auto) (0.00-0.031) K/mm3 Absolute Neuts (auto) (1.3-6.7) K/mm3 Absolute Nucleated RBC (0.0-0.012) K/mm3 Nucleated RBC % (0.0-0.2) % Sodium (137-145) mmol/L Potassium (3.4-5.0) mmol/L Chloride (98-107) mmol/L Carbon Dioxide (22-30) mmol/L Anion Gap (4-12) mmol/L BUN (9-20) mg/dL Creatinine (0.7-1.3) mg/dL Estim Creat Clear Calc Estimated GFR (59 - ) Glucose (65-110) mg/dL Calcium (8.4-10.2) mg/dL Total Bilirubin (0.2-1.3) mg/dL AST (17-59) U/L ALT (6-50) U/L Alkaline Phosphatase (38-126) U/L Total Protein (6.3-8.2) g/dL Albumin (3.5-5.1) g/dL Lipase (23-300) U/L TSH (Reflex) (0.465-4.68) uIU/mL Urine Color (Yellow) Urine Appearance (Clear) Urine pH (5.0-9.0) Ur Specific [place] (1.001-1.035) Urine Protein (Negative) mg/dL Urine Glucose (UA) (Negative) mg/dL Urine Ketones (Negative) mg/dL Ur Blood (Man) (Negative) Urine Nitrate (Negative) Urine Bilirubin (Negative) Urine Urobilinogen (<2.0) mg/dL Leukocyte Esterase Rfl (Negative) SUE/UL Urine RBC (0-2) /hpf Urine WBC (0-3) /hpf Ur Squamous Epith Cells (Few) /hpf Urine Bacteria /hpf Urine Casts Urine Opiates Screen (Negative) Urine Methadone Screen (Negative) Ur Barbiturates Screen (Negative) Ur Phencyclidine Scrn (Negative) Ur Amphetamine Screen (Negative) U Benzodiazepines Scrn (Negative) Urine Cocaine Screen (Negative) U Cannabinoids Screen (Negative) Ethyl Alcohol 46 (<10) mg/dL Influenza A (RT-PCR) (Negative) Influenza B (RT-PCR) (Negative) RSV (RT-PCR) (Negative) SARS-CoV-2 RNA (RT-PCR) (Negative) <Toby Dowell MD - Last Filed: 01/11/24 07:06> Lab Results 01/11/24 01/11/24 01/11/24 Range/Units 02:42 03:00 05:15 WBC 4.9 (4.5-10.0) K/mm3 RBC 4.94 (4.6-6.20) M/mm3 Hgb 15.4 (14.0-18.0) g/dL Hct 43.9 (42.0-52.0) % MCV 88.9 (80-100) fl MCH 31.2 (26-34) pg MCHC 35.1 (32-36) g/dl RDW 13.9 (11.5-14.5) % Plt Count 236 (150-375) k/mm3 MPV 10.5 H (7.4-10.4) fl Immature Gran % (Auto) 0.4 (0-0.5) % Neut % (Auto) 61.7 (45.5-73.1) % Lymph % (Auto) 28.7 (18.3-44.2) % [place] % (Auto) 8.6 H (2.6-8.5) % Eos % (Auto) 0.2 (0-4.4) % Baso % (Auto) 0.4 (0.2-1.2) % Lymph # (Auto) 1.41 (0.9-3.2) K/mm3 [place] # (Auto) 0.4 (0.1-0.6) K/mm3 Eos # (Auto) 0.0 (0-0.3) K/mm3 Baso # (Auto) 0.0 (0.0-0.1) K/mm3 Abs Immat Gran (auto) 0.02 (0.00-0.031) K/mm3 Absolute Neuts (auto) 3.0 (1.3-6.7) K/mm3 Absolute Nucleated RBC 0.000 (0.0-0.012) K/mm3 Nucleated RBC % 0.0 (0.0-0.2) % Sodium 138 (137-145) mmol/L Potassium 4.0 (3.4-5.0) mmol/L Chloride 106 (98-107) mmol/L Carbon Dioxide 19 L (22-30) mmol/L Anion Gap 13 H (4-12) mmol/L BUN 7 L (9-20) mg/dL Creatinine 0.70 (0.7-1.3) mg/dL Estim Creat Clear Calc Not Reportable Estimated GFR > 60 (59 - ) Glucose 91 (65-110) mg/dL Calcium 7.4 L (8.4-10.2) mg/dL Total Bilirubin 1.0 (0.2-1.3) mg/dL AST 60 H (17-59) U/L ALT 59 H (6-50) U/L Alkaline Phosphatase 185 H (38-126) U/L Total Protein 7.0 (6.3-8.2) g/dL Albumin 3.6 (3.5-5.1) g/dL Lipase 148 (23-300) U/L TSH (Reflex) 0.914 (0.465-4.68) uIU/mL Urine Color Dark yellow (Yellow) Urine Appearance Clear (Clear) Urine pH 5.5 (5.0-9.0) Ur Specific [place] 1.028 (1.001-1.035) Urine Protein 1+ H (Negative) mg/dL Urine Glucose (UA) Negative (Negative) mg/dL Urine Ketones 2+ H (Negative) mg/dL Ur Blood (Man) Negative (Negative) Urine Nitrate Negative (Negative) Urine Bilirubin 1+ H (Negative) Urine Urobilinogen 1.0 (<2.0) mg/dL Leukocyte Esterase Rfl Negative (Negative) SUE/UL Urine RBC 0-2 (0-2) /hpf Urine WBC 0-5 (0-3) /hpf Ur Squamous Epith Cells Occasional (Few) /hpf Urine Bacteria None seen /hpf Urine Casts 3-5 Urine Opiates Screen Negative (Negative) Urine Methadone Screen Negative (Negative) Ur Barbiturates Screen Negative (Negative) Ur Phencyclidine Scrn Negative (Negative) Ur Amphetamine Screen Negative (Negative) U Benzodiazepines Scrn Negative (Negative) Urine Cocaine Screen Negative (Negative) U Cannabinoids Screen Negative (Negative) Ethyl Alcohol 134 (<10) mg/dL Influenza A (RT-PCR) Negative (Negative) Influenza B (RT-PCR) Negative (Negative) RSV (RT-PCR) Negative (Negative) SARS-CoV-2 RNA (RT-PCR) Negative (Negative) 01/11/24 Range/Units 09:11 WBC (4.5-10.0) K/mm3 RBC (4.6-6.20) M/mm3 Hgb (14.0-18.0) g/dL Hct (42.0-52.0) % MCV (80-100) fl MCH (26-34) pg MCHC (32-36) g/dl RDW (11.5-14.5) % Plt Count (150-375) k/mm3 MPV (7.4-10.4) fl Immature Gran % (Auto) (0-0.5) % Neut % (Auto) (45.5-73.1) % Lymph % (Auto) (18.3-44.2) % [place] % (Auto) (2.6-8.5) % Eos % (Auto) (0-4.4) % Baso % (Auto) (0.2-1.2) % Lymph # (Auto) (0.9-3.2) K/mm3 [place] # (Auto) (0.1-0.6) K/mm3 Eos # (Auto) (0-0.3) K/mm3 Baso # (Auto) (0.0-0.1) K/mm3 Abs Immat Gran (auto) (0.00-0.031) K/mm3 Absolute Neuts (auto) (1.3-6.7) K/mm3 Absolute Nucleated RBC (0.0-0.012) K/mm3 Nucleated RBC % (0.0-0.2) % Sodium (137-145) mmol/L Potassium (3.4-5.0) mmol/L Chloride (98-107) mmol/L Carbon Dioxide (22-30) mmol/L Anion Gap (4-12) mmol/L BUN (9-20) mg/dL Creatinine (0.7-1.3) mg/dL Estim Creat Clear Calc Estimated GFR (59 - ) Glucose (65-110) mg/dL Calcium (8.4-10.2) mg/dL Total Bilirubin (0.2-1.3) mg/dL AST (17-59) U/L ALT (6-50) U/L Alkaline Phosphatase (38-126) U/L Total Protein (6.3-8.2) g/dL Albumin (3.5-5.1) g/dL Lipase (23-300) U/L TSH (Reflex) (0.465-4.68) uIU/mL Urine Color (Yellow) Urine Appearance (Clear) Urine pH (5.0-9.0) Ur Specific [place] (1.001-1.035) Urine Protein (Negative) mg/dL Urine Glucose (UA) (Negative) mg/dL Urine Ketones (Negative) mg/dL Ur Blood (Man) (Negative) Urine Nitrate (Negative) Urine Bilirubin (Negative) Urine Urobilinogen (<2.0) mg/dL Leukocyte Esterase Rfl (Negative) SUE/UL Urine RBC (0-2) /hpf Urine WBC (0-3) /hpf Ur Squamous Epith Cells (Few) /hpf Urine Bacteria /hpf Urine Casts Urine Opiates Screen (Negative) Urine Methadone Screen (Negative) Ur Barbiturates Screen (Negative) Ur Phencyclidine Scrn (Negative) Ur Amphetamine Screen (Negative) U Benzodiazepines Scrn (Negative) Urine Cocaine Screen (Negative) U Cannabinoids Screen (Negative) Ethyl Alcohol 46 (<10) mg/dL Influenza A (RT-PCR) (Negative) Influenza B (RT-PCR) (Negative) RSV (RT-PCR) (Negative) SARS-CoV-2 RNA (RT-PCR) (Negative) <Jarad Yip MD - Last Filed: 01/11/24 19:08> Discharge Plan Discharge Clinical Impression: Chronic abdominal pain, Nausea & vomiting, Dehydration, Suicidal ideation <Toby Dowell MD - Last Filed: 01/11/24 07:06> Patient Disposition: Still a Patient <Toby oDwell MD - Last Filed: 01/11/24 07:06> Condition: Stable <Toby Dowell MD - Last Filed: 01/11/24 07:06> Prescriptions: No Action ondansetron 4 mg tablet,disintegrating 4 mg PO Q8H PRN (Reason: nausea and vomiting) Qty: 10 0RF multivitamin Tablet 1 tablet PO DAILY ondansetron 4 mg tablet,disintegrating 4 mg PO Q6H Qty: 30 0RF hydrocodone-acetaminophen 5-325 mg tablet 1 tablet PO Q6H PRN (Reason: pain) Qty: 20 0RF ibuprofen 600 mg tablet 600 mg PO Q6H PRN (Reason: pain) Qty: 20 0RF Rx Instructions: Take with caution as this combined with your Xarelto can increase bleeding risk. pantoprazole [Protonix] 40 mg tablet,delayed release (DR/EC) 40 mg PO QAM 28 Days Qty: 28 0RF metoclopramide HCl [Reglan] 10 mg tablet 10 mg PO Q6H PRN (Reason: nausea and vomiting) Qty: 14 0RF pantoprazole 40 mg tablet,delayed release (DR/EC) 40 mg PO BID Qty: 30 0RF famotidine 40 mg tablet 40 mg PO QHS Patient Comments: TAKES AT HS thiamine HCl (vitamin B1) 100 mg tablet 100 mg PO DAILY Qty: 30 0RF folic acid 1 mg tablet 1 mg PO DAILY Qty: 30 0RF pregabalin 75 mg capsule 75 mg PO HS Xarelto 20 mg tablet 20 mg PO BID Hold Instructions: Resume on 11/16/23. Check your prescription bottle at home. 20mg twice a day is excessive for treatment of pulmonary embolism. You should be maintained on 5mg twice a day dicyclomine 20 mg tablet 20 mg PO QID Qty: 20 0RF ondansetron 4 mg tablet,disintegrating 4 mg PO Q8H PRN (Reason: nausea and vomiting) Qty: 14 0RF omeprazole 20 mg capsule,delayed release(DR/EC) 20 mg PO DAILY Qty: 14 0RF ondansetron 4 mg tablet,disintegrating 4 mg PO Q8H PRN (Reason: nausea and vomiting) Qty: 10 0RF <Toby Dowell MD - Last Filed: 01/11/24 07:06> Follow-up/Referrals: UNKNOWN,DOCTOR [Primary Care Provider] - <Toby Dowell MD - Last Filed: 01/11/24 07:06>
[2024-01-11] MEDS: ONDANSETRON INJ 4 MG/2 ML VIAL IV PUSH (06:21)
[2024-01-11] MEDS: KETOROLAC 15 MG/ML VIAL (*BKC) IV PUSH (06:22)
[2024-01-11 07:33] VITALS: BP 116/78; PULSE 103; RESP 20; O2SAT 97
--- NOTE | 2024-01-11 07:34 | PC.NURSE ---
Assumed care of pt, pt is calm and cooperative in room. Due to [place] reassess pt belongings removed and pt is to change into green scrubs. Sitter at bedside. Pt declined breakfast tray. VSS.
[2024-01-11] MEDS: ACETAMINOPHEN 500 MG TABLET 1000 MG PO (08:58)
[2024-01-11 09:40] LABS: Ethanol 46 mg/dL (<10)
[2024-01-11 10:00] VITALS: BP 120/80; PULSE 87; RESP 20; O2SAT 96
--- NOTE | 2024-01-11 12:56 | PC.NURSE ---
[facility] on phone for pt, requesting to talk w/ pt in regards to possible tx.
[2024-01-11 13:20] VITALS: BP 135/78; PULSE 94; RESP 15; O2SAT 95
--- NOTE | 2024-01-11 13:54 | PC.NURSE ---
Pt accepted to [facility] under Dr Oswaldo Alexander, EDP made aware and pt is to be transferred via EMS. Pt also made aware and signed consent for transfer. Awaiting EMS transport.
[2024-01-11 17:24] VITALS: BP 107/63; PULSE 85; RESP 16; O2SAT 96
--- NOTE | 2024-01-11 18:47 | PC.NURSE ---
This RN called [facility] intake at [phone] to notify pt is leaving ED and on the way to the facility per EMS. Pt has belongings.
--- NOTE | 2024-01-11 18:48 | PC.NURSE ---
This RN attempted to call [facility] (pts contact) to notify of pt transfer and POC (Pt did not want details given, just location of transfer), per pts request, No answer at time of pt departure from ED.
== END 2024-01-11 18:49 ==
PROVIDERS: Physician Assistant; Student in an Organized Health Care Education/Training Program; Emergency Provider Emergency Medicine
DX: R11.2 Nausea with vomiting, unspecified (principal); E86.0 Dehydration; R10.9 Unspecified abdominal pain; G89.29 Other chronic pain; R45.851 Suicidal ideations; Z20.822 Contact with and (suspected) exposure to COVID-19; F64.0 Transsexualism; Z90.49 Acquired absence of other specified parts of digestive tract; Z79.01 Long term (current) use of anticoagulants; Z79.899 Other long term (current) drug therapy; K76.0 Fatty (change of) liver, not elsewhere classified
CPT/HCPCS: 36415; 74177; 80053; 80307; 81001; 82077; 83690; 84443; 85025; 87637; 96361; 96374; 96375; 99285; A9270; J1885; J2405; J7030; Q9967

== ENCOUNTER 2024-01-22 18:53 | Emergency (ER) | payer BC, SELFPAY ==
--- NOTE | ~2024-01-22 | XR_ITS ---
EXAMINATION: XR chest 2V DATE: 01/22/2024 19:36 INDICATION: Chest pain. TECHNIQUE: Frontal and lateral views of the chest were obtained. COMPARISON: Chest single view 11/08/2023 FINDINGS: There is no pneumonia, pleural effusion, or pneumothorax. The heart size is normal. There a re surgical clips in the abdomen. IMPRESSION: 1. No acute cardiopulmonary disease. Reviewed, dictated and finalized at location A. ONNEL ANALYST
[2024-01-22 18:59] VITALS: BP 129/73; PULSE 97; RESP 16; TEMP 36.5; O2SAT 97
--- NOTE | 2024-01-22 21:47 | PC.NURSE ---
Pt called twice to go back to a room and did not show up.
== END 2024-01-22 21:47 | disposition left against medical advice (07) ==
PROVIDERS: Emergency Provider Emergency Medicine
DX: R07.9 Chest pain, unspecified (principal)
CPT/HCPCS: 71046; 99199

== ENCOUNTER 2024-01-23 15:57 | Emergency (ER) | payer BC, SELFPAY ==
[2024-01-23] VITALS (17 sets, daily range): BP systolic 101–108; BP diastolic 73–76; PULSE 68–83; RESP 16–17; TEMP 36.4; O2SAT 97–99
[2024-01-23 16:21] LABS: Glucose Point of Care 140 mg/dl (65-105)
[2024-01-23 16:23] LABS: Basophils Percent Auto 0.5 % (0.2-1.2); Eosinophils Percent Auto 0.7 % (0-4.4); Hemoglobin 14.4 g/dL (14.0-18.0); Immature Granulocyte Absolute 0.05 K/mm3 (0.00-0.031); Immature Granulocyte Percent A 0.8 % (0-0.5); Lymphocytes Absolute Auto 2.12 K/mm3 (0.9-3.2); Lymphocytes Percent Auto 35.5 % (18.3-44.2); Mean Corpuscular HGB Conc 34.3 g/dl (32-36); Mean Corpuscular Hemoglobin 30.8 pg (26-34); Mean Corpuscular Volume 89.7 fl (80-100); Mean Platelet Volume 9.9 fl (7.4-10.4); Monocytes Absolute Auto 0.4 K/mm3 (0.1-0.6); Monocytes Percent Auto 7.4 % (2.6-8.5); Neutrophils Absolute Auto 3.3 K/mm3 (1.3-6.7); Neutrophils Percent Auto 55.1 % (45.5-73.1); Platelet Count Result 277 k/mm3 (150-375); Red Blood Count 4.68 M/mm3 (4.6-6.20); Red Cell Distribution Width 14.7 % (11.5-14.5)
[2024-01-23] MEDS: DEXTROSE 5%/LACTATED RINGERS 1,000 ML 500 ML IV CONT (16:27)
[2024-01-23 16:33] LABS: Ethanol 196 mg/dL (<10)
[2024-01-23 16:39] LABS: Alanine Aminotransferase 148 U/L (6-50); Albumin Level 4.3 g/dL (3.5-5.1); Alkaline Phosphatase 259 U/L (38-126); Anion Gap 11 mmol/L (4-12); Aspartate Amino Transferase 145 U/L (17-59); Bilirubin,Total 0.8 mg/dL (0.2-1.3); Blood Urea Nitrogen 2 mg/dL (9-20); Calcium 8.1 mg/dL (8.4-10.2); Carbon Dioxide 23 mmol/L (22-30); Chloride 105 mmol/L (98-107); Estimated Glomerular Filt Rate > 60; Glucose 132 mg/dL (65-110); Lipase 360 U/L (23-300); Potassium 3.7 mmol/L (3.4-5.0); Sodium 139 mmol/L (137-145)
[2024-01-23 19:10] LABS: Glucose Point of Care 194 mg/dl (65-105)
--- NOTE | 2024-01-23 19:48 | PC.NURSE ---
Report received from LELO Rhoades. Assumed care of patient at this time.
[2024-01-23] MEDS: ONDANSETRON INJ 4 MG/2 ML VIAL IV PUSH (20:08)
[2024-01-23] MEDS: KETOROLAC 15 MG/ML VIAL (*BKC) IV PUSH (20:32)
--- NOTE | 2024-01-23 20:46 | ED.NAVMDI ---
HPI - Nausea/Vomiting/Diarrhea General Chief complaint: Nausea/Vomiting/Diarrhea Stated complaint: ETOH/vomitting Time Seen by Provider: 01/23/24 16:03 History of Present Illness HPI Narrative: 38-year-old male with a history of recurrent abdominal pain, chronic alcohol abuse, history of pancreatitis. Presents to the emergency department for repeat evaluation. Patient states that he has been drinking heavily throughout the last day or 2 and then having nauseousness with vomiting and some epigastric discomfort. He states he wanted to get seen yesterday and when came to the ER the wait was too long so went home. Has been drinking at home still. Endorses vomiting several times without any bloody emesis. No fever, chills, back pain. He states that his abdominal pain feels similar to his normal abdominal pain from pancreatitis. He does appear obviously intoxicated although is able to answer questions and hold a conversation. No signs of injury or trauma. EMS report notes that patient was vomiting in the rig did smell of alcohol And they did provide Zofran with some improvement. Related Data Home Medications Medication Instructions Recorded Confirmed multivitamin 1 tablet PO DAILY 01/05/23 11/08/23 famotidine 40 mg tablet 40 mg PO QHS 08/31/23 11/08/23 pregabalin 75 mg capsule 75 mg PO HS 10/14/23 11/08/23 rivaroxaban 20 mg tablet (Xarelto) 20 mg PO BID 10/14/23 11/08/23 Allergies Allergy/AdvReac Type Severity Reaction Status Date / Time Penicillins Allergy Severe Anaphylaxis Verified 12/06/23 09:04 Review of Systems Review of Systems: As reviewed above in HPI [facility] Past Medical History Medical History Alcohol use Anxiety Asthma Black stools Depression Elevated LFTs Eosinophilic esophagitis Fatty liver GERD (gastroesophageal reflux disease) Hx of blood clots Hypokalemia Kidney stones Peptic ulcer Surgical History Surgical History History of dental surgery History of esophagogastroduodenoscopy (EGD) History of laparoscopic cholecystectomy 01/15/23 W Family History Family History Father Hypertension Lymphoma Mother Heart disease Hypertension Grandparent Malignant neoplasm of prostate Lung cancer Grandparent Breast cancer Other Cerebrovascular accident Diabetes mellitus Social History Social History Smoking status: Never smoker Drinks per week: 3 Alcohol use details: QUIT DRINKING ~2221-2131 Substance use: former Substance use type: does not use Do You Feel Safe in your Home?: Yes Lack of Transportation: No Lack of Food: Never True Current Housing: I Have Housing Concerned About Future Housing: No Difficulty Paying Gas/Electric Bills: YES Difficulty Paying for Meds: YES Currently Unemployed: No Education: Associate Degree Difficulty w/ Childcare or Family Care: No Living arrangements: with family Occupation/Education: occupation 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 Able to answer questions appropriately HEAD: [Normocephalic, atraumatic.] EYES: [PERRLA and EOMI.] ENT: Nares clear, no rhinorrhea or epistaxis. Mucous membranes moist. NECK: Supple. CHEST: [Clear to auscultation. No respiratory distress.] HEART: [Regular rate and rhythm]. No murmur heard. [Normal peripheral pulses.] ABDOMEN: soft nontender nondistended abdomen, no signs of peritonitis, rigidity or guarding. EXTREMITIES: Normal range of motion. [No edema.] SKIN: Warm, dry, no rash. NEURO: [No focal deficits]. Alert and oriented [x3.] PSYCH: [Normal mood and affect.] Course Vital Signs Vital signs: Vital Signs Temperature 36.4 C 01/23/24 16:00 Pulse Rate 79 01/23/24 16:00 Respiratory Rate 16 01/23/24 16:00 Pulse Oximetry 98 01/23/24 16:00 Oxygen Delivery Room Air 01/23/24 16:00 Temperature 36.4 C 01/23/24 16:00 Pulse Rate 83 01/23/24 18:18 Respiratory Rate 16 01/23/24 18:18 Blood Pressure 101/76 01/23/24 18:18 Pulse Oximetry 99 01/23/24 18:18 Oxygen Delivery Room Air 01/23/24 16:00 MDM - Nausea/Vomiting/Diarrhea MDM Narrative Medical decision making narrative: 38-year-old male to female transgender patient with a history of recurrent cyclic vomiting, alcoholic use disorder, history of pancreatitis. Presents to the emergency department for acute alcohol intoxication and vomiting. Patient states he has been drinking for last 2 days. Endorses vomiting it was given Zofran and fluids by EMS. Is awake and answering questions coherently, has a soft nontender nondistended abdomen. Is slightly intoxicated does smell of alcohol. Vital signs reassuring without any significant blood pressure concerns, tachycardia, hypoxia, fever or tachypnea. Patient has been seen several times this emergency department and is well known to staff. given his history of alcohol abuse and history of pancreatitis as well as current intoxication we did order workup including a alcohol level, CBC, CMP, point of care glucose. He was given a dose of D5 LR for fluid hydration and substrate given his potential for alcoholic ketosis and malnutrition. no indications presently for a scan of his abdomen as he has had no concerning vitals, abdominal exam is reassuring and his symptoms are controlled with Zofran and fluids. Workup revealed no leukocytosis, anemia. normal electrolytes, normal renal function panel. ALT AST and alk-phos mildly elevated but in line with his chronic elevations from alcoholic liver dysfunction And abuse. total bilirubin level within normal limits. Lipase mildly elevated 360 but not significant consistent for pancreatitis especially given the reassuring exam and vitals. alcohol level did come back at 196 at 4:00 p.m.. He will be metabolically sober at around 9:00 p.m. based on normal kinetics. patient was re-evaluated had improvement his nausea and vomiting. He was given a small dose of Toradol for his pain with resolution. I informed the patient of his reassuring workup and the plan for discharge home at this time with outpatient GI follow-up. patient is metabolically in clinically sober at this time. No indications for admission and we will send him home with Zofran for continued nausea vomiting and encouraged to cut back on his alcohol intake or if he has any persistent or worsening symptoms to return for repeat evaluation. Medical Records Attestation: I reviewed the patient's medical records. Lab Data Attestation: I reviewed the patient's lab results. 01/23/24 16:13 01/23/24 16:13 Labs: Lab Results 01/23/24 01/23/24 01/23/24 Range/Units 16:13 16:19 19:07 WBC 6.0 (4.5-10.0) K/mm3 RBC 4.68 (4.6-6.20) M/mm3 Hgb 14.4 (14.0-18.0) g/dL Hct 42.0 (42.0-52.0) % MCV 89.7 (80-100) fl MCH 30.8 (26-34) pg MCHC 34.3 (32-36) g/dl RDW 14.7 H (11.5-14.5) % Plt Count 277 (150-375) k/mm3 MPV 9.9 (7.4-10.4) fl Immature Gran % (Auto) 0.8 H (0-0.5) % Neut % (Auto) 55.1 (45.5-73.1) % Lymph % (Auto) 35.5 (18.3-44.2) % [place] % (Auto) 7.4 (2.6-8.5) % Eos % (Auto) 0.7 (0-4.4) % Baso % (Auto) 0.5 (0.2-1.2) % Lymph # (Auto) 2.12 (0.9-3.2) K/mm3 [place] # (Auto) 0.4 (0.1-0.6) K/mm3 Eos # (Auto) 0.0 (0-0.3) K/mm3 Baso # (Auto) 0.0 (0.0-0.1) K/mm3 Abs Immat Gran (auto) 0.05 H (0.00-0.031) K/mm3 Absolute Neuts (auto) 3.3 (1.3-6.7) K/mm3 Absolute Nucleated RBC 0.000 (0.0-0.012) K/mm3 Nucleated RBC % 0.0 (0.0-0.2) % Sodium 139 (137-145) mmol/L Potassium 3.7 (3.4-5.0) mmol/L Chloride 105 (98-107) mmol/L Carbon Dioxide 23 (22-30) mmol/L Anion Gap 11 (4-12) mmol/L BUN 2 L D (9-20) mg/dL Creatinine 0.60 L (0.7-1.3) mg/dL Estim Creat Clear Calc Not Reportable Estimated GFR > 60 (59 - ) Glucose 132 H (65-110) mg/dL POC Capillary Glucose 140 H 194 H (65-105) mg/dl Calcium 8.1 L (8.4-10.2) mg/dL Total Bilirubin 0.8 (0.2-1.3) mg/dL AST 145 H (17-59) U/L ALT 148 H (6-50) U/L Alkaline Phosphatase 259 H (38-126) U/L Total Protein 7.0 (6.3-8.2) g/dL Albumin 4.3 (3.5-5.1) g/dL Lipase 360 H (23-300) U/L Ethyl Alcohol 196 (<10) mg/dL Discharge Plan Discharge Clinical Impression: Alcohol abuse, Alcoholic liver damage, Nausea & vomiting Patient Disposition: Home, Self-Care Condition: Stable Instructions: Antibiotic Form, Abuse of Alcohol (DC), Acute Nausea and Vomiting (ED), Alcohol Use Disorder (ED) Additional Instructions: we will send you home with some Zofran for as needed symptom control. Follow-up with your primary doctor and Gastroenterology on outpatient basis. Return at any point with any new or worsening concerns. Prescriptions: New ondansetron 4 mg tablet,disintegrating 4 mg PO Q8H PRN (Reason: nausea and vomiting) Qty: 10 0RF No Action ondansetron 4 mg tablet,disintegrating 4 mg PO Q8H PRN (Reason: nausea and vomiting) Qty: 10 0RF multivitamin Tablet 1 tablet PO DAILY ondansetron 4 mg tablet,disintegrating 4 mg PO Q6H Qty: 30 0RF hydrocodone-acetaminophen 5-325 mg tablet 1 tablet PO Q6H PRN (Reason: pain) Qty: 20 0RF ibuprofen 600 mg tablet 600 mg PO Q6H PRN (Reason: pain) Qty: 20 0RF Rx Instructions: Take with caution as this combined with your Xarelto can increase bleeding risk. pantoprazole [Protonix] 40 mg tablet,delayed release (DR/EC) 40 mg PO QAM 28 Days Qty: 28 0RF metoclopramide HCl [Reglan] 10 mg tablet 10 mg PO Q6H PRN (Reason: nausea and vomiting) Qty: 14 0RF pantoprazole 40 mg tablet,delayed release (DR/EC) 40 mg PO BID Qty: 30 0RF famotidine 40 mg tablet 40 mg PO QHS Patient Comments: TAKES AT HS thiamine HCl (vitamin B1) 100 mg tablet 100 mg PO DAILY Qty: 30 0RF folic acid 1 mg tablet 1 mg PO DAILY Qty: 30 0RF pregabalin 75 mg capsule 75 mg PO HS Xarelto 20 mg tablet 20 mg PO BID Hold Instructions: Resume on 11/16/23. Check your prescription bottle at home. 20mg twice a day is excessive for treatment of pulmonary embolism. You should be maintained on 5mg twice a day dicyclomine 20 mg tablet 20 mg PO QID Qty: 20 0RF ondansetron 4 mg tablet,disintegrating 4 mg PO Q8H PRN (Reason: nausea and vomiting) Qty: 14 0RF omeprazole 20 mg capsule,delayed release(DR/EC) 20 mg PO DAILY Qty: 14 0RF ondansetron 4 mg tablet,disintegrating 4 mg PO Q8H PRN (Reason: nausea and vomiting) Qty: 10 0RF Follow-up/Referrals: UNKNOWN,DOCTOR [Primary Care Provider] - Time of Disposition: 20:59
== END 2024-01-23 21:26 | disposition home or self-care (01) ==
PROVIDERS: Emergency Provider Student in an Organized Health Care Education/Training Program
DX: R11.2 Nausea with vomiting, unspecified (principal); K70.9 Alcoholic liver disease, unspecified; F10.10 Alcohol abuse, uncomplicated; Y90.6 Blood alcohol level of 120-199 mg/100 ml; F41.9 Anxiety disorder, unspecified; J45.909 Unspecified asthma, uncomplicated; F32.A Depression, unspecified; K21.9 Gastro-esophageal reflux disease without esophagitis; Z87.442 Personal history of urinary calculi
CPT/HCPCS: 36415; 80053; 82077; 82948; 83690; 85025; 93005; 96361; 96374; 96375; 99284; J1885; J2405; J7121

== ENCOUNTER 2024-01-23 23:16 | Inpatient (IN) | payer BC, SELFPAY ==
--- NOTE | ~2024-01-23 | US_ITS ---
RIGHT UPPER QUADRANT ABDOMINAL ULTRASOUND (Doppler ultrasound interrogation techniques used as needed for this exam.) Ordering provider: Zay Rojas MD History: . pain . Comparison: None. FINDINGS: PANCREAS: Partially seen. Normal echotexture and size. PORTAL VEIN: Hepatopedal flow demonstrated. Phasic. LIVER: Normal size and increased echotexture. No focal hepatic lesions or perihepatic fluid collectio ns are identified. BILIARY DUCTS: No intra or extrahepatic biliary dilation. Common bile duct measures 4.1 mm in diamete r which is normal for patient's age. GALLBLADDER: Surgically removed. FREE FLUID: None visualized within the upper abdomen. IMPRESSION: Fat infiltration of the liver . Otherwise, normal right upper quadrant ultrasound. Reviewed, dictated and finalized at location A. CE MACHINES TEACHER IMPRESSION: Fat infiltration of the liver . Otherwise, normal right upper quadrant ultrasou nd.
--- NOTE | ~2024-01-23 | CT_ITS ---
Clinical Indication: Epigastric pain CT Scan of the Chest, Abdomen, and Pelvis with Contrast: Technique: Contiguous sections were acquired throughout the chest, abdomen, and pelvis after intraven ous administration of 100 cc of Omnipaque 350. Dose reduction technique was used on this scan by trevin guevara automated exposure control and iterative reconstruction technique. The dose-length product (DL P) was 472.58 mGy-cm. Comparison: 01/11/2024 Findings: There is no evidence of any significant mediastinal, hilar or axillary lymphadenopathy. The mediastin al soft tissues appear normal. No pulmonary embolus seen. No aortic aneurysm or dissection. There is no evidence of pleural or pericardial effusion. The lungs are clear. No pulmonary nodules or infiltrates are noted. There is marked diffuse hepatic steatosis. Cholecystectomy clips are present. Probable mild peripancr eatic edematous/inflammatory change. The spleen, adrenals and kidneys are within normal limits. No e vidence of aortic aneurysm. No lymphadenopathy. No bowel obstruction or bowel wall thickening. There is no evidence to suggest acute appendicitis. Urinary bladder is unremarkable. No pelvic mass seen. No ascites. Impression: Suspected mild acute pancreatitis. Correlate clinically. Marked diffuse hepatic stenosis. Reviewed, dictated and finalized at [facility]. LOCATOR Impression: Suspected mild acute pancreatitis. Correlate clinically. Marked diffuse hepatic stenosis.
--- NOTE | ~2024-01-23 | XR_ITS ---
EXAM: XR abdomen/kub 1V DATE: 01/29/2024 12:30 HISTORY: Constipation . COMPARISON: None available. FINDINGS: Bibasilar scar/atelectasis. Cholecystectomy clips. Normal bowel gas pattern. No organomega ly. No abnormal abdominal calcification. Regional bones and soft tissues normal for age. IMPRESSION: No radiographic evidence of obstruction or ileus. Reviewed, dictated and finalized at location K. TOLOGY SPECIALIST
[2024-01-23 23:22] VITALS: BP 120/84; PULSE 104; RESP 15; TEMP 36.2; O2SAT 97
--- NOTE | 2024-01-23 23:26 | ECG_ITS ---
Test Date: 2024-01-23 23:31:19 Measurements Intervals [place] Rate: 101 P: 53 SC: 118 QRS: -39 QRSD: 83 T: 46 QT: 341 QTc: 443 Interpretive Statements SINUS TACHYCARDIA WITH SHORT SC INTERVAL MARKED LEFT AXIS DEVIATION [QRS AXIS < -30] LOW QRS VOLTAGE IN PRECORDIAL LEADS [QRS DEFLECTION < 1.0 mV IN CHEST LEADS] INCOMPLETE RIGHT BUNDLE BRANCH BLOCK Electronically Signed On 01-24-2024 12:50:56 WELDER 2ND SHIFT by Ifeanyi Bishop M.D.
[2024-01-24] VITALS (9 sets, daily range): BP systolic 109–130; BP diastolic 66–90; PULSE 66–86; RESP 15–18; TEMP 36.4–36.6; O2SAT 95–98; BMI 20.5
[2024-01-24] MEDS: KETOROLAC 15 MG/ML VIAL (*BKC) IV PUSH (03:13)
[2024-01-24] MEDS: ONDANSETRON INJ 4 MG/2 ML VIAL IV PUSH ×3 (03:13→22:40)
[2024-01-24] MEDS: MAG HYDROX/AL HYDROX/SIMETH 30 ML UDC PO (03:13)
[2024-01-24] MEDS: FAMOTIDINE 20 MG/2 ML VIAL IV PUSH (03:14)
[2024-01-24] MEDS: DEXTROSE 5%/LACTATED RINGERS 2,000 ML 999 ML IV CONT ×2 (03:14→09:07)
[2024-01-24 03:28] LABS: Basophils Percent Auto 0.3 % (0.2-1.2); Eosinophils Percent Auto 0.1 % (0-4.4); Hematocrit 40.4 % (42.0-52.0); Hemoglobin 14.2 g/dL (14.0-18.0); Immature Granulocyte Absolute 0.03 K/mm3 (0.00-0.031); Immature Granulocyte Percent A 0.3 % (0-0.5); Lymphocytes Absolute Auto 1.46 K/mm3 (0.9-3.2); Lymphocytes Percent Auto 13.6 % (18.3-44.2); Mean Corpuscular HGB Conc 35.1 g/dl (32-36); Mean Corpuscular Volume 88.2 fl (80-100); Mean Platelet Volume 10.1 fl (7.4-10.4); Monocytes Absolute Auto 0.9 K/mm3 (0.1-0.6); Monocytes Percent Auto 8.5 % (2.6-8.5); Neutrophils Absolute Auto 8.3 K/mm3 (1.3-6.7); Neutrophils Percent Auto 77.2 % (45.5-73.1); Platelet Count Result 262 k/mm3 (150-375); Red Blood Count 4.58 M/mm3 (4.6-6.20); Red Cell Distribution Width 14.6 % (11.5-14.5); White Blood Count 10.7 K/mm3 (4.5-10.0)
[2024-01-24 03:39] LABS: Alanine Aminotransferase 165 U/L (6-50); Albumin Level 4.2 g/dL (3.5-5.1); Alkaline Phosphatase 261 U/L (38-126); Anion Gap 9 mmol/L (4-12); Aspartate Amino Transferase 132 U/L (17-59); Bilirubin,Total 0.9 mg/dL (0.2-1.3); Calcium 8.5 mg/dL (8.4-10.2); Carbon Dioxide 25 mmol/L (22-30); Chloride 101 mmol/L (98-107); Estimated CRCL calculation 148 ml/min; Estimated Glomerular Filt Rate > 60; Glucose 111 mg/dL (65-110); Lactic Acid Reflex 1.2 mmol/L (0.7-2.0); Lipase 926 U/L (23-300); Magnesium 1.7 mg/dL (1.6-2.3); Potassium 3.5 mmol/L (3.4-5.0); Sodium 135 mmol/L (137-145)
[2024-01-24 03:41] LABS: Add Urine Microscopic? YES; Appearance Urine Clear (Clear); Bacteria Urine None Seen /hpf; Bilirubin Urine Negative (Negative); Blood Urine Negative (Negative); Color Urine Yellow (Yellow); Glucose Urine UA Negative (Negative); Ketones Urine 4+ mg/dL (Negative); Leukocyte Esterase Ur Negative LEU/UL (Negative); Need Manual Microscopic Reviewed; Nitrate Urine Negative (Negative); Non Pathogenic Casts 0-2; Protein Urine 1+ mg/dL (Negative); RBC Urine 0-2 /hpf (0-2); Specific Grav Ur 1.029 (1.001-1.035); Squamous Epithelial Cell Urine None Seen /hpf (Few); WBC Urine 0-5 /hpf (0-3); pH Urine 6.5 (5.0-9.0)
[2024-01-24 03:51] LABS: Amphetamine Screen Urine Negative (Negative); Barbiturate Screen Urine Negative (Negative); Benzodiazepines Screen Urine Negative (Negative); Cannabinoid Screen Urine Negative (Negative); Cocaine Screen Urine Negative (Negative); Methadone Screen Urine Negative (Negative); Opiate Screen Urine Negative (Negative); Phencyclidine Screen Urine Negative (Negative)
[2024-01-24 03:55] LABS: Blood Urea Nitrogen < 2 mg/dL (9-20)
[2024-01-24 04:30] LABS: Ethanol < 10 mg/dL (<10)
[2024-01-24] MEDS: HYDROmorphone HCL INJ (*CRX) 1 MG/ML SYR IV PUSH (04:30)
--- NOTE | 2024-01-24 05:44 | ED.GENADULT ---
HPI - General Adult General Chief complaint: Chest Pain Stated complaint: epigastric gastric pain Time Seen by Provider: 01/24/24 01:47 History of Present Illness HPI narrative: this is a 38-year-old male who is transitioning to female presenting for abdominal pain. patient has a history of alcohol use disorder. She has been drinking heavily for the last several days. Starting earlier today she developed a sharp stabbing pain in the epigastric area radiating to her back. She relates this to previous episodes of pancreatitis. She was seen here earlier today with a normal workup and discharged but then came back to the emergency room for re-evaluation. Related Data Home Medications Medication Instructions Recorded Confirmed multivitamin 1 tablet PO DAILY 01/05/23 11/08/23 famotidine 40 mg tablet 40 mg PO QHS 08/31/23 11/08/23 pregabalin 75 mg capsule 75 mg PO HS 10/14/23 11/08/23 rivaroxaban 20 mg tablet (Xarelto) 20 mg PO BID 10/14/23 11/08/23 Allergies Allergy/AdvReac Type Severity Reaction Status Date / Time Penicillins Allergy Severe Anaphylaxis Verified 12/06/23 09:04 [facility] Past Medical History Medical History Alcohol use Anxiety Asthma Black stools Depression Elevated LFTs Eosinophilic esophagitis Fatty liver GERD (gastroesophageal reflux disease) Hx of blood clots Hypokalemia Kidney stones Peptic ulcer Surgical History Surgical History History of dental surgery History of esophagogastroduodenoscopy (EGD) History of laparoscopic cholecystectomy 01/15/23 [facility] Family History Family History Father Hypertension Lymphoma Mother Heart disease Hypertension Grandparent Malignant neoplasm of prostate Lung cancer Grandparent Breast cancer Other Cerebrovascular accident Diabetes mellitus Social History Social History Smoking status: Never smoker Drinks per week: 3 Alcohol use details: QUIT DRINKING ~8400-3696 Substance use: former Substance use type: does not use Do You Feel Safe in your Home?: Yes Lack of Transportation: No Lack of Food: Never True Current Housing: I Have Housing Concerned About Future Housing: No Difficulty Paying Gas/Electric Bills: YES Difficulty Paying for Meds: YES Currently Unemployed: No Education: Associate Degree Difficulty w/ Childcare or Family Care: No Living arrangements: with family Occupation/Education: occupation 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 EYES: EOMI, NOSE: Atraumatic NECK: Trachea midline RESPIRATORY: No increased rate of breathing clear to auscultation CARDIOVASCULAR: RRR, ABDOMINAL: Tenderness palpation in the epigastric area MUSCULOSKELETAl: No obvious deformities NEURO: Alert. Moving 4/4 extremities SKIN:: Warm, dry. Normal color PSYCHIATRIC: Normal affect Course Vital Signs Vital signs: Vital Signs Temperature 97.2 F L 01/23/24 23:22 Pulse Rate 104 H 01/23/24 23:22 Respiratory Rate 15 01/23/24 23:22 Blood Pressure 120/84 01/23/24 23:22 Pulse Oximetry 97 01/23/24 23:22 Oxygen Delivery Room Air 01/23/24 23:22 Temperature 97.2 F L 01/23/24 23:22 Pulse Rate 82 01/24/24 03:22 Respiratory Rate 16 01/24/24 03:22 Blood Pressure 130/88 01/24/24 03:22 Pulse Oximetry 98 01/24/24 03:23 Oxygen Delivery Room Air 01/24/24 03:23 Medical Decision Making MDM Narrative Medical decision making narrative: -Course: 38-year-old presenting with epigastric pain. Lipase this morning was 300 but up trended to [address] shows inflammation of the pancreas. Patient given fluid resuscitation and pain control. Patient will be admitted hospital for further management. -DDX includes but is not limited to: Pancreatitis, alcoholic gastritis, alcoholic hepatitis -Co-morbidities complicating care: alcohol use disorder -Independent interpretation of studies: white count 10.7, hemoglobin 14.2 elevations in liver enzymes lipase 926 urine with ketones UDS neg/ alcohol level undetectable CTA chest abdomen pelvis showed acute pancreatitis -Discussion of Management/Consultants:Vicente, -Interventions: D5 LR 2 L, Dilaudid, Zofran, Pepcid Toradol -Shared decision making / Disposition: admitted Vital Signs Vital Signs: Vital Signs Temperature 97.2 F L 01/23/24 23:22 Pulse Rate 104 H 01/23/24 23:22 Respiratory Rate 15 01/23/24 23:22 Blood Pressure 120/84 01/23/24 23:22 Pulse Oximetry 97 01/23/24 23:22 Oxygen Delivery Room Air 01/23/24 23:22 Temperature 97.2 F L 01/23/24 23:22 Pulse Rate 82 01/24/24 03:22 Respiratory Rate 16 01/24/24 03:22 Blood Pressure 130/88 01/24/24 03:22 Pulse Oximetry 98 01/24/24 03:23 Oxygen Delivery Room Air 01/24/24 03:23 Lab Data 01/24/24 03:11 01/24/24 03:11 Labs: Lab Results 01/24/24 Range/Units 03:11 WBC 10.7 H (4.5-10.0) K/mm3 RBC 4.58 L (4.6-6.20) M/mm3 Hgb 14.2 (14.0-18.0) g/dL Hct 40.4 L (42.0-52.0) % MCV 88.2 (80-100) fl MCH 31.0 (26-34) pg MCHC 35.1 (32-36) g/dl RDW 14.6 H (11.5-14.5) % Plt Count 262 (150-375) k/mm3 MPV 10.1 (7.4-10.4) fl Immature Gran % (Auto) 0.3 (0-0.5) % Neut % (Auto) 77.2 H (45.5-73.1) % Lymph % (Auto) 13.6 L (18.3-44.2) % [place] % (Auto) 8.5 (2.6-8.5) % Eos % (Auto) 0.1 (0-4.4) % Baso % (Auto) 0.3 (0.2-1.2) % Lymph # (Auto) 1.46 (0.9-3.2) K/mm3 [place] # (Auto) 0.9 H (0.1-0.6) K/mm3 Eos # (Auto) 0.0 (0-0.3) K/mm3 Baso # (Auto) 0.0 (0.0-0.1) K/mm3 Abs Immat Gran (auto) 0.03 (0.00-0.031) K/mm3 Absolute Neuts (auto) 8.3 H (1.3-6.7) K/mm3 Absolute Nucleated RBC 0.000 (0.0-0.012) K/mm3 Nucleated RBC % 0.0 (0.0-0.2) % Sodium 135 L (137-145) mmol/L Potassium 3.5 (3.4-5.0) mmol/L Chloride 101 (98-107) mmol/L Carbon Dioxide 25 (22-30) mmol/L Anion Gap 9 (4-12) mmol/L BUN < 2 L (9-20) mg/dL Creatinine 0.60 L (0.7-1.3) mg/dL Estim Creat Clear Calc 148 ml/min Estimated GFR > 60 (59 - ) Glucose 111 H (65-110) mg/dL Lactic Acid 1.2 (0.7-2.0) mmol/L Calcium 8.5 (8.4-10.2) mg/dL Magnesium 1.7 (1.6-2.3) mg/dL Total Bilirubin 0.9 (0.2-1.3) mg/dL AST 132 H (17-59) U/L ALT 165 H (6-50) U/L Alkaline Phosphatase 261 H (38-126) U/L Total Protein 7.0 (6.3-8.2) g/dL Albumin 4.2 (3.5-5.1) g/dL Lipase 926 H (23-300) U/L Urine Color Yellow (Yellow) Urine Appearance Clear (Clear) Urine pH 6.5 (5.0-9.0) Ur Specific [place] 1.029 (1.001-1.035) Urine Protein 1+ H (Negative) mg/dL Urine Glucose (UA) Negative (Negative) mg/dL Urine Ketones 4+ H (Negative) mg/dL Ur Blood (Man) Negative (Negative) Urine Nitrate Negative (Negative) Urine Bilirubin Negative (Negative) Urine Urobilinogen 1.0 (<2.0) mg/dL Add Ur Microanalysis Reviewed Leukocyte Esterase Rfl Negative (Negative) SUE/UL Urine RBC 0-2 (0-2) /hpf Urine WBC 0-5 (0-3) /hpf Ur Squamous Epith Cells None seen (Few) /hpf Urine Bacteria None seen /hpf Urine Casts 0-2 Urine Opiates Screen Negative (Negative) Urine Methadone Screen Negative (Negative) Ur Barbiturates Screen Negative (Negative) Ur Phencyclidine Scrn Negative (Negative) Ur Amphetamine Screen Negative (Negative) U Benzodiazepines Scrn Negative (Negative) Urine Cocaine Screen Negative (Negative) U Cannabinoids Screen Negative (Negative) Ethyl Alcohol < 10 (<10) mg/dL Critical Care Time Critical Care Time Critical Care Time: Yes Total Critical Care Time: 35 Discharge Plan Discharge Clinical Impression: Pancreatitis Patient Disposition: Still a Patient Condition: Stable Prescriptions: No Action ondansetron 4 mg tablet,disintegrating 4 mg PO Q8H PRN (Reason: nausea and vomiting) Qty: 10 0RF multivitamin Tablet 1 tablet PO DAILY ondansetron 4 mg tablet,disintegrating 4 mg PO Q6H Qty: 30 0RF hydrocodone-acetaminophen 5-325 mg tablet 1 tablet PO Q6H PRN (Reason: pain) Qty: 20 0RF ibuprofen 600 mg tablet 600 mg PO Q6H PRN (Reason: pain) Qty: 20 0RF Rx Instructions: Take with caution as this combined with your Xarelto can increase bleeding risk. pantoprazole [Protonix] 40 mg tablet,delayed release (DR/EC) 40 mg PO QAM 28 Days Qty: 28 0RF metoclopramide HCl [Reglan] 10 mg tablet 10 mg PO Q6H PRN (Reason: nausea and vomiting) Qty: 14 0RF ondansetron 4 mg tablet,disintegrating 4 mg PO Q8H PRN (Reason: nausea and vomiting) Qty: 10 0RF pantoprazole 40 mg tablet,delayed release (DR/EC) 40 mg PO BID Qty: 30 0RF famotidine 40 mg tablet 40 mg PO QHS Patient Comments: TAKES AT HS thiamine HCl (vitamin B1) 100 mg tablet 100 mg PO DAILY Qty: 30 0RF folic acid 1 mg tablet 1 mg PO DAILY Qty: 30 0RF pregabalin 75 mg capsule 75 mg PO HS Xarelto 20 mg tablet 20 mg PO BID Hold Instructions: Resume on 11/16/23. Check your prescription bottle at home. 20mg twice a day is excessive for treatment of pulmonary embolism. You should be maintained on 5mg twice a day dicyclomine 20 mg tablet 20 mg PO QID Qty: 20 0RF ondansetron 4 mg tablet,disintegrating 4 mg PO Q8H PRN (Reason: nausea and vomiting) Qty: 14 0RF omeprazole 20 mg capsule,delayed release(DR/EC) 20 mg PO DAILY Qty: 14 0RF ondansetron 4 mg tablet,disintegrating 4 mg PO Q8H PRN (Reason: nausea and vomiting) Qty: 10 0RF Follow-up/Referrals: UNKNOWN,DOCTOR [Primary Care Provider] -
--- NOTE | 2024-01-24 07:10 | ADMGEN ---
This patient, Nesha Roman, was admitted to Medical Room 347-01. Patient/family oriented to hospital policies and general routines including ID bracelet, bed and alarms, visiting hours, pain management, procedures, bathroom and other care routines, personal items, smoking policy, room service/diet, and visiting hours. Information on how to activate the Rapid Response Team has been discussed. Patient/Family are encouraged to report perceived risks to care and to ask questions if they do not understand what they are told or what they should do.
--- NOTE | 2024-01-24 07:12 | PC.NURSE ---
Admission report called to LELO Hicks.
--- NOTE | 2024-01-24 08:30 | PM.IMHP ---
H&P: HPI History of Present Illness Date/Time: 01/24/24 08:30 Chief Complaint: Abdominal pain Narrative: 38yo trans female with hx of pancreatitis, alcoholism, GERD, DVT and eosinophilic esophagitis here for abdominal pain. 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 She does have withdrawal symptoms with seizures but no DTs. No DUIs. Never been at a facility for alcohol rehab. She was sober for about 2-3 years but started drinking about 6-8 months ago after a friend in a MVA. He experienced homelessness but now living with 2 friends. Family lives in [place] and [place]. Patient was hospitalized here on 11/08/23 for abdominal pain related to acute pancreatitis and discharged the next day. She has been back in the ED multiple times (7) since then for abdominal pain. The last visit was 01/22 for worsening abdominal pain, alcoholism with n/v and was visibly intoxicated. Lipase was 360 and alcohol level was 196. AST and ALT elevated at 145 and 148 respectfully. She was discharged home with Zofran after receiving fluids. She has chronic abdominal pain but much worse past few days. Took lyrica and tyelnol at home without benefit. Last alcoholic drink was noon on 01/23/24. No weight changes. No fever, chills or urinary symptoms. She has diarrhea but no melena or hematochezia. Does have dark stools on occasion. She has a history of PE in September 2023 treated with Xarelto. She is no longer on Xarelto and states that she ?completed the treatment?. She has lower chest and upper abdomen pain that wraps around to her flanks. She is having nausea and vomiting. 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 She has been off medications since April. She returned to the ED for worsening abdominal pain. In the ED, she was hemodynamically stable. She was not hypoxic or febrile. WBC 10.7K. AST 132 and ALT 165. Lipase 926. UA showing 4+ ketones. UDS negative. Alcohol level <10. CTA of the chest/abd/pelvis showing mild acute pancreatitis and marked diffuse hepatic steatosis. No PE. She was treated with Pepcid, Mylanta, Toradol, Zofran and Dilaudid. She was admitted for further care. Review of Systems Review of Systems: All systems reviewed & are unremarkable except as noted in HPI and below PMFSH Past Medical History Medical History (Updated 01/24/24 @ 11:39 by Zay Rojas MD) Alcohol use Anxiety Asthma Black stools Depression Elevated LFTs Eosinophilic esophagitis Fatty liver GERD (gastroesophageal reflux disease) Hx of blood clots PEs Hypokalemia Kidney stones Peptic ulcer Surgical History Surgical History History of dental surgery History of esophagogastroduodenoscopy (EGD) History of laparoscopic cholecystectomy 01/15/23 [facility] Family History Family History Father Hypertension Lymphoma Mother Heart disease Hypertension Grandparent Malignant neoplasm of prostate Lung cancer Grandparent Breast cancer Other Cerebrovascular accident Diabetes mellitus Social History Social History (Updated 01/24/24 @ 11:40 by Zay Rojas MD) Social History: Lifelong nonsmoker. No history of drug use. No history of IV drug use. Works for [employer]. Code status -full Surrogate decision maker -Jackie Joel Smoking status: Never smoker Alcohol intake: current Alcohol use details: QUIT DRINKING ~[id number] Substance use: former Substance use type: does not use Other substance usage details: *pt states they consume approx 1 bottle of whiskey a day Do You Feel Safe in your Home?: Yes Lack of Transportation: No Lack of Food: Never True Current Housing: I Have Housing Concerned About Future Housing: No Difficulty Paying Gas/Electric Bills: YES Difficulty Paying for Meds: YES Currently Unemployed: No Education: Associate Degree Difficulty w/ Childcare or Family Care: No Living arrangements: with family Occupation/Education: occupation Additional occupation/education comments: [employer] employee Gender identity (if verbalized by the patient): Female Spiritual care concerns: No Meds Home Medications and Allergies Home Medications Medication Instructions Recorded Confirmed Type multivitamin 1 tablet PO DAILY 01/05/23 01/24/24 History famotidine 40 mg tablet 40 mg PO QHS 08/31/23 01/24/24 History pregabalin 75 mg capsule 75 mg PO DAILY 10/14/23 01/24/24 History ibuprofen 600 mg tablet 600 mg PO Q6H PRN pain #20 tabs 11/09/23 01/24/24 Rx ondansetron 4 mg disintegrating 4 mg PO Q6H nausea #30 tabs 11/09/23 01/24/24 Rx tablet pantoprazole 40 mg tablet,delayed 40 mg PO QAM 4 weeks #28 tabs 11/25/23 01/24/24 Rx release (Protonix) omeprazole 20 mg capsule,delayed 20 mg PO DAILY #14 caps 12/06/23 01/24/24 Rx release vitamin B complex 1 cap PO DAILY 01/24/24 01/24/24 History Allergies Allergy/AdvReac Type Severity Reaction Status Date / Time Penicillins Allergy Severe Anaphylaxis Verified 01/24/24 06:44 Vital Signs Vital Signs - 24 hr 01/23/24 23:22 01/24/24 03:22 01/24/24 03:23 Temperature 97.2 F L Pulse Rate 104 H 82 Respiratory Rate 15 16 Blood Pressure 120/84 130/88 Pulse Oximetry 97 97 98 Oxygen Delivery Room Air Room Air Fraction of Inspired Oxygen 01/24/24 06:55 01/24/24 07:20 01/24/24 07:46 Temperature Pulse Rate 72 86 Respiratory Rate 16 16 Blood Pressure 116/83 128/89 Pulse Oximetry 97 98 98 Oxygen Delivery Room Air Fraction of Inspired Oxygen 21 01/24/24 08:19 Temperature 97.9 F Pulse Rate 76 Respiratory Rate 15 Blood Pressure 126/90 Pulse Oximetry 98 Oxygen Delivery Fraction of Inspired Oxygen Exam Narrative: AF 97.9 126/90 76 15 98% ra Gen - well appearing transitioning female in no acute respiratory distress who is nontoxic-appearing lying semi recumbent in bed HEENT - normocephalic. Atraumatic. Pupils equal round and reactive. Extraocular motions intact. Sclera clear and anicteric. Nares patent. Oropharynx was clear. No oral lesions. Moist mucous membranes. Tongue was midline. Palate darrick symmetrically. Poor dentition. No facial asymmetry. Neck - neck was supple. No dominant adenopathy, thyromegaly or masses. 2+ carotid upstrokes without bruits. Chest - lungs are clear to auscultation bilaterally. No wheezes or crackles. Breast exam was deferred. CV - heart was regular rate and rhythm. S1-S2. No murmurs gallops or rubs. Abd - abdomen was soft. Upper abdominal tenderness with guarding. Positive bowel sounds. No obvious organomegaly or masses. Ext - no clubbing, cyanosis or edema. 2+ DP pulses bilaterally. Neuro - patient is alert and oriented. Strength is 5/5 in both upper and lower extremities. Cranial nerves 2-12 are intact. Speech is clear. Psych - normal mood and affect. Patient is pleasant and cooperative. Skin - warm and dry. No rashes noted. H&P: Results Labs Labs: Short CBC 01/24/24 Range/Units 03:11 WBC 10.7 H (4.5-10.0) K/mm3 Hgb 14.2 (14.0-18.0) g/dL Hct 40.4 L (42.0-52.0) % Plt Count 262 (150-375) k/mm3 BMP 01/24/24 03:11 Sodium 135 L Potassium 3.5 Chloride 101 Carbon Dioxide 25 BUN < 2 L Creatinine 0.60 L Glucose 111 H Calcium 8.5 Liver Function 01/24/24 Range/Units 03:11 Total Bilirubin 0.9 (0.2-1.3) mg/dL AST 132 H (17-59) U/L ALT 165 H (6-50) U/L Alkaline Phosphatase 261 H (38-126) U/L Albumin 4.2 (3.5-5.1) g/dL Urine 01/24/24 Range/Units 03:11 Urine Color Yellow (Yellow) Urine Appearance Clear (Clear) Urine pH 6.5 (5.0-9.0) Ur Specific [place] 1.029 (1.001-1.035) Urine Protein 1+ H (Negative) mg/dL Urine Glucose (UA) Negative (Negative) mg/dL Assessment and Plan Assessment and plan (1) Pancreatitis: Code(s): K85.90 - Acute pancreatitis without necrosis or infection, unspecified Status: Acute Assessment and Plan: Patient presents back to the emergency room worsening abdominal pain. Lipase is higher at 926. CT of the abdomen pelvis shows mild acute pancreatitis. [place] related to alcoholism. Will check triglyceride level and right upper quadrant ultrasound to exclude other etiologies. Will change her diet to full liquid. Analgesics for pain control. (2) Alcoholism: Code(s): F10.20 - Alcohol dependence, uncomplicated Status: Acute Assessment and Plan: Patient with a history of alcoholism. Patient was educated about the benefits of staying from alcohol use. Will start thiamine and folate. Place her on a CIWA protocol. Will have Librium and Ativan available as needed. Consider scheduled Librium if her condition worsens. (3) Elevated LFTs: Code(s): R79.89 - Other specified abnormal findings of blood chemistry Status: Acute Assessment and Plan: LFTs about the same from prior ER visit. Suspect alcoholic hepatitis. We will check but a quad ultrasound and hepatitis panel to exclude other etiologies. Continue to monitor. (4) Fatty liver: Code(s): K76.0 - Fatty (change of) liver, not elsewhere classified Status: Acute Assessment and Plan: Patient with fatty liver most likely related to alcoholism. She was educated about the benefits of abstaining from alcohol. (5) Eosinophilic esophagitis: Code(s): K20.0 - Eosinophilic esophagitis Status: Chronic Assessment and Plan: Patient with a history of eosinophilic esophagitis. EGD in August 2023 showed gastritis. Biopsies showed mild chronic reflux esophagitis mild chronic reactive gastritis but no eosinophils. Continue PPI. Plan DVT prophylaxis - Lovenox Code status - full
[2024-01-24] MEDS: HYDROmorphone HCL INJ (*CRX) 1 MG/ML SYR 0.5 MG IV PUSH ×3 (12:21→20:57)
[2024-01-24] MEDS: THIAMINE HCL 200 MG/2 ML VIAL 100 MG IV PUSH (14:01)
[2024-01-24] MEDS: ENOXAPARIN 40 MG/0.4 ML SYRINGE SUB-Q (14:07)
[2024-01-24] MEDS: chlordiazePOXIDE (*CRX) 25 MG CAPSULE PO (16:57)
[2024-01-24 17:46] LABS: Glucose Point of Care 171 mg/dl (65-105)
[2024-01-24] MEDS: PANTOPRAZOLE SODIUM IV 40 MG VIAL IV PUSH (20:57)
[2024-01-24] MEDS: DEXTROSE 5%/0.9% SOD CHL 1,000 ML 70 ML IV CONT (20:57)
[2024-01-24] MEDS: FOLIC ACID 1 MG/0.2 ML INJ IV PUSH (22:36)
[2024-01-25 00:14] LABS: Glucose Point of Care 196 mg/dl (65-105)
[2024-01-25] MEDS: HYDROmorphone HCL INJ (*CRX) 1 MG/ML SYR 0.5 MG IV PUSH ×7 (00:14→23:36)
[2024-01-25 07:10] LABS: Basophils Percent Auto 0.1 % (0.2-1.2); Eosinophils Percent Auto 0.1 % (0-4.4); Hematocrit 36.9 % (42.0-52.0); Hemoglobin 12.4 g/dL (14.0-18.0); Immature Granulocyte Absolute 0.02 K/mm3 (0.00-0.031); Immature Granulocyte Percent A 0.2 % (0-0.5); Lymphocytes Absolute Auto 1.07 K/mm3 (0.9-3.2); Lymphocytes Percent Auto 12.1 % (18.3-44.2); Mean Corpuscular HGB Conc 33.6 g/dl (32-36); Mean Corpuscular Volume 92.3 fl (80-100); Mean Platelet Volume 10.8 fl (7.4-10.4); Monocytes Absolute Auto 0.6 K/mm3 (0.1-0.6); Monocytes Percent Auto 7.1 % (2.6-8.5); Neutrophils Absolute Auto 7.1 K/mm3 (1.3-6.7); Neutrophils Percent Auto 80.4 % (45.5-73.1); Platelet Count Result 188 k/mm3 (150-375); Red Cell Distribution Width 14.7 % (11.5-14.5); White Blood Count 8.9 K/mm3 (4.5-10.0)
[2024-01-25 07:43] LABS: Glucose Point of Care 153 mg/dl (65-105)
[2024-01-25 08:00] VITALS: BP 118/83; PULSE 80
[2024-01-25 08:11] LABS: Alanine Aminotransferase 108 U/L (6-50); Albumin Level 3.4 g/dL (3.5-5.1); Alkaline Phosphatase 184 U/L (38-126); Anion Gap 3 mmol/L (4-12); Aspartate Amino Transferase 65 U/L (17-59); Bilirubin,Total 0.8 mg/dL (0.2-1.3); Blood Urea Nitrogen 2 mg/dL (9-20); Calcium 8.6 mg/dL (8.4-10.2); Carbon Dioxide 29 mmol/L (22-30); Chloride 100 mmol/L (98-107); Cholesterol 141 mg/dL (0-200); Estimated CRCL calculation 148 ml/min; Estimated Glomerular Filt Rate > 60; Glucose 148 mg/dL (65-110); HDL Direct 60 mg/dL; Potassium 3.6 mmol/L (3.4-5.0); Sodium 132 mmol/L (137-145); Triglycerides 78 mg/dL (<150)
[2024-01-25 08:23] LABS: LDL Cholesterol Direct 52 mg/dL
[2024-01-25] MEDS: ONDANSETRON INJ 4 MG/2 ML VIAL IV PUSH ×3 (08:25→23:36)
[2024-01-25] MEDS: MULTIVITAMINS THERAPEUTIC TAB (*BKC) 1 TABLET PO (08:25)
[2024-01-25] MEDS: VITAMIN B COMPLEX CAPSULE 1 CAP PO (08:25)
[2024-01-25] MEDS: PREGABALIN (*CRX) 75 MG CAPSULE PO (08:25)
[2024-01-25] MEDS: THIAMINE HCL 200 MG/2 ML VIAL 100 MG IV PUSH (08:25)
[2024-01-25] MEDS: PANTOPRAZOLE SODIUM IV 40 MG VIAL IV PUSH ×2 (08:25→19:46)
[2024-01-25] MEDS: ENOXAPARIN 40 MG/0.4 ML SYRINGE SUB-Q (08:26)
[2024-01-25] MEDS: FOLIC ACID 1 MG/0.2 ML INJ IV PUSH (08:33)
[2024-01-25 11:38] LABS: Hepatitis B Surface Antigen Negative (Negative)
[2024-01-25 11:44] LABS: HAV RESULT Negative (Negative); Hepatitis B Core IgM Result Negative (Negative)
[2024-01-25 11:55] LABS: Hepatitis C Virus Antibody Negative (Negative)
[2024-01-25 11:55] LABS: Glucose Point of Care 173 mg/dl (65-105)
[2024-01-25 12:00] VITALS: BP 118/83; PULSE 78
[2024-01-25 12:35] LABS: Lipase 325 U/L (23-300)
[2024-01-25] MEDS: DEXTROSE 5%/0.9% SOD CHL 1,000 ML 70 ML IV CONT (12:41)
[2024-01-25] MEDS: chlordiazePOXIDE (*CRX) 25 MG CAPSULE PO ×3 (12:41→23:36)
[2024-01-25 14:21] VITALS: BP 118/83; PULSE 76; RESP 18; TEMP 36.6; O2SAT 99
[2024-01-25 16:00] VITALS: BP 118/83; PULSE 82
[2024-01-25 17:03] LABS: Glucose Point of Care 109 mg/dl (65-105)
--- NOTE | 2024-01-25 17:17 | PM.IMPN ---
Progress Note: A&P Assessment and Plan (1) Pancreatitis: Code(s): K85.90 - Acute pancreatitis without necrosis or infection, unspecified Status: Acute Assessment and Plan: Patient presents back to the emergency room worsening abdominal pain. Lipase was higher at 926. CT of the abdomen pelvis shows mild acute pancreatitis. [place] related to alcoholism. TG level normal. RUQ US showing fat infiltration of the liver o/w normal. s/p CCY. CBD 4.1cm. Still with considerable abdominal pain but lipase trending down. Continue full liquid diet. Continue IV fluids. Analgesics for pain control. (2) Alcohol withdrawal: Code(s): F10.939 - Alcohol use, unspecified with withdrawal, unspecified Status: Acute Assessment and Plan: Last alcoholic drink was noon on 01/23/24. CIWA protocol started. Thiamine and Folate started. CIWA was up to 12 but better this morning. She was started on scheduled Librium this morning due to his symptoms.. Continue scheduled Librium for today but stop tomorrow if CIWA remains low. Continue prn Librium and Ativan. (3) Alcoholism: Code(s): F10.20 - Alcohol dependence, uncomplicated Status: Acute Assessment and Plan: Patient with a history of alcoholism. Patient was educated about the benefits of abstaining from alcohol use. Care coordination to provide information about rehab and other services. (4) Elevated LFTs: Code(s): R79.89 - Other specified abnormal findings of blood chemistry Status: Acute Assessment and Plan: LFTs elevated and about the same from prior ER visit. Suspect alcoholic hepatitis and/or fatty liver. RUQ ultrasound results as above. Hepatitis panel negative Continue to monitor. (5) Fatty liver: Code(s): K76.0 - Fatty (change of) liver, not elsewhere classified Status: Acute Assessment and Plan: Patient with fatty liver most likely related to alcoholism. She was educated about the benefits of abstaining from alcohol. (6) Eosinophilic esophagitis: Code(s): K20.0 - Eosinophilic esophagitis Status: Chronic Assessment and Plan: Patient with a history of eosinophilic esophagitis. EGD in August 2023 showed gastritis. Biopsies showed mild chronic reflux esophagitis mild chronic reactive gastritis but no eosinophils. Continue PPI. Plan DVT prophylaxis - Lovenox Code status - full Subjective Date/time seen: 12/10/24 17:17 Interval history: 38yo trans female with hx of pancreatitis, alcoholism, GERD, DVT and eosinophilic esophagitis here for abdominal pain. Still with severe abdominal pain. 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 +BMs. Feels shaky and did get benefit from Librium Exam Narrative: AF 97.8 118/83 82 18 99% ra Gen - NARD Chest - CTA bilaterally, nml RR CV - RRR S1/S2 Abd - mostly upper abdominal pain with guarding Ext - No pedal edema Psych - Nml mood and affect Skin - Warm and dry Objective Data Vital Signs Vital Signs: Vital Signs - 24 hr 01/24/24 20:48 01/24/24 20:58 01/25/24 08:00 Temperature 97.8 F Pulse Rate 66 Pulse Rate [Left Radial Palpation] 80 Respiratory Rate 18 Blood Pressure 109/76 Pulse Oximetry 95 Oxygen Delivery Room Air 01/25/24 08:00 01/25/24 12:00 01/25/24 14:21 Temperature 97.8 F Pulse Rate 76 Pulse Rate [Left Radial Palpation] 80 78 Respiratory Rate 18 Blood Pressure 118/83 118/83 118/83 Pulse Oximetry 99 Oxygen Delivery 01/25/24 16:00 Temperature Pulse Rate Pulse Rate [Left Radial Palpation] 82 Respiratory Rate Blood Pressure 118/83 Pulse Oximetry Oxygen Delivery Intake/Output Intake/Output: Intake & Output 01/22/24 01/23/24 01/24/24 01/25/24 23:59 23:59 23:59 23:59 Intake Total 4200 1360 Balance 4200 1360 Meds/Results Medications: Active Medications Generic Name Dose Route Start Last Admin Trade Name Freq PRN Reason Stop Dose Admin Acetaminophen 650 mg 01/24/24 11:50 Acetaminophen 325 Mg Tablet PO Q6H PRN Mild Pain (1-3) or Fever Hydrocodone Bitart/Acetaminophen 1 tab 01/24/24 11:50 Hydrocodone/Acetaminophen (*Crx) 5-325 Mg Tablet PO Q6H PRN Pain Rated 4-6 Chlordiazepoxide HCl 25 mg 01/24/24 11:47 01/24/24 16:57 Chlordiazepoxide (*Crx) 25 Mg Capsule PO 25 mg Q6H PRN Administration Withdrawal; CIWA 8-15 Chlordiazepoxide HCl 25 mg 01/25/24 12:24 01/25/24 12:41 Chlordiazepoxide (*Crx) 25 Mg Capsule PO 25 mg Q6HR TORITO Administration Enoxaparin Sodium 40 mg 01/25/24 09:00 01/25/24 08:26 Enoxaparin 40 Mg/0.4 Ml Syringe SUB-Q 40 mg DAILY TORITO Administration Folic Acid 1 mg 01/25/24 09:00 01/25/24 08:33 Folic Acid 1 Mg/0.2 Ml Inj IV PUSH 1 mg QAM TORITO Administration Hydromorphone HCl 0.5 mg 01/24/24 11:50 01/25/24 16:17 Hydromorphone Hcl Inj (*Crx) 1 Mg/Ml Syr IV PUSH 0.5 mg Q3H PRN Administration Pain Rated 7-10 Dextrose/Sodium Chloride 1,000 mls @ 70 mls/hr 01/24/24 19:40 01/25/24 12:41 Dextrose 5% Sodium Chloride 0.9% IV CONT 70 mls/hr .[id number] TORITO Administration Lorazepam 2 mg 01/24/24 11:47 Lorazepam Inj (*Crx) 2 Mg/Ml Vial IV PUSH Q2H PRN CIWA > 15 Multivitamins Therapeutic 1 tablet 01/24/24 11:55 01/25/24 08:25 Multivitamins Therapeutic Tab (*Bkc) PO 1 tablet DAILY TORITO Administration Ondansetron HCl 4 mg 01/24/24 11:49 01/25/24 16:17 Ondansetron Inj 4 Mg/2 Ml Vial IV PUSH 4 mg Q6H PRN Administration Nausea And Vomiting Pantoprazole Sodium 40 mg 01/24/24 11:55 01/24/24 17:35 Pantoprazole 40 Mg Tablet PO Not Given QAM TORITO Pantoprazole Sodium 40 mg 01/24/24 21:00 01/25/24 08:25 Pantoprazole Sodium Iv 40 Mg Vial IV PUSH 40 mg Q12HR TORITO Administration Pregabalin 75 mg 01/25/24 09:00 01/25/24 08:25 Pregabalin (*Crx) 75 Mg Capsule PO 75 mg DAILY TORITO Administration Thiamine HCl 100 mg 01/25/24 09:00 01/25/24 08:25 Thiamine Hcl 200 Mg/2 Ml Vial IV PUSH 100 mg QAM TORITO Administration Vitamin B Complex 1 cap 01/24/24 11:55 01/25/24 08:25 Vitamin B Complex Capsule PO 1 cap DAILY TORITO Administration Radiology Results: ITS Impressions Chest/Abdomen/Pelvis CTA 01/24/24 06:28 Impression: Suspected mild acute pancreatitis. Correlate clinically. Marked diffuse hepatic stenosis. Upper Quadrant Ultrasound 01/24/24 13:06 IMPRESSION: Fat infiltration of the liver . Otherwise, normal right upper quadrant ultrasound. Labs Labs: Laboratory Results - last 24 hr 01/24/24 01/25/24 01/25/24 17:44 00:02 06:02 WBC 8.9 RBC 4.00 L Hgb 12.4 L Hct 36.9 L MCV 92.3 MCH 31.0 MCHC 33.6 RDW 14.7 H Plt Count 188 MPV 10.8 H Immature Gran % (Auto) 0.2 Neut % (Auto) 80.4 H Lymph % (Auto) 12.1 L [place] % (Auto) 7.1 Eos % (Auto) 0.1 Baso % (Auto) 0.1 L Lymph # (Auto) 1.07 [place] # (Auto) 0.6 Eos # (Auto) 0.0 Baso # (Auto) 0.0 Abs Immat Gran (auto) 0.02 Absolute Neuts (auto) 7.1 H Absolute Nucleated RBC 0.000 Nucleated RBC % 0.0 Sodium 132 L Potassium 3.6 Chloride 100 Carbon Dioxide 29 Anion Gap 3 L BUN 2 L Creatinine 0.60 L Estim Creat Clear Calc 148 Estimated GFR > 60 Glucose 148 H POC Capillary Glucose 171 H 196 H Calcium 8.6 Total Bilirubin 0.8 AST 65 H ALT 108 H Alkaline Phosphatase 184 H Total Protein 6.0 L Albumin 3.4 L Triglycerides 78 Cholesterol 141 LDL Cholesterol Direct 52 HDL Direct 60 Lipase 325 H Hepatitis A IgM Ab Negative Hep Bs Antigen Negative Hep B Core IgM Ab Negative Hepatitis C Ab Screen Negative 01/25/24 01/25/24 01/25/24 07:40 11:53 16:57 WBC RBC Hgb Hct MCV MCH MCHC RDW Plt Count MPV Immature Gran % (Auto) Neut % (Auto) Lymph % (Auto) [place] % (Auto) Eos % (Auto) Baso % (Auto) Lymph # (Auto) [place] # (Auto) Eos # (Auto) Baso # (Auto) Abs Immat Gran (auto) Absolute Neuts (auto) Absolute Nucleated RBC Nucleated RBC % Sodium Potassium Chloride Carbon Dioxide Anion Gap BUN Creatinine Estim Creat Clear Calc Estimated GFR Glucose POC Capillary Glucose 153 H 173 H 109 H Calcium Total Bilirubin AST ALT Alkaline Phosphatase Total Protein Albumin Triglycerides Cholesterol LDL Cholesterol Direct HDL Direct Lipase Hepatitis A IgM Ab Hep Bs Antigen Hep B Core IgM Ab Hepatitis C Ab Screen
[2024-01-25 19:44] VITALS: BP 115/81; PULSE 62; RESP 16; TEMP 36.8; O2SAT 99
[2024-01-25 23:38] LABS: Glucose Point of Care 142 mg/dl (65-105)
[2024-01-26] MEDS: HYDROmorphone HCL INJ (*CRX) 1 MG/ML SYR 0.5 MG IV PUSH ×3 (02:40→08:49)
[2024-01-26] MEDS: DEXTROSE 5%/0.9% SOD CHL 1,000 ML 70 ML IV CONT (02:44)
[2024-01-26] MEDS: ONDANSETRON INJ 4 MG/2 ML VIAL IV PUSH ×2 (05:33→18:10)
[2024-01-26] MEDS: chlordiazePOXIDE (*CRX) 25 MG CAPSULE PO (05:33)
[2024-01-26 05:34] VITALS: BP 112/81; PULSE 74; RESP 16; TEMP 36.4; O2SAT 99
[2024-01-26 06:21] LABS: Glucose Point of Care 140 mg/dl (65-105)
[2024-01-26 06:32] LABS: Alanine Aminotransferase 107 U/L (6-50); Alkaline Phosphatase 218 U/L (38-126); Anion Gap 1 mmol/L (4-12); Aspartate Amino Transferase 70 U/L (17-59); Bilirubin,Total 0.8 mg/dL (0.2-1.3); Calcium 8.9 mg/dL (8.4-10.2); Carbon Dioxide 32 mmol/L (22-30); Chloride 101 mmol/L (98-107); Estimated CRCL calculation 129 ml/min; Estimated Glomerular Filt Rate > 60; Glucose 115 mg/dL (65-110); Lipase 150 U/L (23-300); Potassium 3.7 mmol/L (3.4-5.0); Sodium 134 mmol/L (137-145)
[2024-01-26 06:37] LABS: Blood Urea Nitrogen < 2 mg/dL (9-20)
[2024-01-26 08:00] VITALS: BP 112/81; PULSE 82
[2024-01-26] MEDS: VITAMIN B COMPLEX CAPSULE 1 CAP PO (08:42)
[2024-01-26] MEDS: MULTIVITAMINS THERAPEUTIC TAB (*BKC) 1 TABLET PO (08:42)
[2024-01-26] MEDS: THIAMINE HCL 200 MG/2 ML VIAL 100 MG IV PUSH (08:42)
[2024-01-26] MEDS: PREGABALIN (*CRX) 75 MG CAPSULE PO (08:42)
[2024-01-26] MEDS: PANTOPRAZOLE SODIUM IV 40 MG VIAL IV PUSH (08:42)
[2024-01-26] MEDS: FOLIC ACID 1 MG/0.2 ML INJ IV PUSH (08:49)
[2024-01-26] MEDS: ENOXAPARIN 40 MG/0.4 ML SYRINGE SUB-Q (08:53)
--- NOTE | 2024-01-26 10:48 | P.PNIM_ITS ---
Progress Note: A&P Assessment and Plan (1) Alcohol withdrawal: Code(s): F10.939 - Alcohol use, unspecified with withdrawal, unspecified Status: Acute (2) Alcoholism: Code(s): F10.20 - Alcohol dependence, uncomplicated Status: Acute (3) Pancreatitis: Code(s): K85.90 - Acute pancreatitis without necrosis or infection, unspecified Status: Acute (4) Epigastric pain: Code(s): R10.13 - Epigastric pain Status: Acute Plan 38yo trans female with hx of pancreatitis, alcoholism, GERD, DVT and eosinophilic esophagitis here for abdominal pain. 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 No PE. 1. Acute pancreatitis: Secondary to alcohol intake Pain has improved Will upgrade the diet to low-fat diet Discontinue IV pain medications 2. Acute alcohol withdrawal: Continue with CIWA protocol Continue with p.r.n. Ativan, Librium Will discontinue scheduled Librium Continue with thiamine, folic acid, multivitamin Alcohol cessation counseling Switch to oral PPI b.i.d. 3. DVT prophylaxis: Lovenox 4. Code status: Full 5. Disposition: Anticipate discharge within next 24-48 hours if continues to improve, tolerates oral diet Time Spent With Patient Time: 38 min Subjective Date/time seen: 01/26/24 10:48 Interval history: Feeling better, low CIWA scores Review of Systems Review of Systems: All systems reviewed & are unremarkable except as noted in HPI and below Exam Narrative: Gen - NARD Chest - CTA bilaterally, nml RR CV - RRR S1/S2 Abd -mild upper abdominal discomfort Ext - No pedal edema Psych - Nml mood and affect Skin - Warm and dry Objective Data Vital Signs Vital Signs: Vital Signs - 24 hr 01/25/24 12:00 01/25/24 14:21 01/25/24 16:00 Temperature 97.8 F Pulse Rate 76 Pulse Rate [Left Radial Palpation] 78 82 Respiratory Rate 18 Blood Pressure 118/83 118/83 118/83 Pulse Oximetry 99 Oxygen Delivery 01/25/24 19:44 01/25/24 19:45 01/26/24 05:34 Temperature 98.2 F 97.5 F L Pulse Rate 62 74 Pulse Rate [Left Radial Palpation] Respiratory Rate 16 16 Blood Pressure 115/81 112/81 Pulse Oximetry 99 99 Oxygen Delivery Room Air 01/26/24 08:00 01/26/24 08:00 Temperature Pulse Rate Pulse Rate [Left Radial Palpation] 82 Respiratory Rate Blood Pressure 112/81 Pulse Oximetry Oxygen Delivery Room Air Intake/Output Intake/Output: Intake & Output 01/23/24 01/24/24 01/25/24 01/26/24 23:59 23:59 23:59 23:59 Intake Total 4200 1900 2073.5 Balance 4200 1900 2073.5 Meds/Results Medications: Active Medications Generic Name Dose Route Start Last Admin Trade Name Freq PRN Reason Stop Dose Admin Acetaminophen 650 mg 01/24/24 11:50 Acetaminophen 325 Mg Tablet PO Q6H PRN Mild Pain (1-3) or Fever Hydrocodone Bitart/Acetaminophen 1 tab 01/24/24 11:50 Hydrocodone/Acetaminophen (*Crx) 5-325 Mg Tablet PO Q6H PRN Pain Rated 4-6 Chlordiazepoxide HCl 25 mg 01/24/24 11:47 01/24/24 16:57 Chlordiazepoxide (*Crx) 25 Mg Capsule PO 25 mg Q6H PRN Administration Withdrawal; CIWA 8-15 Enoxaparin Sodium 40 mg 01/25/24 09:00 01/26/24 08:53 Enoxaparin 40 Mg/0.4 Ml Syringe SUB-Q 40 mg DAILY TORITO Administration Folic Acid 1 mg 01/25/24 09:00 01/26/24 08:49 Folic Acid 1 Mg/0.2 Ml Inj IV PUSH 1 mg QAM TORITO Administration Dextrose/Sodium Chloride 1,000 mls @ 70 mls/hr 01/24/24 19:40 01/26/24 02:44 Dextrose 5% Sodium Chloride 0.9% IV CONT 70 mls/hr .[id number] TROITO Administration Lorazepam 2 mg 01/24/24 11:47 Lorazepam Inj (*Crx) 2 Mg/Ml Vial IV PUSH Q2H PRN CIWA > 15 Multivitamins Therapeutic 1 tablet 01/24/24 11:55 01/26/24 08:42 Multivitamins Therapeutic Tab (*Bkc) PO 1 tablet DAILY TORITO Administration Ondansetron HCl 4 mg 01/24/24 11:49 01/26/24 05:33 Ondansetron Inj 4 Mg/2 Ml Vial IV PUSH 4 mg Q6H PRN Administration Nausea And Vomiting Pantoprazole Sodium 40 mg 01/26/24 21:00 Pantoprazole 40 Mg Tablet PO Q12HR TORITO Pregabalin 75 mg 01/25/24 09:00 01/26/24 08:42 Pregabalin (*Crx) 75 Mg Capsule PO 75 mg DAILY TORITO Administration Thiamine HCl 100 mg 01/25/24 09:00 01/26/24 08:42 Thiamine Hcl 200 Mg/2 Ml Vial IV PUSH 100 mg QAM TORITO Administration Vitamin B Complex 1 cap 01/24/24 11:55 01/26/24 08:42 Vitamin B Complex Capsule PO 1 cap DAILY TORITO Administration Radiology Results: ITS Impressions Chest/Abdomen/Pelvis CTA 01/24/24 06:28 Impression: Suspected mild acute pancreatitis. Correlate clinically. Marked diffuse hepatic stenosis. Upper Quadrant Ultrasound 01/24/24 13:06 IMPRESSION: Fat infiltration of the liver . Otherwise, normal right upper quadrant ultrasound. Labs Labs: Laboratory Results - last 24 hr 01/25/24 01/25/24 01/25/24 06:02 11:53 16:57 Sodium Potassium Chloride Carbon Dioxide Anion Gap BUN Creatinine Estim Creat Clear Calc Estimated GFR Glucose POC Capillary Glucose 173 H 109 H Calcium Total Bilirubin AST ALT Alkaline Phosphatase Total Protein Albumin Lipase 325 H Hepatitis A IgM Ab Negative Hep Bs Antigen Negative Hep B Core IgM Ab Negative Hepatitis C Ab Screen Negative 01/25/24 01/26/24 01/26/24 23:36 05:43 05:59 Sodium 134 L Potassium 3.7 Chloride 101 Carbon Dioxide 32 H Anion Gap 1 L BUN < 2 L Creatinine 0.70 Estim Creat Clear Calc 129 Estimated GFR > 60 Glucose 115 H POC Capillary Glucose 142 H 140 H Calcium 8.9 Total Bilirubin 0.8 AST 70 H ALT 107 H Alkaline Phosphatase 218 H Total Protein 7.0 Albumin 4.0 Lipase 150 Hepatitis A IgM Ab Hep Bs Antigen Hep B Core IgM Ab Hepatitis C Ab Screen Quality VTE Prophylaxis VTE prophylaxis: pharmacologic ordered
[2024-01-26 11:56] LABS: Glucose Point of Care 165 mg/dl (65-105)
[2024-01-26] MEDS: HYDROcodone/acetaminophen (*CRX) 5-325 MG TABLET 1 TAB PO ×2 (12:46→21:20)
[2024-01-26 13:48] VITALS: BP 111/72; PULSE 73; RESP 18; TEMP 36.5; O2SAT 97
[2024-01-26 21:16] VITALS: BP 103/71; PULSE 74; RESP 16; TEMP 36.8; O2SAT 100
[2024-01-27] MEDS: SUMAtriptan SUCCINATE 25 MG TABLET 100 MG PO (01:24)
[2024-01-27] MEDS: HYDROcodone/acetaminophen (*CRX) 5-325 MG TABLET 1 TAB PO ×3 (04:42→17:48)
[2024-01-27 05:33] VITALS: BP 107/74; PULSE 69; RESP 18; TEMP 36.4; O2SAT 98
[2024-01-27 06:37] LABS: Basophils Percent Auto 0.5 % (0.2-1.2); Eosinophils Absolute Auto 0.1 K/mm3 (0-0.3); Eosinophils Percent Auto 1.2 % (0-4.4); Hematocrit 40.9 % (42.0-52.0); Hemoglobin 13.7 g/dL (14.0-18.0); Immature Granulocyte Absolute 0.03 K/mm3 (0.00-0.031); Immature Granulocyte Percent A 0.5 % (0-0.5); Lymphocytes Absolute Auto 1.46 K/mm3 (0.9-3.2); Lymphocytes Percent Auto 22.5 % (18.3-44.2); Mean Corpuscular HGB Conc 33.5 g/dl (32-36); Mean Corpuscular Hemoglobin 30.9 pg (26-34); Mean Corpuscular Volume 92.3 fl (80-100); Mean Platelet Volume 11.1 fl (7.4-10.4); Monocytes Absolute Auto 0.4 K/mm3 (0.1-0.6); Monocytes Percent Auto 5.7 % (2.6-8.5); Neutrophils Absolute Auto 4.5 K/mm3 (1.3-6.7); Neutrophils Percent Auto 69.6 % (45.5-73.1); Platelet Count Result 226 k/mm3 (150-375); Red Blood Count 4.43 M/mm3 (4.6-6.20); Red Cell Distribution Width 14.8 % (11.5-14.5); White Blood Count 6.5 K/mm3 (4.5-10.0)
[2024-01-27 06:46] LABS: Alanine Aminotransferase 77 U/L (6-50); Albumin Level 3.5 g/dL (3.5-5.1); Alkaline Phosphatase 197 U/L (38-126); Anion Gap 3 mmol/L (4-12); Aspartate Amino Transferase 39 U/L (17-59); Bilirubin,Total 0.5 mg/dL (0.2-1.3); Calcium 9.1 mg/dL (8.4-10.2); Carbon Dioxide 29 mmol/L (22-30); Chloride 106 mmol/L (98-107); Estimated CRCL calculation 148 ml/min; Estimated Glomerular Filt Rate > 60; Glucose 145 mg/dL (65-110); Potassium 3.3 mmol/L (3.4-5.0); Sodium 138 mmol/L (137-145)
[2024-01-27 06:47] LABS: Blood Urea Nitrogen < 2 mg/dL (9-20)
[2024-01-27] MEDS: VITAMIN B COMPLEX CAPSULE 1 CAP PO (08:56)
[2024-01-27] MEDS: FOLIC ACID 1 MG/0.2 ML INJ IV PUSH (08:56)
[2024-01-27] MEDS: ENOXAPARIN 40 MG/0.4 ML SYRINGE SUB-Q (08:56)
[2024-01-27] MEDS: MULTIVITAMINS THERAPEUTIC TAB (*BKC) 1 TABLET PO (08:56)
[2024-01-27] MEDS: THIAMINE HCL 200 MG/2 ML VIAL 100 MG IV PUSH (08:56)
[2024-01-27] MEDS: PREGABALIN (*CRX) 75 MG CAPSULE PO (08:56)
[2024-01-27] MEDS: POTASSIUM CHLORIDE 20 MEQ PACKET (FOR LIQUID) 40 MEQ PO ×2 (11:44→17:44)
[2024-01-27] MEDS: SUMAtriptan SUCCINATE 6 MG/0.5 ML VIAL SUB-Q (11:45)
--- NOTE | 2024-01-27 13:01 | PM.IMPN ---
Progress Note: A&P Assessment and Plan (1) Alcohol withdrawal: Code(s): F10.939 - Alcohol use, unspecified with withdrawal, unspecified Status: Acute (2) Alcoholism: Code(s): F10.20 - Alcohol dependence, uncomplicated Status: Acute (3) Pancreatitis: Code(s): K85.90 - Acute pancreatitis without necrosis or infection, unspecified Status: Acute (4) Epigastric pain: Code(s): R10.13 - Epigastric pain Status: Acute Plan 38yo trans female with hx of pancreatitis, alcoholism, GERD, DVT and eosinophilic esophagitis here for abdominal pain. 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 No PE. 1. Acute pancreatitis: Secondary to alcohol intake Pain has improved, although patient reports episodes of vomiting which has not been documented by nursing staff/reported by nursing staff Advised patient to call the staff if he has another episode of vomiting Continue with oral pain medications Continue with low-fat diet 2. Acute alcohol withdrawal: Low CIWA scores Continue with thiamine, folic acid, multivitamin Continue with PPI b.i.d. Supplement potassium 3. Migraine headaches: Will give a dose of sumatriptan subcu If headache comes back again then will consider doing a CT head 4. . DVT prophylaxis: Lovenox 5. Code status: Full 6. Disposition: Anticipate discharge within next 24-48 hours Time Spent With Patient Time: 36 min Subjective Date/time seen: 01/27/24 13:01 Interval history: Complains of episodes of vomiting after eating, no documented evidence, not reported by nursing staff Complains of headache Review of Systems Review of Systems: All systems reviewed & are unremarkable except as noted in HPI and below Exam Narrative: Gen - NARD Chest - CTA bilaterally, nml RR CV - RRR S1/S2 Abd -mild upper abdominal discomfort Ext - No pedal edema Psych - Nml mood and affect Skin - Warm and dry Objective Data Vital Signs Vital Signs: Vital Signs - 24 hr 01/26/24 13:48 01/26/24 21:16 01/26/24 21:20 Temperature 97.7 F 98.2 F Pulse Rate 73 74 Respiratory Rate 18 16 Blood Pressure 111/72 103/71 Pulse Oximetry 97 100 Oxygen Delivery Room Air 01/27/24 05:33 01/27/24 08:00 Temperature 97.6 F Pulse Rate 69 Respiratory Rate 18 Blood Pressure 107/74 Pulse Oximetry 98 Oxygen Delivery Room Air Intake/Output Intake/Output: Intake & Output 01/24/24 01/25/24 01/26/24 01/27/24 23:59 23:59 23:59 23:59 Intake Total 4200 1900 2913.5 300 Balance 4200 1900 2913.5 300 Meds/Results Medications: Active Medications Generic Name Dose Route Start Last Admin Trade Name Freq PRN Reason Stop Dose Admin Acetaminophen 650 mg 01/24/24 11:50 Acetaminophen 325 Mg Tablet PO Q6H PRN Mild Pain (1-3) or Fever Hydrocodone Bitart/Acetaminophen 1 tab 01/24/24 11:50 01/27/24 11:44 Hydrocodone/Acetaminophen (*Crx) 5-325 Mg Tablet PO 1 tab Q6H PRN Administration Pain Rated 4-6 Chlordiazepoxide HCl 25 mg 01/24/24 11:47 01/24/24 16:57 Chlordiazepoxide (*Crx) 25 Mg Capsule PO 25 mg Q6H PRN Administration Withdrawal; CIWA 8-15 Enoxaparin Sodium 40 mg 01/25/24 09:00 01/27/24 08:56 Enoxaparin 40 Mg/0.4 Ml Syringe SUB-Q 40 mg DAILY TORITO Administration Folic Acid 1 mg 01/25/24 09:00 01/27/24 08:56 Folic Acid 1 Mg/0.2 Ml Inj IV PUSH 1 mg QAM TORITO Administration Lorazepam 2 mg 01/24/24 11:47 Lorazepam Inj (*Crx) 2 Mg/Ml Vial IV PUSH Q2H PRN CIWA > 15 Multivitamins Therapeutic 1 tablet 01/24/24 11:55 01/27/24 08:56 Multivitamins Therapeutic Tab (*Bkc) PO 1 tablet DAILY TORITO Administration Ondansetron HCl 4 mg 01/24/24 11:49 01/26/24 18:10 Ondansetron Inj 4 Mg/2 Ml Vial IV PUSH 4 mg Q6H PRN Administration Nausea And Vomiting Pantoprazole Sodium 40 mg 01/26/24 21:00 Pantoprazole 40 Mg Tablet PO Q12HR TORITO Pregabalin 75 mg 01/25/24 09:00 01/27/24 08:56 Pregabalin (*Crx) 75 Mg Capsule PO 75 mg DAILY TORITO Administration Thiamine HCl 100 mg 01/25/24 09:00 01/27/24 08:56 Thiamine Hcl 200 Mg/2 Ml Vial IV PUSH 100 mg QAM TORITO Administration Vitamin B Complex 1 cap 01/24/24 11:55 01/27/24 08:56 Vitamin B Complex Capsule PO 1 cap DAILY TORITO Administration Radiology Results: ITS Impressions Chest/Abdomen/Pelvis CTA 01/24/24 06:28 Impression: Suspected mild acute pancreatitis. Correlate clinically. Marked diffuse hepatic stenosis. Upper Quadrant Ultrasound 01/24/24 13:06 IMPRESSION: Fat infiltration of the liver . Otherwise, normal right upper quadrant ultrasound. Labs Labs: Laboratory Results - last 24 hr 01/27/24 06:14 WBC 6.5 RBC 4.43 L Hgb 13.7 L Hct 40.9 L MCV 92.3 MCH 30.9 MCHC 33.5 RDW 14.8 H Plt Count 226 MPV 11.1 H Immature Gran % (Auto) 0.5 Neut % (Auto) 69.6 Lymph % (Auto) 22.5 [place] % (Auto) 5.7 Eos % (Auto) 1.2 Baso % (Auto) 0.5 Lymph # (Auto) 1.46 [place] # (Auto) 0.4 Eos # (Auto) 0.1 Baso # (Auto) 0.0 Abs Immat Gran (auto) 0.03 Absolute Neuts (auto) 4.5 Absolute Nucleated RBC 0.000 Nucleated RBC % 0.0 Sodium 138 Potassium 3.3 L Chloride 106 Carbon Dioxide 29 Anion Gap 3 L BUN < 2 L Creatinine 0.60 L Estim Creat Clear Calc 148 Estimated GFR > 60 Glucose 145 H Calcium 9.1 Total Bilirubin 0.5 AST 39 ALT 77 H Alkaline Phosphatase 197 H Total Protein 6.0 L Albumin 3.5 Quality VTE Prophylaxis VTE prophylaxis: pharmacologic ordered
[2024-01-27 13:47] VITALS: BP 109/72; PULSE 71; RESP 18; TEMP 36.4; O2SAT 99
[2024-01-27 16:18] LABS: Hemoglobin A1C 5.8 % (<5.7)
[2024-01-27 16:28] LABS: Glucose Point of Care 144 mg/dl (65-105)
[2024-01-27 21:28] VITALS: BP 118/80; PULSE 63; RESP 18; TEMP 36.6; O2SAT 99
[2024-01-27] MEDS: PANTOPRAZOLE 40 MG TABLET PO (21:28)
[2024-01-27] MEDS: ONDANSETRON INJ 4 MG/2 ML VIAL IV PUSH (21:30)
[2024-01-27 21:46] LABS: Glucose Point of Care 123 mg/dl (65-105)
[2024-01-28] MEDS: HYDROcodone/acetaminophen (*CRX) 5-325 MG TABLET 1 TAB PO ×4 (00:11→18:43)
[2024-01-28 05:54] LABS: Basophils Percent Auto 0.4 % (0.2-1.2); Eosinophils Absolute Auto 0.1 K/mm3 (0-0.3); Eosinophils Percent Auto 1.1 % (0-4.4); Hematocrit 41.6 % (42.0-52.0); Hemoglobin 13.9 g/dL (14.0-18.0); Immature Granulocyte Absolute 0.03 K/mm3 (0.00-0.031); Immature Granulocyte Percent A 0.4 % (0-0.5); Lymphocytes Absolute Auto 1.67 K/mm3 (0.9-3.2); Mean Corpuscular HGB Conc 33.4 g/dl (32-36); Mean Corpuscular Hemoglobin 30.7 pg (26-34); Mean Corpuscular Volume 91.8 fl (80-100); Mean Platelet Volume 10.8 fl (7.4-10.4); Monocytes Absolute Auto 0.5 K/mm3 (0.1-0.6); Monocytes Percent Auto 7.5 % (2.6-8.5); Neutrophils Absolute Auto 4.6 K/mm3 (1.3-6.7); Neutrophils Percent Auto 66.6 % (45.5-73.1); Platelet Count Result 244 k/mm3 (150-375); Red Blood Count 4.53 M/mm3 (4.6-6.20); Red Cell Distribution Width 14.9 % (11.5-14.5)
[2024-01-28 06:00] VITALS: BP 100/65; PULSE 56; RESP 16; TEMP 36.2; O2SAT 97
[2024-01-28 06:02] LABS: Alanine Aminotransferase 62 U/L (6-50); Albumin Level 3.4 g/dL (3.5-5.1); Alkaline Phosphatase 181 U/L (38-126); Anion Gap 2 mmol/L (4-12); Aspartate Amino Transferase 35 U/L (17-59); Bilirubin,Total 0.6 mg/dL (0.2-1.3); Blood Urea Nitrogen 2 mg/dL (9-20); Carbon Dioxide 31 mmol/L (22-30); Chloride 103 mmol/L (98-107); Estimated CRCL calculation 129 ml/min; Estimated Glomerular Filt Rate > 60; Glucose 116 mg/dL (65-110); Sodium 136 mmol/L (137-145)
[2024-01-28 08:57] LABS: Glucose Point of Care 128 mg/dl (65-105)
[2024-01-28] MEDS: FOLIC ACID 1 MG TABLET PO (10:44)
[2024-01-28] MEDS: PANTOPRAZOLE 40 MG TABLET PO ×2 (10:45→21:59)
[2024-01-28] MEDS: VITAMIN B COMPLEX CAPSULE 1 CAP PO (10:45)
[2024-01-28] MEDS: ENOXAPARIN 40 MG/0.4 ML SYRINGE SUB-Q (10:45)
[2024-01-28] MEDS: PREGABALIN (*CRX) 75 MG CAPSULE PO (10:45)
[2024-01-28] MEDS: MULTIVITAMINS THERAPEUTIC TAB (*BKC) 1 TABLET PO (10:45)
[2024-01-28] MEDS: THIAMINE HCL 200 MG/2 ML VIAL 100 MG IV PUSH (10:45)
[2024-01-28] MEDS: ACETAMINOPHEN 325 MG TABLET 650 MG PO ×2 (10:51→21:58)
[2024-01-28 12:35] LABS: Glucose Point of Care 155 mg/dl (65-105)
[2024-01-28 12:47] LABS: Lipase 66 U/L (23-300)
--- NOTE | 2024-01-28 13:25 | PM.IMPN ---
Progress Note: A&P Assessment and Plan (1) Pancreatitis: Code(s): K85.90 - Acute pancreatitis without necrosis or infection, unspecified Status: Acute Assessment and Plan: CTA chest/abdomen/pelvis: Suspected mild acute pancreatitis. Correlate clinically. Marked diffuse hepatic stenosis. Pancreatitis secondary to alcohol intake Repeat lipase WNL Pain has improved, although patient again reports episodes of vomiting which has not been documented by nursing staff/reported by nursing staff. Reiterated that patient needs to call nursing with any episodes of vomiting. States understanding. Continue with oral pain medications Continue with low-fat diet Monitor vital signs, I and O's Monitor serum electrolytes and CBC (2) Alcohol withdrawal: Code(s): F10.939 - Alcohol use, unspecified with withdrawal, unspecified Status: Acute Assessment and Plan: Low CIWA scores Continue with thiamine, folic acid, multivitamin Continue with PPI b.i.d. Resources given by care coordination Plan DVT prophylaxis: Lovenox Code status: Full Disposition: Anticipate discharge within next 24-48 hours Time Spent With Patient Time with patient: 25 - 35 minutes Subjective Date/time seen: 01/28/24 13:25 Interval history: 38yo trans female with hx of pancreatitis, alcoholism, GERD, DVT and eosinophilic esophagitis here for abdominal pain. 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 No PE. Patient is pleasant lying in bed. She states that she continues to be nauseous with meals and had an episode of vomiting today. She did not report this to the nursing staff. Advised patient that she needs to inform the staff when she has episodes of emesis. She states understanding. Patient continues to endorse mild epigastric pain that is well controlled on the current pain regimen. She has no other complaints denying chest pain, shortness of breath, and palpitations. Review of Systems Review of Systems: All systems reviewed & are unremarkable except as noted in HPI and below Exam Narrative: AF HR 56 RR 16 SpO2 97 BP 100/65 General: lying semi recumbent in bed. HEENT: Normocephalic. Atraumatic. Extraocular movement intact. Sclera clear and anicteric. No facial asymmetry. Chest: Lungs are clear to auscultation bilaterally. No wheezes or crackles. CV: Heart was regular rate and rhythm. S1/S2. No murmurs, gallops, or rubs. Abd: Abdomen was soft. Mild tenderness throughout. Nondistended. Positive bowel sounds. No organomegaly or masses. Neuro: Patient is alert and oriented x4. Speech is clear. Objective Data Vital Signs Vital Signs: Vital Signs - 24 hr 01/27/24 13:47 01/27/24 20:00 01/27/24 21:28 Temperature 97.6 F 97.8 F Pulse Rate 71 63 Respiratory Rate 18 18 Blood Pressure 109/72 118/80 Pulse Oximetry 99 99 Oxygen Delivery Room Air 01/28/24 06:00 Temperature 97.1 F L Pulse Rate 56 L Respiratory Rate 16 Blood Pressure 100/65 Pulse Oximetry 97 Oxygen Delivery Intake/Output Intake/Output: Intake & Output 01/25/24 01/26/24 01/27/24 01/28/24 23:59 23:59 23:59 23:59 Intake Total 1900 2913.5 984 200 Balance 1900 2913.5 984 200 Meds/Results Medications: Active Medications Generic Name Dose Route Start Last Admin Trade Name Freq PRN Reason Stop Dose Admin Acetaminophen 650 mg 01/24/24 11:50 01/28/24 10:51 Acetaminophen 325 Mg Tablet PO 650 mg Q6H PRN Administration Mild Pain (1-3) or Fever Hydrocodone Bitart/Acetaminophen 1 tab 01/24/24 11:50 01/28/24 12:43 Hydrocodone/Acetaminophen (*Crx) 5-325 Mg Tablet PO 1 tab Q6H PRN Administration Pain Rated 4-6 Chlordiazepoxide HCl 25 mg 01/24/24 11:47 01/24/24 16:57 Chlordiazepoxide (*Crx) 25 Mg Capsule PO 25 mg Q6H PRN Administration Withdrawal; CIWA 8-15 Dextrose 12.5 gm 01/27/24 13:05 Dextrose 50% 25 Gm/50 Ml Syringe IV PUSH PRN PRN Hypoglycemia Protocol Enoxaparin Sodium 40 mg 01/25/24 09:00 01/28/24 10:45 Enoxaparin 40 Mg/0.4 Ml Syringe SUB-Q 40 mg DAILY TORITO Administration Folic Acid 1 mg 01/28/24 09:00 01/28/24 10:44 Folic Acid 1 Mg Tablet PO 1 mg DAILY TORITO Administration Glucagon 1 mg 01/27/24 13:05 Glucagon For Inj 1 Mg Vial IM PRN PRN Hypoglycemia Protocol Glucose 15 gm 01/27/24 13:05 Glucose Oral Gel 15 Gm Of Glucse In 37.5 Gm Tube PO PRN PRN Hypoglycemia Protocol Dextrose 1,000 mls @ 100 mls/hr 01/27/24 13:05 Dextrose 5% 1,000 Ml IVPB PRN PRN Hypoglycemia Protocol Insulin Aspart 2 - 5 units 01/27/24 17:00 01/28/24 12:46 Insulin Aspart (*Bkc) 100 Units/Ml SUB-Q Not Given TIDWM TORITO Protocol Insulin Aspart 1 - 2 units 01/27/24 21:00 01/27/24 21:32 Insulin Aspart (*Bkc) 100 Units/Ml SUB-Q Not Given HS TORITO Protocol Lorazepam 2 mg 01/24/24 11:47 Lorazepam Inj (*Crx) 2 Mg/Ml Vial IV PUSH Q2H PRN CIWA > 15 Multivitamins Therapeutic 1 tablet 01/24/24 11:55 01/28/24 10:45 Multivitamins Therapeutic Tab (*Bkc) PO 1 tablet DAILY TORITO Administration Ondansetron HCl 4 mg 01/24/24 11:49 01/27/24 21:30 Ondansetron Inj 4 Mg/2 Ml Vial IV PUSH 4 mg Q6H PRN Administration Nausea And Vomiting Pantoprazole Sodium 40 mg 01/26/24 21:00 01/28/24 10:45 Pantoprazole 40 Mg Tablet PO 40 mg Q12HR TORITO Administration Pregabalin 75 mg 01/25/24 09:00 01/28/24 10:45 Pregabalin (*Crx) 75 Mg Capsule PO 75 mg DAILY TORITO Administration Thiamine HCl 100 mg 01/25/24 09:00 01/28/24 10:45 Thiamine Hcl 200 Mg/2 Ml Vial IV PUSH 100 mg QAM TORITO Administration Vitamin B Complex 1 cap 01/24/24 11:55 01/28/24 10:45 Vitamin B Complex Capsule PO 1 cap DAILY TORITO Administration Radiology Results: ITS Impressions Chest/Abdomen/Pelvis CTA 01/24/24 06:28 Impression: Suspected mild acute pancreatitis. Correlate clinically. Marked diffuse hepatic stenosis. Upper Quadrant Ultrasound 01/24/24 13:06 IMPRESSION: Fat infiltration of the liver . Otherwise, normal right upper quadrant ultrasound. Labs Labs: Laboratory Results - last 24 hr 01/27/24 01/27/24 01/27/24 06:09 16:24 21:32 WBC RBC Hgb Hct MCV MCH MCHC RDW Plt Count MPV Immature Gran % (Auto) Neut % (Auto) Lymph % (Auto) [place] % (Auto) Eos % (Auto) Baso % (Auto) Lymph # (Auto) [place] # (Auto) Eos # (Auto) Baso # (Auto) Abs Immat Gran (auto) Absolute Neuts (auto) Absolute Nucleated RBC Nucleated RBC % Sodium Potassium Chloride Carbon Dioxide Anion Gap BUN Creatinine Estim Creat Clear Calc Estimated GFR Glucose POC Capillary Glucose 144 H 123 H Hemoglobin A1c 5.8 H Calcium Total Bilirubin AST ALT Alkaline Phosphatase Total Protein Albumin Lipase 01/28/24 01/28/24 01/28/24 05:42 08:52 12:30 WBC 7.0 RBC 4.53 L Hgb 13.9 L Hct 41.6 L MCV 91.8 MCH 30.7 MCHC 33.4 RDW 14.9 H Plt Count 244 MPV 10.8 H Immature Gran % (Auto) 0.4 Neut % (Auto) 66.6 Lymph % (Auto) 24.0 [place] % (Auto) 7.5 Eos % (Auto) 1.1 Baso % (Auto) 0.4 Lymph # (Auto) 1.67 [place] # (Auto) 0.5 Eos # (Auto) 0.1 Baso # (Auto) 0.0 Abs Immat Gran (auto) 0.03 Absolute Neuts (auto) 4.6 Absolute Nucleated RBC 0.000 Nucleated RBC % 0.0 Sodium 136 L Potassium 4.0 Chloride 103 Carbon Dioxide 31 H Anion Gap 2 L BUN 2 L Creatinine 0.70 Estim Creat Clear Calc 129 Estimated GFR > 60 Glucose 116 H POC Capillary Glucose 128 H 155 H Hemoglobin A1c Calcium 9.0 Total Bilirubin 0.6 AST 35 ALT 62 H Alkaline Phosphatase 181 H Total Protein 7.0 Albumin 3.4 L Lipase 66 Quality VTE Prophylaxis VTE prophylaxis: pharmacologic ordered
[2024-01-28 14:21] VITALS: BP 109/81; PULSE 80; RESP 15; TEMP 36.4; O2SAT 99
[2024-01-28 17:27] LABS: Glucose Point of Care 172 mg/dl (65-105)
[2024-01-28 20:38] LABS: Glucose Point of Care 150 mg/dl (65-105)
[2024-01-28 22:00] VITALS: BP 104/67; PULSE 72; RESP 18; TEMP 36.2; O2SAT 99
[2024-01-29] MEDS: HYDROcodone/acetaminophen (*CRX) 5-325 MG TABLET 1 TAB PO ×2 (00:51→09:07)
[2024-01-29] MEDS: traZODone HCL 50 MG TABLET BY MOUTH (01:21)
[2024-01-29 06:00] VITALS: BP 101/65; PULSE 61; RESP 18; TEMP 36.7; O2SAT 99
[2024-01-29 08:49] LABS: Glucose Point of Care 121 mg/dl (65-105)
[2024-01-29] MEDS: FOLIC ACID 1 MG TABLET PO (09:02)
[2024-01-29] MEDS: PANTOPRAZOLE 40 MG TABLET PO (09:02)
[2024-01-29] MEDS: PREGABALIN (*CRX) 75 MG CAPSULE PO (09:02)
[2024-01-29] MEDS: VITAMIN B COMPLEX CAPSULE 1 CAP PO (09:02)
[2024-01-29] MEDS: THIAMINE HCL 200 MG/2 ML VIAL 100 MG IV PUSH (09:02)
[2024-01-29] MEDS: MULTIVITAMINS THERAPEUTIC TAB (*BKC) 1 TABLET PO (09:02)
[2024-01-29] MEDS: ENOXAPARIN 40 MG/0.4 ML SYRINGE SUB-Q (09:03)
[2024-01-29 12:35] LABS: Glucose Point of Care 106 mg/dl (65-105)
--- NOTE | 2024-01-29 14:26 | P.DS_ITS ---
DS: Admitting Diagnosis Discharge Date 01/29/2024 Admitting Diagnosis pancreatitis alcohol withdrawal DS: Discharge Diagnosis Discharge Diagnosis (1) Pancreatitis: Code(s): K85.90 - Acute pancreatitis without necrosis or infection, unspecified Status: Acute (2) Alcohol withdrawal: Code(s): F10.939 - Alcohol use, unspecified with withdrawal, unspecified Status: Acute DS: Summary Hospital Course Reason for hospitalization: pancreatitis alcohol withdrawal Hospital Course: 38 year old trans female with past medical history of alcoholism, GERD, DVT, eosinophilic esophagitis and pancreatitis presents to the hospital for abdominal pain related to alcoholic pancreatitis. 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 She does have withdrawal symptoms with seizures but no DTs. Patient was hospitalized here on 11/08/23 for abdominal pain related to acute pancreatitis and discharged the next day. She has been back in the ED multiple times (7) since then for abdominal pain. The last visit was 01/22 for worsening abdominal pain, alcoholism with n/v and was visibly intoxicated. Lipase was 360 and alcohol level was 196. She was discharged home with [facility] after receiving fluids. Last alcoholic drink prior to this admission was noon on 01/23/24. CIWA were negative for 24 hours prior to discharge. Resources were given to patient by care coordination and she has been set up with [facility]. Patients alcohol abuse is the likely cause of her ongoing pancreatitis. On admission her lipase was 926. A CTA chest/abdomen/pelvis showed suspected mild acute pancreatitis and marked diffuse hepatic stenosis. She was started on IV fluids and analgesics. During her admission her lipase returned to normal limits and her abdominal pain improved. She was able to eat a low fat diet without increased abdominal pain, nausea or vomiting prior to discharge. She did note that she felt constipated and a KUB was obtained which was unremarkable. Prior to discharge patient denied chest pain, shortness of breath, palpiations, nausea/vomiting and had only mild abdominal pain that was covered with the current pain regimen. Patient discharged home in a stable condition. She is to follow up with her PCP in 1 week. Care coordination has given her resources for alcohol cessation. Status at Discharge Functional status at discharge: independent ambulation Time Spent with Patient Time attestation: Total time spent providing and/or coordinating discharge services: Time spent: Greater than 30 minutes Exam Narrative: AF HR 61 RR 18 SPo2 99 BP 101/65 General: lying semi recumbent in bed. HEENT: Normocephalic. Atraumatic. Extraocular movement intact. Sclera clear and anicteric. No facial asymmetry. Chest: Lungs are clear to auscultation bilaterally. No wheezes or crackles. CV: Heart was regular rate and rhythm. S1/S2. No murmurs, gallops, or rubs. Abd: Abdomen was soft. Mild tenderness in the epigastric region. Nondistended. Positive bowel sounds. No organomegaly or masses. Neuro: Patient is alert and oriented x4. Speech is clear. DS: Data Data Completed and Pending Completed studies during hospitalization: Chest/abdomen/pelvis CTA Upper quadrant US Abdomen XR Labs on day of discharge: Labs from last 24 hours 01/29/24 01/29/24 01/28/24 12:31 08:46 20:29 POC Capillary Glucose 106 H 121 H 150 H 01/28/24 17:24 POC Capillary Glucose 172 H Discharge Plan Discharge Attending physician on discharge: Tigre Espinal Discharging Clinician: Kiya Scott Anticipated Discharge Date/Time: 01/28/24 08:00 Patient Disposition: Home, Self-Care Activity: as tolerated Diet: as tolerated and low fat Discharge Instructions: Discharge disposition: Patient admitted to the hospital for acute pancreatitis secondary to alcohol use Strongly encourage alcohol cessation, resources were provided by care coordination Eat well balanced meals and stay hydrated Keep active to remain strong Started on new medications [place] as needed for break through pain, do not drive while taking this medication Folic acid and thiamine, attached is information on these medications Encouraged to continue with yearly vaccinations Return to the emergency department if he developed sudden shortness of breath, chest pain, nausea, vomiting, upset stomach or intractable diarrhea Return to the emergency department if you develop fever greater than 101.5 Follow-up with the primary care physician within 1-2 weeks Thank you for [facility] for your healthcare needs Patient Instructions: Hydrocodone/Acetaminophen (By mouth), Thiamine (By mouth), Folic Acid (By mouth), Pancreatitis (DC), Pain Management (DC), Abuse of Alcohol (DC), Alcohol Withdrawal (DC) Patient Language: Surinamese Stand Alone Forms: General Discharge Information Follow-up/Referrals: toya Larkin [Other] - 1 Week Discharge Medications: New folic acid 1 mg Tablet 1 mg PO DAILY Qty: 30 0RF hydrocodone-acetaminophen 5-325 mg Tablet 1 tablet PO Q6H PRN (Reason: Pain Rated 4-6) 3 Days Qty: 12 0RF thiamine HCl (vitamin B1) 50 mg tablet 50 mg PO DAILY Qty: 30 0RF Continued multivitamin Tablet 1 tablet PO DAILY ondansetron 4 mg tablet,disintegrating 4 mg PO Q6H Qty: 30 0RF ibuprofen 600 mg tablet 600 mg PO Q6H PRN (Reason: pain) Qty: 20 0RF Rx Instructions: Take with caution as this combined with your Xarelto can increase bleeding risk. pantoprazole [Protonix] 40 mg tablet,delayed release (DR/EC) 40 mg PO QAM 28 Days Qty: 28 0RF vitamin B complex Capsule 1 cap PO DAILY famotidine 40 mg tablet 40 mg PO QHS Patient Comments: TAKES AT HS pregabalin 75 mg capsule 75 mg PO DAILY omeprazole 20 mg capsule,delayed release(DR/EC) 20 mg PO DAILY Qty: 14 0RF Date of admission: 01/24/24 06:45 Primary Care Provider: toya Larkin Admitting Provider: Sheila Zhang Attending physician on admission: Kiya Scott Condition: Stable Hospitalist MIPS Heart Failure (Exclusion) Patient has history of Heart Transplant or Left Ventricular Assistive Device?: No IF YES, STOP HERE Heart Failure (Qualifier) Patient has current or prior documentation of LVEF less than or equal to 40%, or mod/servere depressed LVSF?: No IF NO, STOP HERE
== END 2024-01-29 16:45 | disposition home or self-care (01) | DRG 439 ==
LOC: ANHED 01-24 05:53 → ANH3MED 01-24 07:06
PROVIDERS: Internal Medicine; Admitting Provider Internal Medicine; Emergency Provider Emergency Medicine; Visit Provider Student in an Organized Health Care Education/Training Program
DX: K85.20 Alcohol induced acute pancreatitis without necrosis or infection (principal); F10.239 Alcohol dependence with withdrawal, unspecified; F10.229 Alcohol dependence with intoxication, unspecified; J45.909 Unspecified asthma, uncomplicated; K20.0 Eosinophilic esophagitis; K76.0 Fatty (change of) liver, not elsewhere classified; F41.9 Anxiety disorder, unspecified; F32.A Depression, unspecified; Z79.01 Long term (current) use of anticoagulants; Z87.442 Personal history of urinary calculi; Z87.11 Personal history of peptic ulcer disease
CPT/HCPCS: 36415; 71275; 74018; 74174; 76705; 80053; 80061; 80074; 80307; 81001; 82077; 82948; 83036; 83605; 83690; 83735; 85025; 93005; 96361; 96374; 96375; 99285; A9270; J1171; J1650; J1885; J2405; J2470; J3030; J3411; J7042; J7121; Q9967

== ENCOUNTER 2024-02-01 17:11 | Emergency (ER) | payer BC, SELFPAY ==
[2024-02-01 17:38] VITALS: BP 133/83; PULSE 98; RESP 16; TEMP 36.5; O2SAT 98
--- NOTE | 2024-02-01 19:05 | ECG_ITS ---
Test Date: 2024-02-01 19:37:50 Measurements Intervals [place] Rate: 97 P: 34 VT: 100 QRS: -20 QRSD: 105 T: 26 QT: 360 QTc: 459 Interpretive Statements SINUS RHYTHM WITH SHORT VT INTERVAL LOW QRS VOLTAGE IN PRECORDIAL LEADS [QRS DEFLECTION < 1.0 mV IN CHEST LEADS] INCOMPLETE RIGHT BUNDLE BRANCH BLOCK [90+ ms QRS DURATION, TERMINAL R IN V1/V2, 40+ ms S IN I/aVL/V4/V5/V6] Compared to ECG 01/23/2024 23:31:19 NO SIGNIFICANT CHANGES Electronically Signed On 02-02-2024 14:21:02 DRILLING MACHINE RUNNER by Brittany Nieto M.D.
--- NOTE | 2024-02-01 19:06 | ED.ABDPAIN ---
HPI - Abdominal Pain General Chief Complaint: Abdominal Pain <Onelia Chandler APRN - Last Filed: 02/01/24 19:11> Stated Complaint: pancreatitis <Onelia Chandler APRN - Last Filed: 02/01/24 19:11> Time Seen by Provider: 02/01/24 18:50 <Onelia Chandler APRN - Last Filed: 02/01/24 19:11> Focused HPI: Patient is a 38-year-old transgender who presents to the ER with abdominal pain. They reports they were hospitalized approximately 1 week ago for pancreatitis and discharged on Wednesday. Patient reports the pain has gotten worse since then. They report over the weekend they self-medicated with alcohol. Patient endorses upper abdominal bilateral quadrant pain that radiates to their back. They also endorse their abdominal pain radiates up to their chest. Patient endorses concerns for alcohol withdrawal including tingling, nausea, lightheadedness and decreased p.o. intake. GENERAL: Well-appearing, well-nourished, and in no acute distress. HEAD: Normocephalic, atraumatic. CHEST: Clear to auscultation. ?No respiratory distress. HEART: Regular rate and rhythm.? NEURO: ?Alert and oriented x3. Patient screened in triage and initial orders placed.? ?Additional care and disposition to be based upon?diagnostic testing and treatment. <Onelia Chandler APRN - Last Filed: 02/01/24 19:11> Related Data Home Medications: Home Medications ?Medication ?Instructions ?Recorded ?Confirmed ?Last Taken ?Type multivitamin 1 tablet PO DAILY 01/05/23 01/24/24 01/23/24 History famotidine 40 mg tablet 40 mg PO QHS 08/31/23 01/24/24 01/22/24 History pregabalin 75 mg capsule 75 mg PO DAILY 10/14/23 01/24/24 01/23/24 History vitamin B complex 1 cap PO DAILY 01/24/24 01/24/24 01/23/24 History <Onelia Chandler APRN - Last Filed: 02/01/24 19:11> Allergies/Adverse Reactions: Allergies Allergy/AdvReac Type Severity Reaction Status Date / Time Penicillins Allergy Severe Anaphylaxis Verified 02/01/24 17:12 <Onelia Chandler, [employer] EGG P[employer]ER - Last Filed: 02/01/24 19:11> [facility] Past Medical History Medical History: Medical History (Updated 02/01/24 @ 21:43 by Jasvir Guerra MD) Hypokalemia Elevated LFTs Fatty liver Alcohol use Black stools Peptic ulcer Kidney stones Anxiety Depression Asthma Hx of blood clots PEs GERD (gastroesophageal reflux disease) Eosinophilic esophagitis <Onelia Chandler, [employer] EGG P[employer]ER - Last Filed: 02/01/24 19:11> Surgical History Surgical History: Surgical History History of laparoscopic cholecystectomy 01/15/23 [facility] History of dental surgery History of esophagogastroduodenoscopy (EGD) <Onelia Chandler, [employer] EGG P[employer]ER - Last Filed: 02/01/24 19:11> Family History Family History: Family History Father Hypertension Lymphoma Mother Heart disease Hypertension Grandparent Malignant neoplasm of prostate Lung cancer Grandparent Breast cancer Other Cerebrovascular accident Diabetes mellitus <Onelia Chandler, [employer] E[employer] P[employer]ER - Last Filed: 02/01/24 19:11> Social History Social History: Social History (Updated 01/24/24 @ 11:40 by Zay Rojas MD) Social History: Lifelong nonsmoker. No history of drug use. No history of IV drug use. 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 Code status -full Surrogate decision maker -Jackie Joel Smoking status: Never smoker Alcohol intake: current Alcohol use details: QUIT DRINKING ~[id number] Substance use: former Substance use type: does not use Other substance usage details: *pt states they consume approx 1 bottle of whiskey a day Do You Feel Safe in your Home?: Yes Lack of Transportation: No Lack of Food: Never True Current Housing: I Have Housing Concerned About Future Housing: No Difficulty Paying Gas/Electric Bills: YES Difficulty Paying for Meds: YES Currently Unemployed: No Education: Associate Degree Difficulty w/ Childcare or Family Care: No Living arrangements: with family Occupation/Education: occupation 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 Head: atraumatic. EYES: EOMI, NOSE: Atraumatic NECK: Trachea midline RESPIRATORY: No increased rate of breathing clear to auscultation CARDIOVASCULAR: RRR, ABDOMINAL: Non-distended, mild tenderness in the epigastric region, no guarding or rebound MUSCULOSKELETAl: No obvious deformities NEURO: Alert. Moving 4/4 extremities SKIN:: Warm, dry. Normal color PSYCHIATRIC: Normal affect <Jasvir Guerra MD - Last Filed: 02/01/24 21:44> Course Vital Signs Vital signs: Vital Signs Temperature 97.7 F 02/01/24 17:38 Pulse Rate 98 02/01/24 17:38 Respiratory Rate 16 02/01/24 17:38 Blood Pressure 133/83 02/01/24 17:38 Pulse Oximetry 98 02/01/24 17:38 Temperature 97.7 F 02/01/24 17:38 Pulse Rate 91 02/01/24 21:00 Respiratory Rate 16 02/01/24 21:00 Blood Pressure 120/75 02/01/24 21:00 Pulse Oximetry 99 02/01/24 21:00 <Onelia Chandler [employer] EGG P[employer]ER - Last Filed: 02/01/24 19:11> Vital Signs Temperature 97.7 F 02/01/24 17:38 Pulse Rate 98 02/01/24 17:38 Respiratory Rate 16 02/01/24 17:38 Blood Pressure 133/83 02/01/24 17:38 Pulse Oximetry 98 02/01/24 17:38 Temperature 97.7 F 02/01/24 17:38 Pulse Rate 91 02/01/24 21:00 Respiratory Rate 16 02/01/24 21:00 Blood Pressure 120/75 02/01/24 21:00 Pulse Oximetry 99 02/01/24 21:00 <Jasvir Guerra MD - Last Filed: 02/01/24 21:44> MDM - Abdominal Pain MDM Narrative Medical decision making narrative: -Course: 38-year-old with a history of alcoholism presenting for epigastric pain. Patient was discharged from our hospital 3 days ago after being admitted for mild pancreatitis. Lipase are normal. Patient has [place] pain control at home. patient has stable vital signs and no evidence of alcohol withdrawal at this time. She is receiving help with her substance abuse through [facility]. Patient will be discharged to follow-up with them on an outpatient basis. -DDX includes but is not limited to: Alcoholic gastritis, alcoholic pancreatitis, alcoholic hepatitis -Independent interpretation of studies: labs and imaging reviewed -Shared decision making / Disposition:discharged. <Jasvir Guerra MD - Last Filed: 02/01/24 21:44> Lab Data Result diagrams: 02/01/24 19:35 02/01/24 19:35 <Onelia Chandler APRN - Last Filed: 02/01/24 19:11> Labs: Lab Results 02/01/24 02/01/24 Range/Units 19:35 19:47 WBC 8.3 (4.5-10.0) K/mm3 RBC 4.97 (4.6-6.20) M/mm3 Hgb 15.2 (14.0-18.0) g/dL Hct 45.2 (42.0-52.0) % MCV 90.9 (80-100) fl MCH 30.6 (26-34) pg MCHC 33.6 (32-36) g/dl RDW 14.9 H (11.5-14.5) % Plt Count 327 (150-375) k/mm3 MPV 10.4 (7.4-10.4) fl Immature Gran % (Auto) 0.7 H (0-0.5) % Neut % (Auto) 70.8 (45.5-73.1) % Lymph % (Auto) 15.0 L (18.3-44.2) % [place] % (Auto) 13.2 H (2.6-8.5) % Eos % (Auto) 0.1 (0-4.4) % Baso % (Auto) 0.2 (0.2-1.2) % Lymph # (Auto) 1.24 (0.9-3.2) K/mm3 [place] # (Auto) 1.1 H (0.1-0.6) K/mm3 Eos # (Auto) 0.0 (0-0.3) K/mm3 Baso # (Auto) 0.0 (0.0-0.1) K/mm3 Abs Immat Gran (auto) 0.06 H (0.00-0.031) K/mm3 Absolute Neuts (auto) 5.8 (1.3-6.7) K/mm3 Absolute Nucleated RBC 0.000 (0.0-0.012) K/mm3 Nucleated RBC % 0.0 (0.0-0.2) % PT 13.1 (11.1-14.7) Seconds INR 1.0 APTT 24.0 (22.3-36.8) Seconds Sodium 135 L (137-145) mmol/L Potassium 3.5 (3.4-5.0) mmol/L Chloride 98 (98-107) mmol/L Carbon Dioxide 30 (22-30) mmol/L Anion Gap 7 (4-12) mmol/L BUN 8 L D (9-20) mg/dL Creatinine 0.70 (0.7-1.3) mg/dL Estim Creat Clear Calc Not Reportable Estimated GFR > 60 (59 - ) Glucose 142 H (65-110) mg/dL Calcium 8.9 (8.4-10.2) mg/dL Total Bilirubin 1.2 (0.2-1.3) mg/dL AST 102 H (17-59) U/L ALT Pending Alkaline Phosphatase 314 H (38-126) U/L Troponin I < 0.012 (0.000-0.034) ng/mL Total Protein 8.0 (6.3-8.2) g/dL Albumin 4.2 (3.5-5.1) g/dL Lipase 182 (23-300) U/L Urine Color Dark yellow (Yellow) Urine Appearance Turbid H (Clear) Urine pH 5.5 (5.0-9.0) Ur Specific [place] 1.020 (1.001-1.035) Urine Protein 1+ H (Negative) mg/dL Urine Glucose (UA) Negative (Negative) mg/dL Urine Ketones Negative (Negative) mg/dL Ur Blood (Man) Negative (Negative) Urine Nitrate Negative (Negative) Urine Bilirubin 1+ H (Negative) Urine Urobilinogen 1.0 (<2.0) mg/dL Add Ur Microanalysis Reviewed Leukocyte Esterase Rfl Negative (Negative) SUE/UL Urine RBC 0-2 (0-2) /hpf Urine WBC 0-5 (0-3) /hpf Ur Squamous Epith Cells None seen (Few) /hpf Urine Bacteria None seen /hpf Urine Casts 0-2 Urine Opiates Screen Positive A (Negative) Urine Methadone Screen Negative (Negative) Ur Barbiturates Screen Negative (Negative) Ur Phencyclidine Scrn Negative (Negative) Ur Amphetamine Screen Negative (Negative) U Benzodiazepines Scrn Positive A (Negative) Urine Cocaine Screen Negative (Negative) U Cannabinoids Screen Negative (Negative) Ethyl Alcohol < 10 (<10) mg/dL <Onelia Chandler, [employer] EGG P[employer]ER - Last Filed: 02/01/24 19:11> Lab Results 02/01/24 02/01/24 Range/Units 19:35 19:47 WBC 8.3 (4.5-10.0) K/mm3 RBC 4.97 (4.6-6.20) M/mm3 Hgb 15.2 (14.0-18.0) g/dL Hct 45.2 (42.0-52.0) % MCV 90.9 (80-100) fl MCH 30.6 (26-34) pg MCHC 33.6 (32-36) g/dl RDW 14.9 H (11.5-14.5) % Plt Count 327 (150-375) k/mm3 MPV 10.4 (7.4-10.4) fl Immature Gran % (Auto) 0.7 H (0-0.5) % Neut % (Auto) 70.8 (45.5-73.1) % Lymph % (Auto) 15.0 L (18.3-44.2) % [place] % (Auto) 13.2 H (2.6-8.5) % Eos % (Auto) 0.1 (0-4.4) % Baso % (Auto) 0.2 (0.2-1.2) % Lymph # (Auto) 1.24 (0.9-3.2) K/mm3 [place] # (Auto) 1.1 H (0.1-0.6) K/mm3 Eos # (Auto) 0.0 (0-0.3) K/mm3 Baso # (Auto) 0.0 (0.0-0.1) K/mm3 Abs Immat Gran (auto) 0.06 H (0.00-0.031) K/mm3 Absolute Neuts (auto) 5.8 (1.3-6.7) K/mm3 Absolute Nucleated RBC 0.000 (0.0-0.012) K/mm3 Nucleated RBC % 0.0 (0.0-0.2) % PT 13.1 (11.1-14.7) Seconds INR 1.0 APTT 24.0 (22.3-36.8) Seconds Sodium 135 L (137-145) mmol/L Potassium 3.5 (3.4-5.0) mmol/L Chloride 98 (98-107) mmol/L Carbon Dioxide 30 (22-30) mmol/L Anion Gap 7 (4-12) mmol/L BUN 8 L D (9-20) mg/dL Creatinine 0.70 (0.7-1.3) mg/dL Estim Creat Clear Calc Not Reportable Estimated GFR > 60 (59 - ) Glucose 142 H (65-110) mg/dL Calcium 8.9 (8.4-10.2) mg/dL Total Bilirubin 1.2 (0.2-1.3) mg/dL AST 102 H (17-59) U/L ALT Pending Alkaline Phosphatase 314 H (38-126) U/L Troponin I < 0.012 (0.000-0.034) ng/mL Total Protein 8.0 (6.3-8.2) g/dL Albumin 4.2 (3.5-5.1) g/dL Lipase 182 (23-300) U/L Urine Color Dark yellow (Yellow) Urine Appearance Turbid H (Clear) Urine pH 5.5 (5.0-9.0) Ur Specific [place] 1.020 (1.001-1.035) Urine Protein 1+ H (Negative) mg/dL Urine Glucose (UA) Negative (Negative) mg/dL Urine Ketones Negative (Negative) mg/dL Ur Blood (Man) Negative (Negative) Urine Nitrate Negative (Negative) Urine Bilirubin 1+ H (Negative) Urine Urobilinogen 1.0 (<2.0) mg/dL Add Ur Microanalysis Reviewed Leukocyte Esterase Rfl Negative (Negative) SUE/UL Urine RBC 0-2 (0-2) /hpf Urine WBC 0-5 (0-3) /hpf Ur Squamous Epith Cells None seen (Few) /hpf Urine Bacteria None seen /hpf Urine Casts 0-2 Urine Opiates Screen Positive A (Negative) Urine Methadone Screen Negative (Negative) Ur Barbiturates Screen Negative (Negative) Ur Phencyclidine Scrn Negative (Negative) Ur Amphetamine Screen Negative (Negative) U Benzodiazepines Scrn Positive A (Negative) Urine Cocaine Screen Negative (Negative) U Cannabinoids Screen Negative (Negative) Ethyl Alcohol < 10 (<10) mg/dL <Jasvir Guerra MD - Last Filed: 02/01/24 21:44> Discharge Plan Discharge Clinical Impression: ETOHism, Abdominal pain <Onelia Chandler APRN - Last Filed: 02/01/24 19:11> Patient Disposition: Home, Self-Care <Onelia Chandler APRN - Last Filed: 02/01/24 19:11> Condition: Stable <Onelia Chandler APRN - Last Filed: 02/01/24 19:11> Instructions: Antibiotic Form <Onelia Chandler APRN - Last Filed: 02/01/24 19:11> Additional Instructions: Please take [place] for pain. Use Zofran for nausea. Please follow-up at [facility] for further management. You can return to the ED if you develop alcohol withdrawal / severe abdominal pain or any new or worsening symptoms.. <Onelia Chandler APRN - Last Filed: 02/01/24 19:11> Patient Language: Beninese <Onelia Chandler APRN - Last Filed: 02/01/24 19:11> Prescriptions: No Action multivitamin Tablet 1 tablet PO DAILY ondansetron 4 mg tablet,disintegrating 4 mg PO Q6H Qty: 30 0RF ibuprofen 600 mg tablet 600 mg PO Q6H PRN (Reason: pain) Qty: 20 0RF Rx Instructions: Take with caution as this combined with your Xarelto can increase bleeding risk. pantoprazole [Protonix] 40 mg tablet,delayed release (DR/EC) 40 mg PO QAM 28 Days Qty: 28 0RF vitamin B complex Capsule 1 cap PO DAILY folic acid 1 mg Tablet 1 mg PO DAILY Qty: 30 0RF thiamine HCl (vitamin B1) 50 mg tablet 50 mg PO DAILY Qty: 30 0RF hydrocodone-acetaminophen 5-325 mg Tablet 1 tablet PO Q6H PRN (Reason: Pain Rated 4-6) 3 Days Qty: 12 0RF famotidine 40 mg tablet 40 mg PO QHS Patient Comments: TAKES AT HS pregabalin 75 mg capsule 75 mg PO DAILY omeprazole 20 mg capsule,delayed release(DR/EC) 20 mg PO DAILY Qty: 14 0RF <Onelia Chandler APRN - Last Filed: 02/01/24 19:11> Follow-up/Referrals: PHYSICIAN,STORM CHASER [Primary Care Provider] - <Onelia Chandler APRN - Last Filed: 02/01/24 19:11>
[2024-02-01 19:59] LABS: Basophils Percent Auto 0.2 % (0.2-1.2); Eosinophils Percent Auto 0.1 % (0-4.4); Hematocrit 45.2 % (42.0-52.0); Hemoglobin 15.2 g/dL (14.0-18.0); Immature Granulocyte Absolute 0.06 K/mm3 (0.00-0.031); Immature Granulocyte Percent A 0.7 % (0-0.5); Lymphocytes Absolute Auto 1.24 K/mm3 (0.9-3.2); Mean Corpuscular HGB Conc 33.6 g/dl (32-36); Mean Corpuscular Hemoglobin 30.6 pg (26-34); Mean Corpuscular Volume 90.9 fl (80-100); Mean Platelet Volume 10.4 fl (7.4-10.4); Monocytes Absolute Auto 1.1 K/mm3 (0.1-0.6); Monocytes Percent Auto 13.2 % (2.6-8.5); Neutrophils Absolute Auto 5.8 K/mm3 (1.3-6.7); Neutrophils Percent Auto 70.8 % (45.5-73.1); Platelet Count Result 327 k/mm3 (150-375); Red Blood Count 4.97 M/mm3 (4.6-6.20); Red Cell Distribution Width 14.9 % (11.5-14.5); White Blood Count 8.3 K/mm3 (4.5-10.0)
[2024-02-01 20:13] LABS: Ethanol < 10 mg/dL (<10)
[2024-02-01 20:13] LABS: Prothrombin Time 13.1 Seconds (11.1-14.7)
[2024-02-01] MEDS: KETOROLAC 15 MG/ML VIAL (*BKC) IV PUSH (20:15)
[2024-02-01] MEDS: SODIUM CHLORIDE 0.9% IV 2,000 ML 999 ML IV CONT (20:15)
[2024-02-01] MEDS: FAMOTIDINE 20 MG/2 ML VIAL IV PUSH (20:15)
[2024-02-01] MEDS: ONDANSETRON HCL ODT 4 MG TABLET PO (20:16)
[2024-02-01 20:24] VITALS: BP 113/69; PULSE 84; RESP 16; O2SAT 100
[2024-02-01 20:34] LABS: Amphetamine Screen Urine Negative (Negative); Barbiturate Screen Urine Negative (Negative); Benzodiazepines Screen Urine Positive (Negative); Cannabinoid Screen Urine Negative (Negative); Cocaine Screen Urine Negative (Negative); Methadone Screen Urine Negative (Negative); Opiate Screen Urine Positive (Negative); Phencyclidine Screen Urine Negative (Negative)
[2024-02-01 20:52] LABS: Add Urine Microscopic? YES; Appearance Urine Turbid (Clear); Bacteria Urine None Seen /hpf; Bilirubin Urine 1+ (Negative); Blood Urine Negative (Negative); Color Urine Dark Yellow (Yellow); Glucose Urine UA Negative (Negative); Ketones Urine Negative (Negative); Leukocyte Esterase Ur Negative LEU/UL (Negative); Need Manual Microscopic Reviewed; Nitrate Urine Negative (Negative); Non Pathogenic Casts 0-2; Protein Urine 1+ mg/dL (Negative); RBC Urine 0-2 /hpf (0-2); Squamous Epithelial Cell Urine None Seen /hpf (Few); WBC Urine 0-5 /hpf (0-3); pH Urine 5.5 (5.0-9.0)
[2024-02-01 21:00] VITALS: BP 120/75; PULSE 91; RESP 16; O2SAT 99
[2024-02-01 21:18] LABS: Albumin Level 4.2 g/dL (3.5-5.1); Alkaline Phosphatase 314 U/L (38-126); Anion Gap 7 mmol/L (4-12); Aspartate Amino Transferase 102 U/L (17-59); Bilirubin,Total 1.2 mg/dL (0.2-1.3); Blood Urea Nitrogen 8 mg/dL (9-20); Calcium 8.9 mg/dL (8.4-10.2); Carbon Dioxide 30 mmol/L (22-30); Chloride 98 mmol/L (98-107); Estimated Glomerular Filt Rate > 60; Glucose 142 mg/dL (65-110); Lipase 182 U/L (23-300); Potassium 3.5 mmol/L (3.4-5.0); Sodium 135 mmol/L (137-145)
[2024-02-01 21:26] LABS: Troponin I < 0.012 ng/mL (0.000-0.034)
[2024-02-01 21:53] LABS: Alanine Aminotransferase 72 U/L (6-50)
== END 2024-02-01 22:02 | disposition home or self-care (01) ==
PROVIDERS: Registered Nurse; Emergency Provider Emergency Medicine
DX: R10.9 Unspecified abdominal pain (principal); F10.20 Alcohol dependence, uncomplicated; Y90.0 Blood alcohol level of less than 20 mg/100 ml; J45.909 Unspecified asthma, uncomplicated; K21.9 Gastro-esophageal reflux disease without esophagitis; F64.0 Transsexualism; Z87.11 Personal history of peptic ulcer disease; Z87.442 Personal history of urinary calculi; Z86.711 Personal history of pulmonary embolism; Z90.49 Acquired absence of other specified parts of digestive tract; Z79.899 Other long term (current) drug therapy
CPT/HCPCS: 36415; 80053; 80307; 81001; 82077; 83690; 84484; 85025; 85610; 85730; 93005; 96361; 96374; 96375; 99284; A9270; J1885; J7030

== ENCOUNTER 2024-02-25 20:28 | Emergency (ER) | payer BC, SELFPAY ==
[2024-02-25 20:55] VITALS: BP 117/74; PULSE 117; RESP 18; TEMP 36.6; O2SAT 99
--- NOTE | 2024-02-25 21:10 | PC.NURSE ---
Patient comes to the triage desk and states I can drink water at home and want to go to bed. Take me off the list. Patient ambulates out of the waiting room without incident.
== END 2024-02-25 22:59 | disposition left against medical advice (07) ==
LOC: ANHED 22:09
DX: R10.10 Upper abdominal pain, unspecified (principal)
CPT/HCPCS: 99199

== ENCOUNTER 2024-02-25 23:57 | Emergency (ER) | payer BC, SELFPAY ==
--- NOTE | ~2024-02-25 | CT_ITS ---
EXAMINATION: CT abdomen pelvis w con DATE: 02/26/2024 07:28 INDICATION: Right upper quadrant abdominal pain. TECHNIQUE: Computed tomography (CT) of the abdomen and pelvis was performed with 100 mL Omnipaque 350 intravenous contrast. Automated exposure control and iterative reconstruction technique were employe d. The dose-length product was 478.15 mGy-cm. COMPARISON: CT abdomen and pelvis 01/24/2024 FINDINGS: The visualized portions of the lung bases demonstrate mild atelectasis. No pleural effusion . The heart size is normal. No pericardial effusion. There is diffuse hepatic steatosis. There are ch anges of cholecystectomy. The liver is normal. There is mild fat stranding around the pancreas. The a drenal glands and kidneys are normal. There are no dilated loops of bowel. The appendix is normal. Th ere are no pathologically enlarged lymph nodes. There is no free intraperitoneal fluid. There is mode rate spondylosis at L5-S1 and mild spondylosis at other levels. IMPRESSION: 1. Mild acute versus chronic pancreatitis. 2. Diffuse hepatic steatosis. Reviewed, dictated and finalized at location A. [employer] [employer]
--- NOTE | ~2024-02-25 | CT_ITS ---
EXAMINATION: CT brain wo con DATE: 02/26/2024 07:28 INDICATION: Headache. TECHNIQUE: Computed tomography (CT) of the head was performed without intravenous contrast. The mA wa s adjusted according to patient size. Iterative reconstruction technique was employed. The dose-lengt h product was 605.33 mGy-cm. COMPARISON: Head CT 10/12/2023 FINDINGS: There is no intracranial hemorrhage, acute infarction, or abnormal intracranial mass lesion . The ventricles are normal in size. The orbits are normal. There is mild mucosal thickening in the p aranasal sinuses. The mastoid air cells are normal. IMPRESSION: 1. Normal brain. Reviewed, dictated and finalized at location A. N BLEACHER IMPRESSION: 1. Normal brain.
[2024-02-26 00:01] VITALS: BP 110/80; PULSE 104; RESP 15; TEMP 36.4; O2SAT 97
[2024-02-26] MEDS: KETOROLAC 15 MG/ML VIAL (*BKC) IV PUSH (06:34)
[2024-02-26] MEDS: ONDANSETRON INJ 4 MG/2 ML VIAL IV PUSH (06:34)
[2024-02-26] MEDS: SODIUM CHLORIDE 0.9% IV 1,000 ML 999 ML IV CONT ×2 (06:35→06:52)
[2024-02-26 06:43] LABS: Basophils Percent Auto 0.3 % (0.2-1.2); Eosinophils Percent Auto 0.1 % (0-4.4); Hematocrit 40.4 % (42.0-52.0); Immature Granulocyte Absolute 0.04 K/mm3 (0.00-0.031); Immature Granulocyte Percent A 0.5 % (0-0.5); Lymphocytes Percent Auto 16.5 % (18.3-44.2); Mean Corpuscular HGB Conc 34.7 g/dl (32-36); Mean Corpuscular Hemoglobin 30.6 pg (26-34); Mean Corpuscular Volume 88.2 fl (80-100); Mean Platelet Volume 10.9 fl (7.4-10.4); Monocytes Absolute Auto 0.8 K/mm3 (0.1-0.6); Monocytes Percent Auto 9.6 % (2.6-8.5); Neutrophils Absolute Auto 5.8 K/mm3 (1.3-6.7); Platelet Count Result 220 k/mm3 (150-375); Red Blood Count 4.58 M/mm3 (4.6-6.20); Red Cell Distribution Width 14.7 % (11.5-14.5); White Blood Count 7.9 K/mm3 (4.5-10.0)
--- NOTE | 2024-02-26 06:45 | ED.GENADULT ---
HPI - General Adult General Chief complaint: Abdominal Pain <Manuel Jin MD - Last Filed: 02/27/24 06:38> Stated complaint: abdominal pain <Manuel Jin MD - Last Filed: 02/27/24 06:38> Time Seen by Provider: 02/26/24 06:11 <Manuel Jin MD - Last Filed: 02/27/24 06:38> History of Present Illness HPI narrative: 38-year-old transgender female presents emergency department for evaluation for chronic abdominal pain and headache. Patient states the symptoms have been worsening over the last few days. Patient states that they have not been drinking alcohol. Patient does have a prior history of chronic pancreatitis. <Manuel Jin MD - Last Filed: 02/27/24 06:38> Related Data Home medications: Home Medications ?Medication ?Instructions ?Recorded ?Confirmed ?Last Taken ?Type multivitamin 1 tablet PO DAILY 01/05/23 01/24/24 01/23/24 History famotidine 40 mg tablet 40 mg PO QHS 08/31/23 01/24/24 01/22/24 History pregabalin 75 mg capsule 75 mg PO DAILY 10/14/23 01/24/24 01/23/24 History vitamin B complex 1 cap PO DAILY 01/24/24 01/24/24 01/23/24 History <Manuel Jin MD - Last Filed: 02/27/24 06:38> Allergies/adverse reactions: Allergies Allergy/AdvReac Type Severity Reaction Status Date / Time Penicillins Allergy Severe Anaphylaxis Verified 02/25/24 23:57 <Manuel Jin MD - Last Filed: 02/27/24 06:38> Review of Systems Review of Systems: All systems reviewed & are unremarkable except as noted in HPI and below <Manuel Jin MD - Last Filed: 02/27/24 06:38> [facility] Past Medical History Medical History: Medical History (Updated 02/27/24 @ 00:00 by Melvin Ivory) Hypokalemia Elevated LFTs Fatty liver Alcohol use Black stools Peptic ulcer Kidney stones Anxiety Depression Asthma Hx of blood clots PEs GERD (gastroesophageal reflux disease) Eosinophilic esophagitis <Manuel Jin MD - Last Filed: 02/27/24 06:38> Surgical History Surgical History: Surgical History History of laparoscopic cholecystectomy 01/15/23 [facility] History of dental surgery History of esophagogastroduodenoscopy (EGD) <Manuel Jin MD - Last Filed: 02/27/24 06:38> Family History Family History: Family History Father Hypertension Lymphoma Mother Heart disease Hypertension Grandparent Malignant neoplasm of prostate Lung cancer Grandparent Breast cancer Other Cerebrovascular accident Diabetes mellitus <Manuel Jin MD - Last Filed: 02/27/24 06:38> Social History Social History: Social History (Updated 01/24/24 @ 11:40 by Zay Rojas MD) Social History: Lifelong nonsmoker. No history of drug use. No history of IV drug use. Works for [employer]. Code status -full Surrogate decision maker -Jackie Joel Smoking status: Never smoker Alcohol intake: current Alcohol use details: QUIT DRINKING ~2631-5307 Substance use: former Substance use type: does not use Other substance usage details: *pt states they consume approx 1 bottle of whiskey a day Do You Feel Safe in your Home?: Yes Lack of Transportation: No Lack of Food: Never True Current Housing: I Have Housing Concerned About Future Housing: No Difficulty Paying Gas/Electric Bills: YES Difficulty Paying for Meds: YES Currently Unemployed: No Education: Associate Degree Difficulty w/ Childcare or Family Care: No Living arrangements: with family Occupation/Education: occupation Additional occupation/education comments: [email or web address] employee Gender identity (if verbalized by the patient): Female Spiritual care concerns: No <Manuel Jin MD - Last Filed: 02/27/24 06:38> Exam Narrative: APPEARANCE: Well appearing, no pain, no distress, well-nourished. HEAD: normocephalic, atraumatic. EYES: PERRLA/EOMI, conjunctivae clear. NOSE: Normal no drainage EARS:TMS clear with good light reflex. THROAT: Pharynx clear, no exudate. NECK: Supple. No adenopathy, no masses. RESPIRATORY: Airway patent, respirations nonlabored. Clear to auscultation bilaterally, no rales, rhonchi, wheezing. CARDIOVASCULAR: Regular rate and rhythm without murmurs rubs or gallops. ABDOMINAL: Diffuse abdominal tenderness MUSCULOSKELETAL: Moves all extremities. Strength/ROM intact, No edema, No calf tenderness. NEURO: Alert. Cranial nerves II through XII intact. Good gait. Good coordination SKIN: Warm, dry. Normal Color <Manuel Jin MD - Last Filed: 02/27/24 06:38> Course Course Emergency Course: Fluids completed. Received Reglan and Benadryl. Also received Zofran and Toradol. Labs unremarkable. CT scan with chronic pancreatitis versus mild acute pancreatitis. Patient felt appropriate for discharge home with clear liquid diet antiemetics. <Adebayo Whitney MD - Last Filed: 02/26/24 11:03> Vital Signs Vital signs: Vital Signs Temperature 97.5 F L 02/26/24 00:01 Pulse Rate 104 H 02/26/24 00:01 Respiratory Rate 15 02/26/24 00:01 Blood Pressure 110/80 02/26/24 00:01 Pulse Oximetry 97 02/26/24 00:01 Oxygen Delivery Room Air 02/26/24 00:01 Temperature 97.5 F L 02/26/24 00:01 Pulse Rate 76 02/26/24 11:47 Respiratory Rate 17 02/26/24 11:47 Blood Pressure 132/76 02/26/24 11:47 Pulse Oximetry 99 02/26/24 11:47 Oxygen Delivery Room Air 02/26/24 00:01 <Manuel Jin MD - Last Filed: 02/27/24 06:38> Vital Signs Temperature 97.5 F L 02/26/24 00:01 Pulse Rate 104 H 02/26/24 00:01 Respiratory Rate 15 02/26/24 00:01 Blood Pressure 110/80 02/26/24 00:01 Pulse Oximetry 97 02/26/24 00:01 Oxygen Delivery Room Air 02/26/24 00:01 Temperature 97.5 F L 02/26/24 00:01 Pulse Rate 76 02/26/24 11:47 Respiratory Rate 17 02/26/24 11:47 Blood Pressure 132/76 02/26/24 11:47 Pulse Oximetry 99 02/26/24 11:47 Oxygen Delivery Room Air 02/26/24 00:01 <Adebayo Whitnye MD - Last Filed: 02/26/24 11:03> Medical Decision Making MDM Narrative Medical decision making narrative: 38-year-old transgender female present to the emergency department for evaluation for headache and abdominal pain. <Manuel Jin MD - Last Filed: 02/27/24 06:38> Vital Signs Vital Signs: Vital Signs Temperature 97.5 F L 02/26/24 00:01 Pulse Rate 104 H 02/26/24 00:01 Respiratory Rate 15 02/26/24 00:01 Blood Pressure 110/80 02/26/24 00:01 Pulse Oximetry 97 02/26/24 00:01 Oxygen Delivery Room Air 02/26/24 00:01 Temperature 97.5 F L 02/26/24 00:01 Pulse Rate 76 02/26/24 11:47 Respiratory Rate 17 02/26/24 11:47 Blood Pressure 132/76 02/26/24 11:47 Pulse Oximetry 99 02/26/24 11:47 Oxygen Delivery Room Air 02/26/24 00:01 <Manuel Jin MD - Last Filed: 02/27/24 06:38> Vital Signs Temperature 97.5 F L 02/26/24 00:01 Pulse Rate 104 H 02/26/24 00:01 Respiratory Rate 15 02/26/24 00:01 Blood Pressure 110/80 02/26/24 00:01 Pulse Oximetry 97 02/26/24 00:01 Oxygen Delivery Room Air 02/26/24 00:01 Temperature 97.5 F L 02/26/24 00:01 Pulse Rate 76 02/26/24 11:47 Respiratory Rate 17 02/26/24 11:47 Blood Pressure 132/76 02/26/24 11:47 Pulse Oximetry 99 02/26/24 11:47 Oxygen Delivery Room Air 02/26/24 00:01 <Adebayo Whitney MD - Last Filed: 02/26/24 11:03> Lab Data Result diagrams: 02/26/24 06:38 02/26/24 06:38 <Manuel Jin MD - Last Filed: 02/27/24 06:38> Labs: Lab Results 02/26/24 02/26/24 Range/Units 06:38 07:32 WBC 7.9 (4.5-10.0) K/mm3 RBC 4.58 L (4.6-6.20) M/mm3 Hgb 14.0 (14.0-18.0) g/dL Hct 40.4 L (42.0-52.0) % MCV 88.2 (80-100) fl MCH 30.6 (26-34) pg MCHC 34.7 (32-36) g/dl RDW 14.7 H (11.5-14.5) % Plt Count 220 (150-375) k/mm3 MPV 10.9 H (7.4-10.4) fl Immature Gran % (Auto) 0.5 (0-0.5) % Neut % (Auto) 73.0 (45.5-73.1) % Lymph % (Auto) 16.5 L (18.3-44.2) % [place] % (Auto) 9.6 H (2.6-8.5) % Eos % (Auto) 0.1 (0-4.4) % Baso % (Auto) 0.3 (0.2-1.2) % Lymph # (Auto) 1.30 (0.9-3.2) K/mm3 Assumption # (Auto) 0.8 H (0.1-0.6) K/mm3 Eos # (Auto) 0.0 (0-0.3) K/mm3 Baso # (Auto) 0.0 (0.0-0.1) K/mm3 Abs Immat Gran (auto) 0.04 H (0.00-0.031) K/mm3 Absolute Neuts (auto) 5.8 (1.3-6.7) K/mm3 Absolute Nucleated RBC 0.000 (0.0-0.012) K/mm3 Nucleated RBC % 0.0 (0.0-0.2) % PT 13.7 (11.1-14.7) Seconds INR 1.0 APTT 24.9 (22.3-36.8) Seconds Sodium 135 L (137-145) mmol/L Potassium 3.6 (3.4-5.0) mmol/L Chloride 98 (98-107) mmol/L Carbon Dioxide 28 (22-30) mmol/L Anion Gap 9 (4-12) mmol/L BUN 8 L (9-20) mg/dL Creatinine 0.60 L (0.7-1.3) mg/dL Estim Creat Clear Calc 163 ml/min Estimated GFR > 60 (59 - ) Glucose 140 H (65-110) mg/dL Lactic Acid 2.0 (0.7-2.0) mmol/L Calcium 8.6 (8.4-10.2) mg/dL Total Bilirubin 1.2 (0.2-1.3) mg/dL AST 47 (17-59) U/L ALT 52 H (6-50) U/L Alkaline Phosphatase 193 H (38-126) U/L Total Protein 7.0 (6.3-8.2) g/dL Albumin 4.1 (3.5-5.1) g/dL Lipase 243 (23-300) U/L Urine Color Dark yellow (Yellow) Urine Appearance Turbid H (Clear) Urine pH 5.5 (5.0-9.0) Ur Specific [place] 1.020 (1.001-1.035) Urine Protein Trace (Negative) mg/dL Urine Glucose (UA) Negative (Negative) mg/dL Urine Ketones Trace H (Negative) mg/dL Ur Blood (Man) Negative (Negative) Urine Nitrate Negative (Negative) Urine Bilirubin Negative (Negative) Urine Urobilinogen 0.2 (<2.0) mg/dL Add Ur Microanalysis Reviewed Leukocyte Esterase Rfl Negative (Negative) SUE/UL Urine RBC 0-2 (0-2) /hpf Urine WBC 0-5 (0-3) /hpf Ur Squamous Epith Cells None seen (Few) /hpf Urine Bacteria None seen /hpf Urine Casts 0-2 <Manuel Jin MD - Last Filed: 02/27/24 06:38> Lab Results 02/26/24 02/26/24 Range/Units 06:38 07:32 WBC 7.9 (4.5-10.0) K/mm3 RBC 4.58 L (4.6-6.20) M/mm3 Hgb 14.0 (14.0-18.0) g/dL Hct 40.4 L (42.0-52.0) % MCV 88.2 (80-100) fl MCH 30.6 (26-34) pg MCHC 34.7 (32-36) g/dl RDW 14.7 H (11.5-14.5) % Plt Count 220 (150-375) k/mm3 MPV 10.9 H (7.4-10.4) fl Immature Gran % (Auto) 0.5 (0-0.5) % Neut % (Auto) 73.0 (45.5-73.1) % Lymph % (Auto) 16.5 L (18.3-44.2) % Assumption % (Auto) 9.6 H (2.6-8.5) % Eos % (Auto) 0.1 (0-4.4) % Baso % (Auto) 0.3 (0.2-1.2) % Lymph # (Auto) 1.30 (0.9-3.2) K/mm3 Assumption # (Auto) 0.8 H (0.1-0.6) K/mm3 Eos # (Auto) 0.0 (0-0.3) K/mm3 Baso # (Auto) 0.0 (0.0-0.1) K/mm3 Abs Immat Gran (auto) 0.04 H (0.00-0.031) K/mm3 Absolute Neuts (auto) 5.8 (1.3-6.7) K/mm3 Absolute Nucleated RBC 0.000 (0.0-0.012) K/mm3 Nucleated RBC % 0.0 (0.0-0.2) % PT 13.7 (11.1-14.7) Seconds INR 1.0 APTT 24.9 (22.3-36.8) Seconds Sodium 135 L (137-145) mmol/L Potassium 3.6 (3.4-5.0) mmol/L Chloride 98 (98-107) mmol/L Carbon Dioxide 28 (22-30) mmol/L Anion Gap 9 (4-12) mmol/L BUN 8 L (9-20) mg/dL Creatinine 0.60 L (0.7-1.3) mg/dL Estim Creat Clear Calc 163 ml/min Estimated GFR > 60 (59 - ) Glucose 140 H (65-110) mg/dL Lactic Acid 2.0 (0.7-2.0) mmol/L Calcium 8.6 (8.4-10.2) mg/dL Total Bilirubin 1.2 (0.2-1.3) mg/dL AST 47 (17-59) U/L ALT 52 H (6-50) U/L Alkaline Phosphatase 193 H (38-126) U/L Total Protein 7.0 (6.3-8.2) g/dL Albumin 4.1 (3.5-5.1) g/dL Lipase 243 (23-300) U/L Urine Color Dark yellow (Yellow) Urine Appearance Turbid H (Clear) Urine pH 5.5 (5.0-9.0) Ur Specific [place] 1.020 (1.001-1.035) Urine Protein Trace (Negative) mg/dL Urine Glucose (UA) Negative (Negative) mg/dL Urine Ketones Trace H (Negative) mg/dL Ur Blood (Man) Negative (Negative) Urine Nitrate Negative (Negative) Urine Bilirubin Negative (Negative) Urine Urobilinogen 0.2 (<2.0) mg/dL Add Ur Microanalysis Reviewed Leukocyte Esterase Rfl Negative (Negative) SUE/UL Urine RBC 0-2 (0-2) /hpf Urine WBC 0-5 (0-3) /hpf Ur Squamous Epith Cells None seen (Few) /hpf Urine Bacteria None seen /hpf Urine Casts 0-2 <Adebayo Whitney MD - Last Filed: 02/26/24 11:03> Discharge Plan Discharge Clinical Impression: Chronic pancreatitis <Manuel Jin MD - Last Filed: 02/27/24 06:38> Patient Disposition: Home, Self-Care <Manuel Jin MD - Last Filed: 02/27/24 06:38> Condition: Stable <Manuel Jin MD - Last Filed: 02/27/24 06:38> Instructions: Pancreatitis (ED) <Manuel Jin MD - Last Filed: 02/27/24 06:38> Additional Instructions: Follow-up with your primary care doctor for further treatment evaluation. Adhere to a clear liquid diet over the next 2-3 days and then gently reintroduce a bland diet. Take Zofran for nausea. Avoid alcohol. <Manuel Jin MD - Last Filed: 02/27/24 06:38> Patient Language: Montserratian <Manuel Jin MD - Last Filed: 02/27/24 06:38> Prescriptions: New ondansetron 4 mg tablet,disintegrating 4 mg PO Q6H PRN (Reason: nausea and vomiting) Qty: 10 0RF No Action multivitamin Tablet 1 tablet PO DAILY ondansetron 4 mg tablet,disintegrating 4 mg PO Q6H Qty: 30 0RF ibuprofen 600 mg tablet 600 mg PO Q6H PRN (Reason: pain) Qty: 20 0RF Rx Instructions: Take with caution as this combined with your Xarelto can increase bleeding risk. pantoprazole [Protonix] 40 mg tablet,delayed release (DR/EC) 40 mg PO QAM 28 Days Qty: 28 0RF vitamin B complex Capsule 1 cap PO DAILY folic acid 1 mg Tablet 1 mg PO DAILY Qty: 30 0RF thiamine HCl (vitamin B1) 50 mg tablet 50 mg PO DAILY Qty: 30 0RF hydrocodone-acetaminophen 5-325 mg Tablet 1 tablet PO Q6H PRN (Reason: Pain Rated 4-6) 3 Days Qty: 12 0RF famotidine 40 mg tablet 40 mg PO QHS Patient Comments: TAKES AT HS pregabalin 75 mg capsule 75 mg PO DAILY omeprazole 20 mg capsule,delayed release(DR/EC) 20 mg PO DAILY Qty: 14 0RF <Manuel Jin MD - Last Filed: 02/27/24 06:38> Follow-up/Referrals: Hira Russell MD [Physician] - 1 Week PHYSICIAN,PICKLE CUTTER [Primary Care Provider] - <Manuel Jin MD - Last Filed: 02/27/24 06:38>
[2024-02-26] MEDS: METOCLOPRAMIDE HCL INJ 10 MG/2 ML VIAL IV PUSH (06:52)
[2024-02-26] MEDS: diphenhydrAMINE HCl INJ 50 MG/ML VIAL IV PUSH (06:52)
[2024-02-26 06:57] LABS: Alanine Aminotransferase 52 U/L (6-50); Albumin Level 4.1 g/dL (3.5-5.1); Alkaline Phosphatase 193 U/L (38-126); Anion Gap 9 mmol/L (4-12); Aspartate Amino Transferase 47 U/L (17-59); Bilirubin,Total 1.2 mg/dL (0.2-1.3); Blood Urea Nitrogen 8 mg/dL (9-20); Calcium 8.6 mg/dL (8.4-10.2); Carbon Dioxide 28 mmol/L (22-30); Chloride 98 mmol/L (98-107); Estimated CRCL calculation 163 ml/min; Estimated Glomerular Filt Rate > 60; Glucose 140 mg/dL (65-110); Lipase 243 U/L (23-300); Potassium 3.6 mmol/L (3.4-5.0); Sodium 135 mmol/L (137-145)
[2024-02-26 07:17] LABS: Partial Thromboplastin Time 24.9 Seconds (22.3-36.8)
[2024-02-26 07:29] VITALS: BP 122/76; PULSE 100; RESP 20; O2SAT 97
[2024-02-26 07:49] LABS: Prothrombin Time 13.7 Seconds (11.1-14.7)
[2024-02-26 08:07] LABS: Add Urine Microscopic? YES; Appearance Urine Turbid (Clear); Bacteria Urine None Seen /hpf; Bilirubin Urine Negative (Negative); Blood Urine Negative (Negative); Color Urine Dark Yellow (Yellow); Glucose Urine UA Negative (Negative); Ketones Urine Trace mg/dL (Negative); Leukocyte Esterase Ur Negative LEU/UL (Negative); Need Manual Microscopic Reviewed; Nitrate Urine Negative (Negative); Non Pathogenic Casts 0-2; Protein Urine Trace mg/dL (Negative); RBC Urine 0-2 /hpf (0-2); Squamous Epithelial Cell Urine None Seen /hpf (Few); Urobilinogen Urine 0.2 mg/dL (<2.0); WBC Urine 0-5 /hpf (0-3); pH Urine 5.5 (5.0-9.0)
[2024-02-26 11:47] VITALS: BP 132/76; PULSE 76; RESP 17; O2SAT 99
== END 2024-02-26 11:48 | disposition home or self-care (01) ==
PROVIDERS: Emergency Provider Emergency Medicine
DX: K86.1 Other chronic pancreatitis (principal); J45.909 Unspecified asthma, uncomplicated; K21.9 Gastro-esophageal reflux disease without esophagitis; F64.0 Transsexualism; Z87.442 Personal history of urinary calculi; Z86.711 Personal history of pulmonary embolism; Z87.11 Personal history of peptic ulcer disease; Z90.49 Acquired absence of other specified parts of digestive tract; Z79.899 Other long term (current) drug therapy
CPT/HCPCS: 36415; 70450; 74177; 80053; 81001; 83605; 83690; 85025; 85610; 85730; 96361; 96374; 96375; 99284; J1200; J1885; J2405; J2765; J7030; Q9967

== ENCOUNTER 2024-10-03 16:11 | Inpatient (IN) | payer SELFPAY ==
[2024-10-03] VITALS (7 sets, daily range): BP systolic 112–137; BP diastolic 86–94; PULSE 82–122; RESP 12–16; TEMP 36.4–38.3; O2SAT 96–99; BMI 21.3
--- NOTE | ~2024-10-03 | US_ITS ---
US venous doppler [facility] - 10/04/2024 11:57 CDT History: 38 years old Male with bilateral lower extremity pain and swelling. Real-time sonographic images of the bilateral lower extremity venous system were obtained. Color Doppler sonography and spectral waveform analysis were performed. No prior studies for comparison. The bilateral sapheno-femoral junctions are patent. The bilateral common femoral, superficial femoral, popliteal and posterior tibial veins are compressible and without evidence of echogenic thrombus. Impression: No evidence of deep venous thrombosis Reviewed, dictated and finalized at location A. Impression: No evidence of deep venous thrombosis
--- NOTE | ~2024-10-03 | CT_ITS ---
EXAMINATION: CT abdomen pelvis wo con DATE: 10/03/2024 18:49 INDICATION: Nausea, vomiting and abdomen pain TECHNIQUE: Computed tomography (CT) of the abdomen and pelvis was performed without intravenous contrast. The dose-length product was 272.40 mGy-cm. Automated exposure control and iterative reconstruction technique were employed. COMPARISON: CT dated 02/25/2014. FINDINGS: There is hepatic steatosis with hepatomegaly. Status post cholecystectomy. Lung bases unremarkable. Heart size normal. No significant pleural or pericardial effusion. The spleen, pancreas, adrenal glands and kidneys are unremarkable. Mild mural thickening of the ascending, transverse, descending and sigmoid colon, consistent with colitis, most likely infectious/inflammatory. No acute osseous abnormality. No significant vascular abnormality. No lymphadenopathy. Nonobstructive bowel gas pattern. No abnormal pelvic masses or fluid collections. No acute osseous abnormality. IMPRESSION: 1. Diffuse abnormal thickening of the colon, consistent with colitis, most likely infectious/inflammatory. No obstruction. 2: Hepatomegaly with diffuse hepatic steatosis. Reviewed, dictated and finalized at location A. IMPRESSION: 1. Diffuse abnormal thickening of the colon, consistent with colitis, most like ly infectious/inflammatory. No obstruction. 2: Hepatomegaly with diffuse hepatic steatosis.
--- NOTE | ~2024-10-03 | MR_ITS ---
EXAMINATION: MR abdomen wo/w con DATE: 10/06/2024 16:07 INDICATION: Liver mass. Abdominal pain. TECHNIQUE: Magnetic resonance imaging (MRI) of the abdomen was performed without and with 15 mL Multihance intravenous contrast. Sequences included coronal T2- weighted SS-FSE, coronal and axial FS 2D-FIESTA, axial STIR FSE, axial T2- weighted SS-FSE, axial T2-weighted FS SS-FSE, axial diffusion-weighted SE, axial dual-echo T1-weighted FSPGR, and axial and coronal T1-weighted LAVA. Postcontrast axial T1-weighted LAVA images were obtained in a time course. Postcontrast coronal T1-weighted LAVA images were obtained. COMPARISON: CT dated 10/03/2024 FINDINGS: Heart size is normal. No pericardial effusion. Tiny bilateral pleural effusions. Hepatomegaly with prominent diffuse hepatic steatosis. No hepatic lesions identified. Status post cholecystectomy. No intra or extrahepatic biliary ductal dilation. Spleen, pancreas, bilateral adrenal glands and kidneys are normal. Visualized portions of bowels are unremarkable no obstruction. No pathologically enlarged abdominal or upper pelvic lymphadenopathy. Bone marrow signal is normal throughout. IMPRESSION: 1. Hepatomegaly with prominent diffuse hepatic steatosis. Reviewed, dictated and finalized at location A.
--- NOTE | ~2024-10-03 | US_ITS ---
EXAMINATION: US Abdomen limited INDICATION: Elevated liver enzymes PROCEDURE: Realtime High Resolution abdomen ultrasound. COMPARISON: CT abdomen pelvis 10/03/2024 FINDINGS: The study is limited due to the patient's imaging characteristics. Visualized pancreas is unremarkable. Visualized liver is hyperechoic likely due to fatty infiltration and/or hepatocellular disease. Hepatopedal flow in the portal vein. Gallbladder is surgically absent. No Huynh's sign. Common duct measures 7 mm. Visualized inferior vena cava is patent. IMPRESSION: 1: Liver is hyperechoic likely due to fatty infiltration and/or hepatocellular disease. Consider a liver mass CT or MRI for further assessment. 2. Cholecystectomy. 3. Limited study as above. Reviewed, dictated and finalized at location A.
--- OUTSIDE RECORDS SUMMARY | 2024-10-03 16:30 | XMS_ITS | Clinical Summary ---
Author Organization [facility] Address [address] [place] [address] Care Team Providers Care Director Adult Name Role Phone None, Physician Primary Care Provider Unavailabl e Source Comments [facility],non-owned Affiliates and Associated Physician Practices is amultiple site organization consisting of ambulatory clinics and hospital sitesin [place], [place], [place] and [place]. This disclosure is being madepursuant to the Care Everywhere program and may not contain all information available regarding this patient. Last updated 17.[facility] [employer] Allergies No known active allergies Social History Tobacco Use Types Packs/Day Years Used Date Smoking Tobacco: Never Assessed AUDIT-C Answer Date Recorded Q1: How often do you have a drink containing alcohol? 4 or more times a week 02/28/2024 Q2: How many drinks containi ng alcohol do you have on a typical day when you are drinking? 7 to 9 Q3: How often do you have si x or more drinks on one occasion? Daily or almost daily 02/28/2024 PHQ-2 Answer Date Recorded Patient Health Questionnaire-2 Score 5 02/28/2024 Comments Unknown Sex and Gender Information Value Date Recorded Sex Assigned at Not on file Legal Sex Female 1:53 AM SHIFT COORDINATOR Gender Identity Not on file Sexual Orientation Not on file Last Filed Vital Signs Vital Sign Reading Time Taken Comments Blood Pressure 122/80 02/28/2024 4:27 PM SHIFT COORDINATOR Pulse 80 02/28/2024 4:27 PM SHIFT COORDINATOR Temperature 37 C (98.6 F) 02/28/2024 4:27 PM SHIFT COORDINATOR Respiratory Rate 18 02/28/2024 4:27 PM SHIFT COORDINATOR Oxygen Saturation 99% 02/28/2024 4:27 PM SHIFT COORDINATOR Inhaled Oxygen Concentration - - Weight 80.7 kg (178 lb) 02/28/2024 1:06 AM SHIFT COORDINATOR Height 185.4 cm (6' 1) 02/28/2024 1:06 AM SHIFT COORDINATOR Body Mass Index 23.48 02/28/2024 1:06 AM SHIFT COORDINATOR Plan of Treatment Health Maintenance Due Date Last Done Comments HIV SCREENING 10/23/2002 HEPATITIS C SCREENING 10/19/2005 DTAP/TDAP/TD VACCINES (1 - Tdap) 10/23/2006 HEPATITIS B VACCINE (1 of 3 - 19+ 3-dose series) 10/23/2006 PAP SMEAR 10/23/2008 HPV VACCINE (1 - 3-dose SCDM series) 10/23/2014 COVID-19 VACCINE (1 - 2023-2 5 season) 2023 DEPRESSION SCREENING 02/16/2024 INFLUENZA VACCINE (#1) 2024 ZOSTER VACCINE (1 of 2) 10/23/2037 HIB VACCINE Aged Out No longer eligi ble based on patient's age to complete this topic MENINGOCOCCAL (Group B) VACC INE SHARED DECISION-MAKING Aged Out No longer eligibl e based on patient's age to complete this topic MENINGOCOCCAL GROUPS A/C/Y/W VACCINE Aged Out No longer eligible b ased on patient's age to complete this topic PNEUMOCOCCAL VACCINE Aged Out No long er eligible based on patient's age to complete this topic Insurance SELF PAY NO INSURANCE Member Subscriber Plan / Payer (Ef fective for All Dates) Name:Gui Roman Member ID:Not on file Relation to Subscriber:Not on file Name:GUI ROMAN Subscriber ID:Not on file Address: [address] [place] [id number] Payer ID:Not on file Group ID:Not on file Type:Self Pay Address: [place], [place] SELF PAY NO INSURANCE Member Subscriber Plan / Payer (Ef fective for All Dates) Name:Gui Roman Member ID:Not on file Relation to Subscriber:Not on file Name:GUI ROMAN Subscriber ID:Not on file Address: [address] [place], [place] [id number] Payer ID:Not on file Group ID:Not on file Type:Self Pay Address: [place], [place] ANTHEM * Guarantor: GUI ROMAN Account Type Relation to Patient Date of Phone Billing Address Personal/Family [address] [place] [address] SELF PAY NO INSURANCE Member Subscriber Plan / Payer (Ef fective for All Dates) Name:JessieGui tamez Tere Member ID:Not on file Relation to Subscriber:Not on file Name:GUI ROMAN Subscriber ID:Not on file Address: [address] [place], [place] [phone] Payer ID:Not on file Group ID:Not on file Type:Self Pay Address: [place], [place] * Guarantor: GUI ROMAN Account Type Relation to Patient Date of Phone Billing Address Personal/Family [address] [place], [place] [phone] SELF PAY NO INSURANCE Member Subscriber Plan / Payer (Ef fective for All Dates) Name:Gui Roman M Member ID:Not on file Relation to Subscriber:Not on file Name:GUI ROMAN Subscriber ID:Not on file Address: [address] [place], [place] [phone] Payer ID:Not on file Group ID:Not on file Type:Self Pay Address: [place], [place] Care Teams Director Adult Relationship Specialty Start Date End Date None, Physician PCP - General 02/28/24
--- OUTSIDE RECORDS SUMMARY | 2024-10-03 16:30 | XMS_ITS | Clinical Summary ---
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 Gender Identity Not on file Sexual Orientation Not on file Plan of Treatment Health Maintenance Due Date Last Done Comments Hepatitis C Virus (HCV) Screening 1987 TdaP Immunization 1987 Hepatitis B Immunization (1 of 3 - 19+ 3-dose series) 10/23/2006 Pap Smear 10/23/2008 Human Papillomavirus (HPV) Immunization (1 - 3-dose SCDM series) 10/23/2014 Cervical Cancer Screening (CCS) 10/23/2017 HPV/Cotest 10/23/2017 SARS-COV-2 Immunization ( season) 2023 01/14/2021 Influenza Immunization (#1) 2024 Respiratory Syncytial Virus (RSV) Immunization (Adult) (1 - 1-dose 75+ series) 10/23/2062 Meningococcal Immunization (ACWY) Aged Out No longer eligible based on patient's age to complete this topic Pneumococcal Immunization Combined Aged Out No longer eligible based on patient's age to complete this topic Rotavirus Immunization Aged Out No lo nger eligible based on patient's age to complete this topic Insurance [facility]
--- OUTSIDE RECORDS SUMMARY | 2024-10-03 16:30 | XMS_ITS | Clinical Summary ---
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 UPPER GASTROINTESTINAL ENDOSCOPY 07/01/2023 US GUIDED BIOPSY LYMPH NODE SUPERFICIAL LEFT 05/03/2017 N/A US GUIDED BIOPSY LYMPH NODE SUPERFICIAL LEFT 06/02/2017 N/A Medical History Medical History Date Comments Asthma Gender identity disorder Eosinophilic esophagitis Allergic rhinitis GERD (gastroesophageal reflu x disease) Abnormal CT scan 04/07/2017 Foreign body in esophagus 04/07/2019 Alcohol use disorder, modera te, dependence (HCC) 06/22/2020 Folliculitis 07/17/2016 Enlarged lymph nodes 04/07/2017 Other chest pain 04/04/2021 Added automatic dianey from request for surgery [id number] Abnormal TSH 07/20/201607/2016 TSH eleva antony 4.25. Possibly related to etoh use in past. Has been normal since 04/2020. Weight loss 07/17/2016 Lost 40 lb over last few years in setting of GI symptoms, dysphagia, and EOE. Recently did gain 10 lb. Denies other B symptoms. - repeat thyroid studies today - dysphagia/eosinophilic esophagitis workup as elsewhere - continue to monitor Resolved with Dupexiant and ability to eat more food. Cholecystitis 01/18/202312/2022 patient reports presented to [facility] with acute cholecystitis. Plan to admit, but asked to do outpatient and has upcoming surgery on 01/15. Having worsening pain, following low fat diet, but still having symptoms. APAP helps during day and Percocet as needed with relief. - APAP during the day and percocet nightly as needed 02/2023 now s/p cholecystectomy without complication. Easy bruising 07/17/2016 Leukocytosis 04/07/2019 Constipation 05/07/2022 Nausea and vomiting 09/20/2023 Pancreatitis Family History Medical History Relation Name Comments Non-Hodgkin's Lymphoma Father Colon cancer Maternal Grandfather Lung cancer Maternal Grandfather Breast cancer Maternal Grandmother Diabetes Mother Heart disease Mother Relation Name Status Comments Father Maternal Grandfather Maternal Grandmother Mother Social History Tobacco Use Types Packs/Day Years Used Date Smoking Tobacco: Never Smokeless Tobacco: Never Tobacco Cessation:Counseling Given: Not Answered Alcohol Use Standard Drinks/Week Comments Not Currently 0 (1 standard drink = 0.6 oz pur e alcohol) [facility] Utilities Answer Date Recorded In the past 12 months has [employer], gas, oil, or water [employer] threatened to shut off services in your home? No 10/04/2023 Social Connection and Isolation Panel Answer Date Recorded In a typical week, how many times do you talk on the phone with family, friends, or neighbors? More than three times a week 10/04/2023 How often do you get togethe r with friends or relatives? More than three times a week 10/04/2023 How often do you attend [facility] or pentecostalism services? Never 10/04/2023 Do you belong to any clubs o r organizations such as hinduism groups, unions, fraternal or athletic groups, or school groups? No 10/04/2023 How often do you attend meet ings of the clubs or organizations you belong to? Never 10/04/2023 Are you , , di vorced, , never , or living with a partner? Never 10/04/2023 AUDIT-C Answer Date Recorded Q1: How often do you have a drink containing alcohol? 2-3 times a week 12/15/2023 Q2: How many drinks containi ng alcohol do you have on a typical day when you are drinking? Patient does not drink Q3: How often do you have si x or more drinks on one occasion? Patient declined 12/15/2023 Overall Financial Resource Strain (CARDIA) Answe r Date Recorded How hard is it for you to pa y for the very basics like food, housing, medical care, and heating? Hard 10/04/2023 PHQ-2 Answer Date Recorded PHQ-2 Total Score (If total score is 3 or more points, staff should administer the PHQ-9) 4 06/08/2023 Hunger Vital Sign Answer Date Recorded Within the past 12 months, y ou worried that your food would run out before you got the money to buy more. Never true 10/04/19 24 Within the past 12 months, t he food you bought just didn't last and you didn't have money to get more. Never true 10/04/2023 PRAPARE - Transportation Answer Date Re corded In the past 12 months, has l ack of transportation kept you from medical appointments or from getting medications? No 09/15 In the past 12 months, has l ack of transportation kept you from meetings, work, or from getting things needed for daily living? No 10/04/2023 PHQ-9 Answer Date Recorded PHQ-9 Total Score 15 06/08/2023 Housing Stability Vital Sign Answer Tyson e Recorded In the last 12 months, was t here a time when you were not able to pay the mortgage or rent on time? No 10/04/2023 In the past 12 months, how m any times have you moved where you were living? 0 10/04/2023 At any time in the past [facility], were you homeless or living in a long-term (including now)? No 10/04/2023 Personal Safety Answer Date Recorded Have you ever been in or are you currently in a harmful physical or emotional relationship or is someone making you feel afraid or unsafe? Denies 10/12/2023 Comments No Sex and Gender Information Value Date Recorded Sex Assigned at Not on file Legal Sex Female 11:01 AM [employer]PER[employer] Gender Identity Transgender Female 04/05/2019 8: 12 PM [employer]AIL [employer] OPER[employer] Sexual Orientation Choose not to disclose 2020 8:52 AM CDT Obstetrics History Last Filed Vital Signs Vital Sign Reading Time Taken Comments Blood Pressure 123/86 12/15/2023 12:57 PM CDT Pulse 100 12/15/2023 12:57 PM CDT Temperature 36.7 C (98.1 F) 12/15/2023 12:57 PM CDT Respiratory Rate 18 12/15/2023 12:57 PM CDT Oxygen Saturation 97% 12/15/2023 12:57 PM CDT Inhaled Oxygen Concentration - - Weight 78.5 kg (173 lb) 12/15/2023 12:57 PM CDT no shoes Height 185.4 cm (6' 1) 12/15/2023 12:57 PM CDT Body Mass Index 22.82 12/15/2023 12:57 PM CDT Plan of Treatment Health Maintenance Due Date Last Done Comments Hepatitis C Screening 1987 Varicella Vaccines (1 of 2 - 13+ 2-dose series) 10/23/2000 Hepatitis B Screening 10/23/2005 Regular Well Visit/Exam 18-64 10/23/2005 Pneumococcal vaccine <65 (1 of 2 - PCV) 10/23/2006 HPV Vaccines (1 - 3-dose SCD M series) 10/23/2014 Covid-19 Vaccine (2 - 2023-2 5 season) 2023 01/14/2021 Depression Screening 06/07/2024 06/08/2023, 11/03/2022, 03/26/2021, Additional history exists Influenza Vaccine (#1) 2024 12/08/2022 DTaP/Tdap/Td Vaccine (2 - Td or Tdap) 01/26/2028 01/25/2018 Cervical Cancer Screening Discontinued Insurance BLUE ACCESS OOS BLUE ACCESS OOS BLUE ACCESS OOS BLUE ACCESS OOS Advance Directives For more information, please contact: [phone] * Full Code (Latest Code Status on File) Date Activated Date Inactivated Comments 10/01/2023 10:36 PM 10/05/2023 7:34 PM * Full Code Date Activated Date Inactivated Comments 09/20/2023 11:59 PM 09/24/2023 12:57 AM * Full Code Date Activated Date Inactivated Comments 04/06/2019 7:55 AM 04/07/2019 10:42 PM Care Teams Grain Loader Relationship Specialty Start Date End Date Tiffanie Bautista MD PCP - General 11/03/22 Ariel Alba MD Consulting Physician Gastroenterology 07/02/20
[2024-10-03 17:03] LABS: Hematocrit 38.9 % (42.0-52.0); Hemoglobin 13.5 g/dL (14.0-18.0); Immature Granulocyte Percent A 0.3 % (0-0.5); Lymphocytes Absolute Auto 0.74 K/mm3 (0.9-3.2); Mean Corpuscular HGB Conc 34.7 g/dl (32-36); Mean Corpuscular Hemoglobin 32.3 pg (26-34); Mean Corpuscular Volume 93.1 fl (80-100); Nucleated Red Blood Cells Absolute Auto 0.000 K/mm3 (0.0-0.012); Nucleated Red Blood Cells Perc 0.0 % (0.0-0.2); Platelet Count Result 176 k/mm3 (150-375); Red Blood Count 4.18 M/mm3 (4.6-6.20); White Blood Count 5.8 K/mm3 (4.5-10.0)
[2024-10-03 17:07] LABS: Add Urine Microscopic? YES; Appearance Urine Clear (Clear); Glucose Urine UA Negative (Negative); Leukocyte Esterase Ur Trace LEU/UL (Negative); Nitrate Urine Negative (Negative); Non Pathogenic Casts 0-2; Specific Grav Ur 1.023 (1.001-1.035)
[2024-10-03] MEDS: PHENobarbitaL sodium (*CRX) 130 MG/ML VIAL 260 MG IV PUSH ×2 (17:14→18:24)
[2024-10-03 17:16] LABS: Alanine Aminotransferase 124 U/L (6-50); Albumin Level 4.1 g/dL (3.5-5.1); Alkaline Phosphatase 622 U/L (38-126); Anion Gap 19 mmol/L (4-12); Aspartate Amino Transferase 426 U/L (17-59); Bilirubin,Total 3.0 mg/dL (0.2-1.3); Blood Urea Nitrogen 2 mg/dL (9-20); Calcium 9.0 mg/dL (8.4-10.2); Carbon Dioxide 19 mmol/L (22-30); Chloride 93 mmol/L (98-107); Estimated CRCL calculation 144 ml/min; Estimated Glomerular Filt Rate > 60; Glucose 193 mg/dL (65-110); Lipase 30 U/L (23-300); Potassium 3.7 mmol/L (3.4-5.0); Sodium 131 mmol/L (137-145); Total Protein 7.9 g/dL (6.3-8.2)
[2024-10-03] MEDS: PANTOPRAZOLE SODIUM IV 40 MG VIAL IV PUSH (17:16)
[2024-10-03] MEDS: ONDANSETRON INJ 4 MG/2 ML VIAL IV PUSH (17:16)
[2024-10-03 17:20] LABS: INR 1.0; Prothrombin Time 13.4 Seconds (11.1-14.7)
[2024-10-03 17:21] LABS: Partial Thromboplastin Time 24.7 Seconds (22.3-36.8)
[2024-10-03] MEDS: SODIUM CHLORIDE 0.9% IV 50 ML 100 ML (17:49)
[2024-10-03] MEDS: LACTATED RINGERS 1,000 ML 999 ML IV CONT ×2 (17:56→19:04)
[2024-10-03 17:59] LABS: Cannabinoid Screen Urine Negative (Negative)
--- NOTE | 2024-10-03 18:46 | ED.ALCOHOL ---
HPI - Alcohol General Chief Complaint: Alcohol Stated Complaint: ETOH poisoning Time Seen by Provider: 10/03/24 16:47 History of Present Illness HPI narrative: Patient presenting here with concern for drinking too much alcohol, she has history of alcohol use disorder and was able to quit for a few months but started back up; has been drinking heavily for multiple days and has severe nausea vomiting cannot stop vomiting. Related Data Home Medications ?Medication ?Instructions ?Recorded ?Confirmed ?Last Taken ?Type multivitamin 1 tablet PO DAILY 01/05/23 01/24/24 01/23/24 History famotidine 40 mg tablet 40 mg PO QHS 08/31/23 01/24/24 01/22/24 History pregabalin 75 mg capsule 75 mg PO DAILY 10/14/23 01/24/24 01/23/24 History vitamin B complex 1 cap PO DAILY 01/24/24 01/24/24 01/23/24 History Allergies Allergy/AdvReac Type Severity Reaction Status Date / Time Penicillins Allergy Severe Anaphylaxis Verified 10/03/24 16:15 Review of Systems Review of Systems: All systems reviewed & are unremarkable except as noted in HPI and below PMFSH Past Medical History Medical History (Updated 10/03/24 @ 18:53 by Emily Osei MD) Hypokalemia Elevated LFTs Fatty liver Alcohol use Black stools Peptic ulcer Kidney stones Anxiety Depression Asthma Hx of blood clots PEs GERD (gastroesophageal reflux disease) Eosinophilic esophagitis Surgical History Surgical History History of laparoscopic cholecystectomy 01/15/23 [facility] History of dental surgery History of esophagogastroduodenoscopy (EGD) Family History Family History Father Hypertension Lymphoma Mother Heart disease Hypertension Grandparent Malignant neoplasm of prostate Lung cancer Grandparent Breast cancer Other Cerebrovascular accident Diabetes mellitus Social History Social History (Updated 01/24/24 @ 11:40 by Zay Rojas MD) Social History: Lifelong nonsmoker. No history of drug use. No history of IV drug use. Works for [employer] support. Code status -full Surrogate decision maker -Jackie Joel Smoking status: Never smoker Alcohol intake: current Alcohol use details: QUIT DRINKING ~[id number] Substance use: former Substance use type: does not use Other substance usage details: *pt states they consume approx 1 bottle of whiskey a day Do You Feel Safe in your Home?: Yes Lack of Transportation: No Lack of Food: Never True Current Housing: I Have Housing Concerned About Future Housing: No Difficulty Paying Gas/Electric Bills: YES Difficulty Paying for Meds: YES Currently Unemployed: No Education: Associate Degree Difficulty w/ Childcare or Family Care: No Living arrangements: with family Occupation/Education: occupation 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 EYES: EOMI, conjunctiva normal ENT: Hearing grossly intact LUNGS: Nonlabored breathing. HEART: Tachycardic ABD: [Soft], slightly tender diffuse abdomen EXT: Normal range of motion SKIN: [No rashes or lesions.] NEURO: [Alert and oriented x 3. No gross focal sensory or strength deficits.] PSYCH: Normal affect Course Vital Signs Vital signs: Vital Signs Temperature 97.6 F 10/03/24 16:12 Pulse Rate 122 H 10/03/24 16:12 Respiratory Rate 16 10/03/24 16:12 Blood Pressure 137/86 10/03/24 16:12 Pulse Oximetry 98 10/03/24 16:12 Oxygen Delivery Room Air 10/03/24 16:12 Temperature 97.6 F 10/03/24 16:12 Pulse Rate 122 H 10/03/24 16:12 Respiratory Rate 16 10/03/24 16:12 Blood Pressure 137/86 10/03/24 16:12 Pulse Oximetry 98 10/03/24 16:12 Oxygen Delivery Room Air 10/03/24 16:12 MDM - Alcohol MDM Narrative Medical decision making narrative: 38-year-old female presenting with nausea, vomiting, tremors, and he has been drinking heavily last few days and has not been able to keep anything down. On exam she is quite tremulous, CIWA score 26, given dose of phenobarbital with improvement as well as fluids, Zofran, Protonix. Repeat vital signs much improved, though she is still quite tremulous and like to be admitted which I feels quite reasonable, additional dose of phenobarbital ordered and discussed with hospitalist and ICU for admission. Labs notable for elevated LFTs. CT ordered, ICU will follow up. Lab Data 10/03/24 16:54 10/03/24 16:54 Labs: Lab Results 10/03/24 10/03/24 Range/Units 16:54 18:36 WBC 5.8 (4.5-10.0) K/mm3 RBC 4.18 L (4.6-6.20) M/mm3 Hgb 13.5 L (14.0-18.0) g/dL Hct 38.9 L (42.0-52.0) % MCV 93.1 (80-100) fl MCH 32.3 (26-34) pg MCHC 34.7 (32-36) g/dl RDW 15.0 H (11.5-14.5) % Plt Count 176 (150-375) k/mm3 MPV 10.3 (7.4-10.4) fl Immature Gran % (Auto) 0.3 (0-0.5) % Neut % (Auto) 81.2 H (45.5-73.1) % Lymph % (Auto) 12.7 L (18.3-44.2) % [place] % (Auto) 5.3 (2.6-8.5) % Eos % (Auto) 0.0 (0-4.4) % Baso % (Auto) 0.5 (0.2-1.2) % Lymph # (Auto) 0.74 L (0.9-3.2) K/mm3 [place] # (Auto) 0.3 (0.1-0.6) K/mm3 Eos # (Auto) 0.0 (0-0.3) K/mm3 Baso # (Auto) 0.0 (0.0-0.1) K/mm3 Abs Immat Gran (auto) 0.02 (0.00-0.031) K/mm3 Absolute Neuts (auto) 4.7 (1.3-6.7) K/mm3 Absolute Nucleated RBC 0.000 (0.0-0.012) K/mm3 Nucleated RBC % 0.0 (0.0-0.2) % PT 13.4 (11.1-14.7) Seconds INR 1.0 APTT 24.7 (22.3-36.8) Seconds Sodium 131 L (137-145) mmol/L Potassium 3.7 (3.4-5.0) mmol/L Chloride 93 L (98-107) mmol/L Carbon Dioxide 19 L (22-30) mmol/L Anion Gap 19 H (4-12) mmol/L BUN 2 L D (9-20) mg/dL Creatinine 0.61 L (0.7-1.3) mg/dL Estim Creat Clear Calc 144 ml/min Estimated GFR > 60 (59 - ) Glucose 193 H (65-110) mg/dL Calcium 9.0 (8.4-10.2) mg/dL Total Bilirubin 3.0 H (0.2-1.3) mg/dL AST 426 H (17-59) U/L ALT 124 H (6-50) U/L Alkaline Phosphatase 622 H (38-126) U/L Total Protein 7.9 (6.3-8.2) g/dL Albumin 4.1 (3.5-5.1) g/dL Lipase 30 (23-300) U/L Urine Color Dark yellow (Yellow) Urine Appearance Clear (Clear) Urine pH 7.0 (5.0-9.0) Ur Specific [place] 1.023 (1.001-1.035) Urine Protein 2+ H (Negative) mg/dL Urine Glucose (UA) Negative (Negative) mg/dL Urine Ketones 3+ H (Negative) mg/dL Ur Blood (Man) Negative (Negative) Urine Nitrate Negative (Negative) Urine Bilirubin 2+ H (Negative) Urine Urobilinogen 1.0 (<2.0) mg/dL Leukocyte Esterase Rfl Trace H (Negative) SUE/UL Urine RBC 0-2 (0-2) /hpf Urine WBC 0-5 (0-3) /hpf Ur Squamous Epith Cells None seen (Few) /hpf Urine Bacteria None seen /hpf Urine Casts 0-2 Nasal MRSA (PCR) Pending Urine Opiates Screen Negative (Negative) Urine Methadone Screen Negative (Negative) Ur Barbiturates Screen Positive A (Negative) Ur Phencyclidine Scrn Negative (Negative) Ur Amphetamine Screen Negative (Negative) U Benzodiazepines Scrn Positive A (Negative) Urine Cocaine Screen Negative (Negative) U Cannabinoids Screen Negative (Negative) Ethyl Alcohol < 10 (<10) mg/dL Critical Care Time Critical Care Time Critical Care Time: Yes Total Critical Care Time: 31 Discharge Plan Discharge Clinical Impression: Alcohol withdrawal, Elevated LFTs Patient Disposition: Still a Patient Condition: Serious Patient Language: Citizen Of [place] Prescriptions: No Action multivitamin Tablet 1 tablet PO DAILY ondansetron 4 mg tablet,disintegrating 4 mg PO Q6H Qty: 30 0RF ibuprofen 600 mg tablet 600 mg PO Q6H PRN (Reason: pain) Qty: 20 0RF Rx Instructions: Take with caution as this combined with your Xarelto can increase bleeding risk. pantoprazole [Protonix] 40 mg tablet,delayed release (DR/EC) 40 mg PO QAM 28 Days Qty: 28 0RF vitamin B complex Capsule 1 cap PO DAILY folic acid 1 mg Tablet 1 mg PO DAILY Qty: 30 0RF thiamine HCl (vitamin B1) 50 mg tablet 50 mg PO DAILY Qty: 30 0RF hydrocodone-acetaminophen 5-325 mg Tablet 1 tablet PO Q6H PRN (Reason: Pain Rated 4-6) 3 Days Qty: 12 0RF ondansetron 4 mg tablet,disintegrating 4 mg PO Q6H PRN (Reason: nausea and vomiting) Qty: 10 0RF famotidine 40 mg tablet 40 mg PO QHS Patient Comments: TAKES AT HS pregabalin 75 mg capsule 75 mg PO DAILY omeprazole 20 mg capsule,delayed release(DR/EC) 20 mg PO DAILY Qty: 14 0RF Follow-up/Referrals: PHYSICIAN NOT ON STAFF,NONSTAFF [Primary Care Provider]
[2024-10-03 19:54] LABS: MRSA (PCR) NOT DETECTED (NOT DETECTE)
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
--- NOTE | 2024-10-03 20:07 | ADMGEN ---
This patient, Nesha Roman, was admitted to Intensive Care Unit-5. Patient/family oriented to hospital policies and general routines including ID bracelet, bed and alarms, visiting hours, pain management, procedures, bathroom and other care routines, personal items, smoking policy, room service/diet, and visiting hours. Information on how to activate the Rapid Response Team has been discussed. Patient/Family are encouraged to report perceived risks to care and to ask questions if they do not understand what they are told or what they should do.
[2024-10-03] MEDS: THIAMINE 500 MG/NS 100 ML 500 MG/100 ML BAG 200 MG IVPB (21:11)
[2024-10-03] MEDS: MORPHINE SULFATE (*CRX) 4 MG/ML INJ IV PUSH (21:16)
[2024-10-03] MEDS: SODIUM CHLORIDE 0.9% IV 1,000 ML 125 ML IV CONT (21:16)
[2024-10-03] MEDS: FAMOTIDINE 20 MG TABLET 40 MG PO (21:17)
[2024-10-03 21:22] LABS: Magnesium 1.2 mg/dL (1.6-2.3)
[2024-10-03] MEDS: cefTRIAXone 1 GM in SODIUM CHLORIDE 0.9% IV 50 ML 100 ML IVPB (22:02)
[2024-10-03] MEDS: PHENobarbitaL sodium (*CRX) 130 MG/ML VIAL IV PUSH (22:04)
[2024-10-03] MEDS: metroNIDAZOLE 500 MG/ISO 100ML 500 MG/100 ML BAG 100 MG IVPB (22:39)
[2024-10-03] MEDS: LORazepam INJ (*CRX) 2 MG/ML VIAL 1 MG IV PUSH (22:42)
[2024-10-04] VITALS (12 sets, daily range): BP systolic 94–112; BP diastolic 62–86; PULSE 67–100; RESP 8–20; TEMP 36.5–36.9; O2SAT 95–100; BMI 21.3
--- NOTE | 2024-10-04 | ECHO_ITS ---
Patient Info Name: Nesha Roman Age: 38 years : 1985 Gender: Male Ht: 73 in Wt: 161 lbs BSA: 1.93 m2 HR: 60 bpm BP: 96 / 70 mmHg Technical Quality: Good Exam Date: 10/04/2024 11:44 AM Patient Status: I Admit Date: 10/03/2024 Exam Type: CA echo doppler color flow Complete two-dimensional, color flow and Doppler transthoracic echocardiogram is performed. Staff Referring Physician: Cody Rivas MD Sap Gatherer: Stacey Douglas Attending Provider: Tigre Espinal Summary 1. Complete two-dimensional, color flow and Doppler transthoracic echocardiogram is performed. 2. Left ventricular systolic function is normal, estimated at 55-60. 3. The left ventricular diastolic function is normal. 4. There is trace tricuspid valve regurgitation. 5. No pulmonary hypertension, estimated pulmonary arterial systolic pressure is 25 mmHg. 6. There is trace pulmonic regurgitation. Left Ventricle Left ventricular chamber dimension is normal. Left ventricular systolic function is normal, estimated at 55-60. There is no increased left ventricular wall thickness. Left ventricular septal wall motion is normal. The left ventricular diastolic function is normal. Right Ventricle Right ventricular chamber dimension is normal. Right ventricular systolic function is normal. Left Atria Left atrial chamber dimension is normal. Right Atria Right atrial chamber dimension is normal. Aortic Valve The aortic valve is trileaflet. There is no aortic valve sclerosis. There is no aortic valve stenosis. There is no aortic valve regurgitation. Pulmonic Valve The pulmonic valve is normal. There is no pulmonic valve stenosis. There is trace pulmonic regurgitation. Mitral Valve The mitral valve has normal leaflets. There is no mitral valve stenosis. There is no mitral valve regurgitation. Tricuspid Valve The tricuspid valve leaflets are normal. There is no significant tricuspid valve stenosis. There is trace tricuspid valve regurgitation. No pulmonary hypertension, estimated pulmonary arterial systolic pressure is 25 mmHg. Pericardium/Pleural The pericardium appears normal. There is no pericardial effusion. Inferior Vena Cava Normal inferior vena cava with >50% collapse upon inspiration consistent with normal right atrial pressure, 5 mmHg. Aorta The aortic root size at the sinus of Valsalva is normal. The prox ascending aorta size is normal. Left Ventricular Outflow Tract Name Value Normal LVOT 2D LVOT Diameter 2.2 cm LVOT Doppler LVOT Peak Velocity 83 cm/s LVOT Peak Gradient 3 mmHg LVOT Mean Gradient 2 mmHg LVOT VTI 20 cm LVOT Stroke Volume 75 ml LVOT CO 4.5 l/min LVOT CI 2.3 l/min/m2 Pulmonic Valve Name Value Normal RVOT Doppler RVOT Peak Velocity 56 cm/s RVOT Peak Gradient 1 mmHg PV Doppler PV Peak Velocity 89 cm/s PV Peak Gradient 3 mmHg Mitral Valve Name Value Normal MV Diastolic Function MV E Peak Velocity 57 cm/s MV A Peak Velocity 48 cm/s MV E/A 1.2 MV Decel Time (PW) 244 ms MV Annular TDI MV E/e' (Septal) 6.1 MV E/e' (Lateral) 4.3 MV E/e' (Average) 5.2 Tricuspid Valve Name Value Normal TV Regurgitation Doppler TR Peak Velocity 224 cm/s TR Peak Gradient 20 mmHg Estimated PAP/RSVP RA Pressure 5 mmHg <=5 PA Systolic Pressure 25 mmHg <36 RV Systolic Pressure 25 mmHg <36 TV Annular TDI TV Lateral Meaghan s' Velocity 9.4 cm/s >=9.5 Aortic Valve Name Value Normal AV Doppler AV Peak Velocity 104 cm/s AV Peak Gradient 4 mmHg AV Area (Cont Eq Ray) 3.0 cm2 AV DI (Ray) 0.80 AV Regurgitation 2D LVOT Area 3.8 cm2 Ventricles Name Value Normal LV Dimensions 2D/MM IVS Diastolic Thickness (2D) 0.6 cm 0.6-1.0 LVID Diastole (2D) 5.1 cm 4.2-5.8 LVIW Diastolic Thickness (2D) 0.9 cm 0.6-1.0 LVID Systole (2D) 3.4 cm 2.5-4.0 LVOT Diameter 2.2 cm LV Mass (2D Cubed) 135.06 g 88.00-224.00 LV Mass Index (2D Cubed) 70 g/m2 49-115 Relative Wall Thickness (2D) 0.37 <=0.42 LV Fractional Shortening/Ejection Fraction 2D/MM LV Fractional Shortening (2D) 33 % 25-43 LV EF (2D Teichholz) 62 % LV Diastolic Volume (4C MOD) 93 ml LV EF (4C MOD) 64 % LV Diastolic Volume (2C MOD) 90 ml LV EF (2C MOD) 62 % LV Diastolic Volume (BP MOD) 92 ml 62-150 LV Diastolic Volume Index (BP MOD) 47 ml/m2 34-74 LV Systolic Volume (BP MOD) 34 ml 21-61 LV Systolic Volume Index (BP MOD) 18 ml/m2 11-31 LV EF (BP MOD) 62 % 52-72 LV Diastolic Length (4C) 8.3 cm LV Systolic Length (4C) 6.5 cm LV Stroke Volume (4C MOD) 59 ml Atria Name Value Normal LA Dimensions LA Volume (4C A-L) 27 ml LA Volume (BP A-L) 33 ml RA Dimensions RA Systolic Major [place] Length (4C) 4.7 cm 2.1-2.7 RA Area (4C) 13.4 cm2 <=18.0 Report Signatures
[2024-10-04] MEDS: MORPHINE SULFATE (*CRX) 4 MG/ML INJ IV PUSH ×3 (00:45→20:17)
[2024-10-04] MEDS: ONDANSETRON INJ 4 MG/2 ML VIAL IV PUSH (00:46)
[2024-10-04] MEDS: MAGNESIUM SULF 4 GM/WATER100ML 4 GM/100 ML BAG IVPB (04:06)
[2024-10-04 04:19] LABS: Hematocrit 34.9 % (42.0-52.0); Hemoglobin 11.8 g/dL (14.0-18.0); Immature Platelet Fraction Pct 4.2 % (0.9-11.2); Mean Corpuscular HGB Conc 33.8 g/dl (32-36); Mean Corpuscular Hemoglobin 32.9 pg (26-34); Mean Corpuscular Volume 97.2 fl (80-100); Platelet Count Result 112 k/mm3 (150-375); Red Blood Count 3.59 M/mm3 (4.6-6.20); White Blood Count 4.1 K/mm3 (4.5-10.0)
[2024-10-04 04:31] LABS: Alanine Aminotransferase 97 U/L (6-50); Albumin Level 3.3 g/dL (3.5-5.1); Alkaline Phosphatase 480 U/L (38-126); Anion Gap 5 mmol/L (4-12); Aspartate Amino Transferase 247 U/L (17-59); Bilirubin,Total 2.5 mg/dL (0.2-1.3); Calcium 8.2 mg/dL (8.4-10.2); Carbon Dioxide 29 mmol/L (22-30); Chloride 97 mmol/L (98-107); Estimated CRCL calculation 132 ml/min; Estimated Glomerular Filt Rate > 60; Glucose 80 mg/dL (65-110); Magnesium 1.4 mg/dL (1.6-2.3); Potassium 3.4 mmol/L (3.4-5.0); Sodium 131 mmol/L (137-145); Total Protein 6.5 g/dL (6.3-8.2)
[2024-10-04 04:39] LABS: Blood Urea Nitrogen < 2 mg/dL (9-20)
[2024-10-04] MEDS: metroNIDAZOLE 500 MG/ISO 100ML 500 MG/100 ML BAG 100 MG IVPB ×3 (04:52→21:05)
[2024-10-04] MEDS: LORazepam INJ (*CRX) 2 MG/ML VIAL 1 MG IV PUSH ×4 (04:52→23:13)
[2024-10-04 04:59] LABS: Thyroid Stimulating Hormone Reflex 4.700 uIU/mL (0.465-4.68)
[2024-10-04] MEDS: PANTOPRAZOLE SODIUM IV 40 MG VIAL IV PUSH ×2 (08:07→20:18)
[2024-10-04] MEDS: LORazepam INJ (*CRX) 2 MG/ML VIAL IV PUSH (08:11)
[2024-10-04] MEDS: KCL 20MEQ/0.9% SOD CHL 1,000 ML 100 ML IV CONT ×2 (08:22→21:10)
--- NOTE | 2024-10-04 08:55 | P.CONIN_ITS ---
Assessment and Plan Assessment and plan (1) Alcohol intoxication in relapsed alcoholic: Code(s): F10.21 - Alcohol dependence, in remission Status: Acute Assessment and Plan: Patient states he was sober for 4 months and then drank% 5 L of what the over 2 days and presented with negligible alcohol level. He was suspected to have alcohol withdrawal in the ER and was given phenobarb Currently he appears calm and appropriate Will order p.r.n. Ativan depending on his CIWA score and monitor for signs of withdrawal Thiamine folic acid (2) GERD (gastroesophageal reflux disease): Qualifiers: Esophagitis presence: without esophagitis Qualified Code(s): K21.9 - Gastro-esophageal reflux disease without esophagitis Code(s): K21.9 - Gastro-esophageal reflux disease without esophagitis Status: Acute Assessment and Plan: IV PPI (3) Abdominal pain: Code(s): R10.9 - Unspecified abdominal pain Status: Acute Assessment and Plan: Abdominal pain likely combination of colitis and hepatomegaly with diffuse hepatic steatosis likely from alcohol abuse P.r.n. morphine (4) Hypomagnesemia: Code(s): E83.42 - Hypomagnesemia Status: Acute Assessment and Plan: Magnesium replacement ordered (5) Hypokalemia: Code(s): E87.6 - Hypokalemia Status: Acute Assessment and Plan: Replacement ordered (6) Sepsis: Qualifiers: Sepsis type: sepsis due to unspecified organism Sepsis acute organ dysfunction status: with acute organ dysfunction Severe sepsis acute organ dysfunction type: acute liver failure Hepatic coma status: without hepatic coma Severe sepsis shock status: without septic shock Qualified Code(s): A41.9 - Sepsis, unspecified organism; R65.20 - Severe sepsis without septic shock; K72.00 - Acute and subacute hepatic failure without coma Code(s): A41.9 - Sepsis, unspecified organism Status: Acute Assessment and Plan: Secondary to colitis versus UTI. Blood and urine culture Empiric Rocephin and Flagyl IV fluid (7) Colitis: Code(s): K52.9 - Noninfective gastroenteritis and colitis, unspecified Status: Inactive Assessment and Plan: Abdominal CT scan shows diffuse thickening of colon suggestive of colitis which could be infectious inflammatory Patient has not had any diarrhea since coming to ICU Stool studies along with C diff has been ordered and pending Continue Rocephin Flagyl Consult GI for evaluation for inflammatory bowel disease and obtain records from [facility] (8) Bilateral lower extremity edema: Code(s): R60.0 - Localized edema Status: Acute Assessment and Plan: Check lower extremity Dopplers Check BNP and echocardiogram Check thyroid function (9) Elevated liver enzymes: Code(s): R74.8 - Abnormal levels of other serum enzymes Status: Acute Assessment and Plan: Likely secondary to alcohol liver disease. CT scan reviewed GI consult Monitor levels (10) Thrombocytopenia: Code(s): D69.6 - Thrombocytopenia, unspecified Status: Acute Assessment and Plan: Likely secondary to alcohol abuse and liver disease Monitor Plan DVT prophylaxis -SCD Stress ulcer prophylaxis -PPI Nutrition -start diet after the ultrasound Code Status - Full Code Manager Etl Consult Note Consult date: 10/04/24 Reason for consult: Abdominal pain, diarrhea, alcohol withdrawal HPI: Nesha Roman is a 38 year old transgender male with past medical history of depression, alcohol addiction since age 17, GERD with esophagitis, eosinophilic esophagitis, alcohol withdrawal resulting in seizures and DVT associated with hormone therapy who presented to the ER via [employer] yesterday due to heavy alcohol use for 2 days.. Patient states that he has been sober for 4 months but 2 days ago he brought 1.75 L of vodka and drank it over 2 days. Have pain to it patient states he started having abdominal pain which was initially on the right side but then diffuse all over his belly. He also had diarrhea with 10 bowel movements which were mucousy but no blood in it. He denies any nausea vomiting hematemesis hematochezia melena. He denies any fever chest pain shortness a breath. He states that he had EGD and colonoscopy 2 years ago which was unremarkable. He has not followed up with GI doctor at [facility] regularly. He states he was diagnosed with good and esophagitis. He is not aware of any workup done for inflammatory bowel disease or irritable bowel syndrome. This morning patient states he feels markedly better and denies any pain except the abdominal pain that he is having and he states it is mild and diffuse all over his belly. Patient denies fever, chest pain, shortness of breath, cough, nausea vomiting, , diarrhea, headache or constipation. All the systems were reviewed and were negative Evaluation by ER physician suggested the patient was in alcohol withdrawal and he was given phenobarb. Patient was then admitted to ICU he did had elevated liver enzymes in the form alkaline phosphatase ALT and AST and bilirubin. He is currently on room air. He has not had any bowel movement since coming to the ICU Review of Systems 2 Review of Systems: All systems reviewed & are unremarkable except as noted in HPI and below (HPI) [facility] Past Medical History Medical History (Updated 10/04/24 @ 09:08 by Cody Rivas MD) Eosinophilic esophagitis Transgender female Pulmonary embolism (09/2023) Associated with estrogen therapy Fatty liver Black stools Peptic ulcer Kidney stones Anxiety Depression Asthma GERD (gastroesophageal reflux disease) Surgical History Surgical History (Updated 10/03/24 @ 20:24 by Sheila Zhang DO) History of laparoscopic cholecystectomy (01/15/23) Dr. Villasenor History of dental surgery History of esophagogastroduodenoscopy (EGD) Family History Family History (Updated 10/04/24 @ 03:21 by Sheila Zhang DO) Father Hypertension Diabetes mellitus Non Hodgkin's lymphoma Mother Hypertension Diabetes mellitus Parkinsons disease Grandparent Malignant neoplasm of prostate Lung cancer Grandparent Breast cancer Other Cerebrovascular accident Social History Social History (Updated 10/04/24 @ 03:20 by Sheila Zhang DO) Social History: Lifelong nonsmoker. No history of drug use. No history of IV drug use. 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 She has drink up to a handle of vodka a day and started drinking alcohol to excess at age 17. She has had various intervals of sobriety with relapses. Code status: Full Surrogate decision maker -Jackie Joel (friend) Smoking status: Never smoker Alcohol intake: current Drinks per week: 60 Alcohol use details: Up to a handle of vodka a day Substance use: never Substance use type: does not use Do You Feel Safe in your Home?: Yes Lack of Transportation: YES Lack of Food: Sometimes True Current Housing: I Have Housing Concerned About Future Housing: YES Difficulty Paying Gas/Electric Bills: YES Difficulty Paying for Meds: YES Currently Unemployed: YES Education: High School Diploma/GED Difficulty w/ Childcare or Family Care: No Living arrangements: with family Occupation/Education: occupation 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 Gender identity (if verbalized by the patient): Female Spiritual care concerns: No Meds Home Medications and Allergies Home Medications ?Medication ?Instructions ?Recorded ?Confirmed ?Type multivitamin 1 tablet PO DAILY 01/05/23 0 10/03/24 History famotidine 40 mg tablet 40 mg PO QHS 08/31/23 History pregabalin 75 mg capsule 75 mg PO DAILY 10/14/2309/15 History ibuprofen 600 mg tablet 600 mg PO Q6H PRN pain #20 t abs 11/09/23 10/03/24 Rx vitamin B complex 1 cap PO DAILY 01/24/2409/15 History folic acid 1 mg tablet 1 mg PO DAILY #30 tabs 01/2810/03/24 Rx ondansetron 4 mg disintegrating 4 mg PO Q6H PRN nausea and 02/26/24 10/03/24 Rx tablet vomiting #10 tabs omeprazole 20 mg capsule,delayed 20 mg PO BID 10/03/24 10/03/24 History release Allergies Allergy/AdvReac Type Severity Reaction Status Date / Time Penicillins Allergy Severe Anaphylaxis Verified 10/04/24 07:55 Vital Signs Vital Signs - 24 hr 10/03/24 16:12 10/03/24 19:19 10/03/24 20:00 Temperature 36.4 C 38.3 C H Pulse Rate 122 H 101 H 102 H Pulse Rate [Bilateral Pedal (Dorsalis Pedis) Palpation] Respiratory Rate 16 12 15 Blood Pressure 137/86 117/87 115/94 H Pulse Oximetry 98 99 99 Oxygen Delivery Room Air 10/03/24 20:00 10/03/24 20:30 10/03/24 22:00 Temperature Pulse Rate 111 H 101 H 101 H Pulse Rate [Bilateral Pedal (Dorsalis Pedis) Palpation] Respiratory Rate 12 Blood Pressure Pulse Oximetry 99 Oxygen Delivery Room Air 10/03/24 22:00 10/03/24 23:35 10/03/24 23:36 Temperature 37.9 C H Pulse Rate 101 H 82 Pulse Rate [Bilateral Pedal (Dorsalis Pedis) Palpation] 84 Respiratory Rate 12 12 Blood Pressure 112/87 Pulse Oximetry 99 96 Oxygen Delivery Room Air 10/04/24 00:00 10/04/24 00:00 10/04/24 02:00 Temperature 36.9 C Pulse Rate 95 100 74 Pulse Rate [Bilateral Pedal (Dorsalis Pedis) Palpation] Respiratory Rate 14 Blood Pressure 112/86 Pulse Oximetry 97 Oxygen Delivery 10/04/24 02:00 10/04/24 04:00 10/04/24 04:00 Temperature 36.7 C Pulse Rate 75 76 Pulse Rate [Bilateral Pedal (Dorsalis Pedis) Palpation] 75 Respiratory Rate 11 L 14 Blood Pressure 108/84 94/62 L Pulse Oximetry 96 99 Oxygen Delivery 10/04/24 04:00 10/04/24 04:12 10/04/24 06:00 Temperature Pulse Rate 81 81 67 Pulse Rate [Bilateral Pedal (Dorsalis Pedis) Palpation] Respiratory Rate 14 Blood Pressure Pulse Oximetry 98 Oxygen Delivery Room Air 10/04/24 06:00 10/04/24 08:00 10/04/24 08:00 Temperature 36.6 C Pulse Rate 67 80 Pulse Rate [Bilateral Pedal (Dorsalis Pedis) Palpation] 80 Respiratory Rate 15 16 Blood Pressure 103/79 104/73 104/73 Pulse Oximetry 96 97 Oxygen Delivery 10/04/24 08:00 10/04/24 08:00 Temperature Pulse Rate 80 80 Pulse Rate [Bilateral Pedal (Dorsalis Pedis) Palpation] Respiratory Rate 16 Blood Pressure Pulse Oximetry 97 Oxygen Delivery Room Air Exam 2 Narrative: General: Pt is alert awake and in NAD Lungs/Chest: Trachea central Clear BS B/L, No crackles or wheezing. Cardiac: RRR. Normal S1 S2. No murmurs Circulation: Pedal pulses are intact and symmetrical. Abdomen: Normal bowel sounds.. Soft. Mild diffuse tenderness to palpation. No guarding or rigidity Extremities: Mild pitting edema in both legs right more than left : Ambriz in place Neurologic: Follows commands. Moves all 4 extremities PERRL AO x3. No tremors Skin: Small area of bruising on the abdominal wall Results Labs 10/04/24 03:56 10/04/24 03:56 Labs: Short CBC 10/03/24 10/04/24 Range/Units 16:54 03:56 WBC 5.8 4.1 L (4.5-10.0) K/mm3 Hgb 13.5 L 11.8 L (14.0-18.0) g/dL Hct 38.9 L 34.9 L (42.0-52.0) % Plt Count 176 112 L (150-375) k/mm3 BMP 10/03/24 10/04/24 16:54 03:56 Sodium 131 L 131 L Potassium 3.7 3.4 Chloride 93 L 97 L Carbon Dioxide 19 L 29 BUN 2 L D < 2 L Creatinine 0.61 L 0.69 L Glucose 193 H 80 Calcium 9.0 8.2 L Liver Function 10/03/24 10/04/24 Range/Units 16:54 03:56 Total Bilirubin 3.0 H 2.5 H (0.2-1.3) mg/dL AST 426 H 247 H (17-59) U/L ALT 124 H 97 H (6-50) U/L Alkaline Phosphatase 622 H 480 H (38-126) U/L Albumin 4.1 3.3 L (3.5-5.1) g/dL Urine 10/03/24 Range/Units 16:54 Urine Color Dark yellow (Yellow) Urine Appearance Clear (Clear) Urine pH 7.0 (5.0-9.0) Ur Specific [place] 1.023 (1.001-1.035) Urine Protein 2+ H (Negative) mg/dL Urine Glucose (UA) Negative (Negative) mg/dL Quality VTE Prophylaxis VTE prophylaxis: mechanical ordered Hospitalist MIPS Advance Care Plan I have confirmed that the patient's Advanced Care Plan is present, code status is documented, or surrogate decision maker is listed in patient medical record.: Yes Medication Reconciliation I have utilized all available resources to obtain, update and review the patients current medications (includes all prescriptions, OTC, herbals, cannabis, and nutritional supplements).: Yes
[2024-10-04 10:16] LABS: NT Pro B Type Natriuretic Pept 106 pg/mL (19.9-100)
[2024-10-04] MEDS: POTASSIUM CHLORIDE 20 MEQ ER TABLET 40 MEQ PO (11:10)
[2024-10-04] MEDS: MULTIVITAMINS THERAPEUTIC TAB (*BKC) 1 TABLET PO (11:11)
[2024-10-04] MEDS: PREGABALIN (*CRX) 75 MG CAPSULE PO (11:11)
[2024-10-04] MEDS: THIAMINE HCL 100 MG TABLET PO (11:11)
[2024-10-04] MEDS: FOLIC ACID 1 MG TABLET PO (11:11)
--- NOTE | 2024-10-04 13:54 | P.CDI_ITS ---
CDI Query Clarification Request BMI: 21.3 Nutritional Diagnostic Statement: Please refer to the comprehensive nutrition assessment for further information. If you agree with diagnosis of Moderate Protein Calorie Malnutrition as related to increased protein needs in the setting of chronic disease as evidenced by < 75% EER needs for > 7 days and weight loss of 30 ibs (16%) in the past 3 months. Please specify severity if known: * Mild * Moderate * Severe * Other/Unknown <Cee Bonds RN - Last Filed: 10/04/24 13:56> Clarified Diagnosis Clarified Diagnosis: Moderate protein calorie malnutrition <Cody Rivas MD - Last Filed: 10/05/24 14:20>
--- NOTE | 2024-10-04 14:12 | PC.NURSE ---
Patient transfered to room 329 per bed. Report given to Maylin LIND. All questions answered. Belonging sent with patient.
[2024-10-04 14:34] LABS: Free T4 Free Thyroxine Reflex 1.56 ng/dL (0.78-2.19)
--- NOTE | 2024-10-04 14:35 | ADMGEN ---
This patient, Nesha Roman, was admitted to [facility] Room 329-01. Patient/family oriented to hospital policies and general routines including ID bracelet, bed and alarms, visiting hours, pain management, procedures, bathroom and other care routines, personal items, smoking policy, room service/diet, and visiting hours. Information on how to activate the Rapid Response Team has been discussed. Patient/Family are encouraged to report perceived risks to care and to ask questions if they do not understand what they are told or what they should do.
[2024-10-04 15:40] LABS: Total Triiodothyronine (T3) 1.48 NG/ML (0.82-1.58)
--- NOTE | 2024-10-04 16:44 | WPDGICN ---
Assessment and Plan Assessment and plan (1) Alcohol intoxication in relapsed alcoholic: Code(s): F10.21 - Alcohol dependence, in remission Status: Acute Assessment and Plan: probably cause of symptoms ciwa protocol, thiamine, nutrition support (2) Alcohol withdrawal: Qualifiers: Complication of substance-induced condition: uncomplicated Qualified Code(s): F10.930 - Alcohol use, unspecified with withdrawal, uncomplicated Code(s): F10.939 - Alcohol use, unspecified with withdrawal, unspecified Status: Acute (3) Elevated liver enzymes: Code(s): R74.8 - Abnormal levels of other serum enzymes Status: Acute Assessment and Plan: from heavy drinking and component of alcoholic hepatitis (4) Alcoholic hepatitis: Qualifiers: Ascites presence: without ascites Qualified Code(s): K70.10 - Alcoholic hepatitis without ascites Code(s): K70.10 - Alcoholic hepatitis without ascites Status: Acute (5) Abdominal pain: Code(s): R10.9 - Unspecified abdominal pain Status: Acute (6) Sepsis: Qualifiers: Sepsis type: sepsis due to unspecified organism Sepsis acute organ dysfunction status: with acute organ dysfunction Severe sepsis acute organ dysfunction type: acute liver failure Hepatic coma status: without hepatic coma Severe sepsis shock status: without septic shock Qualified Code(s): A41.9 - Sepsis, unspecified organism; R65.20 - Severe sepsis without septic shock; K72.00 - Acute and subacute hepatic failure without coma Code(s): A41.9 - Sepsis, unspecified organism Status: Acute (7) Abnormal CT scan, colon: Code(s): R93.3 - Abnormal findings on diagnostic imaging of other parts of digestive tract Status: Acute Assessment and Plan: last colonoscopy 2023 normal could have component of colitis now, will monitor empirically abx if more diarrhea then get cultures no need to repeat scopes GI Consult Note Consult date/time: 10/04/24 16:44 Reason for consult: alcohol abuse, abdominal pain HPI: Nesha Roman is a 38 year old male transgender male with past medical history of depression, alcohol addiction since age 17, GERD with esophagitis, eosinophilic esophagitis, alcohol withdrawal resulting in seizures and DVT associated with hormone therapy and previous hospitalization for pancreatitis, last EGD 09/02/2023 showed gastritis. Presented to the ER via [employer] due to heavy alcohol use for 2 days (has been sober for 4 months but 2 days ago had 1.75 L of vodka and drank it over 2 days). Admitted with abdominal pain which was initially on the right side but then diffuse all over his belly and also diarrhea. Last colonoscopy at [facility] 2023 was unremarkable. Here with elevated liver enzymes, CT scan showed Diffuse abnormal thickening of the colon, consistent with colitis, most likely infectious/inflammatory. No obstruction. Hepatomegaly with diffuse hepatic steatosis. Diagnosed of possible sepsis, alcohol intoxication with withdrawal. Review of Systems Constitutional: Constitutional: Reports weakness Eyes: Eyes: Denies blurry vision ENT: Reports Normal hearing present Cardiovascular: Cardiovascular: Denies chest pain Respiratory: Respiratory: Denies cough Gastrointestinal: Gastrointestinal: Reports abdominal pain Genitourinary: Genitourinary: Denies dysuria Musculoskeletal: Musculoskeletal: Denies arthralgias Integumentary/Breasts: Skin/Breast: Denies rash Neurologic: Denies Abnormal speech present Psychiatric: Psychiatric: Reports anxiety PMFSH Past Medical History Medical History (Updated 10/04/24 @ 16:49 by Tyrone Ortega MD) Abnormal CT scan, colon Eosinophilic esophagitis Transgender female Pulmonary embolism (09/2023) Associated with estrogen therapy Fatty liver Black stools Peptic ulcer Kidney stones Anxiety Depression Asthma GERD (gastroesophageal reflux disease) Surgical History Surgical History (Updated 10/03/24 @ 20:24 by Sheila Zhang DO) History of laparoscopic cholecystectomy (01/15/23) Dr. Villasenor History of dental surgery History of esophagogastroduodenoscopy (EGD) Family History Family History (Updated 10/04/24 @ 03:21 by Sheila Zhang DO) Father Hypertension Diabetes mellitus Non Hodgkin's lymphoma Mother Hypertension Diabetes mellitus Parkinsons disease Grandparent Malignant neoplasm of prostate Lung cancer Grandparent Breast cancer Other Cerebrovascular accident Social History Social History (Updated 10/04/24 @ 03:20 by Sheila Zhang DO) Social History: Lifelong nonsmoker. No history of drug use. No history of IV drug use. 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 She has drink up to a handle of vodka a day and started drinking alcohol to excess at age 17. She has had various intervals of sobriety with relapses. Code status: Full Surrogate decision maker -Jackie Peñayvon (friend) Smoking status: Never smoker Alcohol intake: current Drinks per week: 60 Alcohol use details: Up to a handle of vodka a day Substance use: never Substance use type: does not use Do You Feel Safe in your Home?: Yes Lack of Transportation: YES Lack of Food: Sometimes True Current Housing: I Have Housing Concerned About Future Housing: YES Difficulty Paying Gas/Electric Bills: YES Difficulty Paying for Meds: YES Currently Unemployed: YES Education: High School Diploma/GED Difficulty w/ Childcare or Family Care: No Living arrangements: with family Occupation/Education: occupation 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 Gender identity (if verbalized by the patient): Female Spiritual care concerns: No Meds Home Medications and Allergies Home Medications ?Medication ?Instructions ?Recorded ?Confirmed ?Type multivitamin 1 tablet PO DAILY 01/05/23 10/03/24 History famotidine 40 mg tablet 40 mg PO QHS 08/31/23 10/03/24 History pregabalin 75 mg capsule 75 mg PO DAILY 10/14/23 10/03/24 History ibuprofen 600 mg tablet 600 mg PO Q6H PRN pain #20 tabs 11/09/23 10/03/24 Rx vitamin B complex 1 cap PO DAILY 01/24/24 10/03/24 History folic acid 1 mg tablet 1 mg PO DAILY #30 tabs 01/29/24 10/03/24 Rx ondansetron 4 mg disintegrating 4 mg PO Q6H PRN nausea and 02/26/24 10/03/24 Rx tablet vomiting #10 tabs omeprazole 20 mg capsule,delayed 20 mg PO BID 10/03/24 10/03/24 History release Allergies Allergy/AdvReac Type Severity Reaction Status Date / Time Penicillins Allergy Severe Anaphylaxis Verified 10/04/24 07:55 Vital Signs Vital Signs - 24 hr 10/03/24 19:19 10/03/24 20:00 10/03/24 20:00 Temperature 100.9 F H Pulse Rate 101 H 102 H 111 H Pulse Rate [Bilateral Pedal (Dorsalis Pedis) Palpation] Respiratory Rate 12 15 Blood Pressure 117/87 115/94 H Pulse Oximetry 99 99 Oxygen Delivery 10/03/24 20:30 10/03/24 22:00 10/03/24 22:00 Temperature 100.2 F H Pulse Rate 101 H 101 H 101 H Pulse Rate [Bilateral Pedal (Dorsalis Pedis) Palpation] Respiratory Rate 12 12 Blood Pressure 112/87 Pulse Oximetry 99 99 Oxygen Delivery Room Air 10/03/24 23:35 10/03/24 23:36 10/04/24 00:00 Temperature 98.4 F Pulse Rate 82 95 Pulse Rate [Bilateral Pedal (Dorsalis Pedis) Palpation] 84 Respiratory Rate 12 14 Blood Pressure 112/86 Pulse Oximetry 96 97 Oxygen Delivery Room Air 10/04/24 00:00 10/04/24 02:00 10/04/24 02:00 Temperature Pulse Rate 100 74 75 Pulse Rate [Bilateral Pedal (Dorsalis Pedis) Palpation] Respiratory Rate 11 L Blood Pressure 108/84 Pulse Oximetry 96 Oxygen Delivery 10/04/24 04:00 10/04/24 04:00 10/04/24 04:00 Temperature 98.1 F Pulse Rate 76 81 Pulse Rate [Bilateral Pedal (Dorsalis Pedis) Palpation] 75 Respiratory Rate 14 Blood Pressure 94/62 L Pulse Oximetry 99 Oxygen Delivery 10/04/24 04:12 10/04/24 06:00 10/04/24 06:00 Temperature Pulse Rate 81 67 67 Pulse Rate [Bilateral Pedal (Dorsalis Pedis) Palpation] Respiratory Rate 14 15 Blood Pressure 103/79 Pulse Oximetry 98 96 Oxygen Delivery Room Air 10/04/24 08:00 10/04/24 08:00 10/04/24 08:00 Temperature 97.8 F Pulse Rate 80 80 Pulse Rate [Bilateral Pedal (Dorsalis Pedis) Palpation] 80 Respiratory Rate 16 16 Blood Pressure 104/73 104/73 Pulse Oximetry 97 97 Oxygen Delivery Room Air 10/04/24 08:00 10/04/24 10:00 10/04/24 12:00 Temperature Pulse Rate 80 69 Pulse Rate [Bilateral Pedal (Dorsalis Pedis) Palpation] Respiratory Rate 8 L Blood Pressure 96/70 L 109/80 Pulse Oximetry 97 Oxygen Delivery 10/04/24 14:54 Temperature 97.7 F Pulse Rate 80 Pulse Rate [Bilateral Pedal (Dorsalis Pedis) Palpation] Respiratory Rate 16 Blood Pressure 96/72 L Pulse Oximetry 97 Oxygen Delivery Exam Narrative: General: Pt is alert awake and in NAD Lungs/Chest: Trachea central Clear BS B/L, No crackles or wheezing. Cardiac: RRR. Normal S1 S2. No murmurs Circulation: Pedal pulses are intact and symmetrical. Abdomen: Normal bowel sounds.. Soft. Mild diffuse tenderness to palpation. No guarding or rigidity Extremities: Mild pitting edema in both legs right more than left : Ambriz in place Neurologic: Follows commands. Moves all 4 extremities PERRL AO x3. No tremors Skin: Small area of bruising on the abdominal wall Results Labs 10/04/24 03:56 10/04/24 03:56 Labs: Short CBC 10/03/24 10/04/24 Range/Units 16:54 03:56 WBC 5.8 4.1 L (4.5-10.0) K/mm3 Hgb 13.5 L 11.8 L (14.0-18.0) g/dL Hct 38.9 L 34.9 L (42.0-52.0) % Plt Count 176 112 L (150-375) k/mm3 BMP 10/03/24 10/04/24 16:54 03:56 Sodium 131 L 131 L Potassium 3.7 3.4 Chloride 93 L 97 L Carbon Dioxide 19 L 29 BUN 2 L D < 2 L Creatinine 0.61 L 0.69 L Glucose 193 H 80 Calcium 9.0 8.2 L Liver Function 10/03/24 10/04/24 Range/Units 16:54 03:56 Total Bilirubin 3.0 H 2.5 H (0.2-1.3) mg/dL AST 426 H 247 H (17-59) U/L ALT 124 H 97 H (6-50) U/L Alkaline Phosphatase 622 H 480 H (38-126) U/L Albumin 4.1 3.3 L (3.5-5.1) g/dL Urine 10/03/24 Range/Units 16:54 Urine Color Dark yellow (Yellow) Urine Appearance Clear (Clear) Urine pH 7.0 (5.0-9.0) Ur Specific [place] 1.023 (1.001-1.035) Urine Protein 2+ H (Negative) mg/dL Urine Glucose (UA) Negative (Negative) mg/dL
[2024-10-04] MEDS: cefTRIAXone 1 GM in SODIUM CHLORIDE 0.9% IV 50 ML 100 ML IVPB (20:27)
[2024-10-05] VITALS (8 sets, daily range): BP systolic 109–119; BP diastolic 67–90; PULSE 76–98; RESP 16–18; TEMP 35.9–36.8; O2SAT 95–100
[2024-10-05] MEDS: MORPHINE SULFATE (*CRX) 4 MG/ML INJ IV PUSH ×5 (01:04→22:21)
[2024-10-05] MEDS: LORazepam INJ (*CRX) 2 MG/ML VIAL 1 MG IV PUSH (03:22)
[2024-10-05] MEDS: metroNIDAZOLE 500 MG/ISO 100ML 500 MG/100 ML BAG 100 MG IVPB ×3 (06:10→22:18)
[2024-10-05] MEDS: PREGABALIN (*CRX) 75 MG CAPSULE PO (08:49)
[2024-10-05] MEDS: THIAMINE HCL 100 MG TABLET PO (08:49)
[2024-10-05] MEDS: MULTIVITAMINS THERAPEUTIC TAB (*BKC) 1 TABLET PO (08:49)
[2024-10-05] MEDS: FOLIC ACID 1 MG TABLET PO (08:49)
[2024-10-05] MEDS: PANTOPRAZOLE SODIUM IV 40 MG VIAL IV PUSH ×2 (08:49→21:15)
[2024-10-05 10:17] LABS: Alanine Aminotransferase 73 U/L (6-50); Albumin Level 3.1 g/dL (3.5-5.1); Alkaline Phosphatase 406 U/L (38-126); Anion Gap 7 mmol/L (4-12); Aspartate Amino Transferase 136 U/L (17-59); Bilirubin,Total 1.8 mg/dL (0.2-1.3); Calcium 8.0 mg/dL (8.4-10.2); Carbon Dioxide 22 mmol/L (22-30); Chloride 103 mmol/L (98-107); Estimated CRCL calculation 157 ml/min; Estimated Glomerular Filt Rate > 60; Glucose 133 mg/dL (65-110); Magnesium 1.7 mg/dL (1.6-2.3); Potassium 3.3 mmol/L (3.4-5.0); Sodium 132 mmol/L (137-145); Total Protein 6.1 g/dL (6.3-8.2)
[2024-10-05 10:24] LABS: Blood Urea Nitrogen < 2 mg/dL (9-20)
[2024-10-05 12:08] LABS: Triiodothyronine (T3), Free 4.8 pg/mL (2.0-4.4)
[2024-10-05] MEDS: KCL 20MEQ/0.9% SOD CHL 1,000 ML 100 ML IV CONT (13:47)
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
--- NOTE | 2024-10-05 16:50 | WPDGIPROGNO ---
Progress Note: A&P Assessment and Plan (1) Alcoholic hepatitis: Qualifiers: Ascites presence: without ascites Qualified Code(s): K70.10 - Alcoholic hepatitis without ascites Code(s): K70.10 - Alcoholic hepatitis without ascites Status: Acute Assessment and Plan: this is probably most likely reason of presentation with elevated enzymes, pain, nausea and vomiting feeling better and eating more also alcoholic fatty liver- this is probably abnormal imaging in ultrasound- pending mri liver probably can go home tomorrow patient is planning to get support again and hopefully get back in rehab advance diet as tolerated, thiamine, nutrition support will follow as needed (2) Elevated liver enzymes: Code(s): R74.8 - Abnormal levels of other serum enzymes Status: Acute Assessment and Plan: trending down (3) Nausea & vomiting: Code(s): R11.2 - Nausea with vomiting, unspecified Status: Acute Assessment and Plan: better (4) Abdominal pain: Code(s): R10.9 - Unspecified abdominal pain Status: Acute (5) Alcoholic fatty liver: Code(s): K70.0 - Alcoholic fatty liver Status: Acute (6) Alcohol intoxication in relapsed alcoholic: Code(s): F10.21 - Alcohol dependence, in remission Status: Acute Subjective Date/time seen: 10/05/24 16:50 Interval history: no more emesis and doing better, trying to eat more no BM still some abdominal discomfort anxiety has improved with medication Review of Systems Review of Systems: All systems reviewed & are unremarkable except as noted in HPI and below Exam Narrative: General: Pt is alert awake and in NAD Lungs/Chest: Trachea central Clear BS B/L, No crackles or wheezing. Cardiac: RRR. Normal S1 S2. No murmurs Circulation: Pedal pulses are intact and symmetrical. Abdomen: Normal bowel sounds.. Soft. Mild diffuse tenderness to palpation. No guarding or rigidity Extremities: Mild pitting edema in both legs right more than left : Ambriz in place Neurologic: Follows commands. Moves all 4 extremities PERRL AO x3. No tremors Skin: Small area of bruising on the abdominal wall Objective Data Vital Signs Vital Signs: Vital Signs - 24 hr 10/04/24 20:00 10/04/24 20:00 10/04/24 21:50 Temperature Pulse Rate 98 98 95 Respiratory Rate 18 20 Blood Pressure Pulse Oximetry 95 96 Oxygen Delivery Room Air Room Air Fraction of Inspired Oxygen 21 10/05/24 00:00 10/05/24 06:03 10/05/24 08:00 Temperature 97.1 F L 98.2 F Pulse Rate 98 79 Respiratory Rate 18 18 Blood Pressure 115/82 109/67 Pulse Oximetry 95 100 Oxygen Delivery Room Air Fraction of Inspired Oxygen 10/05/24 14:00 Temperature 96.7 F L Pulse Rate 87 Respiratory Rate 18 Blood Pressure 109/80 Pulse Oximetry 97 Oxygen Delivery Fraction of Inspired Oxygen Intake/Output Intake/Output: Intake & Output 10/02/24 10/03/24 10/04/24 10/05/24 23:59 23:59 23:59 23:59 Intake Total 2300 3114 1662 Output Total 500 650 Balance 1800 2464 1662 Meds/Results Medications: Active Medications Generic Name Dose Route Start Last Admin Trade Name Freq PRN Reason Stop Dose Admin Acetaminophen 500 mg 10/03/24 21:34 Acetaminophen 500 Mg Tablet PO Q4H PRN Mild Pain (1-3) or Fever Enoxaparin Sodium 40 mg 10/06/24 09:00 Enoxaparin 40 Mg/0.4 Ml Syringe SUB-Q DAILY TORITO Folic Acid 1 mg 10/04/24 09:00 10/05/24 08:49 Folic Acid 1 Mg Tablet PO 1 mg DAILY TORITO Administration Ceftriaxone Sodium 1 gm/ 50 mls @ 100 mls/hr 10/03/24 21:00 10/04/24 20:57 Sodium Chloride IVPB Infused Q24H TORITO Infusion Metronidazole 500 mg in 100 mls @ 100 mls/hr 10/03/24 22:00 10/05/24 13:47 Flagyl 500 Mg/Iso Soln 100 Ml IVPB 100 mls/hr Q8H TORITO Administration Potassium Chloride/Sodium Chloride 1,000 mls @ 100 mls/hr 10/04/24 08:15 10/05/24 13:47 Kcl 20 Meq/Ns IV CONT 100 mls/hr .Q10H TORITO Administration Lorazepam 1 mg 10/05/24 11:31 Lorazepam (*Crx) 1 Mg Tablet BY MOUTH Q2H PRN CIWA Score 8-15 Lorazepam 2 mg 10/05/24 11:32 Lorazepam (*Crx) 1 Mg Tablet BY MOUTH Q2H PRN CIWA Score > 15 Morphine Sulfate 4 mg 10/03/24 20:34 10/05/24 16:45 Morphine Sulfate (*Crx) 4 Mg/Ml Inj IV PUSH 4 mg Q4H PRN Administration Pain Rated 7-10 Multivitamins Therapeutic 1 tablet 10/04/24 09:00 10/05/24 08:49 Multivitamins Therapeutic Tab (*Bkc) PO 1 tablet DAILY TORITO Administration Ondansetron HCl 4 mg 10/03/24 19:57 10/04/24 00:46 Ondansetron Inj 4 Mg/2 Ml Vial IV PUSH 4 mg Q6H PRN Administration Nausea And Vomiting Pantoprazole Sodium 40 mg 10/04/24 09:00 10/05/24 08:49 Pantoprazole Sodium Iv 40 Mg Vial IV PUSH 40 mg Q12HR TORITO Administration Perflutren Lipid Microsphere 0 ml 10/04/24 09:03 Perflutren Lipid Microspheres 1.5 Ml Vial Diluted To 10 Ml Total Volume IV PUSH 10/07/24 09:03 ONCE PRN adequate visualization Protocol Pregabalin 75 mg 10/04/24 09:00 10/05/24 08:49 Pregabalin (*Crx) 75 Mg Capsule PO 75 mg DAILY TORITO Administration Thiamine HCl 100 mg 10/04/24 09:00 10/05/24 08:49 Thiamine Hcl 100 Mg Tablet PO 100 mg QAM TORITO Administration Radiology Results: ITS Impressions Abdomen/Pelvis CT 10/03/24 19:00 IMPRESSION: 1. Diffuse abnormal thickening of the colon, consistent with colitis, most likely infectious/inflammatory. No obstruction. 2: Hepatomegaly with diffuse hepatic steatosis. Venous Doppler Study 10/04/24 11:57 Impression: No evidence of deep venous thrombosis Abdomen Ultrasound 10/04/24 12:27 IMPRESSION: 1: Liver is hyperechoic likely due to fatty infiltration and/or hepatocellular disease. Consider a liver mass CT or MRI for further assessment. 2. Cholecystectomy. 3. Limited study as above. Labs Labs: Laboratory Results - last 24 hr 10/04/24 10/05/24 03:56 09:40 Sodium 132 L Potassium 3.3 L Chloride 103 Carbon Dioxide 22 Anion Gap 7 BUN < 2 L Creatinine 0.58 L Estim Creat Clear Calc 157 Estimated GFR > 60 Glucose 133 H Calcium 8.0 L Magnesium 1.7 Total Bilirubin 1.8 H AST 136 H ALT 73 H Alkaline Phosphatase 406 H Total Protein 6.1 L Albumin 3.1 L Free T3 pg/mL 4.8 H
[2024-10-05] MEDS: cefTRIAXone 1 GM in SODIUM CHLORIDE 0.9% IV 50 ML 100 ML IVPB (21:05)
[2024-10-05] MEDS: LORazepam (*CRX) 1 MG TABLET BY MOUTH (21:13)
[2024-10-05] MEDS: ONDANSETRON INJ 4 MG/2 ML VIAL IV PUSH (21:15)
[2024-10-06] VITALS (8 sets, daily range): BP systolic 105–111; BP diastolic 78–82; PULSE 65–95; RESP 16–18; TEMP 36.2–36.3; O2SAT 99–100
[2024-10-06] MEDS: LORazepam (*CRX) 1 MG TABLET BY MOUTH ×2 (00:52→06:27)
[2024-10-06] MEDS: KCL 20MEQ/0.9% SOD CHL 1,000 ML 100 ML IV CONT (00:52)
[2024-10-06] MEDS: MORPHINE SULFATE (*CRX) 4 MG/ML INJ IV PUSH ×2 (03:53→09:26)
[2024-10-06] MEDS: metroNIDAZOLE 500 MG/ISO 100ML 500 MG/100 ML BAG 100 MG IVPB ×3 (06:19→22:00)
[2024-10-06 06:20] LABS: Hematocrit 41.1 % (42.0-52.0); Hemoglobin 13.1 g/dL (14.0-18.0); Immature Granulocyte Percent A 0.8 % (0-0.5); Immature Platelet Fraction Pct 8.3 % (0.9-11.2); Lymphocytes Absolute Auto 1.70 K/mm3 (0.9-3.2); Mean Corpuscular HGB Conc 31.9 g/dl (32-36); Mean Corpuscular Hemoglobin 32.8 pg (26-34); Mean Corpuscular Volume 102.8 fl (80-100); Nucleated Red Blood Cells Absolute Auto 0.000 K/mm3 (0.0-0.012); Nucleated Red Blood Cells Perc 0.0 % (0.0-0.2); Platelet Count Result 104 k/mm3 (150-375); Red Blood Count 4.00 M/mm3 (4.6-6.20); White Blood Count 5.0 K/mm3 (4.5-10.0)
[2024-10-06 06:41] LABS: Alanine Aminotransferase 73 U/L (6-50); Albumin Level 3.8 g/dL (3.5-5.1); Alkaline Phosphatase 488 U/L (38-126); Anion Gap 7 mmol/L (4-12); Aspartate Amino Transferase 103 U/L (17-59); Bilirubin,Total 1.3 mg/dL (0.2-1.3); Calcium 8.7 mg/dL (8.4-10.2); Carbon Dioxide 25 mmol/L (22-30); Chloride 103 mmol/L (98-107); Estimated CRCL calculation 156 ml/min; Estimated Glomerular Filt Rate > 60; Glucose 94 mg/dL (65-110); Magnesium 1.8 mg/dL (1.6-2.3); Potassium 3.7 mmol/L (3.4-5.0); Sodium 135 mmol/L (137-145); Total Protein 7.4 g/dL (6.3-8.2)
[2024-10-06 07:17] LABS: Blood Urea Nitrogen < 2 mg/dL (9-20)
[2024-10-06] MEDS: ENOXAPARIN 40 MG/0.4 ML SYRINGE SUB-Q (08:40)
[2024-10-06] MEDS: PANTOPRAZOLE SODIUM IV 40 MG VIAL IV PUSH ×2 (08:40→21:21)
[2024-10-06] MEDS: THIAMINE HCL 100 MG TABLET PO (08:41)
[2024-10-06] MEDS: FOLIC ACID 1 MG TABLET PO (08:41)
[2024-10-06] MEDS: PREGABALIN (*CRX) 75 MG CAPSULE PO (08:41)
[2024-10-06] MEDS: MULTIVITAMINS THERAPEUTIC TAB (*BKC) 1 TABLET PO (08:47)
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
[2024-10-06] MEDS: HYDROcodone/acetaminophen (*CRX) 5-325 MG TABLET 1 TAB PO ×2 (14:26→21:31)
[2024-10-06] MEDS: cefTRIAXone 1 GM in SODIUM CHLORIDE 0.9% IV 50 ML 100 ML IVPB (21:21)
[2024-10-07] VITALS: PULSE 75
[2024-10-07] MEDS: MORPHINE SULFATE (*CRX) 4 MG/ML INJ IV PUSH (00:41)
[2024-10-07] MEDS: LORazepam (*CRX) 1 MG TABLET BY MOUTH (02:09)
[2024-10-07 04:00] VITALS: PULSE 73
[2024-10-07] MEDS: HYDROcodone/acetaminophen (*CRX) 5-325 MG TABLET 1 TAB PO ×2 (04:26→08:50)
[2024-10-07 05:46] VITALS: BP 110/82; PULSE 85; RESP 18; TEMP 36; O2SAT 100
[2024-10-07] MEDS: metroNIDAZOLE 500 MG/ISO 100ML 500 MG/100 ML BAG 100 MG IVPB (06:39)
[2024-10-07 08:30] VITALS: PULSE 66
[2024-10-07 08:45] LABS: Hematocrit 38.3 % (42.0-52.0); Hemoglobin 12.2 g/dL (14.0-18.0); Immature Platelet Fraction Pct 8.2 % (0.9-11.2); Mean Corpuscular HGB Conc 31.9 g/dl (32-36); Mean Corpuscular Hemoglobin 32.4 pg (26-34); Mean Corpuscular Volume 101.9 fl (80-100); Platelet Count Result 101 k/mm3 (150-375); Red Blood Count 3.76 M/mm3 (4.6-6.20); White Blood Count 4.6 K/mm3 (4.5-10.0)
[2024-10-07] MEDS: THIAMINE HCL 100 MG TABLET PO (08:45)
[2024-10-07] MEDS: MULTIVITAMINS THERAPEUTIC TAB (*BKC) 1 TABLET PO (08:45)
[2024-10-07] MEDS: PREGABALIN (*CRX) 75 MG CAPSULE PO (08:45)
[2024-10-07] MEDS: FOLIC ACID 1 MG TABLET PO (08:45)
[2024-10-07] MEDS: PANTOPRAZOLE SODIUM IV 40 MG VIAL IV PUSH (08:46)
[2024-10-07 09:13] LABS: Alanine Aminotransferase 48 U/L (6-50); Albumin Level 3.3 g/dL (3.5-5.1); Alkaline Phosphatase 366 U/L (38-126); Anion Gap 3 mmol/L (4-12); Aspartate Amino Transferase 70 U/L (17-59); Bilirubin,Total 0.9 mg/dL (0.2-1.3); Blood Urea Nitrogen 2 mg/dL (9-20); Calcium 9.0 mg/dL (8.4-10.2); Carbon Dioxide 30 mmol/L (22-30); Chloride 104 mmol/L (98-107); Estimated CRCL calculation 142 ml/min; Estimated Glomerular Filt Rate > 60; Glucose 115 mg/dL (65-110); Potassium 4.1 mmol/L (3.4-5.0); Sodium 137 mmol/L (137-145); Total Protein 6.5 g/dL (6.3-8.2)
[2024-10-07 12:00] VITALS: PULSE 83
--- NOTE | 2024-10-07 12:50 | PM.DS ---
DS: Admitting Diagnosis Discharge Date 10/07/24 Admitting Diagnosis Allcohol intoxication DS: Discharge Diagnosis Discharge Diagnosis (1) Alcohol intoxication in relapsed alcoholic: Code(s): F10.21 - Alcohol dependence, in remission Status: Acute DS: Summary Hospital Course Hospital Course: 38-year-old transgender female with a past medical history of depression, alcohol addiction since age 17, GERD with esophagitis, eosinophilic esophagitis, alcohol withdrawal resulting in seizures and DVT associated with hormone therapy who presented to the ER via [employer] due to heavy alcohol use for 2 days. The patient reports that she had been sober from alcohol for 4 months but 2 days ago got into a fight with her mother over the phone and drink 1 L voc over the last 2 days. Patient relapsed for 2 days otherwise has been sober for 4 months. counseled about alcohol cessation Elevated liver enzymes likely from alcohol use trending down. CT Ap showed colitis and patient treated with and discharged on abx 5 days more of levaquin and Flagyl. US liver showed possible liver mass, MRI showed only hepatic stratosis and excluded mass. GI was involved in his care. patient discharged on 5 more days of abx as above and will follow up with PCP in 3-5 days, Gi as instructed Time Spent with Patient Time attestation: Total time spent providing and/or coordinating discharge services: DS: Data Data Completed and Pending Labs on day of discharge: Labs from last 24 hours 10/07/24 08:33 WBC 4.6 RBC 3.76 L Hgb 12.2 L Hct 38.3 L MCV 101.9 H MCH 32.4 MCHC 31.9 L RDW 15.9 H Plt Count 101 L MPV 11.1 H % Immature Plt Fraction 8.2 Sodium 137 Potassium 4.1 Chloride 104 Carbon Dioxide 30 Anion Gap 3 L BUN 2 L Creatinine 0.68 L Estim Creat Clear Calc 142 Estimated GFR > 60 Glucose 115 H Calcium 9.0 Total Bilirubin 0.9 AST 70 H ALT 48 Alkaline Phosphatase 366 H Total Protein 6.5 Albumin 3.3 L Preliminary micro results at discharge 10/03/24 21:31 Blood Culture - Preliminary Blood 10/03/24 21:31 Blood Culture - Preliminary Blood Discharge Plan Discharge Attending physician on discharge: Africa Fajardo Consulting providers: Cody Rivas Discharging Clinician: Africa Fajardo Anticipated Discharge Date/Time: 10/07/24 12:48 Patient Disposition: Home Activity: as tolerated Diet: as tolerated and regular Patient Instructions: Antibiotic Form, Cirrhosis of the Liver (GEN), Depression (GEN), Alcohol Use Disorder (GEN), Suicide Prevention (GEN) Patient Language: Icelandic Stand Alone Forms: General Discharge Information Follow-up/Referrals: Isidro,Tiffanie [Other] Referral Note: F/u with PCP in 3-5 days Discharge Medications: New thiamine HCl (vitamin B1) [Vitamin B-1] 100 mg Tablet 100 mg PO QAM 30 Days Qty: 30 0RF levofloxacin 750 mg tablet 750 mg PO DAILY Qty: 5 0RF metronidazole 500 mg tablet 500 mg PO Q8H 5 Days Qty: 15 0RF Continued multivitamin Tablet 1 tablet PO DAILY ibuprofen 600 mg tablet 600 mg PO Q6H PRN (Reason: pain) Qty: 20 0RF Rx Instructions: Take with caution as this combined with your Xarelto can increase bleeding risk. vitamin B complex Capsule 1 cap PO DAILY folic acid 1 mg Tablet 1 mg PO DAILY Qty: 30 0RF ondansetron 4 mg tablet,disintegrating 4 mg PO Q6H PRN (Reason: nausea and vomiting) Qty: 10 0RF famotidine 40 mg tablet 40 mg PO QHS Patient Comments: TAKES AT HS pregabalin 75 mg capsule 75 mg PO DAILY omeprazole 20 mg capsule,delayed release(DR/EC) 20 mg PO BID Date of admission: 10/03/24 18:30 Primary Care Provider: Isidro,Tiffanie Admitting Provider: Tigre Espinal Attending physician on admission: Tigre Espinal Condition: Serious
== END 2024-10-07 14:15 | disposition home or self-care (01) | DRG 720 ==
LOC: ANHED 18:53 → ANHICU 21:51 → ANH3MEDSUR 10-07 12:48 → ANHICU 10-09 14:17
PROVIDERS: Internal Medicine; Physician Assistant; Admitting Provider Internal Medicine; Emergency Provider Emergency Medicine; Visit Provider Internal Medicine
DX: A41.9 Sepsis, unspecified organism (principal); E44.0 Moderate protein-calorie malnutrition; Z68.22 Body mass index [BMI] 22.0-22.9, adult; K70.10 Alcoholic hepatitis without ascites; A09 Infectious gastroenteritis and colitis, unspecified; R65.20 Severe sepsis without septic shock; F10.230 Alcohol dependence with withdrawal, uncomplicated; F10.21 Alcohol dependence, in remission; K72.00 Acute and subacute hepatic failure without coma; R16.0 Hepatomegaly, not elsewhere classified; K76.0 Fatty (change of) liver, not elsewhere classified; E88.89 Other specified metabolic disorders; D69.6 Thrombocytopenia, unspecified; E83.42 Hypomagnesemia; E87.6 Hypokalemia; K21.00 Gastro-esophageal reflux disease with esophagitis, without bleeding; R60.0 Localized edema; J45.909 Unspecified asthma, uncomplicated; F41.9 Anxiety disorder, unspecified; F32.A Depression, unspecified; F64.0 Transsexualism; Z79.899 Other long term (current) drug therapy; Z88.0 Allergy status to penicillin; Z86.711 Personal history of pulmonary embolism
CPT/HCPCS: 36415; 74176; 74183; 76705; 80053; 80307; 81001; 82077; 82948; 83690; 83735; 83880; 84100; 84439; 84443; 84480; 84481; 85025; 85027; 85055; 85610; 85730; 87040; 87641; 93306; 93970; 96361; 96374; 96375; 96376; 99285; A9270; A9577; J0696; J1650; J1836; J2060; J2270; J2405; J2470; J2560; J3411; J3475; J3480; J7030; J7120